=== PATIENT | female | born 1960 | race Caucasian/White ===

== ENCOUNTER 2025-09-22 18:59 | Emergency (ER) | payer OTHER, SELFPAY ==
--- OUTSIDE RECORDS SUMMARY | 2025-08-16 04:53 | XMS_ITS | Encounter Summary ---
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 200 [place] [address] Phone: tel: fax: Referral ID Status Reason Start Date Expiration Date Visits Re quested Visits Authorized [id number] 1 1 Encounter Details Date Type Department Care Team (Late st Contact Info) Description 08/16/2025 5:53 AM CDT - 08/16/2025 11:19 AM CDT Hospital Encounter [facility] MAIN OR [address] [place] [phone] Stephon Galindo D.O., M.B.A. [address] [place] [phone] Malignant Neoplasm Of Pancreas Body (HCC) Discharge Disposition: Home or Self Care Social History Tobacco Use Types Packs/Day Years Used Date Smoking Tobacco: Never Smokeless Tobacco: Never Alcohol Use Standard Drinks/Week Comments Not Currently 2 (1 standard drink = 0.6 oz pur e alcohol) [facility] Utilities Answer Date Recorded In the past 12 months has th e electric, gas, oil, or water company threatened to shut off services in your home? No 03/21/2025 Hunger Vital Sign Answer Date Recorded Within the past 12 months, y ou worried that your food would run out before you got the money to buy more. Never true 03/21/20 25 Within the past 12 months, t he food you bought just didn't last and you didn't have money to get more. Never true 03/21/2025 PRAPARE - Transportation Answer Date Re corded In the past 12 months, has l ack of transportation kept you from medical appointments or from getting medications? No 03/03 In the past 12 months, has l ack of transportation kept you from meetings, work, or from getting things needed for daily living? No 03/21/2025 Housing Stability Answer Date Recorded What is your living situation today? I have a [facility] place to live 03/21/2025 Comments No Sex and Gender Information Value Date Recorded Sex Assigned at Female 03/21/2025 4:39 PM CDT Legal Sex Female 10:00 PM INTERIOR BLOCK WIRER Gender Identity Female 03/21/2025 4:39 PM CDT Sexual Orientation Straight 03/21/2025 4: 39 PM CDT documented as of this encounter Last Filed Vital Signs Vital Sign Reading Time Taken Comments Blood Pressure 108/62 08/16/2025 10:45 AM CDT Pulse 63 08/16/2025 10:45 AM CDT Temperature 36.3 C (97.3 F) 08/16/2025 6:45 AM CDT Respiratory Rate 10 08/16/2025 10:2 0 AM CDT Oxygen Saturation 99% 08/16/2025 10: 45 AM CDT Inhaled Oxygen Concentration - - Weight 53.5 kg (117 lb 15.1 oz) 08/16/2025 6:54 AM CDT Height 175 cm (5' 8.9) 08/16/2025 6:45 AM CDT Body Mass Index 17.47 08/16/2025 6:45 AM CDT documented in this encounter Medications at Time of Discharge acetaminophen (TylenoL) 500 mg tablet Take 2 tablets (1,000 mg total) by mouth every 6 (six) hours as needed for pain (pain). Take 2 tablets up to four times daily for pain 04/12/2025 ascorbic acid, vitamin C, (Vitamin C) 1,000 mg CR tablet Take 1,000 mg by mouth daily. BERBERINE CHLORIDE ORAL Take 1 tablet by mouth daily before morning meal. Reports indication is blood sugar control cholecalciferol, vitD3,/vit K2 (VITAMIN D3-VITAMIN K2 ORAL) Take 1 tablet by mouth daily. Reports low vitamin D level in the past. Product documented was vitamin D3 6000 units, vitamin K2 100 mcg (did not confirm product) enoxaparin (Lovenox) 40 mg/0.4 mL injection Inject 0.4 mL (40 mg total) under the skin at bedtime. Blood clotting prevention. 10 mL 09/05/2025 12:12 PM INTERIOR BLOCK WIRER 09/05/2025 5 estradiol 0.03 %, testosterone 0.01 % in versabase lotion Apply 1 g topically as directed. Apply to legs or buttock area 6 days of the week. Cream contains an estrogen and testosterone (did not confirm strengths) fluticasone propionate (Flonase) 50 mcg/actuation nasal spray Administer 1 spray into each nostril 2 (two) times a day as needed for rhinitis or allergies. 03/07/2015 ibuprofen 200 mg tablet Take 400 mg by mouth every 6 (six) hours as needed for pain. MAGNESIUM ORAL Take 1 capsule by mouth at bedtime. Reports indication is to promote sleep melatonin 3 mg tablet Take 2 tablets (6 mg total) by mouth at bedtime as needed for sleep. 09/05/2025 OLANZapine (ZyPREXA) 5 mg tabletIndications :Malignant Neoplasm Of Pancreas Body (HCC) Take 1 tablet (5 mg total) by mouth at bedtime as needed (nausea, vomiting). May take dose early if needed. 30 tablet 3 04/12/2025 6 ondansetron (Zofran) 8 mg tabletIndications :Malignant Neoplasm Of Pancreas Body (HCC) Take 1 tablet (8 mg total) by mouth every 8 (eight) hours as needed for nausea or vomiting (unrelieved by prochlorperazine) . 30 tablet 3 04/12/2025 6 oxyCODONE (Roxicodone) 5 mg immediate release tabletIndications :Acute Pain Take 1 tablet (5 mg total) by mouth every 4 (four) hours as needed for severe pain or score 7-10 of 10 Indication: Acute Pain. 8 tablet 09/05/2025 12:12 PM INTERIOR BLOCK WIRER 09/05/2025 prasterone, DHEA, 10 mg tablet Take 1 tablet by mouth daily. prednisoLONE acetate (Pred Forte) 1 % ophthalmic suspension Administer 1 drop into both eyes 2 (two) times a day as needed (ocular rosacea symptoms). 06/04/2025 prochlorperazine (Compazine) 10 mg tabletIndications :Malignant Neoplasm Of Pancreas Body (HCC) Take 1 tablet (10 mg total) by mouth every 6 (six) hours as needed for nausea or vomiting. 30 tablet 3 04/12/2025 6 progesterone 50 mg oral capsule Take 50 mg by mouth at bedtime. sennosides (Senokot) 8.6 mg tablet Take 1 tablet (8.6 mg total) by mouth at bedtime. Constipation and/or if taking stool softeners. 09/05/2025 SHILAJIT ORAL Take 2 tablets by mouth daily. (2 gummies) simethicone 80 mg chewable tablet Chew 1 tablet (80 mg total) 4 (four) times a day as needed for flatulence. 09/05/2025 TURMERIC ORAL Take 1 capsule by mouth daily. valACYclovir (Valtrex) 1000 mg tablet as needed (cold sore outbreak). 03/20/2021 dexAMETHasone (Decadron) 4 mg tabletIndications :Malignant Neoplasm Of Pancreas Body (HCC) Take 2 tablets (8 mg total) by mouth daily. Take daily for 3 days on Days 2,3,4 of each cycle. 6 tablet 3 04/12/2025 5 FRUCTOOLIGOSACCHA RIDES ORAL Take by mouth daily. 03/15/2015 5 ibuprofen 200 mg tablet Take 3 tablets (600 mg total) by mouth every 8 (eight) hours as needed for mild pain or score 1-3 of 10. 04/12/2025 5 levothyroxine 25 mcg tablet 1 tablet in the morning on an empty stomach Orally Once a day; Duration: 30 day(s) 5 MAGNESIUM ORAL Take 360 mg by mouth daily before morning meal. magnesium oxide 500 mg capsule Take 1,000 mg by mouth at bedtime. 08/12/2016 methocarbamoL (Robaxin) 500 mg tablet Take 1 tablet (500 mg total) by mouth every 8 (eight) hours as needed for muscle spasms. 6 tablet 09/05/2025 12:12 PM INTERIOR BLOCK WIRER 09/05/2025 traMADoL (Ultram) 50 mg tabletIndications :Acute Pain Take 1 tablet (50 mg total) by mouth every 6 (six) hours as needed for severe pain or score 7-10 of 10 Indications: Acute Pain. 10 tablet 04/12/2025 4:44 PM CDT 04/12/2025 5 triamcinolone (Kenalog) 0.025 % cream See Admin Instructions. See attached for detailed directions. 06/06/2025 5 UNABLE TO FIND daily. T4/T3 04/22/2020 09/01/20 2 5 UNABLE TO FIND daily. 6000 iu vitamin d3 and vitamin K2 100 mcg 10/02/2020 5 UNABLE TO FIND PROGESTERONE 50mg 02/13/2016 5 UNABLE TO FIND as directed. Bioidentical estrogen cream 6 days a week 08/12/2016 5 UNABLE TO FIND biest 8:2 versa 4 mg, cream 08/12/2016 5 UNABLE TO FIND 200 each. Med Name: shilajit 5 UNABLE TO FIND Med Name: astaxanthin UNABLE TO FIND 500 each. Med Name: berberine up to 2 times per day UNABLE TO FIND Med Name: ashwafandha 5 UNABLE TO FIND 700 each. Med Name: tumeric 5 documented as of this encounter OR Notes * Op Note - Stephon Galindo D.O., M.B.A. - 08/16/2025 8:07 AM CDT Pre-op Diagnosis Malignant Neoplasm Of Pancreas Body (HCC) Post-op Diagnosis Malignant Neoplasm Of Pancreas Body (HCC) PROCEDURE(s) 1. Exploratory laparoscopy 2. Peritoneal lavage and cytology. FINDINGS No gross peritoneal disease. No surface liver lesions. COMPLICATIONS None DESCRIPTION OF PROCEDURE The patient was brought in to the operating room and placed on the operating table in supine position. General anesthesia was induced, and endotracheal intubation was performed. The patient voided oncall to the OR. Sequential compression devices were placed to the bilateral lower extremities. The patient received prophylactic medications as indicated. The abdomen was prepped and draped in the usual sterile fashion followed by a pause, identifying the correct patient, date, site, and procedure. A 5 ml skin incision was made in the left upper quadrant and a 5 mm Optiview type trocar was used to gain access to the abdomen under direct visualization. Pneumoperitoneum was established. The abdomen was inspected to confirm safe entry. One additional 5-mm ports were placed into the abdomen. The abdomen was systematically inspected for parietal and visceral peritoneal metastasis as described inthe findings section. We then irrigated the peritoneal cavity extensively with 1 L of sterile saline. This was agitated, reaspirated, and sent for formal cytologic review. No biopsies taken. Hemostasis was assured with electrocautery. Bilateral TAP blocks were done under direct visualization using liposomal bupivacaine as well as local infiltration. All trocars were removed under direct visualization. Skin incisions were closed with a running 4-0 Monocryl subcuticular suture. Dressings were applied.Patient tolerated the procedure well. A first dyer actively participated and was necessary for one or more of the following: opening, exposure and visualization during the case, maintaining hemostasis, wound closure resulting in itssafe and expeditious completion. Stephon Galindo D.O., M.B.A. * Brief Op Note - Sanchez Buchanan M.B., Claire, B.A.O. - 08/16/2025 8:07 AM CDT Pre-op Diagnosis Malignant Neoplasm Of Pancreas Body (HCC) Post-op Diagnosis Malignant Neoplasm Of Pancreas Body (HCC) Diagnostic laparoscopy, Transversus abdominus blocks and washings as per protocol - no complications Melvin Wright, Claire, B.A.O. documented in this encounter Plan of Treatment Upcoming Encounters Date Type Department Care Team (Latest Contact Info) Description 10/05/2025 3:45 PM INTERIOR BLOCK WIRER Clinical Communication Virtual Review in [place], [place] 200 [place] [phone] 10/11/2025 1:40 PM INTERIOR BLOCK WIRER Nurse Only Section of Infectious Diseases in [place], [place] [address] [place] [phone] Kaleigh Xiong APRN, C.N.P., M.S.N. [address] [place] [phone] 10/11/2025 3:00 PM INTERIOR BLOCK WIRER Lab Department of Infusion Therapy in [address] [phone] Kaleigh Xiong APRN, C.N.Efrain., M.S.N. [address] [place] [phone] 10/11/2025 4:00 PM INTERIOR BLOCK WIRER Appointment Department of Radiology, [facility], in [address] [phone] Kaleigh Xiong APRN, C.N.Efrain., M.S.N. [address] [place] [phone] 10/12/2025 10:30 AM INTERIOR BLOCK WIRER Office Visit Division of Hepatobiliary and Pancreas Surgery in [address] [phone] Sammie Gerber APRN, C.N.P., M.S.N. [address] [place] [phone] 10/12/2025 3:00 PM INTERIOR BLOCK WIRER Comprehensive Visit Department of Oncology in [address] [place] [phone] Jeffy James M.D. [address] [place] [phone] Scheduled Orders Name Type Priority Associated Diagnoses Orde r Schedule Cytology Non-BRICK WASHER Pathology and Cytology Routine Once for 1 Occurrences starting 08/16/2025 until 08/16/2025 documented as of this encounter Procedures Procedure Name Priority Date/Time Associated Diagnosis Comments ADULT OXYGEN THERAPY Routine 08/16/2025 8:52 AM CDT KRAS MUTATION ANALYSIS, PERITONEAL Routine 08/16/2025 8:19 AM CDT Malignant Neoplasm Of Pancreas Body (HCC) CYTOLOGY NON-BRICK WASHER Routine 08/16/2025 8:19 AM CDT Malignant Neoplasm Of Pancreas Body (HCC) CEA, PERITONEAL FLUID Routine 08/16/2025 8:19 AM CDT Malignant Neoplasm Of Pancreas Body (HCC) CA 19-9, PERITONEAL FLUID Routine 08/16/2025 8:19 AM CDT Malignant Neoplasm Of Pancreas Body (HCC) BLOCK - TRANSVERSUS ABDOMINIS PLANE 08/16/2025 7:18 AM CDT Malignant Neoplasm Of Pancreas Body (HCC) LAPAROSCOPIC EXPLORATION - DIAGNOSTIC 08/16/2025 7:18 AM CDT Malignant Neoplasm Of Pancreas Body (HCC) documented in this encounter Results * KRAS Somatic Mutation Analysis, Peritoneal Fluid (08/16/2025 8:19 AM CDT) Result Summary POSITIVE 08/21/2025 11:00 PM CDT DTL Result KRAS status: Mutant 08/21 11:00 PM CDT DTL Specimen Peritoneal 08/21/2025 11:00 PM CDT DTL Released By Jennifer Gottlieb M.D. 08/21/2025 11:00 PM CDT DTL Method This test uses DNA extracted from cells shed into the peritoneum to evaluate for the presence of KRAS (G12A, G12C, G12D, G12R, G12S, G12V, G13D, Q61K, Q61L, Q61R, Q61H, and A146T) mutations using droplet digital PCR analysis. 08/21/2025 11:00 PM CDT DTL Disclaimer Test results should be interpreted in the context of clinical findings, family history, and other laboratory data. If results obtained do not match other clinical or laboratory findings, please contact the laboratory for possible interpretation. Misinterpretation of results may occur if the information provided is inaccurate or incomplete. Rare polymorphisms exist that could lead to false-negative or false-positive results. This assay was designed to detect KRAS codon 12, 13, 61, and 146 mutations. A negative result does not rule out the presence of a mutation that may be present but below the limit of detection for this assay (approximately 0.1-0.5%). TEST CLASSIFICATION This test was developed and its performance characteristics determined by [facility] in a manner consistent with CLIA requirements. This test has not been cleared or approved by the U.S. Food and Drug Administration. 08/21/2025 11:00 PM CDT DTL Interpretation The results of this assay should be interpreted in the context of other clinicopathologic findings. In the context of molecular peritoneal staging of pancreatic ductal adenocarcinoma during staging laparoscopy with peritoneal washings and cytology, the presence of detectable peritoneal fluid mutant cfKRAS (positive test, non-G2C) has been associated with clinically positive laparoscopic findings (gross metastases and/or positive peritoneal cytology) and elevated peritoneal fluid CA19-9 and/or CEA, and may portend an increased risk of residual/recurrent pancreatic cancer metastases within the peritoneal cavity. However, a positive result does not entirely rule in peritoneal dissemination. REFERENCES 1. J Am Abdullahi Surg. 2020 Felix;233(1):73-80 (PMID [id number]) A portion of the testing process was performed at [facility] [id number]. 08/21/2025 11:00 PM CDT DTL Fluid (Peritoneal Fluid) 08/16/2025 8:19 AM CDT us Stephon Galindo D.O., M.B.A. LAB GENETIC TEST ING Final Result [facility] [address] DTL 200 [facility] 200 [place] [address] * Cytology Non-BRICK WASHER (08/16/2025 8:19 AM CDT) 08/19/2025 11:51 AM CDT DTL Participated in the Interpretation Rafaela Naranjo M.D. -Pathology Resident 08/19/2025 11:51 AM CDT DTL Report electronically signed by Mati Burciaga M.D., Ph.D. I verify that I have examined all relevant slides/materia ls for the specimen(s) and rendered or confirmed the diagnosis. 08/19/2025 11:51 AM CDT DTL Gross Description Received 750 cc of clear fluid. 08/19/2025 11:51 AM CDT DTL Source A. Peritoneal, fluid 08/19/2025 11:51 AM CDT DTL Interpretation A. Peritoneal, fluid (ThinPrep/cell block): Negative for malignancy. Immunohistoche mical stains were performed at [facility] (block A1). Claudin-4 and MOC31 stains are negative. Calretinin and D2-40 stains highlight a few mesothelial cells . Mucicarmine stain is negative. 08/19/2025 11:51 AM CDT DTL Fluid (Peritoneal Fluid) 08/16/2025 8:19 AM CDT Stephon Galindo D.O. M.B.A. LAB SURG PATH OR DERABLES Final Result [facility] [address] [place] 200 [facility] 200 [place] [address] * Carcinoembryonic Antigen (CEA), Peritoneal Fluid (08/16/2025 8:19 AM CDT) CEA, Peritoneal Fluid <0.7 ng/mL 08/16/2025 2:38 PM CDT [facility] Comment: A peritoneal fluid CEA concentration = or < 6.0 ng/mL does not rule out a malignant cause of the ascites or the presence of micro-metastasis. In a study of 137 patients presenting with ascites, malignancies such as lymphoma, mesothelioma, leukemia, melanoma and hepatocellular carcinoma, routinely had CEA concentrations = or < 6.0 ng/mL. In addition, 52% of patients with malignancies known to secrete CEA in serum (pancreatic, breast, gastric, colon, bladder, cholangiocarcinoma, gynecological cancers and peritoneal carcinomatosis) had a CEA level = or < 6.0 ng/mL. This result should be correlated with serum levels to determine if CEA is elevated in serum. Peritoneal washings are not an approved specimen type for this assay. Therefore, the interpretive comments for peritoneal fluid do not apply when peritoneal washings are the collected specimen type. Tumor marker tests are not specific for malignancy. This test result should be interpreted in the context of clinical presentation, imaging and cytology findings. ----ADDITIONAL INFORMATION---- This test has been modified from the wall mirror department supervisor's instructions. Its performance characteristics were determined by [facility] in a manner consistent with CLIA requirements. This test has not been cleared or approved by the U.S. Food and Drug Administration. The testing method is an immunoenzymatic assay manufactured by [employer] and performed on the [employer] DxI 800. Values obtained with different assay methods or kits may be different and cannot be used interchangeably. Test results cannot be interpreted as absolute evidence for the presence or absence of malignant disease. Site Peritoneal fluid 08/16/2025 2:38 PM CDT [facility] Fluid (Peritoneal Fluid) 08/16/2025 8:19 AM CDT Stephon Galindo D.O., M.B.A. LAB BODY FLUIDS AND STOOLS ORDERABLES Final Result [facility] [address] [place] [address] [facility] [address] [place] [address] * Carbohydrate Antigen 19-9 (CA 19-9), Peritoneal Fluid (08/16/2025 8:19 AM CDT) CA 19-9, Peritoneal Fluid <5 U/mL 08/16/2025 2:37 PM CDT [facility] Comment: A peritoneal fluid CA19-9 concentration = or < 32 U/mL does not rule-out a malignant cause of the ascites or the presence of micro-metastasis. In a study of 137 patients presenting with ascites, malignancies known not to secrete CA19-9 in serum routinely had CA19-9 concentrations = or < 32 U/mL in the peritoneal fluid. In addition, 51% of patients with malignancies known to secrete CA19-9 in serum (pancreatic, breast, gastric, colon, bladder, cholangiocarcinoma, gynecological cancers, peritoneal carcinomatosis, and hepatocellular carcinoma) had a CA19-9 level = or < 32 U/mL. This result should be correlated with serum levels to determine if CA19-9 is elevated in serum. A small percentage of the population does not synthesize CA19-9, or synthesizes low concentrations of the CA19-9 carbohydrate antigen. A low value in these individuals may be uninformative. Peritoneal washings are not an approved specimen type for this assay. Therefore, the interpretive comments for peritoneal fluid do not apply when peritoneal washings are the collected specimen type. Tumor marker tests are not specific for malignancy. This test result should be interpreted in the context of clinical presentation, imaging and cytology findings. ----ADDITIONAL INFORMATION---- This test has been modified from the wall mirror department supervisor's instructions. Its performance characteristics were determined by [facility] in a manner consistent with CLIA requirements. This test has not been cleared or approved by the U.S. Food and Drug Administration. The testing method is an immunoenzymatic assay manufactured by [employer] and performed on the [employer] DxI 800. Values obtained with different assay methods or kits may be different and cannot be used interchangeably. Test results cannot be interpreted as absolute evidence for the presence or absence of malignant disease. Site Peritoneal fluid 08/16/2025 2:37 PM T [facility] Fluid (Peritoneal Fluid) 08/16/2025 8:19 AM CDT us Stephon Galindo D.O. M.B.A. LAB BODY FLUIDS AND STOOLS ORDERABLES Final Result [facility] [address] [place] [address] [facility] [address] 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 Do not use if given in last 6 hours, Restriction Criteria (Pharmacy will review and approve if criteria met): Unable to take or tolerate medications administered via the enteral route or orally (not just NPO) acetaminophen tablet 1,000 mg (TylenoL) 1,000 mg, oral, Once as needed, other, If patient has not received in the previous 6 hours, Starting on Fri08/16/25 at 0852, For 1 dose, PACU (only), Oral unless RASS less than -1 or nausea/vomiting. Do not use if given in last 6 hours acetaminophen tablet 1,000 mg (TylenoL) 1,000 mg, oral, Once, On Fri08/16/25 at 0645, For 1 dose, Pre-Op, Erp Pm, PreOp with sips Given 08/16/2025 6:56 AM CDT 1,000 mg aprepitant injection 32 mg (Aponvie) 32 mg, intravenous, Once, On Fri08/16/25 at 0645, For 1 dose, Pre-Op, Restriction Criteria (Pharmacy will review and approve if criteria met): Meet restriction criteria Given 08/16/2025 6:56 AM CDT 32 mg chlorhexidine 0.12 % mouthwash 15 mL (Peridex) 15 mL, swish & spit, Once as needed, Chlorhexidine mouthwash (Peridex) should be given if patient did not complete oral care, if completion is greater than 4 hours prior to surgery or procedure start time and they do not have the opportunity to brush their teeth now (or at this time)., Starting on Fri08/16/25 at 0627, For 1 dose, Pre-Op, Instruct patient to swish entire content of Chlorhexidine 0.12% mouthwash (PERIDEX) 15 mL cup for 30 seconds, then spit, swish & spit. If patient is at risk for aspiration, apply Chlorhexidine 0.12% mouthwash to a swab and gently swab the patient's teeth and gums. Ensure swab is not oversaturated. heparin flush 500-1,000 Units 500-1,000 Units, intra-catheter, During hospitalization, line care, Prior to discharge, Starting on Fri08/16/25 at 0654, For 1 dose, Implanted Vascular Access Device (IVAD) Venous Non-Valved: flush 5 mL (500 units) per port/lumen following saline flush prior to discharge. Given 08/16/2025 11:04 AM CDT 500 Units ibuprofen tablet 400 mg 400 mg, oral, Once, On Fri08/16/25 at 1115, For 1 dose, PACU (only), Take with food or milk if GI disturbances occur with use. Given 08/16/2025 10:54 AM CDT 400 mg Lactated Ringer's bolus 1,000 mL 1,000 mL, intravenous, at 1,000 mL/hr, Administer over 1 Hours, Once, On Fri08/16/25 at 1045, For 1 dose, Pre-Op New Bag 08/16/2025 10:41 AM CDT 1,000 mL 1000 mL/hr Lactated Ringer's 20 mL/hr, intravenous, Continuous, Starting on Fri08/16/25 at 0900, PACU & Post-Op New Bag 08/16/2025 9:54 AM CDT 20 mL/hr 20 mL/hr metoprolol tablet 12.5 mg (Lopressor) 12.5 mg, oral, Once as needed, if patient did not take their last scheduled dose of beta marni prior to arrival, Starting on Fri08/16/25 at 0627, For 1 dose, Pre-Op, Do not give if patient does not take scheduled beta blockers, if patient is receiving intravenous vasopressors or inotropes, if heart rate is less than 50 beats per minute, if systolic blood pressure is less than 90 mmHg or if diastolic blood pressure is less than 40 mmHg, or if patient has an allergy to metoprolol. scopolamine base 1 mg over 3 days 1 patch (Transderm-Scop) 1 patch, transdermal, Administer over 24 Hours, Once as needed, for female patients <70yo, and males < 60 yo, Starting on Fri08/16/25 at 0627, For 1 dose, Pre-Op, Contains 1.5 mg to deliver 1 mg/72 hours., Indications: prevention of motion sickness, prevention of post-operative nausea and vomiting, for female patients , and males < 60 yoIndications:prevent ion of motion sickness,prevention of post-operative nausea and vomiting,for female patients , and males < 60 yo Medication Applied 08/16/2025 6:56 AM CDT 1 patch Behind Right Ear sodium chloride 0.9 % injection 10 mL 10 mL, intravenous, As needed, line care, Starting on Fri08/16/25 at 0627, Pre-Op, Peripheral Intravenous Catheter and Rapid Infusion Catheter, prior to blood sampling, post blood transfusion or post blood sampling Given 08/16/2025 11:02 AM CDT 10 mL sodium chloride 0.9 % injection 10-20 mL 10-20 mL, intravenous, During hospitalization, line care, Prior to discharge, Starting on Fri08/16/25 at 0654, For 1 dose, Implanted Vascular Access Device (IVAD) Venous Non-Valved: Flush 10 mL per port/lumen followed by heparin flush prior to discharge. sodium chloride 0.9 % injection 3 mL 3 mL, intravenous, As needed, line care, Starting on Fri08/16/25 at 0627, Pre-Op, Prior to and following infusion and between multiple consecutive infusions: sodium chloride 0.9 % injection sodium chloride 0.9 % injection 3 mL 3 mL, intravenous, Every 12 hours scheduled, First dose on Fri08/16/25 at 0900, Pre-Op, Peripheral Intravenous Catheter and Rapid Infusion Catheter, when no infusion to maintain patency documented in this encounter Active and Recently Administered Medications Times are shown in CDT. Scheduled Medication Order 08/14/2025 08/15/2025 08/16/2025 acetaminophen tablet 1,000 mg (TylenoL) 1,000 mg, oral, Once, On Fri08/16/25 at 0645, For 1 dose, Pre-Op 0645 (Due) acetaminophen tablet 1,000 mg (TylenoL) (COMPLETED) 1,000 mg, oral, Once, On Fri08/16/25 at 0645, For 1 dose, Pre-Op, Erp Pm, PreOp with sips 0656 (Given - Provid er: Julieta Gutierrez R.N.) aprepitant injection 32 mg (Aponvie) (COMPLETED) 32 mg, intravenous, Once, On Fri08/16/25 at 0645, For 1 dose, Pre-Op, Restriction Criteria (Pharmacy will review and approve if criteria met): Meet restriction criteria 0656 (Given - Provid er: Julieta Gutierrez R.N.) ceFAZolin injection 2,000 mg (Ancef) (COMPLETED) 2,000 mg (rounded from 1,392.5 mg = 25 mg/kg 55.7 kg), intravenous, Once, On Fri08/16/25 at 0715, For 1 dose, Intra-Op, Preoperatively within 1 hour prior to surgical incision For immediate IV push administration, reconstitute vial per IVAG or package insert instructions. See IVAG for administration guidelines., Drug Monitoring Program: Pharmacist to adjust medication dosing based on indication and drug clearance factors., Indications: Prophylaxis, surgical 0804 (Given - Provid er: Singh Garcia R.N., C.S.C.) heparin (porcine) injection 5,000 Units (COMPLETED) 5,000 Units, subcutaneous, Once, On Fri08/16/25 at 0715, For 1 dose, Intra-Op, Administer prior to induction of anesthesia. 0752 (Given - Provid er: Singh Garcia R.N., C.S.C.) ibuprofen tablet 400 mg (COMPLETED) 400 mg, oral, Once, On Fri08/16/25 at 1115, For 1 dose, PACU (only), Take with food or milk if GI disturbances occur with use. 1054 (Given - Provid er: Dayana Guevara, R.N.) Lactated Ringer's bolus 1,000 mL 1,000 mL, intravenous, at 1,000 mL/hr, Administer over 1 Hours, Once, On Fri08/16/25 at 1045, For 1 dose, Pre-Op 1041 (New Bag - Prov ider: Dayana Guevara, R.N.) sodium chloride 0.9 % injection 3 mL 3 mL, intravenous, Every 12 hours scheduled, First dose on Fri08/16/25 at 0900, Pre-Op, Peripheral Intravenous Catheter and Rapid Infusion Catheter, when no infusion to maintain patency 0900 (Due) sodium chloride 0.9 % injection 3 mL 3 mL, intravenous, Every 12 hours scheduled, First dose on Fri08/16/25 at 0900, Pre-Op, Peripheral Intravenous Catheter and Rapid Infusion Catheter, when no infusion to maintain patency 0900 (Due) Continuous Medication Order 08/14/2025 08/15/2025 08/16/2025 Lactated Ringer's 20 mL/hr, intravenous, Continuous, Starting on Fri08/16/25 at 0900, PACU & Post-Op 0954 (New Bag - Prov ider: Dayana Guevara REstelleNEstelle) PRN Medication Order 08/14/2025 08/15/2025 08/16/2025 acetaminophen injection 1,000 mg(Linked Group 1) 1,000 mg, intravenous, at 400 mL/hr, Administer over 15 Minutes, Once as needed, other, If patient has not received in previous 6 hours, Starting on Fri08/16/25 at 0852, For 1 dose, PACU (only), Oral unless RASS less than -1 or nausea/vomiting. Do not use if given in last 6 hours, Restriction Criteria (Pharmacy will review and approve if criteria met): Unable to take or tolerate medications administered via the enteral route or orally (not just NPO) acetaminophen tablet 1,000 mg (TylenoL)(Linked Group 1) 1,000 mg, oral, Once as needed, other, If patient has not received in the previous 6 hours, Starting on Fri08/16/25 at 0852, For 1 dose, PACU (only), Oral unless RASS less than -1 or nausea/vomiting. Do not use if given in last 6 hours BUPivacaine liposome (PF) 20 mL, BUPivacaine 30 mL 50 mL injection (CANCELED) As needed, Starting on Fri08/16/25 at 0828, Intra-Op 0828 (Given - Provid er: Melvin Pitt, B.Maria Dolores., B.A.O.) caffeine tablet 200 mg 200 mg, oral, Once as needed, headaches, to prevent caffeine withdrawal, Starting on Fri08/16/25 at 0627, For 1 dose, Pre-Op, With sips chlorhexidine 0.12 % mouthwash 15 mL (Peridex) 15 mL, swish & spit, Once as needed, Chlorhexidine mouthwash (Peridex) should be given if patient did not complete oral care, if completion is greater than 4 hours prior to surgery or procedure start time and they do not have the opportunity to brush their teeth now (or at this time)., Starting on Fri08/16/25 at 0627, For 1 dose, Pre-Op, Instruct patient to swish entire content of Chlorhexidine 0.12% mouthwash (PERIDEX) 15 mL cup for 30 seconds, then spit, swish & spit. If patient is at risk for aspiration, apply Chlorhexidine 0.12% mouthwash to a swab and gently swab the patient's teeth and gums. Ensure swab is not oversaturated. fentaNYL injection 25 mcg (Sublimaze) 25 mcg, intravenous, Every 2 min PRN, For pain 4 or greater (maximum 100 mcg). If max dose of Fentanyl is reached and if pain is greater than 4, discontinue Fentanyl: give Hydromorphone, Starting on Fri08/16/25 at 0852, PACU (only) fentaNYL injection 25 mcg (Sublimaze) 25 mcg, intravenous, Every 2 min PRN, moderate pain or score 4-6 of 10, severe pain or score 7-10 of 10, Starting on Fri08/16/25 at 0627, Pre-Op, Up to maximum total dose of 200 mcg granisetron (PF) injection 1 mg (KytriL) 1 mg, intravenous, Once as needed, nausea, vomiting, Starting on Fri08/16/25 at 0627, For 1 dose, Pre-Op haloperidol lactate injection 2 mg (HaldoL) 2 mg, intravenous, Every 10 min PRN, agitation, delirium, hallucinations, to max of 5 mg, Starting on Fri08/16/25 at 0852, PACU (only), Call me if delirium/agitation continues after 5 mg iv total dose heparin flush 500-1,000 Units (COMPLETED) 500-1,000 Units, intra-catheter, During hospitalization, line care, Prior to discharge, Starting on Fri08/16/25 at 0654, For 1 dose, Implanted Vascular Access Device (IVAD) Venous Non-Valved: flush 5 mL (500 units) per port/lumen following saline flush prior to discharge. 1104 (Given - Provid er: Niurka Ruby R.N.) HYDROmorphone (PF) injection 0.2 mg (Dilaudid) 0.2 mg, intravenous, Every 5 min PRN, moderate pain or score 4-6 of 10, severe pain or score 7-10 of 10, Starting on Fri08/16/25 at 0852, PACU (only), Up to maximum total dose of 2 mg ipratropium-albuteroL 0.5-2.5 mg/3 mL nebulizer solution 3 mL (DuoNeb) 3 mL, nebulization, Once as needed, shortness of breath, Starting on Fri08/16/25 at 0852, For 1 dose, PACU (only) ipratropium-albuteroL 0.5-2.5 mg/3 mL nebulizer solution 3 mL (DuoNeb) 3 mL, nebulization, Once as needed, wheezing, shortness of breath, Starting on Fri08/16/25 at 0627, For 1 dose, Pre-Op ketamine injection 10 mg (Ketalar) 10 mg, intravenous, Once as needed, Refractory moderate pain or score 4-6 of 10, Refractory severe pain score 7-10 of 10 after fentanyl or hydromorphone administration, Pain sedation mismatch AND RASS less than -1, Starting on Fri08/16/25 at 0852, For 1 dose, PACU (only) labetaloL injection 20 mg 20 mg, intravenous, Every 15 min PRN, high blood pressure, for SBP > 170 mm Hg to a max dose of 120 mg, Starting on Fri08/16/25 at 0852, PACU (only), Follow institution's IV administration guidelines metoprolol tablet 12.5 mg (Lopressor) 12.5 mg, oral, Once as needed, if patient did not take their last scheduled dose of beta marni prior to arrival, Starting on Fri08/16/25 at 0627, For 1 dose, Pre-Op, Do not give if patient does not take scheduled beta blockers, if patient is receiving intravenous vasopressors or inotropes, if heart rate is less than 50 beats per minute, if systolic blood pressure is less than 90 mmHg or if diastolic blood pressure is less than 40 mmHg, or if patient has an allergy to metoprolol. midazolam (PF) injection 2 mg (Versed) 2 mg, intravenous, Once as needed, anxiety, Starting on Fri08/16/25 at 0627, For 1 dose, Pre-Op naloxone injection 0.2 mg (Narcan) 0.2 mg, intravenous, As needed, respiratory depression, Starting on Fri08/16/25 at 0859, For RASS Score -4 or less, respiratory rate of less than 8 breaths/min. Notify provider/service and rapid response team (if available at institution). ondansetron (PF) injection 4 mg (Zofran) 4 mg, intravenous, Every 6 hours PRN, nausea, vomiting, Starting on Fri08/16/25 at 0859, For 48 hours, Reassess for nausea or vomiting after at least 10 minutes. If nausea or vomiting persists administer next ordered antiemetic medications (order for antiemetic medication administration ondansetron then haloperidol then prochlorperazine). oxyCODONE IR tablet 5 mg (Roxicodone) 5 mg, oral, Once as needed, For pain 4 or greater, Starting on Fri08/16/25 at 0852, For 1 dose, PACU (only) prochlorperazine injection 5 mg (Compazine) 5 mg, intravenous, Every 6 hours PRN, nausea, vomiting, Starting on Fri08/16/25 at 0859, For 48 hours, RASS must be -2 or higher to administer. Reassess for nausea/vomiting after at least 10 minutes. If nausea or vomiting persists administer next ordered antiemetic medications (order for antiemetic medication administration ondansetron then haloperidol then prochlorperazine) scopolamine base 1 mg over 3 days 1 patch (Transderm-Scop) 1 patch, transdermal, Administer over 24 Hours, Once as needed, for female patients <70yo, and males < 60 yo, Starting on Fri08/16/25 at 0627, For 1 dose, Pre-Op, Contains 1.5 mg to deliver 1 mg/72 hours., Indications: prevention of motion sickness, prevention of post-operative nausea and vomiting, for female patients , and males < 60 yo 0656 (Medication Chalino lied - Provider: Julieta Gutierrez R.N.)1119 (Due: Medication Removed - Provider: Discharge Provider, Automatic - Comment: Time automatically adjusted from order being discontinued) sodium chloride 0.9 % injection 10 mL 10 mL, intravenous, As needed, line care, Starting on Fri08/16/25 at 0627, Pre-Op, Peripheral Intravenous Catheter and Rapid Infusion Catheter, prior to blood sampling, post blood transfusion or post blood sampling sodium chloride 0.9 % injection 10 mL 10 mL, intravenous, As needed, line care, Starting on Fri08/16/25 at 0627, Pre-Op, Peripheral Intravenous Catheter and Rapid Infusion Catheter, prior to blood sampling, post blood transfusion or post blood sampling 1102 (Given - Provid er: Niurka Ruby R.N.) sodium chloride 0.9 % injection 10-20 mL 10-20 mL, intravenous, During hospitalization, line care, Prior to discharge, Starting on Fri08/16/25 at 0654, For 1 dose, Implanted Vascular Access Device (IVAD) Venous Non-Valved: Flush 10 mL per port/lumen followed by heparin flush prior to discharge. sodium chloride 0.9 % injection 3 mL 3 mL, intravenous, As needed, line care, Starting on Fri08/16/25 at 0627, Pre-Op, Prior to and following infusion and between multiple consecutive infusions: sodium chloride 0.9 % injection sodium chloride 0.9 % injection 3 mL 3 mL, intravenous, As needed, line care, Starting on Fri08/16/25 at 0627, Pre-Op, Prior to and following infusion and between multiple consecutive infusions: sodium chloride 0.9 % injection sodium citrate-citric acid solution 30 mL (Cytra-2) 30 mL, oral, Once as needed, for active nausea, Starting on Fri08/16/25 at 0627, For 1 dose, Pre-Op, 30 minutes pre-op Linked Groups Order Group 1: acetaminophen tablet 1,000 mg (TylenoL)Jump to med 1,000 mg, oral, Once as needed, other, If patient has not received in the previous 6 hours, Starting on Fri08/16/25 at 0852, For 1 dose, PACU (only), Oral unless RASS less than -1 or nausea/vomiting. Do not use if given in last 6 hours Or acetaminophen injection 1,000 mgJump to med 1,000 mg, intravenous, at 400 mL/hr, Administer over 15 Minutes, Once as needed, other, If patient has not received in previous 6 hours, Starting on Fri08/16/25 at 0852, For 1 dose, PACU (only), Oral unless RASS less than -1 or nausea/vomiting. Do not use if given in last 6 hours, Restriction Criteria (Pharmacy will review and approve if criteria met): Unable to take or tolerate medications administered via the enteral route or orally (not just NPO) documented in this encounter Care Teams [employer] Relationship Specialty Start Date End Date Elsewhere, Pcp PCP - General Internal Medicine 04/12/25 documented as of this encounter
--- OUTSIDE RECORDS SUMMARY | 2025-08-16 06:25 | XMS_ITS | Encounter Summary ---
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 [address] [place] [phone] Phone: tel: fax: Referral ID Status Reason Start Date Expiration Date Visits Re quested Visits Authorized [id number] 1 1 Encounter Details Date Type Department Care Team (Late st Contact Info) Description 08/16/2025 7:25 AM CDT - 08/16/2025 9:12 AM CDT Surgery [facility]ST [facility] MAIN OR [address] [place] [phone] Stephon Galindo D.O., M.B.A. [address] [place] [phone] LAPAROSCOPIC EXPLORATION, DIAGNOSTIC, peritoneal washings. Social History Tobacco Use Types Packs/Day Years Used Date Smoking Tobacco: Never Smokeless Tobacco: Never Alcohol Use Standard Drinks/Week Comments Not Currently 2 (1 standard drink = 0.6 oz pur e alcohol) [facility] Utilities Answer Date Recorded In the past 12 months has th e electric, [employer], oil, or water [employer] threatened to shut off services in your [...] your living situation today? I have a [facility] place to live 03/21/2025 Comments No Sex and Gender Information Value Date Recorded Sex Assigned at Female 03/21/2025 4:39 PM CDT Legal Sex Female 10:00 PM KIER PLEATER Gender Identity Female 03/21/2025 4:39 PM CDT Sexual Orientation Straight 03/21/2025 4: 39 PM CDT documented as of this encounter Last Filed Vital Signs Vital Sign Reading Time Taken Comments Blood Pressure 82/50 08/16/2025 9:12 AM CDT Pulse 55 08/16/2025 9:12 AM CDT Temperature 36.3 C (97.3 F) 08/16/2025 6:45 AM CDT Respiratory Rate 14 08/16/2025 9:12 AM CDT Oxygen Saturation 100% 08/16/2025 9:00 AM CDT Inhaled Oxygen Concentration - - [...] clotting prevention. 10 mL 09/05/2025 12:12 PM KIER PLEATER 09/05/2025 5 estradiol 0.03 %, testosterone 0.01 [...] Acute Pain. 8 tablet 09/05/2025 12:12 PM KIER PLEATER 09/05/2025 prasterone, DHEA, 10 mg tablet Take [...] mg by mouth daily before morning meal. 5 magnesium oxide 500 mg capsule Take 1,000 mg by mouth at bedtime. 08/12/2016 5 methocarbamoL (Robaxin) 500 mg tablet Take 1 tablet (500 mg total) by mouth every 8 (eight) hours as needed for muscle spasms. 6 tablet 09/05/2025 12:12 PM KIER PLEATER 09/05/2025 5 traMADoL (Ultram) 50 mg tabletIndications :Acute Pain [...] were applied.Patient tolerated the procedure well. A welder first class actively participated and was necessary for one [...] (Latest Contact Info) Description 10/05/2025 3:45 PM KIER PLEATER Clinical Communication Virtual Review in [place], [place] [address] [place] [phone] 10/11/2025 1:40 PM KIER PLEATER Nurse Only Section of Infectious Diseases in [address] [phone] Kaleigh Xiong APRN, C.N.P., M.S.N. [address] [place] [phone] 10/11/2025 3:00 PM KIER PLEATER Lab Department of Infusion Therapy in [address] [phone] Kaleigh Xiong APRN, C.N.P., M.S.N. [address] [place] [phone] 10/11/2025 4:00 PM KIER PLEATER Appointment Department of Radiology, [facility], in [address] [phone] Kaleigh Xiong APRN C.N.P., M.S.N. [address] [place] [phone] 10/12/2025 10:30 AM KIER PLEATER Office Visit Division of Hepatobiliary and Pancreas Surgery in [address] [phone] Sammie Gerber APRN, C.N.P., M.S.N. [address] [place] [phone] 10/12/2025 3:00 PM KIER PLEATER Comprehensive Visit Department of Oncology in [address] [phone] Jeffy James M.D. [address] [place] [phone] Scheduled Orders Name Type Priority Associated Diagnoses Orde r Schedule Cytology Non-MOSQUITO SPRAYER Pathology and Cytology Routine Once for 1 Occurrences starting 08/16/2025 until 08/16/2025 documented as of this encounter Procedures Procedure Name Priority Date/Time Associated Diagnosis Comments ADULT OXYGEN THERAPY Routine 08/16/2025 8:52 AM CDT KRAS MUTATION ANALYSIS, PERITONEAL Routine 08/16/2025 8:19 AM CDT Malignant Neoplasm Of Pancreas Body (HCC) CYTOLOGY NON-MOSQUITO SPRAYER Routine 08/16/2025 8:19 AM CDT Malignant Neoplasm [...] developed and its performance characteristics determined by [facility] in a manner consistent with CLIA requirements. [...] dissemination. REFERENCES 1. J Am Abdullahi Surg. 2020;233(1):73-80 (PMID [id number]) A portion of the testing process was performed at [facility] site [id number]. 08/21/2025 11:00 PM CDT DTL Fluid (Peritoneal Fluid) 08/16/2025 8:19 AM CDT us Stephon Galindo D.O. M.B.A. LAB GENETIC TEST ING Final Result [facility] [address] [place] [address], [place] DTL [address] [place] [address] * Cytology Non-MOSQUITO SPRAYER (08/16/2025 8:19 AM CDT) 08/19/2025 11:51 AM [...] malignancy. Immunohistoche mical stains were performed at [facility] (block A1). Claudin-4 and MOC31 stains are negative. Calretinin and D2-40 stains highlight a few mesothelial cells . Mucicarmine stain is negative. 08/19/2025 11:51 AM CDT DTL Fluid (Peritoneal Fluid) 08/16/2025 8:19 AM CDT Stephon Galindo D.O., M.B.A. LAB SURG PATH OR DERABLES Final Result [facility] [address] [place] [address], [facility] DTL [address] [place] [address] * Carcinoembryonic Antigen (CEA), Peritoneal Fluid (08/16/2025 8:19 AM CDT) CEA, Peritoneal Fluid <0.7 ng/mL 08/16/2025 2:38 PM CDT [facility] Comment: A peritoneal fluid CEA concentration = [...] This test has been modified from the cost recorder's instructions. Its performance characteristics were determined by [facility] in a manner consistent with CLIA requirements. This test has not been cleared or approved by the U.S. Food and Drug Administration. The testing method is an immunoenzymatic assay manufactured by [employer] and performed on the Agilyx DxI 800. Values obtained with different assay methods or kits may be different and cannot be used interchangeably. Test results cannot be interpreted as absolute evidence for the presence or absence of malignant disease. Site Peritoneal fluid 08/16/2025 2:38 PM CDT [facility] Fluid (Peritoneal Fluid) 08/16/2025 8:19 AM CDT Stephon Galindo D.O., M.B.A. LAB BODY FLUIDS AND STOOLS ORDERABLES Final Result [facility] [address] [place] [address] [facility] [address] [place] [address] * Carbohydrate Antigen 19-9 (CA 19-9), Peritoneal Fluid (08/16/2025 8:19 AM CDT) CA 19-9, Peritoneal Fluid <5 U/mL 08/16/2025 2:37 PM CDT [facility] Comment: A peritoneal fluid CA19-9 concentration = [...] This test has been modified from the cost recorder's instructions. Its performance characteristics were determined by [facility] in a manner consistent with CLIA requirements. This test has not been cleared or approved by the U.S. Food and Drug Administration. The testing method is an immunoenzymatic assay manufactured by [employer] and performed on the Agilyx DxI 800. Values obtained with different assay methods or kits may be different and cannot be used interchangeably. Test results cannot be interpreted as absolute evidence for the presence or absence of malignant disease. Site Peritoneal fluid 08/16/2025 2:37 PM CDT [facility] Fluid (Peritoneal Fluid) 08/16/2025 8:19 AM CDT us Stephon Galindo D.O., M.B.A. 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) documented in this encounter Admitting Diagnoses Diagnosis [...] Fri08/16/25 at 0645, For 1 dose, Pre-Op, Glassine Machine Tender, PreOp with sips Given 08/16/2025 6:56 AM CDT 1,000 mg aprepitant injection 32 mg (Aponvie) 32 mg, intravenous, Once, On Fri08/16/25 at 0645, For 1 dose, Pre-Op, Restriction Criteria (Pharmacy will review and approve if criteria met): Meet restriction criteria Given 08/16/2025 6:56 AM CDT 32 mg BUPivacaine liposome (PF) 20 mL, BUPivacaine 30 mL 50 mL injection As needed, Starting on Fri08/16/25 at 0828, Intra-Op Given 08/16/2025 8:28 AM CDT 50 mL Abdominal Tissue chlorhexidine 0.12 % mouthwash 15 mL (Peridex) [...] female patients , and males < 60 yoIndications:preven tion of motion sickness,prevention of post-operative nausea and [...] Fri08/16/25 at 0645, For 1 dose, Pre-Op, Glassine Machine Tender, PreOp with sips 0656 (Given - Provid er: Julieta Gutierrez R.Chris.) aprepitant injection 32 mg (Aponvie) (COMPLETED) 32 [...] surgical 0804 (Given - Provid er: Singh Garcia, R.N., C.S.C.) heparin (porcine) injection 5,000 Units (COMPLETED) 5,000 Units, subcutaneous, Once, On Fri08/16/25 at 0715, For 1 dose, Intra-Op, Administer prior to induction of anesthesia. 0752 (Given - Provid er: Singh Garcia, R.N., C.S.C.) ibuprofen tablet 400 mg (COMPLETED) 400 mg, oral, Once, On Fri08/16/25 at 1115, For 1 dose, PACU (only), Take with food or milk if GI disturbances occur with use. 1054 (Given - Provid er: Dayana Guevara R.N.) Lactated Ringer's bolus 1,000 mL 1,000 mL, intravenous, at 1,000 mL/hr, Administer over 1 Hours, Once, On Fri08/16/25 at 1045, For 1 dose, Pre-Op 1041 (New Bag - Prov ider: Dayana Mays, R.N.) sodium chloride 0.9 % injection 3 [...] 0954 (New Bag - Prov ider: Dayana R Yadiras, R.N.) PRN Medication Order 08/14/2025 08/15/2025 08/16/2025 acetaminophen [...] 0828 (Given - Provid er: Melvin Pitt, Toño.Maria Dolores., B.A.O.) caffeine tablet 200 mg 200 [...] at this time)., Starting on Fri08/16/25 at 06, For 1 dose, Pre-Op, Instruct patient to [...] NPO) documented in this encounter Care Teams Mold Maker Apprentice Relationship Specialty Start Date End Date Elsewhere, Pcp PCP - General Internal Medicine 04/12/25 documented as of this encounter
--- OUTSIDE RECORDS SUMMARY | 2025-08-16 06:38 | XMS_ITS | Encounter Summary ---
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 [address] [place] [phone] Phone: tel: fax: Referral ID Status Reason Start Date Expiration Date Visits Re quested Visits Authorized [id number] 1 1 Encounter Details Date Type Department Care Team ([facility] st Contact Info) Description 08/16/2025 7:38 AM CDT Anesthesia Event RST ROMB MAIN OR [address] [place] [phone] Jeanette Viveros M.D. [address] [place] [phone] Anesthesia Record Procedure Summary Procedure Name Responsible Anesthesiologist Anesthesia Start Time Anesthesia Stop Time LAPAROSCOPIC EXPLORATION, DIAGNOSTIC, peritoneal washings. (Abdomen) Jeanette Viveros M.D. 08/16/25 0738 08/16/25 0850 Events Date Time Event Comment 08/16/2025 0738 An Start Machine/Equipme nt Checked Infection Precautions Followed Procedure/Site Verified NPO Status Verified Supine Standard ASA Monitors Applied 0745 An Induction 0747 An Intubation 0756 Turnover to Proceduralist 0807 Proc Start 0832 Proc Fin 0833 Turnover to ANE Staff 0841 Airway Removal Criteria Met 0841 Extubation/Airway Removed 0843 an stop data 0850 An End I completed my handoff to the receiving staff during which we 1. Identified the patient 2. Identified the responsible provider 3. Reviewed the pertinent medical history 4. Discussed the surgical course 5. Reviewed intra-op anesthesia management and issues during anesthesia 6. Set expectations for post-procedure period 7. Allowed opportunity for questions and acknowledgement of understanding. Meds Name Total fentanyl injection 50 mcg/mL 150 mcg lidocaine 2% (mg) injection 100 mg rocuronium 10 mg/mL injection 50 mg ePHEDrine PF 5 mg/mL syringe injection 5 mg ondansetron 4 mg/2 mL injection 4 mg sugammadex 100 mg/mL injection 200 mg glycopyrrolate 0.2 mg/mL injection 0.2 m g propofol 10 mg/mL infusion 187.25 mg propofol 10 mg/mL injection 100 mg dexmedeTOMIDine 80 mcg/20 mL (4 mcg/mL) in NaCl 0.9% syringe for OR 60 mcg ceFAZolin injection 2,000 mg (Ancef) 2 g heparin (porcine) injection 5,000 Units 5,000 Units droPERidoL (Inapsine) injection 2.5 mg/m L 2.5 mg dexAMETHasone (Decadron) injection 4 mg/ mL 4 mg Lactated Ringers Free Drip 600 mL * Agents No agents on file. * Blood No blood administrations on file. Lines, Drains, and Airways Type Details Placement Removal Implanted Port Single Lumen 04/12/25; 134; Permanent (tunneled, implanted); Yes; Yes; Yes; Yes; Chlorhexidine (Preferred); Yes; Cap, Gloves, Gown, Large drape, Mask (Clinician), Mask (All others in room); N/A; Non-valved, Polyurethane; Right; Chest; Power injectable; Sutured; Dr. Castellano 04/12/25 1345 by Vianca Batista R.N. Scope Sites 08/16/25; 0812; Abdo men; Upper, Left; Lower, Left 08/16/25 0812 by Susan Moore R.NEstelle ETT Placement Date: 08/03 02/25; Placement Time: 0747 (created via procedure documentation); Mask Ventilation: Easy mask; Technique: Video laryngoscopy; Type: Standard ETT; Single Lumen Tube Size: 6 mm; Cuffed: Yes; Location: Oral; Grade View: Grade 2A; Insertion Attempts: 1; Placement Verification: Bilateral breath sounds, Positive ETCO2, Symmetrical chest wall movement; Removal Date: 08/16/25; Removal Time: 0841 08/16/25 0747 by Singh Garcia R.N., C.S.C. 08/16/25 0841 by Singh Garcia V., Dilip, C.S.C. NG/OG Tube 08/16/25; 0750; Orogastric; 18 Fr; Oral; 08/16/25; 0834 08/16/25 0750 by Singh Garcia V., Ciara., C.S.C. 08/16/25 0834 by Singh Garcia V., Dilip, C.S.C. documented in this encounter Social History Tobacco Use Types Packs/Day Years Used Date Smoking Tobacco: Never Smokeless Tobacco: Never Alcohol Use Standard Drinks/Week Comments Not Currently 2 (1 standard drink = 0.6 oz pur e alcohol) [facility] Utilities Answer Date Recorded In the past 12 months has [facility] [employer], gas, oil, or water [employer] threatened to shut off services in your [...] your living situation today? I have a [facility] place to live 03/21/2025 Comments No Sex and Gender Information Value Date Recorded Sex Assigned at Female 03/21/2025 4:39 PM CDT Legal Sex Female 10:00 PM [employer] Gender Identity Female 03/21/2025 4:39 PM CDT Sexual Orientation Straight 03/21/2025 4: 39 PM CDT documented as of this encounter OR Notes * Anesthesia Postprocedure Evaluation - Jeanette Viveros M.D. - 08/16/2025 9:02 AM CDT Patient: Yara Lazo Procedure Summary Date: 08/16/25 Room / Location: [place] [address] / [facility] in [place], [place] Anesthesia Start: 737 Anesthesia Stop: 0850 Procedures: LAPAROSCOPIC EXPLORATION, DIAGNOSTIC, peritoneal washings. 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 Responsible Provider: Jeanette Viveros M.D. Anesthesia Type: general ASA Status: 3 Anesthesia Type: general Last vitals Vitals Value Taken Time BP 103/61 08/16/25 09:00 Temp Pulse 60 08/16/25 09:02 Resp 18 08/16/25 09:02 SpO2 100 % 08/16/25 09:02 Vitals shown include unfiled device data. Please reference Vitals flowsheet for most recent vital signs. Anesthesia Post Evaluation Patient Disposition: dismissal Cardiovascular status: hemodynamics (HR & BP) acceptable Respiratory status: patent airway with spontaneous effort Temperature: normothermic Oxygen requirements: room air Level of consciousness: awake Pain score: pain adequately controlled and/or at baseline Post Op nausea/vomiting: none Hydration status: euvolemic Notable Events No notable events documented. * Anesthesia Procedure Notes - Singh Garcia R.N., C.S.C. - 08/16/2025 8:04 AM CDTAssociated Order(s): Airway Airway Date/Time: 08/16/2025 7:47 AM Performed by: Singh Garcia R.N., C.S.CEstelle Authorized by: Jeanette Viveros M.D. Patient location during procedure: OR / Procedure Area PROCEDURE DETAILS: Mask difficulty assessment: easy mask Final airway type: video laryngoscope Laryngeal Manipulation: no Final best view of glottic structures - Cormack/Lehane Score: grade 2A ETT location: oral Tube size: 6 ETT distance at teeth/gum: 22 Oral tube type: standard ETT Cuffed: yes Leak Test Performed: no Number of attempt to successful placement: 1 Airway confirmation: bilateral breath sounds, positive ETCO2 and bilateral chest rise Other previous techniques attempted: none PRE PROCEDURE DETAILS: Pre evaluation for airway management: procedure Urgency: elective Preop assessment of probable difficulty: questionable / suspicious difficult airway Preoxygenation: bag valve mask SEDATION / ANESTHESIA Anesthesia method: anesthesia POST PROCEDURE DETAILS: Procedure outcome: successful Notable Events: no complications * Anesthesia Preprocedure Evaluation - Jeanette Viveros M.D. - 08/16/2025 5:17 AM CDT Preprocedure Anesthesia & H&P Assessment Procedure Summary Date/Time: 08/16/25724 Procedure: LAPAROSCOPIC EXPLORATION, DIAGNOSTIC, peritoneal washings. 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 Location: [address] [address] / [facility] in [place], [place] Providers: Stephon Galindo D.O., M.B.A. Pertinent components of the patient's history including current problem list, medical history, surgical history, family history, social history, medications and allergies were reviewed. Present illness and pre-op diagnosis were confirmed. The planned surgery / procedure was verified with the patient / legal guardian. The patient's general health condition remains unchanged RELEVANT COMORBID CONDITIONS HEME (+) Anemia (+) Anemia Iron Deficiency ONC (+) Malignant Neoplasm Of Pancreas Body (HCC) OBJECTIVE PHYSICAL EXAMINATION Airway (HEENT) Mallampati: II TM Distance: <3 FB Neck ROM: Full Mouth Opening: >3 cm Facies (pediatrics): normal Cardiovascular Rhythm: Regular Rate: Normal Cardiovascular Assessment: cardiovascular normal Functional Capacity: >4 METS Pulmonary Pulmonary Assessment: Clear General / Constitutional Constitutional Assessment: Normal General State of Health:: healthy appearing and calm Neurological Neurologic Assessment: alert ASSESSMENT / PLAN ANESTHESIA PLAN ASA: 3 Anesthesia Plan: general Patient seen and allergies reviewed, anesthesia plan and risks discussed directly with patient /legal guardian or through an trust accounts supervisor. Risks/Benefits/Alternatives of Blood transfusion discussed with patient / legal guardian, includingan opportunity to ask questions and/or decline some or all transfusion therapies. The patient / legal guardian consented to the use of all blood products, as deemed medically necessary Approval to Proceed: approved for anesthesia documented in this encounter Plan of Treatment Upcoming Encounters Date Type Department Care Team (Latest Contact Info) Description 10/05/2025 3:45 PM [employer] Clinical Communication Virtual Review in [address] [phone] 10/11/2025 1:40 PM [employer] Nurse Only Section of Infectious Diseases in [address] [phone] Kaleigh Xiong APRN, C.N.P., M.S.N. [address] [place] [phone] 10/11/2025 3:00 PM [employer] Lab Department of Infusion Therapy in [address] [phone] Kaleigh Xiong APRN, C.N.P., M.S.N. [address] [place] [phone] 10/11/2025 4:00 PM [employer] Appointment Department of Radiology, [facility], in [address] [phone] Kaleigh Xiong APRN, C.N.P., M.S.N. [address] [place] [phone] 10/12/2025 10:30 AM [employer] Office Visit Division of Hepatobiliary and Pancreas Surgery in [place], [place] [address] [place] [phone] Sammie Gerbre APRN, C.N.P., M.S.N. [address] [place] [phone] 10/12/2025 3:00 PM [employer] Comprehensive Visit Department of Oncology in [place], [place] [address] [place] [phone] Jeffy James M.D. [address] [place] [phone] documented as of this encounter Procedures Procedure Name Priority Date/Time Associated Diagnosis Comments LDA ANE ENDOTRACHEAL AIRWAY Routine 08/16/2025 7:47 AM CDT documented in this encounter Results * LDA ANE ENDOTRACHEAL AIRWAY (08/16/2025 7:47 AM CDT) Narrative Singh Garcia R.N., C.S.C. - 08/16/2025 7:47 AM CDT Singh Garcia R.N., C.S.C. 08/16/2025 8:07 AM Airway Date/Time: 08/16/2025 7:47 AM Performed by: Singh Garcia R.N., C.S.C. Authorized by: Jeanette Viveros M.D. Patient location during procedure: OR / Procedure Area PROCEDURE DETAILS: Mask difficulty assessment: easy mask Final airway type: video laryngoscope Laryngeal Manipulation: no Final best view of glottic structures - Cormack/Lehane Score: grade 2A ETT location: oral Tube size: 6 ETT distance at teeth/gum: 22 Oral tube type: standard ETT Cuffed: yes Leak Test Performed: no Number of attempt to successful placement: 1 Airway confirmation: bilateral breath sounds, positive ETCO2 and bilateral chest rise Other previous techniques attempted: none PRE PROCEDURE DETAILS: Pre evaluation for airway management: procedure Urgency: elective Preop assessment of probable difficulty: questionable / suspicious difficult airway Preoxygenation: bag valve mask SEDATION / ANESTHESIA Anesthesia method: anesthesia POST PROCEDURE DETAILS: Procedure outcome: successful Notable Events: no complications Jeanette Viveors M.D. ANESTHESIA ORDERABLES Final Result documented in this encounter Visit Diagnoses Not on filedocumented in this encounter Administered Medications Inactive Administered Medications - up to 3 most recent administrations Medication Order MAR Action Action Date Dose Rate Site ceFAZolin injection 2,000 mg (Ancef) 2,000 mg (rounded from 1,392.5 mg = [...] indication and drug clearance factors., Indications: Prophylaxis, surgicalIndications:Prophy laxis, surgical Given 08/16/2025 8:04 AM CDT 2 g dexAMETHasone injection (Decadron) intravenous, As needed, Starting on Fri08/16/25 at 0801, Anesthesia Intra-op Given 08/16/2025 8:01 AM CDT 4 mg dexmedeTOMIDine 80 mcg/20 mL (4 mcg/mL) injection (Precedex) intravenous, As needed, Starting on Fri08/16/25 at 0745, Anesthesia Intra-op Given 08/16/2025 7:45 AM CDT 60 mcg droPERidoL injection (Inapsine) intravenous, As needed, Starting on Fri08/16/25 at 0801, Anesthesia Intra-op Given 08/16/2025 8:01 AM CDT 2.5 mg ePHEDrine (PF) injection intravenous, As needed, Starting on Fri08/16/25 at 0753, Anesthesia Intra-op Given 08/16/2025 7:53 AM CDT 5 mg fentaNYL injection (Sublimaze) intravenous, As needed, Starting on Fri08/16/25 at 0745, Anesthesia Intra-op Given 08/16/2025 7:45 AM CDT 150 mcg glycopyrrolate injection (RobinuL) intravenous, As needed, Starting on Fri08/16/25 at 0811, Anesthesia Intra-op Given 08/16/2025 8:11 AM CDT 0.2 mg heparin (porcine) injection 5,000 Units 5,000 Units, subcutaneous, Once, On Fri08/16/25 at 0715, For 1 dose, Intra-Op, Administer prior to induction of anesthesia. Given 08/16/2025 7:52 AM CDT 5,000 Units Lactated Ringer's intravenous, Continuous Infusion: Per Instructions PRN, Starting on Fri08/16/25 at 0738, Anesthesia Intra-op New Bag 08/16/2025 7:38 AM CDT lidocaine (PF) (cardiac) injection intravenous, As needed, Starting on Fri08/16/25 at 0745, Anesthesia Intra-op Given 08/16/2025 7:45 AM CDT 100 mg ondansetron (PF) injection (Zofran) intravenous, As needed, Starting on Fri08/16/25 at 0830, Anesthesia Intra-op Given 08/16/2025 8:30 AM CDT 4 mg propofol 10 mg/mL infusion (Diprivan) intravenous, Continuous Infusion: Per Instructions PRN, Starting on Fri08/16/25 at 0745, Anesthesia Intra-op New Bag 08/16/2025 7:45 AM CDT 100 mcg/kg/min 32.1 mL/hr propofoL injection (Diprivan) intravenous, As needed, Starting on Fri08/16/25 at 0745, Anesthesia Intra-op Given 08/16/2025 7:45 AM CDT 100 mg rocuronium injection (Zemuron) intravenous, As needed, Starting on Fri08/16/25 at 0745, Anesthesia Intra-op Given 08/16/2025 7:45 AM CDT 50 mg sugammadex injection (Bridion) intravenous, As needed, Starting on Fri08/16/25 at 0833, Anesthesia Intra-op Given 08/16/2025 8:33 AM CDT 200 mg documented in this encounter Care Teams Button Facing Machine Operator Relationship Specialty Start Date End Date Elsewhere, Pcp PCP - General Internal Medicine 6/10/25 documented as of this encounter
--- OUTSIDE RECORDS SUMMARY | 2025-08-31 05:42 | XMS_ITS | Encounter Summary ---
Author Organization [facility] Address [address] [place] [address] Care Team Providers Care Automatic Steel Tie Adjuster Name Role Phone Elsewhere, Pcp Primary Care Provider Unavailabl e Reason for Referral * MRI/CAT/PET Scan (Routine) - Closed Specialty Diagnoses / Procedures Referred By Contac t Referred To Contact Radiology Diagnoses Malignant Neoplasm Of Pancreas Body (HCC) Procedures CT Chest with IV Contrast CT Chest without IV Contrast Stephon Galindo D.O., M.B.A. [address] [place] [address] Phone: tel: fax: [facility] Referral ID Status Reason Start Date Expiration Date Visits Re quested Visits Authorized [id number] Closed 08/30/2025 10/29/2025 1 1 * MRI/CAT/PET Scan (Routine) - Closed Specialty Diagnoses / Procedures Referred By Contac t Referred To Contact Radiology Diagnoses Malignant Neoplasm Of Pancreas Body (HCC) Procedures CT Pancreas Angiogram Triple Phase and Pelvis with IV Contrast Stephon Galindo D.O., M.B.A. [address] [place] [phone] Phone: tel: fax: [facility] Referral ID Status Reason Start Date Expiration Date Visits Re quested Visits Authorized [id number] Closed 08/24/2025 10/23/2025 1 1 Reason for Visit * MRI/CAT/PET Scan (Routine) - Closed Specialty Diagnoses / Procedures Referred By Darling soriano Referred To Contact Radiology Diagnoses Malignant Neoplasm Of Pancreas Body (HCC) Procedures CT Pancreas Angiogram Triple Phase and Pelvis with IV Contrast Stephon Galindo D.O., M.B.A. [address] [place] [phone] Phone: tel: fax: [facility] Referral ID Status Reason Start Date Expiration Date Visits Re quested Visits Authorized [id number] Closed 08/24/2025 10/23/2025 1 1 Encounter Details Date Type Department Care Team (Late st Contact Info) Description 08/31/2025 6:42 AM CDT - 08/31/2025 11:59 PM CDT Hospital Encounter Department of Radiology, [facility], in [place], [place] [address] [place] [phone] Stephon Galindo D.O., M.B.A. [address] [place] [phone] Malignant Neoplasm Of Pancreas Body (HCC) Discharge Disposition: Home or Self Care Social History Tobacco Use Types Packs/Day Years Used Date Smoking Tobacco: Never Smokeless Tobacco: Never Alcohol Use Standard Drinks/Week Comments Not Currently 2 (1 standard drink = 0.6 oz pur e alcohol) Humiliation, Afraid, Rape, a nd Kick questionnaire Answer Date Recorded Within the last year, have y ou been afraid of your partner or ex-partner? Patient unable to answer 09/01/2025 Within the last year, have y ou been humiliated or emotionally abused in other ways by your partner or ex-partner? Patient unable to answer 09/01/2025 Within the last year, have y ou been kicked, hit, slapped, or otherwise physically hurt by your partner or ex-partner? Patient unable to answer 09/01/2025 Within the last year, have y ou been raped or forced to have any kind of sexual activity by your partner or ex-partner? Patient unable to answer 09/01/2025 Hunger Vital Sign Answer Date Recorded Within the past 12 months, y ou worried that your food would run out before you got the money to buy more. Never true 09/01/20 25 Within the past 12 months, t he food you bought just didn't last and you didn't have money to get more. Never true 09/01/2025 PRAPARE - Transportation Answer Date Re corded In the past 12 months, has l ack of transportation kept you from medical appointments or from getting medications? No 08/05 In the past 12 months, has l ack of transportation kept you from meetings, work, or from getting things needed for daily living? No 09/01/2025 [facility] Utilities Answer Date Recorded In the past 12 months has th e electric, gas, oil, or water company threatened to shut off services in your home? No 09/01/2025 Housing Stability Answer Date Recorded What is your living situation today? I have a [facility] place to live 09/01/2025 Comments No Sex and Gender Information Value Date Recorded Sex Assigned at Female 03/21/2025 4:39 PM CDT Legal Sex Female 10:00 PM [facility]ET [facility]ASHIER Gender Identity Female 03/21/2025 4:39 PM CDT Sexual Orientation Straight 03/21/2025 4: 39 PM CDT documented as of this encounter Medications at Time of Discharge [...] clotting prevention. 10 mL 09/05/2025 12:12 PM VALET CASHIER 09/05/2025 estradiol 0.03 %, testosterone 0.01 % in [...] Acute Pain. 8 tablet 09/05/2025 12:12 PM VALET CASHIER 09/05/2025 prasterone, DHEA, 10 mg tablet Take [...] muscle spasms. 6 tablet 09/05/2025 12:12 PM VALET CASHIER 09/05/2025 5 traMADoL (Ultram) 50 mg tabletIndications :Acute Pain Take 1 tablet (50 mg total) by mouth every 6 (six) hours as needed for severe pain or score 7-10 of 10 Indications: Acute Pain. 10 tablet 04/12/2025 4:44 PM CDT 04/12/2025 triamcinolone (Kenalog) 0.025 % cream See Admin [...] tumeric 5 documented as of this encounter Plan of Treatment Upcoming Encounters Date Type Department Care Team (Latest Contact Info) Description 10/05/2025 3:45 PM VALET CASHIER Clinical Communication Virtual Review in [place], [place] [address] [place] [address] 10/11/2025 1:40 PM VALET CASHIER Nurse Only Section of Infectious Diseases in [place], [place] [address] [place] [phone] Kaleigh Xiong APRN, C.N.P., M.S.N. [address] [place] [phone] 10/11/2025 3:00 PM [facility]IER Lab Department of Infusion Therapy in [place], [place] [address] [place] [phone] Kaleigh Xiong APRN, C.N.P., M.S.N. [address] [place] [phone] 10/11/2025 4:00 PM VALET CASHIER Appointment Department of Radiology, [facility], in [place], [place] [address] [place] [phone] Kaleigh Xiong APRN, C.N.P., M.S.N. [address] [place] [phone] 10/12/2025 10:30 AM VALET CASHIER Office Visit Division of Hepatobiliary and Pancreas Surgery in [address] [phone] Sammie Gerber APRN, C.N.Efrain., M.S.N. [address] [place] [phone] 10/12/2025 3:00 PM VALET CASHIER Comprehensive Visit Department of Oncology in [address] [phone] Jeffy James M.D. [address] [place] [phone] documented as of this encounter Procedures Procedure Name Priority Date/Time Associated Diagnosis Comments CT PANCREAS ANGIOGRAM TRIPLE PHASE AND PELVIS WITH IV CONTRAST RAD - Routine (most inpatients and all outpatients) 08/31/2025 8:15 AM CDT Malignant Neoplasm Of Pancreas Body (HCC) CT CHEST WITH IV CONTRAST RAD - Routine (most inpatients and all outpatients) 08/31/2025 8:15 AM CDT Malignant Neoplasm Of Pancreas Body (HCC) documented in this encounter Results * CT Chest with IV Contrast (08/31/2025 8:15 AM CDT) Anatomical Region Laterality Modality Chest, Thoracic RST LOS, Tho racic ARZ LOS, Thoracic ARZ LOS, Thoracic FLA LOS N/A Computed Tomography 08/31/2025 7:58 AM CDT Impressions 08/31/2025 10:05 AM CDT [address] CT evidence of new thoracic metastases. 2. A previously new right middle lobe 2 mm nodule has resolved. Another previously new less than 1 mm right lower lobe nodule is unchanged. 3. Additional solid noncalcified micronodules are stable. Narrative 08/31/2025 10:05 AM CDT EXAM: CT CHEST WITH IV CONTRAST COMPARISON: 03/14/2025 and 06/29/[address] FINDINGS: A previously new right middle lobe 2 mm nodule has resolved. Another previously new less than 1 mm right lower lobe nodule is unchanged on series 3 image 468. Additional solid noncalcified micronodules on series 3 are stable. For instance, 3 mm superior segment left lower lobe nodule image 157. Biapical predominant scars are unchanged. The central tracheobronchial tree is patent. No pleural effusion or thickening identified. The 10 mm completely calcified upper right paratracheal node on series 3 image 159 is unchanged, likely secondary to previous granulomatous disease. Otherwise stable subcentimeter nodes without thoracic adenopathy by size criteria. Bilateral subpectoral breast implants are unchanged. Right chest Port-A-Cath tip in the upper right atrium, stable. Mild aortic and coronary artery calcifications are again identified. Small sliding esophageal hiatal hernia is unchanged. No new aggressive osseous lesions identified. Thank you for the consultation. This examination was performed in conjunction with a CT of the abdomen, which will be reported separately. Procedure Note Enrique Argueta M.D. - 08/31/2025 EXAM: CT CHEST WITH IV CONTRAST COMPARISON: 03/14/2025 and 06/29/[address] FINDINGS: A previously new right middle lobe 2 mm nodule has resolved. Anotherpreviously new less than 1 mm right lower lobe nodule is unchanged onseries 3 image 468. Additional solid noncalcified micronodules on series 3 are stable. Forinstance, 3 mm superior segment left lower lobe nodule image 157. Biapical predominant scars are unchanged. The central tracheobronchialtree is patent. No pleural effusion or thickening identified. The 10 mm completely calcified upper right paratracheal node on series 3image 159 is unchanged, likely secondary to previous granulomatousdisease. Otherwise stable subcentimeter nodes without thoracic adenopathyby size criteria. Bilateral subpectoral breast implants are unchanged. Right chest Port-A-Cath tip in the upper right atrium, stable. Mild aortic and coronary artery calcifications are again identified. Small sliding esophageal hiatal hernia is unchanged. No new aggressive osseous lesions identified. Thank you for the consultation. This examination was performed in conjunction with a CT of the abdomen,which will be reported separately. IMPRESSION: 1. No CT evidence of new thoracic metastases. 2. A previously new right middle lobe 2 mm nodule has resolved. Anotherpreviously new less than 1 mm right lower lobe nodule is unchanged. 3. Additional solid noncalcified micronodules are stable. us Stephon Galindo D.O. M.B.A. IMG CT PROCEDURE S Final Result * CT Pancreas Angiogram Triple Phase and Pelvis with IV Contrast (08/31/2025 8:15 AM CDT) Anatomical Region Laterality Modality Abdomen, Pelvis, Abdominal R ST LOS, Abdominal ARZ LOS, Vascular Interventional ARZ LOS, Vascular Interventional FLA LOS, Abdominal FLA LOS N/A Computed Berny ography 08/31/2025 7:54 AM CDT Impressions 08/31/2025 10:56 AM CDT Tumor: Similar size of the mass in the pancreatic body measuring up to 1.7 cm. Vascular contact: Present - Arterial: Persistent soft tissue abutment of the splenic artery. Continued interval resolution of the previously seen hazy attenuation abutment of the SMA. - Venous: Persistent soft tissue abutment of the splenic vein. Metastasis: No definitive evidence of metastatic disease in the abdomen or pelvis. Other significant findings: None. Narrative 08/31/2025 10:56 AM CDT EXAM: CT PANCREAS ANGIOGRAM TRIPLE PHASE AND PELVIS WITH IV CONTRAST Including 3D image post-processing with or without AI assistance. COMPARISON: Chest CT 08/31/2025. CT abdomen pelvis 06/29/2025. FINDINGS: Pancreatic Mass Morphologic Evaluation Appearance: Isoattenuating relative to the pancreatic parenchyma Size: Approximately 1.7 x 1.0 cm, previously 1.7 cm x 1.0 cm when measured in a similar fashion on 06/29/2025 (series 6 image 90). Location: Body. Pancreatic duct: No definite upstream dilation identified on the current examination. Obstructive atrophy of body/tail: Present Bile duct: Not involved. Other abnormalities of the pancreas: Generalized atrophy of the pancreatic parenchyma, but most severe upstream from the mass. Other biliary findings: None. Arterial Evaluation Arterial Variant: Absent Celiac Artery: Tumor Contact: Absent. Ostial stenosis: Absent. KELTON: Tumor Contact: Absent. SMA: Tumor Contact: Absent. Degree of solid soft-tissue contact: Absent Degree of increased hazy attenuation/stranding contact: Interval improvement of the previously seen abutment. Ostial stenosis: Absent. WINSOME: Patency: Patent. Tumor Contact: Absent. Splenic Artery: Tumor Contact: Present. Degree of solid soft-tissue contact: less than or equal to 180 degrees. Focal vessel narrowing or contour irregularity: Absent. Left Gastric Artery: Tumor Contact: Absent. Arterial collateral flow: Absent. Venous evaluation Main Portal Vein Tumor Contact: Absent. Patency: Patent. SMV: Tumor Contact: Absent. Patency: Patent. Splenic Vein: Tumor Contact: Present Patency: Patent. Degree of solid soft-tissue contact: less than or equal to 180 degrees Focal vessel narrowing or contour irregularity: Absent Distance between involved portion of the splenic vein and the confluence: Approximately 1.2 cm, previously 0.8 cm on 03/29/2025 (series 26 image 47). Venous Drainage Anatomy: IMV drainage: SMV. Coronary vein drainage: Portal vein. Venous collaterals: Absent. Left renal vein: Anatomy: Preaortic. Tumor contact: No. Extrapancreatic Findings: Liver: No suspicious hepatic mass identified. Transient heterogeneous enhancement involving the right hepatic lobe is similar since 06/29/2025, but new since 03/29/2025. The portal and hepatic veins appear patent. Peritoneum/Omentum: No discrete nodularity. Ascites: Absent. Suspicious lymph nodes: [place]-regional (emanuel-hepatic, cheryle-pancreatic, celiac, splenic hilum): Similar appearance of a slightly atypical appearing 4 mm gastrohepatic lymph node (series 7 image 75). However, no definite increased radiotracer uptake is identified in this location on prior PET/CT. Recommend continued attention on follow-up. Distant (distant aorto-caval, periaortic, retroperitoneal): Absent. Other extrapancreatic disease: None. Other Findings: Calcified splenic granulomas. No aggressive appearing osseous lesion. This examination was performed in conjunction with a CT of the chest, which will be reported separately. Procedure Note Ang Mejía M.D. - 08/31/2025 EXAM: CT PANCREAS ANGIOGRAM TRIPLE PHASE AND PELVIS WITH IV CONTRAST Including 3D image post-processing with or without AI assistance. COMPARISON: Chest CT 08/31/2025. CT abdomen pelvis 06/29/2025. FINDINGS: Pancreatic Mass Morphologic Evaluation Appearance: Isoattenuating relative to the pancreatic parenchyma Size: Approximately 1.7 x 1.0 cm, previously 1.7 cm x 1.0 cm when measuredin a similar fashion on 06/29/2025 (series 6 image 90). Location: Body. Pancreatic duct: No definite upstream dilation identified on the currentexamination. Obstructive atrophy of body/tail: Present Bile duct: Not involved. Other abnormalities of the pancreas: Generalized atrophy of the pancreaticparenchyma, but most severe upstream from the mass. Other biliary findings: None. Arterial Evaluation Arterial Variant: Absent Celiac Artery: Tumor Contact: Absent. Ostial stenosis: Absent. KELTON: Tumor Contact: Absent. SMA: Tumor Contact: Absent. Degree of solid soft-tissue contact: Absent Degree of increased hazy attenuation/stranding contact: Intervalimprovement of the previously seen abutment. Ostial stenosis: Absent. WINSOME: Patency: Patent. Tumor Contact: Absent. Splenic Artery: Tumor Contact: Present. Degree of solid soft-tissue contact: less than or equal to 180 degrees. Focal vessel narrowing or contour irregularity: Absent. Left Gastric Artery: Tumor Contact: Absent. Arterial collateral flow: Absent. Venous evaluation Main Portal Vein Tumor Contact: Absent. Patency: Patent. SMV: Tumor Contact: Absent. Patency: Patent. Splenic Vein: Tumor Contact: Present Patency: Patent. Degree of solid soft-tissue contact: less than or equal to 180 degrees Focal vessel narrowing or contour irregularity: Absent Distance between involved portion of the splenic vein and the confluence:Approximately 1.2 cm, previously 0.8 cm on 03/29/2025 (series 26 image47). Venous Drainage Anatomy: IMV drainage: SMV. Coronary vein drainage: Portal vein. Venous collaterals: Absent. Left renal vein: Anatomy: Preaortic. Tumor contact: No. Extrapancreatic Findings: Liver: No suspicious hepatic mass identified. Transient heterogeneousenhancement involving the right hepatic lobe is similar since 06/29/2025,but new since 03/29/2025. The portal and hepatic veins appear patent. Peritoneum/Omentum: No discrete nodularity. Ascites: Absent. Suspicious lymph nodes: [place]-regional (emanuel-hepatic, cheryle-pancreatic, celiac, splenic hilum):Similar appearance of a slightly atypical appearing 4 mm gastrohepaticlymph node (series 7 image 75). However, no definite increased radiotraceruptake is identified in this location on prior PET/CT. Recommend continuedattention on follow-up. Distant (distant aorto-caval, periaortic, retroperitoneal): Absent. Other extrapancreatic disease: None. Other Findings: Calcified splenic granulomas. No aggressive appearingosseous lesion. This examination was performed in conjunction with a CT of the chest,which will be reported separately. IMPRESSION: Tumor: Similar size of the mass in the pancreatic body measuring up to1.7 cm. Vascular contact: Present - Arterial: Persistent soft tissue abutment of the splenic artery.Continued interval resolution of the previously seen hazy attenuationabutment of the SMA. - Venous: Persistent soft tissue abutment of the splenic vein. Metastasis: No definitive evidence of metastatic disease in the abdomen orpelvis. Other significant findings: None. Laura Perez D.O.BEstelleAEstelle IMG CT PROCEDURE S Final Result documented in this encounter Visit Diagnoses Diagnosis Malignant Neoplasm Of Pancreas Body (HCC) documented in this encounter Administered Medications Inactive Administered Medications - up to 3 most recent administrations Medication Order MAR Action Action Date Dose Rate Site heparin flush 500-1,000 Units 500-1,000 Units, intra-catheter, During hospitalization, line care, Prior to discharge, Starting on Fri08/31/25 at 0702, For 1 dose, Implanted Vascular Access Device (IVAD) Venous Non-Valved: flush 5 mL (500 units) per port/lumen following saline flush prior to discharge. Given 08/31/2025 7:53 AM CDT 500 Units iohexoL 350 mg iodine/mL solution 1-200 mL (Omnipaque) 1-200 mL, intravenous, Once in imaging, contrast, Starting on Fri08/31/25 at 0700, For 1 dose, Imaging Protocol Orders, Dose per Radiant Medication Guidelines Given 08/31/2025 7:37 AM CDT 85 mL sodium chloride (PF) 0.9 % injection 1-100 mL 1-100 mL, intravenous, Once, On Fri08/31/25 at 0730, For 1 dose, Imaging Protocol Orders, Dose per Radiant Medication Guidelines Given 08/31/2025 7:37 AM CDT 85 mL sodium chloride 0.9 % injection 10-20 mL 10-20 mL, intravenous, As needed, line care, Implanted Vascular Access Device (IVAD) Venous Non-Valved, Starting on Fri08/31/25 at 0702, Prior to and following infusion and between multiple consecutive infusions, flush 10 mL to each port/lumen. Given 08/31/2025 7:53 AM CDT 10 mL Given 08/31/2025 7:03 AM CDT 10 mL documented in this encounter Care Teams Automatic Steel Tie Adjuster Relationship Specialty Start Date End Date Elsewhere, Pcp PCP - General Internal Medicine 04/12/25 documented as of this encounter
--- OUTSIDE RECORDS SUMMARY | 2025-08-31 06:40 | XMS_ITS | Encounter Summary ---
Author Organization [facility] Address [address] [place] [address] Care Team Providers Care Monitor Car Operator Name Role Phone Elsewhere, Pcp Primary Care Provider Unavailabl e Encounter Details Date Type Department Care Team (Late st Contact Info) Description 08/31/2025 7:40 AM CDT Lab Department of Infusion Therapy in [place], [place] [address] [place] [phone] Stephon Galindo D.O., M.B.A. 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 No 09/01/2025 [facility] Utilities Answer Date Recorded In the past 12 months has [employer] electric, gas, oil, or water company threatened to shut off services in your home? No 09/01/2025 Housing Stability Answer Date Recorded What is your living situation today? I have a [facility] place to live 09/01/2025 Comments No Sex and Gender Information Value Date Recorded Sex Assigned at Female 03/21/2025 4:39 PM CDT Legal Sex Female 10:00 PM BRICK OFF BEARER Gender Identity Female 03/21/2025 4:39 PM CDT Sexual Orientation Straight 03/21/2025 4: 39 PM CDT documented as of this encounter Plan of Treatment Upcoming Encounters Date Type Department Care Team (Latest Contact Info) Description 10/05/2025 3:45 PM BRICK OFF BEARER Clinical Communication Virtual Review in [place], [place] [address] [place] [phone] 10/11/2025 1:40 PM BRICK OFF BEARER Nurse Only Section of Infectious Diseases in [place], [place] [address] [place] [phone] Kaleigh Xiong APRN, C.N.P., M.S.N. [address] [place] [phone] 10/11/2025 3:00 PM BRICK OFF BEARER Lab Department of Infusion Therapy in [place], [place] [address] [place] [phone] Kaleigh Xiong APRN, C.N.P., M.S.N. [address] [place] [phone] 10/11/2025 4:00 PM BRICK OFF BEARER Appointment Department of Radiology, [facility], in [place], [place] [address] [place] [phone] Kaleigh Xinog APRN, C.N.P., M.S.N. [address] [place] [phone] 10/12/2025 10:30 AM BRICK OFF BEARER Office Visit Division of Hepatobiliary and Pancreas Surgery in [place], [place] [address] [place] [phone] Sammie Gerber APRN, C.N.P., M.S.N. [address] [place] [phone] 10/12/2025 3:00 PM BRICK OFF BEARER Comprehensive Visit Department of Oncology in [place], [place] [address] [place] [phone] Jeffy James M.D. [address] [place] [phone] documented as of this encounter Procedures Procedure Name Priority Date/Time Associated Diagnosis Comments PROTHROMBIN TIME (PT), P Routine 8:37 AM CDT Malignant Neoplasm Of Pancreas Body (HCC) CBC WITHOUT DIFFERENTIAL, B Routine 08/31/2025 8:37 AM CDT Malignant Neoplasm Of Pancreas Body (HCC) TYPE AND SCREEN Routine 08/31/2025 8:37 AM CDT Malignant Neoplasm Of Pancreas Body (HCC) PREALBUMIN (PAB), S Routine 08/31/2025 8 :37 AM CDT Malignant Neoplasm Of Pancreas Body (HCC) HEMOGLOBIN A1C, B Routine 08/31/2025 8:3 7 AM CDT Malignant Neoplasm Of Pancreas Body (HCC) CARCINOEMBRYONIC AG (CEA), S Routine 08/31/2025 8:37 AM CDT Malignant Neoplasm Of Pancreas Body (HCC) BILIRUBIN DIRECT, S/P Routine 08/31/2025 8:37 AM CDT Malignant Neoplasm Of Pancreas Body (HCC) COMPREHENSIVE METABOLIC PANEL, S/P Routine 08/31/2025 8:37 AM CDT Malignant Neoplasm Of Pancreas Body (HCC) documented in this encounter Results * Type and Screen (with Reflex Antibody ID) (08/31/2025 8:37 AM CDT) ABORh O Neg Not applicable 08/31/2025 4:23 PM CDT ETRM Antibody Screen Negative Negative 08/31/2025 4:37 PM CDT ETRM Type & Screen Expiration 10/29/2025 23:59 08/31/2025 4:23 PM CDT ETRM Testing Location Rogelio DEFAULT 08/31/2025 8:59 AM CDT ETRM Blood (Blood, Venous) 08/31/2025 8:37 AM CDT 08/31/2025 8:59 AM CDT Stephon Galindo D.O. M.B.A. LAB BLOOD BANK T EST ORDERABLES Final Result [facility] [address] [place] [address], [facility] ETRM [facility] [address] [place] [address] * Prothrombin Time (PT) (08/31/2025 8:37 AM CDT) Prothrombin Time, P 11.0 9.4 - 12.5 sec 08/31/2025 9:02 AM CDT DTL INR 1.0 0.9 - 1.1 08/31/2025 9:02 AM CDT DTL Comment: ----ADDITIONAL INFORMATION---- Standard intensity warfarin therapeutic range: 2.0 to 3.0 High intensity warfarin therapeutic range: 2.5 to 3.5 Blood (Blood, Venous) 08/31/2025 8:37 AM CDT 08/31/2025 8:47 AM CDT Stephon Glaindo D.O. M.B.A. LAB BLOOD ADD-ON Final Result Performing Organization Address City/[facility]/ZIP Co de Phone Number [facility] 200 [place] [address], [facility] 200 [place] [address] * Bilirubin, Direct (08/31/2025 8:37 AM CDT) Bilirubin, Direct, S 0.2 0.0 - 0.3 mg/dL 08/31/2025 10:55 AM CDT [facility] Blood (Blood, Venous) 08/31/2025 8:37 AM CDT 08/31/2025 8:48 AM CDT Stephon Galindo D.O., M.B.A. LAB BLOOD ADD-ON Final Result Performing Organization Address [facility] Co de Phone Number [facility] 200 [place] [address], [facility] 200 [place] [address] * Prealbumin (PAB) (08/31/2025 8:37 AM CDT) Prealbumin (PAB), S 30 19 - 38 mg/dL 08/31/2025 3:46 PM CDT [facility] Blood (Blood, Venous) 08/31/2025 8:37 AM CDT 08/31/2025 11:26 AM CDT Stephon Galindo D.O., M.B.A. LAB BLOOD ADD-ON Final Result [facility] [address] [place] [address] [facility] [address] [place] [address] * Hemoglobin A1c (08/31/2025 8:37 AM CDT) [facility] Hemoglobin A1c, B 5.6 4.0 - 5.6 % 08/31/2025 9:42 AM CDT DTL Blood (Blood, Venous) 08/31/2025 8:37 AM CDT 08/31/2025 8:47 AM CDT Stephon Galindo D.O. M.B.A. LAB BLOOD ADD-ON Final Result Performing Organization Address City/State/[facility] Co de Phone Number [facility] [address] [place] [address], [facility] 200 [place] [address] * (ABNORMAL) CBC without Differential (08/31/2025 8:37 AM CDT) [facility] Hemoglobin 12.2 11.6 - 15.0 g/dL 08/31/2025 9:17 AM CDT DTL Hematocrit 36.8 35.5 - 44.9 % 08/31/2025 9:17 AM CDT DTL Erythrocytes 3.49(L) 3.92 - 5.13 x10(12)/L 08/31/2025 9:17 AM CDT DTL MCV 105.4(H) 78.2 - 97.9 fL 08/31/2025 9:17 AM CDT DTL RBC Distrib Width 12.6 12.2 - 16.1 % 08/31/2025 9:17 AM CDT DTL Platelet Count 221 157 - 371 x10(9)/L 08/31/2025 9:17 AM CDT DTL Leukocytes 3.1(L) 3.4 - 9.6 x10(9)/L 08/31/2025 9:17 AM CDT DTL Blood (Blood, Venous) 08/31/2025 8:37 AM CDT 08/31/2025 8:47 AM CDT us Stephon Galindo D.O. M.B.A. LAB BLOOD ADD-ON Final Result [facility] [address] [place] [address], [facility] DTL [facility] [address] [place] [address] * (ABNORMAL) Comprehensive Metabolic Panel (08/31/2025 8:37 AM CDT) [facility] Potassium, S 4.3 3.6 - 5.2 mmol/L 08/31/2025 10:55 AM CDT DTL Sodium, S 138 135 - 145 mmol/L 08/31/2025 10:55 AM CDT DTL Chloride, S 103 98 - 107 mmol/L 08/31/2025 10:55 AM CDT DTL Bicarbonate, S 25 22 - 29 mmol/L 08/31/2025 10:55 AM CDT DTL Anion Gap 10 7 - 15 08/31/2025 10:55 AM CDT DTL BUN (Blood Urea Nitrogen), S 11 6 - 21 mg/dL 08/31/2025 10:55 AM CDT DTL Creatinine 0.65 0.59 - 1.04 mg/dL 08/31/2025 10:55 AM CDT DTL Estimated GFR (eGFR) >90 >=60 mL/min/BS A 08/31/2025 10:55 AM CDT DTL Comment: Estimated GFR calculated using the 2020 CKD_EPI creatinine equation. Calcium, Total, S 9.1 8.8 - 10.2 mg/dL 08/31/2025 10:55 AM CDT DTL Glucose, S 122 70 - 140 mg/dL 08/31/2025 10:55 AM CDT DTL Protein, Total, S 6.3 6.3 - 7.9 g/dL 08/31/2025 10:55 AM CDT DTL Albumin, S 4.3 3.5 - 5.0 g/dL 08/31/2025 10:55 AM CDT DTL Aspartate Aminotransferase (AST), S 45(H) 8 - 43 U/L 08/31/2025 10:55 AM CDT DTL Alkaline Phosphatase, S 194(H) 35 - 104 U/L 08/31/2025 10:55 AM CDT DTL Alanine Aminotransferase (ALT), S 63(H) 7 - 45 U/L 08/31/2025 10:55 AM CDT DTL Bilirubin, Total, S 0.4 0.0 - 1.2 mg/dL 08/31/2025 10:55 AM CDT DTL Blood (Blood, Venous) 08/31/2025 8:37 AM CDT 08/31/2025 8:48 AM CDT Stephon Galindo D.O., M.B.A. LAB BLOOD ADD-ON Final Result Performing Organization Address City/[facility] Co de Phone Number [facility] [address] [place] [address], [facility] 200 [place] [address] * CEA (Carcinoembryonic Antigen) (08/31/2025 8:37 AM CDT) Carcinoembryonic Ag (CEA), S 1.1 ng/mL 08/31/2025 2:01 PM CDT [facility] Comment: ----REFERENCE VALUE---- <=3.0 (Non-smokers) Some smokers may have elevated CEA, usually <5.0. ----ADDITIONAL INFORMATION---- The testing method is an immunoenzymatic assay manufactured by [employer] and performed on the [employer] DxI 800. Values obtained with different assay methods or kits may be different and cannot be used interchangeably. Test results cannot be interpreted as absolute evidence for the presence or absence of malignant disease. Blood (Blood, Venous) 08/31/2025 8:37 AM CDT 08/31/2025 12:17 PM CDT Stephon Galindo D.O., M.B.A. LAB BLOOD ADD-ON Final Result [facility] [address] [place] [address] [facility] [address] [place] [address] documented in this encounter Visit Diagnoses Diagnosis Malignant Neoplasm Of Pancreas Body (HCC)- Primary documented in this encounter Administered Medications Inactive Administered Medications - up to 3 most recent administrations Medication Order MAR Action Action Date Dose Rate Site heparin flush 500 Units 500 Units, intra-catheter, As needed, line care, Starting on Fri08/31/25 at 0840, When IVAD accessed and not infusing: When no infusion to maintain patency flush every 7 days following NaCL flush. 5 mL (500 units) of Heparin 100 units/mL to each port/lumen. When IVAD not accessed or infusing: When no infusion to maintain patency flush every 28 days following NaCL flush. 5 mL (500 units) of Heparin 100 units/mL to each port/lumen.Indications:Malignan t Neoplasm Of Pancreas Body (HCC) Given 08/31/2025 8:39 AM CDT 500 Units sodium chloride 0.9 % injection 20-40 mL 20-40 mL, intra-catheter, As needed, line care, Starting on Fri08/31/25 at 0840, When IVAD accessed and infusing: Flush prior to blood sampling, post blood transfusion or post blood sampling. 20 mL to each port/lumen.Indications:Malignan t Neoplasm Of Pancreas Body (HCC) Given 08/31/2025 8:39 AM CDT 20 mL Given 08/31/2025 8:30 AM CDT 20 mL documented in this encounter Care Teams Monitor Car Operator Relationship Specialty Start Date End Date Elsewhere, Pcp PCP - General Internal Medicine 04/12/25 documented as of this encounter
--- OUTSIDE RECORDS SUMMARY | 2025-08-31 12:15 | XMS_ITS | Encounter Summary ---
Author Organization [facility] Address [address] [place] [address] Care Team Providers Care Food And Nutrition Services Supervisor Name Role Phone Elsewhere, Pcp Primary Care Provider Unavailabl e Reason for Visit * Outpatient (Routine) - Closed Specialty Diagnoses / Procedures Referred By Darling t Referred To Contact General Surgery Diagnoses Malignant Neoplasm Of Pancreas Body (HCC) Stephon Galindo D.O., M.B.A. [address] [place] [phone] Phone: tel: fax: [facility] Referral ID Status Reason Start Date Expiration Date Visits Re quested Visits Authorized [id number] Closed 07/07/2025 01/06/2027 1 1 Encounter Details Date Type Department Care Team (Late st Contact Info) Description 08/31/2025 1:15 PM CDT Office Visit Division of Hepatobiliary and Pancreas Surgery in [place], [place] [address] [place] [phone] Stephon Galindo D.O., M.B.A. [address] [place] [phone] Malignant Neoplasm Of Pancreas Body (HCC) (Primary [...] money to buy more. Never true 09/01/20 Within the past 12 months, t he [...] things needed for daily living? No 09/01/2025 [facility] Utilities Answer Date Recorded In the past 12 months has e electric, gas, oil, or water company threatened to shut off services in your home? No 09/01/2025 Housing Stability Answer Date Recorded What is your living situation today? I have a [facility] place to live 09/01/2025 Comments No Sex and Gender Information Value Date Recorded Sex Assigned at Female 03/21/2025 4:39 PM CDT Legal Sex Female 10:00 PM CHIEF COMPLIANCE OFFICER Gender Identity Female 03/21/2025 4:39 PM CDT Sexual Orientation Straight 03/21/2025 4: 39 PM CDT documented as of this encounter Progress Notes * Stephon Galindo D.O., M.B.A. - 08/31/2025 1:15 PM CDT PANCREAS SURGERY SUBSEQUENT VISIT SUBJECTIVE HISTORY OF PRESENT ILLNESS Mrs. Lazo previously had suspicious peritoneal cytology with a positive KRAS cfDNA but no definitive metastasis. Underwent systemic chemotherapy with FFX x7 followed by a repeat staging laparoscopywhich was grossly negative and cytology was negative (KRAS cfDNA +). She is clinically doing very well. History of Present Illness OBJECTIVE PHYSICAL EXAMINATION General appearance: Mrs. Lazo is well appearing and in no acute distress. DIAGNOSTICS Notable new diagnostics include: Labs: Latest Reference Range & Units 08/31/25 08:37 Hemoglobin A1c, B 4.0 - 5.6 % 5.6 Carcinoembryonic Ag (CEA), S ng/mL 1.1 CT Abd/Pelvis: Tumor: Similar size of the mass in the pancreatic body measuring up to 1.7 cm. Vascular contact: Present - Arterial: Persistent soft tissue abutment of the splenic artery. Continued interval resolution ofthe previously seen hazy attenuation abutment of the SMA. - Venous: Persistent soft tissue abutment of the splenic vein. Metastasis: No definitive evidence of metastatic disease in the abdomen or pelvis. CT Chest: 1. No CT evidence of new thoracic metastases. 2. A previously new right middle lobe 2 mm nodule has resolved. Another previously new less than 1 mm right lower lobe nodule is unchanged. 3. Additional solid noncalcified micronodules are stable. I independently reviewed the imaging and agree with radiology findings. ASSESSMENT / PLAN #1 PDAC of body We discussed her diagnosis and treatment options. She is in an excellent response to chemotherapy. The tumor is anatomically resectable and the haziness around SMA has resolved. She is not interestedin more chemotherapy. We discussed she is at very high-risk of peritoneal recurrence in my opinion.However given the now negative cytology an excellent response to chemotherapy we reasonable to consider surgery. This would be distal pancreatectomy and splenectomy. We discussed option of robotic versus open. She would like to proceed. Consent obtained per discuss below. Assessment & Plan CONSENT: We discussed the risk, benefits, and alternatives to surgery. Risks of surgery include, but are notlimited to, bleeding, infection, leak, damage to adjacent structures, and hernia. Pancreas specificcomplications include risk of pancreatic leak, delayed gastric emptying, malabsorption/pancreatic in sufficiency, changes in diet and bowel function, and diabetes. This may result in the need for additional procedures to manage these complications, including surgeries or additional drain placement, and an extended hospital stay and recovery. A drain may be placed at the time of surgery and although the drains are typically able to be removed within a few days, they occasionally must remain in place longer. Other risk include the possible need for blood transfusion, risk of cardiopulmonary, risk of other systemic complications, and risk of major complications including risk of . There isalso a risk of needing to resect additional organs at the time of surgery to remove the tumor as well as risk of leaving residual disease and/or recurrence of the tumor. [facility] team utilizes a team approach and physicians in training and CORPORATE SALES REPRESENTATIVE/PA???s may be involved in the management of the patient. Patient was given the opportunity to ask questions and after verbalizing an understanding of therisks, benefits, and alternatives to the treatment plan the patient elected to proceed with surgery. documented in this encounter Plan of Treatment Upcoming Encounters Date Type Department Care Team (Latest Contact Info) Description 10/05/2025 3:45 PM CHIEF COMPLIANCE OFFICER Clinical Communication Virtual Review in [address] [phone] 10/11/2025 1:40 PM CHIEF COMPLIANCE OFFICER Nurse Only Section of Infectious Diseases in [address] [phone] Kaleigh Xiong APRN, C.N.P., M.S.N. [address] [place] [phone] 10/11/2025 3:00 PM CHIEF COMPLIANCE OFFICER Lab Department of Infusion Therapy in [address] [phone] Kaleigh Xiong APRN, C.N.P., M.S.N. [address] [place] [phone] 10/11/2025 4:00 PM CHIEF COMPLIANCE OFFICER Appointment Department of Radiology, [facility], in [address] [phone] Kaleigh Xiong APRN C.N.P., M.S.N. [address] [place] [phone] 10/12/2025 10:30 AM CHIEF COMPLIANCE OFFICER Office Visit Division of Hepatobiliary and Pancreas Surgery in [place], [place] [address] [place] [phone] Sammie Gerber APRN, CEstelleNEstelleP., M.S.N. [address] [place] [phone] 10/12/2025 3:00 PM CHIEF COMPLIANCE OFFICER Comprehensive Visit Department of Oncology in [place], [place] [address] [place] [phone] Jeffy James M.D. [address] [place] [phone] documented as of this encounter Visit Diagnoses Diagnosis Malignant Neoplasm Of Pancreas Body (HCC)- Primary documented in this encounter Care Teams Food And Nutrition Services Supervisor Relationship Specialty Start Date End Date Elsewhere, Pcp PCP - General Internal Medicine 04/12/25 documented as of this encounter
--- OUTSIDE RECORDS SUMMARY | 2025-08-31 23:00 | XMS_ITS | Encounter Summary ---
Author Organization [facility] Address [address] [place] [address] Care Team Providers Care Senior Manufacturing Technician Name Role Phone Elsewhere, Pcp Primary Care Provider Unavailabl e Encounter Details Date Type Department Care Team (Late st Contact Info) Description 09/01/2025 Ancillary Procedure Department of Laboratory Medicine Social History Tobacco Use Types Packs/Day Years [...] things needed for daily living? No 09/01/2025 [facility] Utilities Answer Date Recorded In the past 12 months has th e electric, gas, oil, or water company threatened to shut off services in your home? No 09/01/2025 Housing Stability Answer Date Recorded What is your living situation today? I have a [facility] place to live 09/01/2025 Comments No Sex and Gender Information Value Date Recorded Sex Assigned at Female 03/21/2025 4:39 PM CDT Legal Sex Female 10:00 PM POLISHER IMPLANT Gender Identity Female 03/21/2025 4:39 PM CDT Sexual Orientation Straight 03/21/2025 4: 39 PM CDT documented as of this encounter Plan of Treatment Upcoming Encounters Date Type Department Care Team (Latest Contact Info) Description 10/05/2025 3:45 PM POLISHER IMPLANT Clinical Communication Virtual Review in [address] [phone] 10/11/2025 1:40 PM POLISHER IMPLANT Nurse Only Section of Infectious Diseases in [place] [phone] Kaleigh Xiong APRN, C.N.P., M.S.N. [address] [place] [phone] 10/11/2025 3:00 PM POLISHER IMPLANT Lab Department of Infusion Therapy in [address] [phone] Kaleigh Xiong APRN, C.N.P., M.S.N. [address] [place] [phone] 10/11/2025 4:00 PM POLISHER IMPLANT Appointment Department of Radiology, [facility], in [place], [place] [address] [place] [phone] Kaleigh Xiong APRN, C.N.P., M.S.N. [address] [place] [phone] 10/12/2025 10:30 AM POLISHER IMPLANT Office Visit Division of Hepatobiliary and Pancreas Surgery in [place], [place] [address] [place] [phone] Sammie Gerber APRN, MilkaNDre., M.S.N. [address] [place] [phone] 10/12/2025 3:00 PM POLISHER IMPLANT Comprehensive Visit Department of Oncology in [place], [place] [address] [place] [phone] Jeffy James M.D. [address] [place] [phone] documented as of this encounter Procedures Procedure Name Priority Date/Time Associated Diagnosis Comments PATHOLOGY IMAGE EXAM Routine 09/01/2025 12:00 AM CDT documented in this encounter Results * Specimen-Pathology Image Exam (09/01/2025 12:00 AM CDT) Narrative [facility] - 09/01/2025 11:40 AM CDT This order has been created and auto-finalized to support the import of images acquired without order. The clinical documentation to support these images can be found on the encounter that produced images. us Provider Not In System IMG NON RAD IMAGING PROCE DURES Final Result [facility] NA documented in this encounter Visit Diagnoses Not on filedocumented in this encounter Care Teams Senior Manufacturing Technician Relationship Specialty Start Date End Date Elsewhere, Pcp PCP - General Internal Medicine 04/12/25 documented as of this encounter
--- OUTSIDE RECORDS SUMMARY | 2025-09-01 04:52 | XMS_ITS | Encounter Summary ---
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 [address] [place] [phone] Phone: tel: fax: [facility] Referral ID Status Reason Start Date Expiration Date V isits Requested Visits Authorized [id number] Authorized 09/05/2025 03/07/2027 1 1 ICAL DENTAL TECHNICIAN * MRI/CAT/PET Scan (Routine) - Pending Review Specialty Diagnoses / Procedures Referred By Contac t Referred To Contact Radiology Diagnoses Malignant Neoplasm Of Pancreas Body (HCC) Procedures CT Chest without IV Contrast Kaleigh Xiong APRN C.N.P., M.S.N. [address] [place] [phone] Phone: tel: fax: [facility] Referral ID Status Reason Start Date Expiration Date V isits Requested Visits Authorized [id number] Pending Review 09/05/2025 12/06/2026 1 1 ICAL DENTAL TECHNICIAN * Outpatient (Routine) - Authorized Specialty Diagnoses / Procedures Referred By Darling soriano Referred To Contact General Surgery Kaleigh Xiong APRN, C.N.P., M.S.N. 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 [address] [place] [phone] Phone: tel: fax: Referral ID Status Reason Start Date Expiration Date Visits Re quested Visits Authorized [id number] 1 1 Encounter Details Date Type Department Care Team (Late st Contact Info) Description 09/01/2025 5:52 AM CDT - 09/05/2025 12:50 PM CLINICAL DENTAL TECHNICIAN Hospital Encounter [facility], [facility], Fifth Floor [address] [place] [phone] Stephon Galindo D.O., M.B.A. [address] [place] [phone] Malignant Neoplasm Of Pancreas Body (HCC) (Primary Dx) Discharge Disposition: Home or Self Care Social History Tobacco Use Types Packs/Day Years Used Date Smoking Tobacco: Never Smokeless Tobacco: Never Alcohol Use Standard Drinks/Week Comments Not Currently 2 (1 standard drink = 0.6 oz pur e alcohol) Humiliation, Afraid, Rape, and Kick questionnair e Answer Date Recorded Within the last year, have y ou been afraid of your partner or ex-partner? No 09/04/2025 Within the last year, have y ou been humiliated or emotionally abused in other ways by your partner or ex-partner? No Within the last year, have y ou been kicked, hit, slapped, or otherwise physically hurt by your partner or ex-partner? No 09/04/2025 Within the last year, have y ou been raped or forced to have any kind of sexual activity by your partner or ex-partner? No 09/04/2025 Hunger Vital Sign Answer Date Recorded Within the past 12 months, y ou worried that your food would run out before you got the money to buy more. Never true 09/04/20 25 Within the past 12 months, t he food you bought just didn't last and you didn't have money to get more. Never true 09/04/2025 PRAPARE - Transportation Answer Date Re corded In the past 12 months, has l ack of transportation kept you from medical appointments or from getting medications? No 12/2024 In the past 12 months, has l ack of transportation kept you from meetings, work, or from getting things needed for daily living? No 09/04/2025 [facility] Utilities Answer Date Recorded In the past 12 months has [facility] electric, gas, oil, or water company threatened to shut off services in your home? No 09/04/2025 Housing Stability Answer Date Recorded What is your living situation today? I have a [facility] place to live 09/04/2025 Comments No Sex and Gender Information Value Date Recorded Sex Assigned at Female 03/21/2025 4:39 PM CDT Legal Sex Female 10:00 PM CLINICAL DENTAL TECHNICIAN Gender Identity Female 03/21/2025 4:39 PM CDT Sexual Orientation Straight 03/21/2025 4: 39 PM CDT documented as of this encounter Last Filed Vital Signs Vital Sign Reading Time Taken Comments Blood Pressure 113/70 09/04/2025 4:00 PM CLINICAL DENTAL TECHNICIAN Pulse 72 09/05/2025 10:57 AM CLINICAL DENTAL TECHNICIAN Temperature 36.9 C (98.4 F) 09/05/2025 10:57 AM CLINICAL DENTAL TECHNICIAN Respiratory Rate 14 09/05/2025 10:57 AM CLINICAL DENTAL TECHNICIAN Oxygen Saturation 99% 09/05/2025 10:57 AM CLINICAL DENTAL TECHNICIAN Inhaled Oxygen Concentration - - Weight 53.1 kg (117 lb 1 oz) 09/05/2025 5:00 AM CLINICAL DENTAL TECHNICIAN Height 175.3 cm (5' 9) 09/01/2025 7:02 AM CDT Body Mass Index 17.29 09/01/2025 7:02 AM CDT documented in this encounter Discharge Summaries * Kaleigh Xiong, AYESHA, C.N.P., M.S.N. - 09/05/2025 10:37 AM CST DISCHARGE SUMMARY BRIEF OVERVIEW Hospital: [facility] Discharge Provider: Stephon Galindo D.O. Primary Team: [facility] General Surgery - [facility] Primary Care Providers: Elsewhere, Pcp (General) No address on file Primary Care Provider Phone Number: None Primary Care Provider Fax Number: None Admission Date: 09/01/2025 Discharge Date: 09/05/2025. 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 * Surgery Information This Encounter Past Procedures (09/05/2024 to Today) Date Procedures Providers Loc / Dept 09/01/2025 PANCREATECTOMY DISTAL WITH SPLENECTOMY, BLOCK - TRANSVERSUS ABDOMINIS PLANE Stephon Galindo D.O., M.B.A.Sanchez Buchanan M.B., B.Ch., B.A.O. [facility] ROMB OR DISCHARGE DISPOSITION Home or Self Care [1] ACTIVE ISSUES REQUIRING FOLLOW UP 1. Anticoagulation plan: Enoxaparin 40 mg daily in the setting of abdominal cancer operation. Do not stop this medication until you have seen by your surgeon or your surgeon's MANAGER DOCUMENT CONTROL/PA in clinic. If youwill run out of this medication before follow up, please call the number below for a refill. 2. Proton Pump Inhibitor (PPI): not indicated. 3. Follow up plan: -Order's have been placed for return in 4-6 weeks with labs, CT scans, Dr. Galindo [facility] and Oncology to establish a surveillance plan. Post-splenectomy vaccines have been ordered. 4. Antibiotic plan: none. 5. Nutrition plan: Regular diet. Small frequent meals encouraged. High protein/High calorie. 6. New medications: -Lovenox (enoxaparin): blood thinner -Oxycodone: narcotic pain medication as needed -Robaxin (methocarbamol): muscle relaxer 7. Please follow up with your primary care provider for ongoing care needs. 8. Remote patient monitoring: Yes You have been enrolled in the Remote Patient Monitoring program to assist in your recovery from surgery. This program includes a health kit that consists of health care equipment like a blood pressure monitor, thermometer, and pulse oximeter as well as a digital tablet or phone for you to answer symptom assessment questions. The remote monitoring nurse team will review your information and contact you when needed. The equipment will arrive to your home/hotel in a few days. If you have any questions, you can contact the Remote Monitoring team at . Splenectomy vaccine: To guard against infections and illness, your health care provider recommends you receive the follow vaccinations starting either 2 weeks prior to the operation or 2 weeks after the operation. Your primary care provider can administer these vaccinations. * Bexsero (MenB) - Meningococcal conjugate B vaccine 0.5 ml IM X3, second dose given at least 4 weeks after the initial dose, third dose given at least 6 months after first dose. Give a single booster 12 months after completion of the primary series and a single booster every 2 to 3 years thereafter. Booster must be the same brand as the primary series, or must repeat primary series. Haemophilus B Vac 0.5ml IM Adult (Hib) * Pneumococcal -- 1 dose of PCV20 and no booster; or 13-Halima Conj Vac 0.5 ml IM (PCV13) followed by booster of Pneumococcal polysaccharide vaccine 0.5 ml IM (PPSV23) at least 8 weeks after PCV13. *Meningococcal 4-valent conjugate- MenQuadfi (MenACWY-TT) X2 doses-- second dose should be given 8 weeks after the first, if continued risk of exposure to meningococcal virus a single booster may be given 4 years after the initial dose. ?? MenQuadfin may be given simultaneously with PCV13. Contact: For medical issues or prescription related questions, call Dr. Galindo's front office secretary at [phone]. After hours or on the weekend, contact the [facility] batch or continuous still operator at [phone]. For questions about your appointments, contact Dr. Galindo's fire coordinator at [phone] OUTPATIENT FOLLOW UP For appointment details refer to your Patient Appointment Guide. 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 The patient was admitted to [facility]. The patient was taken to theoperating room where they underwent the above procedure. The patient tolerated the procedure well. After a brief stay in the postanesthesia care unit, the patient was transferred to the general surgical floor. Throughout the hospitalization, pain was well managed with IV and oral pain medications. At the time of discharge, the patient was tolerating a general diet, and pain was controlled on oral pain medication alone. OPERATIVE PROCEDURE 1. Distal pancreatectomy with splenectomy and regional lymphadenectomy 2. Intraoperative Pancreas ultrasound 2. Bilateral TAP Blocks FINAL PATHOLOGY Final pathology pending at the time of discharge. You will be called once finalized. ADDITIONAL DIAGNOSES -Hypomagnesemia Patient's electrolytes were monitored and replaced. -Remote patient monitoring You have been enrolled in the Remote Patient Monitoring program to assist in your recovery from surgery. This program includes a health kit that consists of health care equipment like a blood pressure monitor, thermometer, and pulse oximeter as well as a digital tablet or phone for you to answer symptom assessment questions. The remote monitoring nurse team will review your information and contact you when needed. The equipment will arrive to your home/hotel in a few days. If you have any questions, you can contact the Remote Monitoring team at . 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 The patient's home medications were restarted as indicated. CONSULTS ORDERED DURING THIS ADMISSION IP CONSULT TO DIETITIAN CONDITION AT DISCHARGE stable Discharge instructions were provided to the patient and caregiver(s). Total time spent in discharge services today: >30 minutes. ICAL DENTAL TECHNICIAN documented in this encounter Discharge Instructions * Attachments The following attachments cannot be sent through Care Everywhere. * Melatonin (By mouth) (Vietnamese) * Methocarbamol (By mouth) (Vietnamese) * Oxycodone, Rapid Release (By mouth) (Vietnamese) * Simethicone (By mouth) (Vietnamese) * Laxative, Stimulant (By mouth) (Vietnamese) documented in this encounter Medications at Time [...] clotting prevention. 10 mL 09/05/2025 12:12 PM CLINICAL DENTAL TECHNICIAN 09/05/2025 estradiol 0.03 %, testosterone 0.01 % [...] Acute Pain. 8 tablet 09/05/2025 12:12 PM CLINICAL DENTAL TECHNICIAN 09/05/2025 prasterone, DHEA, 10 mg tablet Take [...] tablet as needed (cold sore outbreak). 03/20/2021 methocarbamoL (Robaxin) 500 mg tablet Take 1 tablet (500 mg total) by mouth every 8 (eight) hours as needed for muscle spasms. 6 tablet 09/05/2025 12:12 PM CLINICAL DENTAL TECHNICIAN 09/05/2025 documented as of this encounter Progress Notes * Kaleigh Xiong APRN C.N.PEstelle, M.S.N. - 09/05/2025 10:09 AM CST Remote Patient Monitoring Primary reason for today's contact: Patient meets inclusion criteria for Enrollment into Remote Patient Monitoring Discussion Summary: Yara was contacted today to discuss eligibility for enrollment into Remote Patient Monitoring and associated billing for the service. Yara has been informed about program billing and consents to Remote Patient Monitoring billing andagrees to proceed with enrollment. . ICAL DENTAL TECHNICIAN * Ryan Summers M.D. - 09/04/2025 7:22 AM CST SUBJECTIVE Subjective Open distal pancreatectomy and splenectomy August for pancreatic cancer - post neoadjuvant. Uncomplicated procedure. No drain placement. Post-Op: Open distal pancreatectomy and splenectomy Postop Day: 3 No acute events overnight. Pt continues to tolerate clear liquid diet, but had minimal intake yesterday. Denies nausea/vomiting. Awaiting ROBF. Passing flatus very infrequently, and no BMs yet. Pt producing adequate urine output (1.4L past 24hr). Minimal endorsement of abdominal pain. REVIEW OF SYSTEMS REVIEW OF SYSTEMS OBJECTIVE Vitals Weight: 55.4 kg, BMI (Calculated): 18 kg/m??, Blood Pressure: 112/71, Heart Rate: 91, Pulse Rate: 79, Resp Rate: 18, Temperature: 36.9 ??C, SpO2: 94 % Physical Exam Minimal pain with palpation. Minimal distension. Labs 13.1 \ 11.8 / 215 / 35.7 \ 139 99 9 / 92 4.2(S) ; -- (P) 24 0.72 \ ASSESSMENT / PLAN Assess/Plan Overall pt is POD3 from open distal pancreatectomy and splenectomy following systemic chemotherapy with FFX x7 and a repeat staging laparoscopy which was grossly negative with negative cytology. - Continue to await ROBF. Passing minimal flatus but no BMs, and mild abdominal distension. - WBC continues to remain elevated. Consider CT AP if leukocytosis persists. - Pt currently tolerating clear liquid diet. Given minimal intake yesterday and lack of consistent ROBF, will plan to advance diet slowly. Continue to monitor serial abdominal exams. - Encourage mobilization - Consider discharge early this week ICAL DENTAL TECHNICIAN ICAL DENTAL TECHNICIAN ICAL DENTAL TECHNICIAN * Ryan Summers M.D. - 09/03/2025 7:28 AM CDT SUBJECTIVE Subjective Open distal pancreatectomy and splenectomy August for pancreatic cancer - post neoadjuvant. Uncomplicated procedure. No drain placement. Post-Op: Open distal pancreatectomy and splenectomy Postop Day: 2 No acute events overnight. Pt tolerating clear liquid diet well. Denies nausea/vomiting. Awaiting ROBF. Passing flatus, but no BMs yet. Pt producing adequate urine output (1.3L past 24hr). Minimal endorsement of abdominal pain. REVIEW OF SYSTEMS REVIEW OF SYSTEMS OBJECTIVE Vitals Blood Pressure: 96/56, Heart Rate: 80, Pulse Rate: 69, Resp Rate: 15, Temperature: 36.8 ??C, SpO2: 96 % Physical Exam Mild pain with palpation diffusely. Mild distension Labs 12.7 \ 11.7 / 209 / 35.5 \ 138 99 8 / 146 4.1(S) ; -- (P) 28 0.72 \ ASSESSMENT / PLAN Assess/Plan Overall pt is POD2 from open distal pancreatectomy and splenectomy following systemic chemotherapy with FFX x7 and a repeat staging laparoscopy which was grossly negative with negative cytology. - Await ROBF. Passing flatus but no BMs, and mild abdominal distension. - Pt currently tolerating clear liquid diet. Continue to monitor serial abdominal exams and advanceas tolerated. - Encourage mobilization - Consider discharge over weekend/early next week * Sanchez Buchanan M.B., B.Ch., B.A.O. - 09/02/2025 8:30 PM CDT SUBJECTIVE Subjective Postop Day: 1 Day Post-Op: Open distal pancreatectomy and splenectomy - uncomplicated Hospital Day: LOS: 1 day Uncomplicated course to date and no complaints on review. Discussed in detail the operating and plan going forward with patient and next of kin REVIEW OF SYSTEMS REVIEW OF SYSTEMS OBJECTIVE Vitals Blood Pressure: 119/66, Heart Rate: 77, Pulse Rate: 80, Resp Rate: 16, Temperature: 37 ??C, SpO2: 96 % Physical Exam Mild abdominal pain and distension ASSESSMENT / PLAN Assess/Plan Continue current progress - can't eat and drink as tolerated Stop IV fluids Mobilize Aim for discharge over weekend/early next week * Bebeto Kim, Claudy, R.Ph. - 09/02/2025 11:27 AM CDT Pharmacist Progress Note Reason for admission: Malignant Neoplasm Of Pancreas Body (HCC) [C25.1] Malignant Neoplasm Of Pancreas Tail (HCC) [C25.2] Surgery Information This Encounter Past Procedures (09/02/2024 to Today) Date Procedures Providers Loc / Dept 09/01/2025 PANCREATECTOMY DISTAL WITH SPLENECTOMY, BLOCK - TRANSVERSUS ABDOMINIS PLANE Stephon Galindo D.O., M.B.Jaylin.Sanchez Buchanan M.B., B.Ch., B.A.O. [facility] OR Medical History[1] Prior to Admission Meds[2] OBJECTIVE Home medications: Held: none Changed: none Prophylaxis: Enoxaparin 40 mg daily ASSESSMENT / PLAN Medications, labs, notes reviewed. Will need splenectomy vaccines prior to discharge or 2 weeks post-op. [1] Past Medical History: Diagnosis Date Hyperlipidemia 2014 Hypothyroidism Osteopenia 2014 Post Operative Nausea/Vomiting Skin Cancer (Primary) NOS 2016 [2] Current Outpatient Medications on File Prior to Encounter Medication Sig valACYclovir (Valtrex) 1000 mg tablet as needed (cold sore outbreak). acetaminophen (TylenoL) 500 mg tablet Take 2 tablets (1,000 mg total) by mouth every 6 (six) hours as needed for pain (pain). Take 2 tablets up to four times daily for pain ascorbic acid, vitamin C, (Vitamin C) 1,000 [...] K2 100 mcg (did not confirm product) estradiol 0.03 %, testosterone 0.01 % in versabase lotion Apply 1 g topically as directed. Apply tolegs or buttock area 6 days of the week. Cream contains an estrogen and testosterone (did not confirm strengths) fluticasone propionate (Flonase) 50 mcg/actuation nasal spray Administer 1 spray into each nostril 2 (two) times a day as needed for rhinitis or allergies. ibuprofen 200 mg tablet Take 400 mg by mouth every 6 (six) hours as needed for pain. MAGNESIUM ORAL Take 1 capsule by mouth at bedtime. Reports indication is to promote sleep OLANZapine (ZyPREXA) 5 mg tablet Take 1 tablet (5 mg total) by mouth at bedtime as needed (nausea, vomiting). May take dose early if needed. ondansetron (Zofran) 8 mg tablet Take 1 tablet (8 mg total) by mouth every 8 (eight) hours as needed for nausea or vomiting (unrelieved by prochlorperazine). prasterone, DHEA, 10 mg tablet Take 1 tablet by mouth daily. prednisoLONE acetate (Pred Forte) 1 % ophthalmic suspension Administer 1 drop into both eyes 2 (two) times a day as needed (ocular rosacea symptoms). prochlorperazine (Compazine) 10 mg tablet Take 1 tablet (10 mg total) by mouth every 6 (six) hours as needed for nausea or vomiting. progesterone 50 mg oral capsule Take 50 mg by mouth at bedtime. SHILAJIT ORAL Take 2 tablets by mouth daily. (2 gummies) TURMERIC ORAL Take 1 capsule by mouth daily. * Karrie Dominguez Pharm.D., R.Ph. - 09/01/2025 8:01 AM CDT Images from the original note were not included. Admission Medication History Note Prior to Admission Medications Med List Status: Pharmacy/RN Complete Set By: Karrie Dominguez, PharmLeon, R.Ph. at 09/01/2025 7:54 AM Taking? Last Dose Informant Start Date End Date LT acetaminophen (TylenoL) 500 mg tablet -- -- 04/12/25 -- Take 2 tablets (1,000 mg total) by mouth every 6 (six) hours as needed for pain (pain). Take 2 tablets up to four times daily for pain ascorbic acid, vitamin C, (Vitamin C) 1,000 mg CR tablet -- -- -- -- Take 1,000 mg by mouth daily. BERBERINE CHLORIDE ORAL -- -- -- -- Take 1 tablet by mouth daily before morning meal. Reports indication is blood sugar control cholecalciferol, vitD3,/vit K2 (VITAMIN D3-VITAMIN K2 ORAL) -- -- -- -- Take 1 tablet by mouth daily. Reports low vitamin D level in the past. Product documented was vitamin D3 6000 units, vitamin K2 100 mcg (did not confirm product) estradiol 0.03 %, testosterone 0.01 % in versabase lotion -- -- -- -- Apply 1 g topically as directed. Apply to legs or buttock area 6 days of the week. Cream contains an estrogen and testosterone (did not confirm strengths) fluticasone propionate (Flonase) 50 mcg/actuation nasal spray More than a month -- 03/07/15 -- Administer 1 spray into each nostril 2 (two) times a day as needed for rhinitis or allergies. ibuprofen 200 mg tablet 08/18/2025 -- -- -- Take 400 mg by mouth every 6 (six) hours as needed for pain. MAGNESIUM ORAL -- -- -- -- Take 1 capsule by mouth at bedtime. Reports indication is to promote sleep OLANZapine (ZyPREXA) 5 mg tablet More than a month -- 04/12/25 04/12/26 Take 1 tablet (5 mg total) by mouth at bedtime as needed (nausea, vomiting). May take dose early ifneeded. Notes: Has on hand but has not needed this ondansetron (Zofran) 8 mg tablet -- -- 04/12/25 04/12/26 Take 1 tablet (8 mg total) by mouth every 8 (eight) hours as needed for nausea or vomiting (unrelieved by prochlorperazine). Notes: Has on hand but has not needed this prasterone, DHEA, 10 mg tablet -- -- -- -- Take 1 tablet by mouth daily. Notes: Did not verify strength prednisoLONE acetate (Pred Forte) 1 % ophthalmic suspension More than a month -- 06/04/25 -- Administer 1 drop into both eyes 2 (two) times a day as needed (ocular rosacea symptoms). prochlorperazine (Compazine) 10 mg tablet -- -- 04/12/25 04/12/26 Take 1 tablet (10 mg total) by mouth every 6 (six) hours as needed for nausea or vomiting. Notes: Has on hand but has not needed this progesterone 50 mg oral capsule 08/30/2025 -- -- -- Take 50 mg by mouth at bedtime. SHILAJIT ORAL -- -- -- -- Take 2 tablets by mouth daily. (2 gummies) TURMERIC ORAL -- -- -- -- Take 1 capsule by mouth daily. valACYclovir (Valtrex) 1000 mg tablet -- -- 03/20/21 -- as needed (cold sore outbreak). documented in this encounter Nursing Notes * Pat Grewal, R.N. - 09/05/2025 12:50 PM CST Shift Goals: Clinical Goals for the Shift: pain management, increased oral intake, adequate for discharge Identify possible barriers to meeting goals/advancing plan of care: None End of Shift Summary: The patient discharged to home self care with her . She is vitally stable on room air, tolerating a regular diet with an increase in oral intake, ambulating well independently, and reporting adequate pain management with current pain regimen. All of her discharge teaching is complete and she reports adequate understanding with all of her questions answered. Her port was de-accessed prior to discharge, and all of her personal belongings were sent with her. Problem: PAIN - ADULT Goal: VERBALIZES/DISPLAYS ADEQUATE COMFORT LEVEL OR BASELINE COMFORT LEVEL Outcome: Adequate for Discharge Problem: KNOWLEDGE DEFICIT Goal: Patient/family/caregiver demonstrates understanding of disease process, treatment plan, medications, and discharge instructions Outcome: Adequate for Discharge Problem: INFECTION - ADULT Goal: Absence of infection during hospitalization Outcome: Adequate for Discharge Problem: SKIN/TISSUE INTEGRITY Goal: Skin/Tissue integrity maintained or improved Outcome: Adequate for Discharge Goal: Oral and Nasal mucous membranes remain intact Outcome: Adequate for Discharge Problem: SAFETY ADULT Goal: Maintain a safe environment Outcome: Adequate for Discharge Problem: DISCHARGE PLANNING Goal: Patient discharge needs identified Outcome: Adequate for Discharge Problem: SAFETY ADULT - RISK FOR FALL AND OR FALL INJURY Goal: Patient remains free from fall/fall injury Outcome: Adequate for Discharge ICAL DENTAL TECHNICIAN * Valery Penaloza RTao. - 09/05/2025 3:09 AM CST Problem: PAIN - ADULT Goal: VERBALIZES/DISPLAYS ADEQUATE COMFORT LEVEL OR BASELINE COMFORT LEVEL Outcome: Progressing Problem: KNOWLEDGE DEFICIT Goal: Patient/family/caregiver demonstrates understanding of disease process, treatment plan, medications, and discharge instructions Outcome: Progressing Problem: INFECTION - ADULT Goal: Absence of infection during hospitalization Outcome: Progressing Problem: SKIN/TISSUE INTEGRITY Goal: Skin/Tissue integrity maintained or improved Outcome: Progressing Goal: Oral and Nasal mucous membranes remain intact Outcome: Progressing Problem: SAFETY ADULT Goal: Maintain a safe environment Outcome: Progressing Problem: DISCHARGE PLANNING Goal: Patient discharge needs identified Outcome: Progressing Problem: Risk for Compromised Skin Integrity-Other Long Chain Beamer(s) Goal: Risk for Compromised Skin Integrity-Other Long Chain Beamer(s) Outcome: Progressing Problem: SAFETY ADULT - RISK FOR FALL AND OR FALL INJURY Goal: Patient remains free from fall/fall injury Outcome: Progressing Problem: Risk for Compromised Skin Integrity-Justin Activity Score 3 Goal: Achieve optimal activity to maintain or improve skin integrity. Outcome: Progressing Problem: Risk for Compromised Skin Integrity-Justin Nutrition Score 1 or 2 Goal: Improve nutritional status to maintain or improve skin integrity. Outcome: Progressing Problem: Risk for Compromised Skin Integrity-Justin Activity Score 1 or 2 Goal: Achieve optimal activity to maintain or improve skin integrity. Outcome: Progressing Problem: Risk for Compromised Skin Integrity-Justin Sensory Perception Score 1, 2, or 3 Goal: Manage sensory perception deficits to maintain and/or improve skin integrity. Outcome: Progressing Shift Goals: Remains free of falls, pain control, and comfort. Identify possible barriers to meeting goals/advancing plan of care: anxiety. End of Shift Summary: Per patient request paged MD for PO Melatonin sleep aid at night time. Remains free of falls with steady gait. Pain controlled. Denies nausea. Tolerates diet in small amounts. Started SQ Lovenox teaching with patient. 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 Patient's visited at bedside. Slept well throughout the night. Electronically signed by: Edyta Penaloza R.N. 09/05/25 3:11 AM CLINICAL DENTAL TECHNICIAN ICAL DENTAL TECHNICIAN documented in this encounter OR Notes * Op Note - Stephon Galindo D.O., M.B.A. - 09/01/2025 9:00 AM CDT Pre-op Diagnosis Malignant Neoplasm Of Pancreas Body (HCC) Post-op Diagnosis Malignant Neoplasm Of Pancreas Body (HCC) PROCEDURE(s) 1. Distal pancreatectomy with splenectomy and regional lymphadenectomy 2. Intraoperative Pancreas ultrasound 2. Bilateral TAP Blocks FINDINGS No evidence of peritoneal or surface liver lesions on exploration. Pancreas divided at SMV. Margin negative resection on frozen section pathology. No abnormal appearing lymph nodes. COMPLICATIONS None DESCRIPTION OF PROCEDURE The patient was brought in to the operating room and placed on the operating table in supine position. A spinal was previously provided. General anesthesia was induced, and endotracheal intubation was performed. A Garcia catheter was placed. Sequential compression devices were placed to the bilateral lower extremities. The patient received prophylactic medications as indicated. The abdomen was prepped and draped in the usual sterile fashion followed by a pause, identifying the correct patient, date, site, and procedure. Bilateral tap blocks were done using liposomal bupivacaine with ultrasound guidance with images saved to the chart. We then proceeded with the upper midline laparotomy. The preperitoneal fat and round ligament were preserved for future pedicled flap. The abdomen was explored as described in the findings section. The patient was prepped and draped in a sterile fashion. Following a surgical pause for identification access was gained to the abdominal cavity via upper midline incision. The round ligament and preperitoneal fat was preserved for future pedicled flap. The lesser sac was entered. I mobilized the splenic flexure of the colon standard fashion. We mobilized the inferior border of the pancreas. The SMV was identified and a portion of the retropancreatic tunnel was safely created. We then turned our attention to the superior border of the pancreas. I elected to dissect down onto the common hepatic artery and celiac axis in order to ensure adequate kofi clearance. The portal vein was identified in the retro pancreatic tunnel was completed. The splenic artery was encircled near the takeoff. Superior kofi tissue from the base of the celiac axis was swept down with the pancreas specimen. The left gastric artery and vein were preserve. The hepatic artery had good flow. Intraoperative pancreas ultrasound was used to identify the location of the tumor and to ensure margin negative resection.At this point I elected to divide the pancreas with a Endo-WOODY vascular load stapler given how small the pancreas was. This fired without difficulty. The neck of the pancreas was then oversewn with a3-0 Vicryl V lock suture. The pancreas was mobilized off the SMV and the splenic vein was encircled. Then proceeded to ligate the splenic artery with a 2-0 silk tie, 4-0 PDS and a small metal clip. The splenic vein was divided with a Endo-WOODY vascular load stapler. Then proceeded with a medial to lateral dissection extending partially into the retroperitoneum to ensure margin negative resection given the original extent of the tumor. At this point the short gastrics were divided with LigaSure the spleen was mobilized out of the retroperitoneum. The remainder of the retropancreatic dissection was performed with the LigaSure and the specimen was extracted and sent to pathology including distal pancreas, spleen and regional lymph nodes. Pathology confirmed a margin negative resection of the neck of the pancreas as well as the radial margins. There was no abnormal palpable lymphadenopathy. The abdomen was irrigated and aspirated dry. I elected not to leave a drain. The pedicled round ligament with blood supply liver was secured over the pancreatic stump with silk sutures. Counts were con firmed. The fascia was closed with a non looped running PDS suture. Skin was closed with 4-0 Monocryl. Patient tolerated the operation well. Blood loss was <50 cc. Stephon Galindo D.O., M.B.A. documented in this encounter Miscellaneous Notes * Hospital Course - Kaleigh Xiong APRN, C.N.P., M.S.N. 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 The patient was admitted to [facility]. The patient was taken to theoperating room where they underwent the above procedure. The patient tolerated the procedure well. After a brief stay in the postanesthesia care unit, the patient was transferred to the general surgical floor. Throughout the hospitalization, pain was well managed with IV and oral pain medications. At the time of discharge, the patient was tolerating a general diet, and pain was controlled on oral pain medication alone. OPERATIVE PROCEDURE 1. Distal pancreatectomy with splenectomy and regional lymphadenectomy 2. Intraoperative Pancreas ultrasound 2. Bilateral TAP Blocks FINAL PATHOLOGY Final pathology pending at the time of discharge. You will be called once finalized. ADDITIONAL DIAGNOSES -Hypomagnesemia Patient's electrolytes were monitored and replaced. -Remote patient monitoring You have been enrolled in the Remote Patient Monitoring program to assist in your recovery from surgery. This program includes a health kit that consists of health care equipment like a blood pressure monitor, thermometer, and pulse oximeter as well as a digital tablet or phone for you to answer symptom assessment questions. The remote monitoring nurse team will review your information and contact you when needed. The equipment will arrive to your home/hotel in a few days. If you have any questions, you can contact the Remote Monitoring team at . 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 The patient's home medications were restarted as indicated. ICAL DENTAL TECHNICIAN ICAL DENTAL TECHNICIAN ICAL DENTAL TECHNICIAN ICAL DENTAL TECHNICIAN documented in this encounter Plan of Treatment Upcoming Encounters Date Type Department Care Team (Latest Contact Info) Description 10/05/2025 3:45 PM CLINICAL DENTAL TECHNICIAN Clinical Communication Virtual Review in [place], [place] [address] [place] [phone] 10/11/2025 1:40 PM CLINICAL DENTAL TECHNICIAN Nurse Only Section of Infectious Diseases in [address] [phone] Kaleigh Xiong APRN, C.NAdy, M.S.N. [address] [place] [phone] 10/11/2025 3:00 PM CLINICAL DENTAL TECHNICIAN Lab Department of Infusion Therapy in [place], [place] [address] [place] [phone] Kaleigh Xiong APRN, C.N.Efrain., M.S.N. [address] [place] [phone] 10/11/2025 4:00 PM CLINICAL DENTAL TECHNICIAN Appointment Department of Radiology, [facility], in [place], [place] [address] [place] [phone] Kaleigh Xiong APRN, C.N.Efrain., M.S.N. [address] [place] [phone] 10/12/2025 10:30 AM CLINICAL DENTAL TECHNICIAN Office Visit Division of Hepatobiliary and Pancreas Surgery in [place], [place] [address] [place] [phone] Sammie Gerber APRN, Nayla.N.P., M.S.N. [address] [place] [phone] 10/12/2025 3:00 PM CLINICAL DENTAL TECHNICIAN Comprehensive Visit Department of Oncology in [place], [place] [address] [place] [phone] Jeffy James M.D. [address] [place] [phone] Scheduled Orders Name Type Priority Associated Diagnoses Order Schedule CBC without Differential Lab Routine Malignant Neoplasm Of Pancreas Body (HCC) Expected: 10/05/2025, Expires: 12/06/2026 Comprehensive Metabolic Panel Lab Routine Malignant Neoplasm Of Pancreas Body (HCC) Expected: 10/05/2025, Expires: 12/06/2026 Prealbumin (PAB) Lab Routine Malignant Neoplasm Of Pancreas Body (HCC) Expected: 10/05/2025, Expires: 12/06/2026 Bilirubin, Direct Lab Routine Malignant Neoplasm Of Pancreas Body (HCC) Expected: 10/05/2025, Expires: 12/06/2026 CT Chest without IV Contrast Imaging RAD - Routine (most inpatients and all outpatients) Malignant Neoplasm Of Pancreas Body (HCC) Expected: 10/12/2025, Expires: 12/06/2026 Remote monitoring ([facility] Anyplace) Procedures Routine Malignant Neoplasm Of Pancreas Body (HCC) Expected: 09/05/2025 (Approximate), Expires: 12/06/2026 Scheduled Referrals Name Type Priority Associated Diagnoses Orde r Schedule General Surgery office visit (clinic) Outpatient Referral Routine Expected: 10/05/2025, Expires: 12/06/2026 Oncology - Medical, GI consult (clinic) Outpatient Referral Routine Malignant Neoplasm Of Pancreas Body (HCC) Expected: 10/05/2025, Expires: 12/06/2026 documented as of this encounter Procedures Procedure Name Priority Date/Time Associated Diagnosis Comments PROTHROMBIN TIME (PT), P Routine 09/05/2025 7:50 AM CLINICAL DENTAL TECHNICIAN CBC WITHOUT DIFFERENTIAL, B Routine 09/05/2025 7:50 AM CLINICAL DENTAL TECHNICIAN C-REACTIVE PROTEIN (CRP), S/P Routine 09/05/2025 7:50 AM CLINICAL DENTAL TECHNICIAN PHOSPHORUS (INORGANIC), S Routine 09/05/2025 7:50 AM CLINICAL DENTAL TECHNICIAN MAGNESIUM, S Routine 09/05/2025 7:50 AM CLINICAL DENTAL TECHNICIAN BILIRUBIN DIRECT, S/P Routine 09/05/2025 7:50 AM CLINICAL DENTAL TECHNICIAN COMPREHENSIVE METABOLIC PANEL, S/P Routine 09/05/2025 7:50 AM CLINICAL DENTAL TECHNICIAN CBC WITHOUT DIFFERENTIAL, B Routine 09/03/2025 8:11 PM CDT C-REACTIVE PROTEIN (CRP), S/P Routine 09/03/2025 8:11 PM CDT MAGNESIUM, S Routine 09/03/2025 8:11 PM CDT BASIC METABOLIC PANEL, S/P Routine 09/03/2025 8:11 PM CDT CBC WITHOUT DIFFERENTIAL, B Routine 09/02/2025 8:50 PM CDT C-REACTIVE PROTEIN (CRP), S/P Routine 09/02/2025 8:50 PM CDT PHOSPHORUS (INORGANIC), S Routine 09/02/2025 8:50 PM CDT MAGNESIUM, S Routine 09/02/2025 8:50 PM CDT BASIC METABOLIC PANEL, S/P Routine 09/02/2025 8:50 PM CDT CBC WITHOUT DIFFERENTIAL, B Routine 09/01/2025 8:45 PM CDT C-REACTIVE PROTEIN (CRP), S/P Routine 09/01/2025 8:45 PM CDT PHOSPHORUS (INORGANIC), S Routine 09/01/2025 8:45 PM CDT MAGNESIUM, S Routine 09/01/2025 8:45 PM CDT BASIC METABOLIC PANEL, S/P Routine 09/01/2025 8:45 PM CDT ADULT OXYGEN THERAPY Routine 09/01/2025 12:18 PM CDT SURGICAL PATHOLOGY, [facility] Routine 09/01/2025 10:53 AM CDT Malignant Neoplasm Of Pancreas Body (HCC) BLOCK - TRANSVERSUS ABDOMINIS PLANE 09/01/2025 7:29 AM CDT Malignant Neoplasm Of Pancreas Body (HCC) PANCREATECTOMY DISTAL WITH SPLENECTOMY 09/01/2025 7:29 AM CDT Malignant Neoplasm Of Pancreas Body (HCC) documented in this encounter Results * (ABNORMAL) CRP (C-Reactive Protein) (09/05/2025 7:50 AM CLINICAL DENTAL TECHNICIAN) Pathologist [facility] C-Reactive Protein (CRP), S 138.1(H) <5.0 mg/L 09/05/2025 9:09 AM CLINICAL DENTAL TECHNICIAN DTL Blood (Blood, Venous) 09/05/2025 7:50 AM CLINICAL DENTAL TECHNICIAN 09/05/2025 8:21 AM CLINICAL DENTAL TECHNICIAN Nayla Hewitt APRN.N.P., M.S.N. LAB BLOOD A DD-ON Final Result Performing Organization Address City/[facility]/ZIP Co de Phone Number [facility] 200 [place] [address], [facility] 200 [place] [address] * Phosphorus Inorganic (09/05/2025 7:50 AM CLINICAL DENTAL TECHNICIAN) Phosphorus (Inorganic), S 2.7 2.5 - 4.5 mg/dL 09/05/2025 9:09 AM CLINICAL DENTAL TECHNICIAN DT Blood (Blood, Venous) 09/05/2025 7:50 AM CLINICAL DENTAL TECHNICIAN 09/05/2025 8:21 AM CLINICAL DENTAL TECHNICIAN Kaleigh Xiong APRN, C.N.P., M.S.N. LAB BLOOD A DD-ON Final Result Performing Organization Address [facility] Co de Phone Number [facility] 200 [place] [address], [facility] 200 [place] [address] * Magnesium (09/05/2025 7:50 AM CLINICAL DENTAL TECHNICIAN) Magnesium, S 1.8 1.7 - 2.3 mg/dL 09/05/2025 9:09 AM CLINICAL DENTAL TECHNICIAN DTL Blood (Blood, Venous) 09/05/2025 7:50 AM CLINICAL DENTAL TECHNICIAN 09/05/2025 8:21 AM CLINICAL DENTAL TECHNICIAN Nayla Hewitt APRN.N.P., M.S.N. LAB BLOOD A DD-ON Final Result Performing Organization Address City/[facility]/ZIP Co de Phone Number [facility] [address] 200 [place] [address] * Prothrombin Time (PT) (09/05/2025 7:50 AM CLINICAL DENTAL TECHNICIAN) Prothrombin Time, P 11.0 9.4 - 12.5 sec 09/05/2025 9:01 AM CLINICAL DENTAL TECHNICIAN DT INR 1.0 0.9 - 1.1 09/05/2025 9:01 AM CLINICAL DENTAL TECHNICIAN DT Comment: ----ADDITIONAL INFORMATION---- Standard intensity warfarin therapeutic range: 2.0 to 3.0 High intensity warfarin therapeutic range: 2.5 to 3.5 Blood (Blood, Venous) 09/05/2025 7:50 AM CLINICAL DENTAL TECHNICIAN 09/05/2025 8:24 AM CLINICAL DENTAL TECHNICIAN Kaleigh Xiong APRN, C.N.P., M.S.N. LAB BLOOD A DD-ON Final Result Performing Organization Address [facility] Co de Phone Number [facility] [address] [place], [place] [phone] [place] [address] * Bilirubin, Direct (09/05/2025 7:50 AM CLINICAL DENTAL TECHNICIAN) Bilirubin, Direct, S 0.2 0.0 - 0.3 mg/dL 09/05/2025 9:09 AM CLINICAL DENTAL TECHNICIAN DT Blood (Blood, Venous) 09/05/2025 7:50 AM CLINICAL DENTAL TECHNICIAN 09/05/2025 8:21 AM CLINICAL DENTAL TECHNICIAN Kaleigh Xiong APRN, C.N.P., M.S.N. LAB BLOOD A DD-ON Final Result Performing Organization Address [facility] Co de Phone Number [facility] [address] [place] [address], [place] [address] * (ABNORMAL) Comprehensive Metabolic Panel (09/05/2025 7:50 AM CLINICAL DENTAL TECHNICIAN) Potassium, S 4.0 3.6 - 5.2 mmol/L 09/05/2025 9:09 AM CLINICAL DENTAL TECHNICIAN DTL Sodium, S 139 135 - 145 mmol/L 09/05/2025 9:09 AM CLINICAL DENTAL TECHNICIAN DTL Chloride, S 98 98 - 107 mmol/L 09/05/2025 9:09 AM CLINICAL DENTAL TECHNICIAN DTL Bicarbonate, S 21(L) 22 - 29 mmol/L 09/05/2025 9:09 AM CLINICAL DENTAL TECHNICIAN DTL Anion Gap 20(H) 7 - 15 09/05/2025 9:09 AM CLINICAL DENTAL TECHNICIAN DTL BUN (Blood Urea Nitrogen), S 8 6 - 21 mg/dL 09/05/2025 9:09 AM CLINICAL DENTAL TECHNICIAN DTL Creatinine 0.59 0.59 - 1.04 mg/dL 09/05/2025 9:09 AM CLINICAL DENTAL TECHNICIAN DTL Estimated GFR (eGFR) >90 >=60 mL/min/BS A 09/05/2025 9:09 AM CLINICAL DENTAL TECHNICIAN DTL Comment: Estimated GFR calculated using the 2020 CKD_EPI creatinine equation. Calcium, Total, S 8.9 8.8 - 10.2 mg/dL 09/05/2025 9:09 AM CLINICAL DENTAL TECHNICIAN DTL Glucose, S 72 70 - 140 mg/dL 09/05/2025 9:09 AM CLINICAL DENTAL TECHNICIAN DTL Protein, Total, S 5.8(L) 6.3 - 7.9 g/dL 09/05/2025 9:09 AM CLINICAL DENTAL TECHNICIAN DTL Albumin, S 3.7 3.5 - 5.0 g/dL 09/05/2025 9:09 AM CLINICAL DENTAL TECHNICIAN DTL Aspartate Aminotransferase (AST), S 26 8 - 43 U/L 09/05/2025 9:09 AM CLINICAL DENTAL TECHNICIAN DTL Alkaline Phosphatase, S 144(H) 35 - 104 U/L 09/05/2025 9:09 AM CLINICAL DENTAL TECHNICIAN DTL Alanine Aminotransferase (ALT), S 41 7 - 45 U/L 09/05/2025 9:09 AM CLINICAL DENTAL TECHNICIAN DTL Bilirubin, Total, S 0.5 0.0 - 1.2 mg/dL 09/05/2025 9:09 AM CLINICAL DENTAL TECHNICIAN DTL Blood (Blood, Venous) 09/05/2025 7:50 AM CLINICAL DENTAL TECHNICIAN 09/05/2025 8:21 AM CLINICAL DENTAL TECHNICIAN us Milka Hewitt APRNNDre., M.S.N. LAB BLOOD A DD-ON Final Result Performing Organization Address [facility] de Phone Number [facility] [address] [place], [place] [phone] [place] [address] DTL [facility] 200 [place] [address] * (ABNORMAL) CBC without Differential (09/05/2025 7:50 AM CLINICAL DENTAL TECHNICIAN) [facility] Hemoglobin 11.5(L) 11.6 - 15.0 g/dL 09/05/2025 9:21 AM CLINICAL DENTAL TECHNICIAN DTL Hematocrit 34.4(L) 35.5 - 44.9 % 09/05/2025 9:21 AM CLINICAL DENTAL TECHNICIAN DTL Erythrocytes 3.27(L) 3.92 - 5.13 x10(12)/L 09/05/2025 9:21 AM CLINICAL DENTAL TECHNICIAN DTL MCV 105.2(H) 78.2 - 97.9 fL 09/05/2025 9:21 AM CLINICAL DENTAL TECHNICIAN DTL RBC Distrib Width 12.2 12.2 - 16.1 % 09/05/2025 9:21 AM CLINICAL DENTAL TECHNICIAN DTL Platelet Count 287 157 - 371 x10(9)/L 09/05/2025 9:21 AM CLINICAL DENTAL TECHNICIAN DTL Leukocytes 7.6 3.4 - 9.6 x10(9)/L 09/05/2025 9:21 AM CLINICAL DENTAL TECHNICIAN DTL Blood (Blood, Venous) 09/05/2025 7:50 AM CLINICAL DENTAL TECHNICIAN 09/05/2025 8:24 AM CLINICAL DENTAL TECHNICIAN us Nayla Hewitt APRN.NDre., M.S.N. LAB BLOOD A DD-ON Final Result Performing Organization Address City/[facility]/ZIP Co de Phone Number [facility] [address] [place] [address], [facility] DTL [facility] 200 [place] [address] * (ABNORMAL) CRP (C-Reactive Protein) (09/03/2025 8:11 PM CDT) C-Reactive Protein (CRP), S 154.2(H) <5.0 mg/L 09/03/2025 9:25 PM CDT DTL Blood (Blood, Venous) 09/03/2025 8:11 PM CDT 09/03/2025 8:35 PM CDT Leelee Calzada APRN, Nayla.N.P., M.S.N. LAB BLOOD A DD-ON Final Result Performing Organization Address City/[facility]/ZIP Co de Phone Number [facility] [address] 200 [place] [address] * Magnesium (09/03/2025 8:11 PM CDT) Pathologist [facility] Magnesium, S 1.8 1.7 - 2.3 mg/dL 09/03/2025 9:25 PM CDT DTL Blood (Blood, Venous) 09/03/2025 8:11 PM CDT 09/03/2025 8:35 PM CDT Leelee Calzada APRN, Nayla.N.P., M.S.N. LAB BLOOD A DD-ON Final Result Performing Organization Address City/[facility]/ZIP Co de Phone Number [facility] [address] 200 [place] [address] * (ABNORMAL) Basic Metabolic Panel (09/03/2025 8:11 PM CDT) Pathologist [facility] Potassium, S 4.2 3.6 - 5.2 mmol/L 09/03/2025 9:25 PM CDT DTL Sodium, S 139 135 - 145 mmol/L 09/03/2025 9:25 PM CDT DTL Chloride, S 99 98 - 107 mmol/L 09/03/2025 9:25 PM CDT DTL Bicarbonate, S 24 22 - 29 mmol/L 09/03/2025 9:25 PM CDT DTL Anion Gap 16(H) 7 - 15 09/03/2025 9:25 PM CDT DTL BUN (Blood Urea Nitrogen), S 9 6 - 21 mg/dL 09/03/2025 9:25 PM CDT DTL Creatinine 0.72 0.59 - 1.04 mg/dL 09/03/2025 9:25 PM CDT DTL Estimated GFR (eGFR) >90 >=60 mL/min/BSA 09/03/2025 9:25 PM CDT DTL Comment: Estimated GFR calculated using the 2020 CKD_EPI creatinine equation. Calcium, Total, S 9.2 8.8 - 10.2 mg/dL 09/03/2025 9:25 PM CDT DTL Glucose, S 92 70 - 140 mg/dL 09/03/2025 9:29 PM CDT DTL Blood (Blood, Venous) 09/03/2025 8:11 PM CDT 09/03/2025 8:35 PM CDT us Leelee Calzada APRN C.N.P., M.S.N. LAB BLOOD A DD-ON Final Result [address] [address], [facility] [place] [address] * (ABNORMAL) CBC without Differential (09/03/2025 8:11 PM CDT) Pathologist [facility] Hemoglobin 11.8 11.6 - 15.0 g/dL 09/03/2025 8:46 PM CDT DTL Hematocrit 35.7 35.5 - 44.9 % 09/03/2025 8:46 PM CDT DTL Erythrocytes 3.41(L) 3.92 - 5.13 x10(12)/L 09/03/2025 8:46 PM CDT DTL MCV 104.7(H) 78.2 - 97.9 fL 09/03/2025 8:46 PM CDT DTL RBC Distrib Width 12.2 12.2 - 16.1 % 09/03/2025 8:46 PM CDT DTL Platelet Count 215 157 - 371 x10(9)/L 09/03/2025 8:46 PM CDT DTL Leukocytes 13.1(H) 3.4 - 9.6 x10(9)/L 09/03/2025 8:46 PM CDT DTL Blood (Blood, Venous) 09/03/2025 8:11 PM CDT 09/03/2025 8:36 PM CDT Sanchez Charles, B.Ch., B.A.O. LAB BLOOD ADD- ON Final Result Performing Organization Address City/[facility]/ZIP Co de Phone Number [facility] 200 [place] [address] * (ABNORMAL) CRP (C-Reactive Protein) (09/02/2025 8:50 PM CDT) [facility] C-Reactive Protein (CRP), S 96.5(H) <5.0 mg/L 09/02/2025 9:46 PM CDT DTL Blood (Blood, Venous) 09/02/2025 8:50 PM CDT 09/02/2025 9:08 PM CDT Neeru Cadet APRN C.N.P., M.S.N. LAB BLOOD A DD-ON Final Result [facility] 200 [place] [address] * Phosphorus Inorganic (09/02/2025 8:50 PM CDT) [facility] Phosphorus (Inorganic), S 3.0 2.5 - 4.5 mg/dL 09/02/2025 9:46 PM CDT DTL Blood (Blood, Venous) 09/02/2025 8:50 PM CDT 09/02/2025 9:08 PM CDT Neeru Cadet APRN, C.N.P., M.S.N. LAB BLOOD A DD-ON Final Result Performing Organization Address [facility] Co de Phone Number [facility] [address] 200 [place] [address] * Magnesium (09/02/2025 8:50 PM CDT) Magnesium, S 1.9 1.7 - 2.3 mg/dL 09/02/2025 9:46 PM CDT DTL Blood (Blood, Venous) 09/02/2025 8:50 PM CDT 09/02/2025 9:08 PM CDT Neeru Cadet APRN, C.N.P., M.S.N. LAB BLOOD A DD-ON Final Result Performing Organization Address [facility] de Phone Number [facility] [address] [place] [address] * (ABNORMAL) Basic Metabolic Panel (09/02/2025 8:50 PM CDT) Potassium, S 4.1 3.6 - 5.2 mmol/L 09/02/2025 9:46 PM CDT DTL Sodium, S 138 135 - 145 mmol/L 09/02/2025 9:46 PM CDT DTL Chloride, S 99 98 - 107 mmol/L 09/02/2025 9:46 PM CDT DTL Bicarbonate, S 28 22 - 29 mmol/L 09/02/2025 9:46 PM CDT DTL Anion Gap 11 7 - 15 09/02/2025 9:46 PM CDT DTL BUN (Blood Urea Nitrogen), S 8 6 - 21 mg/dL 09/02/2025 9:46 PM CDT DTL Creatinine 0.72 0.59 - 1.04 mg/dL 09/02/2025 9:46 PM CDT DTL Estimated GFR (eGFR) >90 >=60 mL/min/BSA 09/02/2025 9:46 PM CDT DTL Comment: Estimated GFR calculated using the 2020 CKD_EPI creatinine equation. Calcium, Total, S 8.8 8.8 - 10.2 mg/dL 09/02/2025 9:46 PM CDT DTL Glucose, S 146(H) 70 - 140 mg/dL 09/02/2025 9:46 PM CDT DTL Blood (Blood, Venous) 09/02/2025 8:50 PM CDT 09/02/2025 9:08 PM CDT Neeru Cadet APRN C.N.P., M.S.N. LAB BLOOD A DD-ON Final Result [facility] [address] [place] [address], [facility] [address] [place] [address] * (ABNORMAL) CBC without Differential (09/02/2025 8:50 PM CDT) Hemoglobin 11.7 11.6 - 15.0 g/dL 09/02/2025 9:17 PM CDT DTL Hematocrit 35.5 35.5 - 44.9 % 09/02/2025 9:17 PM CDT DTL Erythrocytes 3.39(L) 3.92 - 5.13 x10(12)/L 09/02/2025 9:17 PM CDT DTL MCV 104.7(H) 78.2 - 97.9 fL 09/02/2025 9:17 PM CDT DTL RBC Distrib Width 12.5 12.2 - 16.1 % 09/02/2025 9:17 PM CDT DTL Platelet Count 209 157 - 371 x10(9)/L 09/02/2025 9:17 PM CDT DTL Leukocytes 12.7(H) 3.4 - 9.6 x10(9)/L 09/02/2025 9:17 PM CDT DTL Blood (Blood, Venous) 09/02/2025 8:50 PM CDT 09/02/2025 9:08 PM CDT Milka Haley APRNNAdy, M.S.N. LAB BLOOD A DD-ON Final Result Performing Organization Address City/[facility]/ZIP Co de Phone Number [facility] [address] [place] [address], [facility] [address] [place] [address] * (ABNORMAL) CRP (C-Reactive Protein) (09/01/2025 8:45 PM CDT) [facility] C-Reactive Protein (CRP), S 8.1(H) <5.0 mg/L 09/01/2025 9:45 PM CDT DTL Blood (Blood, Venous) 09/01/2025 8:45 PM CDT 09/01/2025 9:14 PM CDT Milka Haley APRNNDre., M.S.N. LAB BLOOD A DD-ON Final Result Performing Organization Address City/[facility]/ZIP Co de Phone Number [facility] [address] [place] [address], [facility] [address] [place] [address] * (ABNORMAL) Basic Metabolic Panel (09/01/2025 8:45 PM CDT) [facility] Potassium, S 4.5 3.6 - 5.2 mmol/L 09/01/2025 9:45 PM CDT DTL Sodium, S 134(L) 135 - 145 mmol/L 09/01/2025 9:45 PM CDT DTL Chloride, S 96(L) 98 - 107 mmol/L 09/01/2025 9:45 PM CDT DTL Bicarbonate, S 24 22 - 29 mmol/L 09/01/2025 9:45 PM CDT DTL Anion Gap 14 7 - 15 09/01/2025 9:45 PM CDT DTL BUN (Blood Urea Nitrogen), S 9 6 - 21 mg/dL 09/01/2025 9:45 PM CDT DTL Creatinine 0.70 0.59 - 1.04 mg/dL 09/01/2025 9:45 PM CDT DTL Estimated GFR (eGFR) >90 >=60 mL/min/BSA 09/01/2025 9:45 PM CDT DTL Comment: Estimated GFR calculated using the 2020 CKD_EPI creatinine equation. Calcium, Total, S 9.1 8.8 - 10.2 mg/dL 09/01/2025 9:45 PM CDT DTL Glucose, S 189(H) 70 - 140 mg/dL 09/01/2025 9:45 PM CDT DTL Blood (Blood, Venous) 09/01/2025 8:45 PM CDT 09/01/2025 9:14 PM CDT Sanchez Charles, B.Ch., B.A.O. LAB BLOOD ADD- ON Final Result Performing Organization Address City/[facility]/ZIP Co de Phone Number [facility] [address] [place] [address], [facility] [place] [address] * (ABNORMAL) Phosphorus Inorganic (09/01/2025 8:45 PM CDT) Phosphorus (Inorganic), S 4.8(H) 2.5 - 4.5 mg/dL 09/01/2025 9:45 PM CDT DTL Blood (Blood, Venous) 09/01/2025 8:45 PM CDT 09/01/2025 9:14 PM CDT Sanchez Charles, B.Ch., B.A.O. LAB BLOOD ADD- ON Final Result Performing Organization Address City/[facility]/ZIP Co de Phone Number [facility] [address] [place] [address], [facility] [place] [address] * Magnesium (09/01/2025 8:45 PM CDT) Pathologist [facility] Magnesium, S 1.7 1.7 - 2.3 mg/dL 09/01/2025 9:45 PM CDT DTL Blood (Blood, Venous) 09/01/2025 8:45 PM CDT 09/01/2025 9:14 PM CDT us Sanchez Charles, B.Ch., B.A.O. LAB BLOOD ADD- ON Final Result [facility] [address] [place] [address], [facility] [address] [place] [address] * (ABNORMAL) CBC without Differential (09/01/2025 8:45 PM CDT) Pathologist [facility] Hemoglobin 10.8(L) 11.6 - 15.0 g/dL 09/01/2025 9:24 PM CDT DTL Hematocrit 31.9(L) 35.5 - 44.9 % 09/01/2025 9:24 PM CDT DTL Erythrocytes 3.12(L) 3.92 - 5.13 x10(12)/L 09/01/2025 9:24 PM CDT DTL MCV 102.2(H) 78.2 - 97.9 fL 09/01/2025 9:24 PM CDT DTL RBC Distrib Width 12.1(L) 12.2 - 16.1 % 09/01/2025 9:24 PM CDT DTL Platelet Count 191 157 - 371 x10(9)/L 09/01/2025 9:24 PM CDT DTL Leukocytes 14.3(H) 3.4 - 9.6 x10(9)/L 09/01/2025 9:24 PM CDT DTL Blood (Blood, Venous) 09/01/2025 8:45 PM CDT 09/01/2025 9:15 PM CDT us Sanchez Stratton., BSara, B.A.O. LAB BLOOD ADD- ON Final Result [facility] [address] [place] [address], [place] DTL [facility] [facility] [address] [place] [address] * Surgical Pathology, Frozen Lab (09/01/2025 10:53 AM CDT) 09/05/2025 2:35 PM CLINICAL DENTAL TECHNICIAN [facility] Participated in the Interpretation Hamlet Correia M.D.-Pathology Fellow 09/05/2025 2:35 PM [facility] Report electronically signed by Eloise Vo M.D. I verify that I have examined all relevant slides/materials for the specimen(s) and rendered or confirmed the diagnosis. 09/05/2025 2:35 PM [facility] A. Pancreas, distal, and spleen, distal pancreatectomy and splenectomy: Pancreatic adenocarcinoma, forming a mass measuring 2.3 cm in greatest dimension. All margins, including proximal pancreatic margin, are negative for tumor. Signed by Eloise Vo M.D. 09/01/2025 4:09 PM 09/05/2025 2:35 PM CLINICAL DENTAL TECHNICIAN [facility] Gross Description A. Received fresh labeled distal pancreas, spleen, and regional lymph nodes is a distal pancreatectomy specimen consisting of 10.5 x 3.1 x 3 cm portion of pancreas to include the body and tail and an 85 gram, 11.5 x 8.3 x 5 cm spleen. The margins are inked as follows: posterior-black; superior-red; inferior-yellow. The anterior pancreatic peritoneum is inked green. A 2.3 x 1.5 x 1.3 cm ill-defined fibrotic mass is present within the body of the pancreas, 2 cm from the proximal pancreatic margin, submitted shaved. The mass is 0.5 cm to posterior pancreatic, 1.5 cm to superior pancreatic, and 2.1 cm to the inferior pancratic margins (submitted perpendicularly). The mass does not appear to be confined to the pancreas, grossly. Peripancreatic lymph nodes and splenic hilar lymph nodes are identified. The spleen is grossly unremarkable. School Transportation Supervisor tissue submitted for frozen and permanent sections. Photographed. Grossed by Benjie Martinez PA([facility]). 09/05/2025 2:35 PM CLINICAL DENTAL TECHNICIAN [facility] Block Summary A Distal pancreas, spleen, and regional lymph nodes A1 Proximal pancreatic margin 1 - shave - frozen A2 Proximal pancreatic margin 2 - shave - frozen A3 Tumor? to superior margin - perp - frozen A4 Tumor inferior margin perp A5 Tumor inferior margin perp- Frozen A6 Tumor to posterior margin - perp - frozen A7 Body tumor 1 A8 Body tumor 1- Frozen A9 Body tumor 2- Frozen A10 Fibrosis body- Frozen A11 Fibrosis tail- Frozen A12 Body tumor 3 A13 Body tumor 4 A14 Spleen A15 Peripancreatic lymph nodes 5(A1) A16 Peripancreatic lymph nodes 5(A2) A17 Peripancreatic lymph nodes 5(A3) A18 Peripancreatic lymph nodes 2(A4) A19 Splenic hilar lymph nodes 1(A5) A20 Peripancreatic fat 1 A21 Peripancreatic fat 2 A22 Peripancreatic fat 3 09/05/2025 2:35 PM CLINICAL DENTAL TECHNICIAN [facility] Interpretation FINAL DIAGNOSIS A. Distal pancreas and spleen, distal pancreatectomy and splenectomy: Residual moderately differentiated ductal adenocarcinoma, forming a 2.3 x 1.5 x 1.3 cm mass in a fibrotic tumor bed, located in the body of the pancreas. All surgical resection margins are negative for tumor (closest margin is inferior margin: 2.4 mm). Multiple (13) lymph nodes are negative for tumor. Spleen shows no diagnostic abnormality. See synoptic report. SYNOPTIC REPORT: Pancreas - Exocrine Procedure: Distal pancreatectomy and splenectomy Tumor Site: Pancreatic body Histologic Type: Ductal adenocarcinoma, NOS Histologic Grade: G2, moderately differentiated Tumor Size: Unifocal invasive carcinoma - 2.3 cm in greatest dimension Additional dimension: 1.5 x 1.3 cm Site(s) Involved by Direct Tumor Extension: Confined to pancreas Pancreatic Surface Involvement: Not applicable Lymphatic and / or Vascular Invasion: Not identified Perineural Invasion: Not identified Treatment Effect: Present, with residual cancer showing evident tumor regression, but more than single cells or rare small groups of cancer cells (partial response, score 2) Margin Status for Invasive Carcinoma All Margins Negative for Invasive Carcinoma Closest Margin(s) to Invasive Carcinoma: Inferior margin Distance from Invasive Carcinoma to Closest Margin: 2.4 mm Margin Status for Dysplasia and Intraepithelial Neoplasia: All Margins Negative for High-Grade Dysplasia and / or High-Grade Intraepithelial Neoplasia Regional Lymph Nodes Status All Regional Lymph Nodes Negative for Tumor Number of Lymph Nodes Examined: 13 Distant Metastasis. Distant Site(s) Involved: Not applicable pTNM Classification (AJCC, 8th edition) Modified Classification: y (post-neoadjuvant therapy) pT Category: pT2 T Suffix: Not applicable pN Category: pN0 pM Category: Not applicable Additional Findings: Chronic pancreatitis The synoptic report incorporates information from all relevant surgical material and includes all required data elements of the current CAP Cancer Protocol. Digital imaging was used in the diagnostic assessment of this case. 09/05/2025 2:35 PM CLINICAL DENTAL TECHNICIAN [facility] Tissue (Spleen) 09/01/2025 1 0:53 AM CDT Stephon Galindo D.O. M.B.A. LAB SURG PATH OR DERABLES Final Result Performing Organization Address City/State/[facility] Co de Phone Number [facility] [address] [place] [address] documented in this encounter Visit Diagnoses Diagnosis Malignant Neoplasm Of Pancreas Body (HCC)- Primary Malignant Neoplasm Of Pancreas Body (HCC) Malignant Neoplasm Of Pancreas Tail (HCC) documented in this encounter Admitting Diagnoses Diagnosis Malignant Neoplasm Of Pancreas Body (HCC) Malignant Neoplasm Of Pancreas Tail (HCC) documented in this encounter Administered Medications Inactive Administered Medications - up to 3 most recent administrations Medication Order MAR Action Action Date Dose Rate Site acetaminophen tablet 1,000 mg (TylenoL) 1,000 mg, oral, Once, On Anjali 09/01/25 at 0700, For 1 dose, Pre-Op, Filler Shredder Machine, PreOp with sips Given 09/01/2025 7:22 AM CDT 1,000 mg acetaminophen tablet 1,000 mg (TylenoL) 1,000 mg, oral, Every 6 hours, First dose on Anjali 09/01/25 at 1400, Do not give for current total bilirubin greater than 8 mg/dL. Given 09/05/2025 7:52 AM CLINICAL DENTAL TECHNICIAN 1,000 mg Given 09/04/2025 9:07 PM CLINICAL DENTAL TECHNICIAN 1,000 mg Given 09/04/2025 4:00 PM CLINICAL DENTAL TECHNICIAN 1,000 mg aprepitant injection 32 mg (Aponvie) 32 mg, intravenous, Once, On Anjali 09/01/25 at 0800, For 1 dose, Pre-Op, Restriction Criteria (Pharmacy will review and approve if criteria met): Meet restriction criteria Given 09/01/2025 7:35 AM CDT 32 mg bisacodyL suppository 10 mg (Dulcolax) 10 mg, rectal, Daily PRN, constipation, Starting on Anjali 09/01/25 at 1316 Given 09/04/2025 7:00 AM CLINICAL DENTAL TECHNICIAN 10 mg Given 09/02/2025 7:34 PM CDT 10 mg enoxaparin injection 40 mg (Lovenox) 40 mg, subcutaneous, Daily, First dose on Fri09/02/25 at 0900 Given 09/02/2025 9:50 AM CDT 40 mg Right Upper Arm (Silvana k) enoxaparin injection 40 mg (Lovenox) 40 mg, subcutaneous, Daily at bedtime, First dose (after last modification) on 09/03/25 at 2100, Teach Lovenox ed for homegoing; Given 09/04/2025 9:07 PM CLINICAL DENTAL TECHNICIAN 40 mg Left Outer Thigh Given 09/03/2025 8:13 PM CDT 40 mg Ri ght Upper Arm (Back) heparin flush 500-1,000 Units 500-1,000 Units, intra-catheter, During hospitalization, line care, Prior to discharge, Starting on Anjali 09/01/25 at 0718, For 1 dose, Implanted Vascular Access Device (IVAD) Venous Non-Valved: flush 5 mL (500 units) per port/lumen following saline flush prior to discharge. Given 09/05/2025 10:57 AM CLINICAL DENTAL TECHNICIAN 500 Units HYDROmorphone (PF) injection 0.2 mg (Dilaudid) 0.2 mg, intravenous, Every 2 hour PRN, severe pain or score 7-10 of 10, Starting on Fri09/02/25 at 0900, for pain greater than or equal to 7 at least 1 hour after oxycodone dose given Given 09/02/2025 9:48 AM CDT 0.2 mg Lactated Ringer's bolus 500 mL 500 mL, intravenous, at 500 mL/hr, Administer over 1 Hours, Once, On 09/04/25 at 1415, For 1 dose New Bag 09/04/2025 2:08 PM CLINICAL DENTAL TECHNICIAN 500 mL 500 mL/hr Lactated Ringer's 20 mL/hr, intravenous, Continuous, Starting on Fri09/01/25 at 1145, PACU & Post-Op Rate/Dose Verify 09/01/2025 4:45 PM CDT 20 mL/hr 20 mL/hr New Bag 09/01/2025 2:01 PM CDT 20 mL/hr 20 mL/hr Lactated Ringer's 30 mL/hr, intravenous, Continuous, Starting on Fri09/01/25 at 1815 Rate/Dose Verify 09/01/2025 11:59 PM CDT 30 mL/hr 30 mL/hr Rate/Dose Verify 09/01/2025 6:31 PM CDT 30 mL/hr 30 mL/h r New Bag 09/01/2025 5:58 PM CDT 30 mL/hr 30 mL/hr magnesium sulfate in D5W IVPB 1 g 1 g, intravenous, at 100 mL/hr, Administer over 60 Minutes, Once, On Fri09/04/25 at 0615, For 1 dose New Bag 09/04/2025 6:50 AM CLINICAL DENTAL TECHNICIAN 1 g 100 mL/hr magnesium sulfate in water IVPB 2 g 2 g, intravenous, at 25 mL/hr, Administer over 120 Minutes, Once, On Fri09/02/25 at 0000, For 1 dose New Bag 09/02/2025 12:28 AM CDT 2 g 25 mL/hr melatonin tablet 6 mg 6 mg, oral, Bedtime PRN, sleep, Starting on Fri09/04/25 at 1953 Given 09/04/2025 9:07 PM CLINICAL DENTAL TECHNICIAN 6 mg methocarbamoL tablet 500 mg (Robaxin) 500 mg, oral, Every 8 hours PRN, muscle spasms, Starting on 09/03/25 at 0102 Given 09/04/2025 9:07 PM CLINICAL DENTAL TECHNICIAN 500 mg mineral oil enema 1 enema 1 enema, rectal, Daily PRN, constipation, Starting on Fri09/02/25 at 2133 Given 09/02/2025 10:48 PM CDT 1 enema nalbuphine injection 2.5 mg (Nubain) 2.5 mg, intravenous, Every 4 hours PRN, itching, Starting on Fri09/01/25 at 1300, For 4 doses, PACU & Post-Op Given 09/02/2025 5:35 AM CDT 2.5 mg Given 09/02/2025 12:27 AM CDT 2.5 mg Given 09/01/2025 8:22 PM CDT 2.5 mg nalbuphine injection 2.5 mg (Nubain) 2.5 mg, intravenous, Once, On Anjali 09/01/25 at 1800, For 1 dose Given 09/01/2025 6:06 PM CDT 2.5 mg nalbuphine injection 2.5 mg (Nubain) 2.5 mg, intravenous, Every 4 hours PRN, itching, Starting on Fri09/02/25 at 0944, For 14 hours Given 09/02/2025 12:09 PM CDT 2.5 mg ondansetron (PF) injection 4 mg (Zofran) 4 mg, intravenous, Every 6 hours PRN, nausea, vomiting, Starting on Anjali 09/01/25 at 1316, Reassess for nausea or vomiting after at least 10 minutes. If nausea or vomiting persists administer next ordered antiemetic medications (order for antiemetic medication administration ondansetron then haloperidol then prochlorperazine). Given 09/02/2025 8:59 PM CDT 4 mg oxyCODONE IR tablet 10 mg (Roxicodone) 10 mg, oral, Every 4 hours PRN, severe pain or score 7-10 of 10, Starting on Anjali 09/01/25 at 0900, For 24 hours, PACU & Post-Op, To be administered in the first 24 hours after intrathecal dose given. Given 09/02/2025 7:01 AM CDT 10 mg Given 09/01/2025 10:41 PM CDT 10 mg Given 09/01/2025 6:46 PM CDT 10 mg oxyCODONE IR tablet 10 mg (Roxicodone) 10 mg, oral, Every 4 hours PRN, severe pain or score 7-10 of 10, Starting on Fri09/02/25 at 0900 Given 09/03/2025 8:12 PM CDT 10 mg Given 09/03/2025 12:47 AM CDT 10 mg oxyCODONE IR tablet 5 mg (Roxicodone) 5 mg, oral, Every 4 hours PRN, moderate pain or score 4-6 of 10, Starting on Fri09/02/25 at 0900 Given 09/02/2025 1:16 PM CDT 5 mg pantoprazole injection 40 mg (Protonix) 40 mg, intravenous, Every 12 hours scheduled, First dose on Anjali 09/01/25 at 2100, Administer IV push over 2 minutes. Add 10 mL NS to 40 mg vial for a final concentration of 4 mg/mL. Given 09/05/2025 7:52 AM CLINICAL DENTAL TECHNICIAN 4 0 mg Given 09/04/2025 9:07 PM CLINICAL DENTAL TECHNICIAN 40 mg Given 09/04/2025 8:22 AM CLINICAL DENTAL TECHNICIAN 40 mg prochlorperazine injection 5 mg (Compazine) 5 mg, intravenous, Every 6 hours PRN, nausea, vomiting, Starting on Fri09/01/25 at 1316, For 48 hours, RASS must be -2 or higher to administer. Reassess for nausea/vomiting after at least 10 minutes. If nausea or vomiting persists administer next ordered antiemetic medications (order for antiemetic medication administration ondansetron then haloperidol then prochlorperazine) Given 09/02/2025 9:17 PM CDT 5 mg sennosides tablet 8.6 mg (Senokot) 8.6 mg, oral, Daily at bedtime, First dose on Fri09/01/25 at 2100, do not give if patient has diarrhea Given 09/04/2025 9:07 PM CLINICAL DENTAL TECHNICIAN 8.6 mg Given 09/03/2025 8:12 PM CDT 8.6 mg Given 09/02/2025 9:00 PM CDT 8.6 mg simethicone chewable tablet 80 mg 80 mg, oral, 4 times daily PRN, flatulence, Starting on Fri09/02/25 at 1542 Given 09/02/2025 4:05 PM CDT 80 mg sodium chloride 0.9 % injection 10-20 mL 10-20 mL, intravenous, During hospitalization, line care, Prior to discharge, Starting on Anjali 09/01/25 at 0718, For 1 dose, Implanted Vascular Access Device (IVAD) Venous Non-Valved: Flush 10 mL per port/lumen followed by heparin flush prior to discharge. documented in this encounter Active and Recently Administered Medications Due to Daylight Saving Time, this section may contain times in both CDT and CLINICAL DENTAL TECHNICIAN. Scheduled Medication Order 09/03/2025 09/04/2025 09/05/2025 acetaminophen tablet 1,000 mg (TylenoL) 1,000 mg, oral, Every 6 hours, First dose on Anjali 09/01/25 at 1400, Do not give for current total bilirubin greater than 8 mg/dL. 0305 (Given - Provider: Maia Farfan R.N.)0901 (Given - Provider: Cesia ManningNEstelle)1311 (Not Given - Provider: Chucky Freeman R.N. - Reason: Patient/family refused)1559 (Given - Provider: Ginette Duncan REstelleNEstelle)2011 (Given - Provider: Maia Farfan R.N.) 0256 (Given - Provider: Jesica Marie REstelleN.)0822 (Given - Provider: Cesia ManningNEstelle)1600 (Given - Provider: Chucky Freeman R.N.)2107 (Given - Provider: Valery Penaloza REstelleNEstelle) 0308 (Not Given - Provider: Valery Penaloza REstelleNEstelle - Reason: Patient/family refused)0752 (Given - Provider: Pat Grewal REstelleNEstelle) enoxaparin injection 40 mg (Lovenox) 40 mg, subcutaneous, Daily at bedtime, First dose (after last modification) on 09/03/25 at 2100, Teach Lovenox ed for homegoing; 2012 (Given - Provider: Maia Farfan R.N.) 210 (Given - Provider: Valery Penaloza REstelleN.) Lactated Ringer's bolus 500 mL (COMPLETED) 500 mL, intravenous, at 500 mL/hr, Administer over 1 Hours, Once, On 09/04/25 at 1415, For 1 dose 1408 (New Bag - Provider: Chucky Freeman R.N.) magnesium sulfate in D5W IVPB 1 g (COMPLETED) 1 g, intravenous, at 100 mL/hr, Administer over 60 Minutes, Once, On 09/04/25 at 0615, For 1 dose 0650 (New Bag - Provider: Maia Farfan R.N.) pantoprazole injection 40 mg (Protonix) 40 mg, intravenous, Every 12 hours scheduled, First dose on Anjali 09/01/25 at 2100, Administer IV push over 2 minutes. Add 10 mL NS to 40 mg vial for a final concentration of 4 mg/mL. 901 (Given - Provider: Chucky Freeman R.N.)2012 (Given - Provider: Maia Farfan R.N.) 821 (Given - Provider: Chucky Freeman R.N.)2106 (Given - Provider: Valery Penaloza R.N.) 751 (Given - Provider: Pat Grewal R.N.) sennosides tablet 8.6 mg (Senokot) 8.6 mg, oral, Daily at bedtime, First dose on Anjali 09/01/25 at 2100, do not give if patient has diarrhea 2011 (Given - Provider: Maia Farfan R.N.) 2106 (Given - Provider: Valery Penaloza R.N.) PRN Medication Order 09/03/2025 09/04/2025 09/05/2025 bisacodyL suppository 10 mg (Dulcolax) 10 mg, rectal, Daily PRN, constipation, Starting on Anjali 09/01/25 at 1316 0700 (Given - Provider: Jesica Marie REstelleNEstelle) heparin flush 500-1,000 Units (COMPLETED) 500-1,000 Units, intra-catheter, During hospitalization, line care, Prior to discharge, Starting on Anjali 09/01/25 at 0718, For 1 dose, Implanted Vascular Access Device (IVAD) Venous Non-Valved: flush 5 mL (500 units) per port/lumen following saline flush prior to discharge. 1057 (Given - Provider: Parish Post R.N.) HYDROmorphone (PF) injection 0.2 mg (Dilaudid) 0.2 mg, intravenous, Every 2 hour PRN, severe pain or score 7-10 of 10, Starting on Fri09/02/25 at 0900, for pain greater than or equal to 7 at least 1 hour after oxycodone dose given melatonin tablet 6 mg 6 mg, oral, Bedtime PRN, sleep, Starting on 09/04/25 at 1953 2107 (Given - Provider: Valery Penaloza R.N.) methocarbamoL tablet 500 mg (Robaxin) 500 mg, oral, Every 8 hours PRN, muscle spasms, Starting on 09/03/25 at 0102 2107 (Given - Provider: Valery Penaloza R.N.) mineral oil enema 1 enema 1 enema, rectal, Daily PRN, constipation, Starting on Fri09/02/25 at 2133 naloxone injection 0.2 mg (Narcan) 0.2 mg, intravenous, As needed, respiratory depression, Starting on Anjali 09/01/25 at 1316, For RASS Score -4 or less, respiratory rate of less than 8 breaths/min. Notify provider/service and rapid response team (if available at institution). ondansetron (PF) injection 4 mg (Zofran) 4 mg, intravenous, Every 6 hours PRN, nausea, vomiting, Starting on Anjali 09/01/25 at 1316, Reassess for nausea or vomiting after at least 10 minutes. If nausea or vomiting persists administer next ordered antiemetic medications (order for antiemetic medication administration ondansetron then haloperidol then prochlorperazine). oxyCODONE IR tablet 10 mg (Roxicodone)(Linked Group 1) 10 mg, oral, Every 4 hours PRN, severe pain or score 7-10 of 10, Starting on Fri09/02/25 at 0900 0047 (Given - Provider: Maia Farfan R.N.)2011 (Given - Provider: Maia Farfan R.N.) oxyCODONE IR tablet 5 mg (Roxicodone)(Linked Group 1) 5 mg, oral, Every 4 hours PRN, moderate pain or score 4-6 of 10, Starting on Fri09/02/25 at 0900 0047 (See Alternative - Provider: Maia Farfan R.N.)2011 (See Alternative - Provider: Maia Farfan R.N.) simethicone chewable tablet 80 mg 80 mg, oral, 4 times daily PRN, flatulence, Starting on Fri09/02/25 at 1542 sodium chloride 0.9 % injection 10-20 mL 10-20 mL, intravenous, During hospitalization, line care, Prior to discharge, Starting on Anjali 09/01/25 at 0718, For 1 dose, Implanted Vascular Access Device (IVAD) Venous Non-Valved: Flush 10 mL per port/lumen followed by heparin flush prior to discharge. Linked Groups Order Group 1: oxyCODONE IR tablet 5 mg (Roxicodone)Jump to med 5 mg, oral, Every 4 hours PRN, moderate pain or score 4-6 of 10, Starting on Fri09/02/25 at 0900 Or oxyCODONE IR tablet 10 mg (Roxicodone)Jump to med 10 mg, oral, Every 4 hours PRN, severe pain or score 7-10 of 10, Starting on Fri09/02/25 at 0900 documented in this encounter Care Teams Dairy Truck Driver Relationship Specialty Start Date End Date Elsewhere, Pcp PCP - General Internal Medicine 04/12/25 documented as of this encounter
--- OUTSIDE RECORDS SUMMARY | 2025-09-01 06:25 | XMS_ITS | Encounter Summary ---
Author Organization 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 200 [place] [address] Phone: tel: fax: Referral ID Status Reason Start Date Expiration Date Visits Re quested Visits Authorized [id number] 1 1 Encounter Details Date Type Department Care Team (Late st Contact Info) Description 09/01/2025 7:25 AM CDT - 09/01/2025 12:09 PM CDT Surgery RST ROMB MAIN OR [address] [place] [phone] Stephon Galindo D.O., M.B.A. [address] [place] [phone] PANCREATECTOMY DISTAL WITH SPLENECTOMY Social History Tobacco Use Types Packs/Day Years [...] things needed for daily living? No 09/01/2025 [facility] Utilities Answer Date Recorded In the past 12 months has [facility] electric, gas, oil, or water company threatened to shut off services in your home? No 09/01/2025 Housing Stability Answer Date Recorded What is your living situation today? I have a [facility] place to live 09/01/2025 Comments No Sex and Gender Information Value Date Recorded Sex Assigned at Female 03/21/2025 4:39 PM CDT Legal Sex Female 10:00 PM COMPLIANCE PROGRAM MANAGER Gender Identity Female 03/21/2025 4:39 PM CDT Sexual Orientation Straight 03/21/2025 4: 39 PM CDT documented as of this encounter Last Filed Vital Signs Vital Sign Reading Time Taken Comments Blood Pressure 118/77 09/01/2025 7:02 AM CDT Pulse 70 09/01/2025 7:02 AM CDT Temperature 36.9 C (98.4 F) 09/01/2025 7:02 AM CDT Respiratory Rate - - Oxygen Saturation 99% 09/01/2025 7:02 AM CDT Inhaled Oxygen Concentration - - Weight 54.4 kg (119 lb 14.9 oz) 09/01/2025 6:12 AM CDT Height 175.3 cm (5' 9) 09/01/2025 7:02 AM CDT Body Mass Index 17.29 09/01/2025 7:02 AM CDT documented in this encounter Discharge Summaries * Kaleigh Xiong APRN, C.N.P., M.S.N. - 09/05/2025 10:37 AM CST DISCHARGE SUMMARY BRIEF OVERVIEW Hospital: [facility] Discharge Provider: Stephon Galindo D.O. Primary Team: [facility] - [place] Primary Care Providers: Elsewhere, Pcp (General) No [...] ABDOMINIS PLANE Stephon Galindo D.O., M.B.A.Sanchez Buchanan MHarrite., B.Ch., B.A.O. [facility] ROMB OR DISCHARGE DISPOSITION Home or Self Care [1] ACTIVE ISSUES REQUIRING FOLLOW UP 1. Anticoagulation plan: Enoxaparin 40 mg daily in the setting of abdominal cancer operation. Do not stop this medication until you have seen by your surgeon or your surgeon's MILLINERY SALESPERSON/PA in clinic. If youwill run out of [...] or prescription related questions, call Dr. Galindo's acls specialist at [phone]. After hours or on the weekend, contact the [facility] turret punch operator at [phone]. For questions about your appointments, contact Dr. Galindo's medical services coordinator at [phone] OUTPATIENT FOLLOW UP For appointment details refer [...] splenectomy, 09/01/2025. The patient was admitted to [facility]. The patient was taken to theoperating room [...] spent in discharge services today: >30 minutes. LIANCE PROGRAM MANAGER documented in this encounter Discharge Instructions * Attachments The following attachments cannot be sent through Care Everywhere. * Melatonin (By mouth) (Gibraltarian) * Methocarbamol (By mouth) (Gibraltarian) * Oxycodone, Rapid Release (By mouth) (Gibraltarian) * Simethicone (By mouth) (Gibraltarian) * Laxative, Stimulant (By mouth) (Gibraltarian) documented in this encounter Medications at Time [...] clotting prevention. 10 mL 09/05/2025 12:12 PM COMPLIANCE PROGRAM MANAGER 09/05/2025 estradiol 0.03 %, testosterone 0.01 % [...] Acute Pain. 8 tablet 09/05/2025 12:12 PM COMPLIANCE PROGRAM MANAGER 09/05/2025 prasterone, DHEA, 10 mg tablet Take [...] muscle spasms. 6 tablet 09/05/2025 12:12 PM COMPLIANCE PROGRAM MANAGER 09/05/2025 documented as of this encounter Progress [...] billing andagrees to proceed with enrollment. . LIANCE PROGRAM MANAGER * Ryan Summers M.D. - 09/04/2025 7:22 [...] mobilization - Consider discharge early this week LIANCE PROGRAM MANAGER LIANCE PROGRAM MANAGER LIANCE PROGRAM MANAGER * Ryan Summers M.D. - 09/03/2025 7:28 [...] discharge over weekend/early next week * Bebeto Kim Pharm.D., R.Ph. 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 RST ROMB OR Medical [...] 1 capsule by mouth daily. * Karrie Dominguez, Pharm.D., R.Ph. - 09/01/2025 8:01 AM CDT Images from the original note were not included. Admission Medication History Note Prior to Admission Medications Med List Status: Pharmacy/RN Complete Set By: Karrie Dominguez, Pharm.D., R.Ph. at 09/01/2025 7:54 AM Taking? Last [...] from fall/fall injury Outcome: Adequate for Discharge LIANCE PROGRAM MANAGER * Valery Penaloza R.N. - 09/05/2025 3:09 AM CST Problem: PAIN [...] Progressing Problem: Risk for Compromised Skin Integrity-Other Technical Support Technician(s) Goal: Risk for Compromised Skin Integrity-Other Technical Support Technician(s) Outcome: Progressing Problem: SAFETY ADULT - RISK [...] throughout the night. Electronically signed by: Edyta Penalzoa R.N. 09/05/25 3:11 AM COMPLIANCE PROGRAM MANAGER LIANCE PROGRAM MANAGER documented in this encounter OR Notes * [...] liver lesions on exploration. Pancreas divided at V. Margin negative resection on frozen section pathology. [...] encounter Miscellaneous Notes * Hospital Course - Tyrese Kaleighjose Lundberg APRN, Nayla.NDre., M.S.N. 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 The patient was admitted to [facility]. The patient was taken to theoperating room [...] patient's home medications were restarted as indicated. LIANCE PROGRAM MANAGER LIANCE PROGRAM MANAGER LIANCE PROGRAM MANAGER LIANCE PROGRAM MANAGER documented in this encounter Plan of Treatment Upcoming Encounters Date Type Department Care Team (Latest Contact Info) Description 10/05/2025 3:45 PM COMPLIANCE PROGRAM MANAGER Clinical Communication Virtual Review in [address] [phone] 10/11/2025 1:40 PM COMPLIANCE PROGRAM MANAGER Nurse Only Section of Infectious Diseases in [address] [phone] Kaleigh Xiong APRN, C.NAdy, M.S.N. [address] [place] [phone] 10/11/2025 3:00 PM COMPLIANCE PROGRAM MANAGER Lab Department of Infusion Therapy in [place] [address] [place] [phone] Kaleigh Xiong APRN, C.NAdy, M.S.N. [address] [place] [phone] 10/11/2025 4:00 PM COMPLIANCE PROGRAM MANAGER Appointment Department of Radiology, [facility], in [place], [place] [address] [place] [phone] Kaleigh Xiong APRN, C.N.P., M.S.N. [address] [place] [phone] 10/12/2025 10:30 AM COMPLIANCE PROGRAM MANAGER Office Visit Division of Hepatobiliary and Pancreas Surgery in [place], [place] [address] [place] [phone] Sammie Gerber APRN, C.N.Efrain., M.S.N. [address] [place] [phone] 10/12/2025 3:00 PM COMPLIANCE PROGRAM MANAGER Comprehensive Visit Department of Oncology in [place], [place] [address] [place] [phone] Jeffy James M.D. [address] [place] [phone] Scheduled Orders Name Type Priority Associated Diagnoses [...] TIME (PT), P Routine 09/05/2025 7:50 AM COMPLIANCE PROGRAM MANAGER CBC WITHOUT DIFFERENTIAL, B Routine 09/05/2025 7:50 AM COMPLIANCE PROGRAM MANAGER C-REACTIVE PROTEIN (CRP), S/P Routine 09/05/2025 7:50 AM COMPLIANCE PROGRAM MANAGER PHOSPHORUS (INORGANIC), S Routine 09/05/2025 7:50 AM COMPLIANCE PROGRAM MANAGER MAGNESIUM, S Routine 09/05/2025 7:50 AM COMPLIANCE PROGRAM MANAGER BILIRUBIN DIRECT, S/P Routine 09/05/2025 7:50 AM COMPLIANCE PROGRAM MANAGER COMPREHENSIVE METABOLIC PANEL, S/P Routine 09/05/2025 7:50 AM COMPLIANCE PROGRAM MANAGER CBC WITHOUT DIFFERENTIAL, B Routine 09/03/2025 8:11 [...] (ABNORMAL) CRP (C-Reactive Protein) (09/05/2025 7:50 AM COMPLIANCE PROGRAM MANAGER) C-Reactive Protein (CRP), S 138.1(H) <5.0 mg/L 09/05/2025 9:09 AM COMPLIANCE PROGRAM MANAGER DTL Blood (Blood, Venous) 09/05/2025 7:50 AM COMPLIANCE PROGRAM MANAGER 09/05/2025 8:21 AM COMPLIANCE PROGRAM MANAGER Nayla Hewitt APRN.N.P., M.S.N. LAB BLOOD A DD-ON Final Result Performing Organization Address City/[facility]/ZIP Co de Phone Number [facility] [address] 200 [place] [address] * Phosphorus Inorganic (09/05/2025 7:50 AM COMPLIANCE PROGRAM MANAGER) Phosphorus (Inorganic), S 2.7 2.5 - 4.5 mg/dL 09/05/2025 9:09 AM COMPLIANCE PROGRAM MANAGER DTL Blood (Blood, Venous) 09/05/2025 7:50 AM COMPLIANCE PROGRAM MANAGER 09/05/2025 8:21 AM COMPLIANCE PROGRAM MANAGER Kaleigh Xiong APRN, C.N.P., M.S.N. LAB BLOOD A DD-ON Final Result Performing Organization Address [facility] Co de Phone Number [facility] [address] 200 [place] [address] * Magnesium (09/05/2025 7:50 AM COMPLIANCE PROGRAM MANAGER) Magnesium, S 1.8 1.7 - 2.3 mg/dL 09/05/2025 9:09 AM COMPLIANCE PROGRAM MANAGER DTL Blood (Blood, Venous) 09/05/2025 7:50 AM COMPLIANCE PROGRAM MANAGER 09/05/2025 8:21 AM COMPLIANCE PROGRAM MANAGER Kaleigh Xiong APRN C.N.P., M.S.N. LAB BLOOD A DD-ON Final Result Performing Organization Address City/[facility]/ZIP Co de Phone Number [facility] [address] 200 [place] [address] * Prothrombin Time (PT) (09/05/2025 7:50 AM COMPLIANCE PROGRAM MANAGER) [facility] Prothrombin Time, P 11.0 9.4 - 12.5 sec 09/05/2025 9:01 AM COMPLIANCE PROGRAM MANAGER DT INR 1.0 0.9 - 1.1 09/05/2025 9:01 AM COMPLIANCE PROGRAM MANAGER DT Comment: ----ADDITIONAL INFORMATION---- Standard intensity warfarin therapeutic range: 2.0 to 3.0 High intensity warfarin therapeutic range: 2.5 to 3.5 Blood (Blood, Venous) 09/05/2025 7:50 AM COMPLIANCE PROGRAM MANAGER 09/05/2025 8:24 AM COMPLIANCE PROGRAM MANAGER Kaleigh Xiong APRN, Nayla.N.P., M.S.N. LAB BLOOD A DD-ON Final Result [facility] 200 [place] [address] * Bilirubin, Direct (09/05/2025 7:50 AM COMPLIANCE PROGRAM MANAGER) [facility] Bilirubin, Direct, S 0.2 0.0 - 0.3 mg/dL 09/05/2025 9:09 AM COMPLIANCE PROGRAM MANAGER DT Blood (Blood, Venous) 09/05/2025 7:50 AM COMPLIANCE PROGRAM MANAGER 09/05/2025 8:21 AM COMPLIANCE PROGRAM MANAGER Kaleigh Xiong APRN, C.N.P., M.S.N. LAB BLOOD A DD-ON Final Result [facility] 200 [place] [address] * (ABNORMAL) Comprehensive Metabolic Panel (09/05/2025 7:50 AM COMPLIANCE PROGRAM MANAGER) [facility] Potassium, S 4.0 3.6 - 5.2 mmol/L 09/05/2025 9:09 AM COMPLIANCE PROGRAM MANAGER DTL Sodium, S 139 135 - 145 mmol/L 09/05/2025 9:09 AM COMPLIANCE PROGRAM MANAGER DTL Chloride, S 98 98 - 107 mmol/L 09/05/2025 9:09 AM COMPLIANCE PROGRAM MANAGER DTL Bicarbonate, S 21(L) 22 - 29 mmol/L 09/05/2025 9:09 AM COMPLIANCE PROGRAM MANAGER DTL Anion Gap 20(H) 7 - 15 09/05/2025 9:09 AM COMPLIANCE PROGRAM MANAGER DTL BUN (Blood Urea Nitrogen), S 8 6 - 21 mg/dL 09/05/2025 9:09 AM COMPLIANCE PROGRAM MANAGER DTL Creatinine 0.59 0.59 - 1.04 mg/dL 09/05/2025 9:09 AM COMPLIANCE PROGRAM MANAGER DTL Estimated GFR (eGFR) >90 >=60 mL/min/BS A 09/05/2025 9:09 AM COMPLIANCE PROGRAM MANAGER DTL Comment: Estimated GFR calculated using the 2020 CKD_EPI creatinine equation. Calcium, Total, S 8.9 8.8 - 10.2 mg/dL 09/05/2025 9:09 AM COMPLIANCE PROGRAM MANAGER DTL Glucose, S 72 70 - 140 mg/dL 09/05/2025 9:09 AM COMPLIANCE PROGRAM MANAGER DTL Protein, Total, S 5.8(L) 6.3 - 7.9 g/dL 09/05/2025 9:09 AM COMPLIANCE PROGRAM MANAGER DTL Albumin, S 3.7 3.5 - 5.0 g/dL 09/05/2025 9:09 AM COMPLIANCE PROGRAM MANAGER DTL Aspartate Aminotransferase (AST), S 26 8 - 43 U/L 09/05/2025 9:09 AM COMPLIANCE PROGRAM MANAGER DTL Alkaline Phosphatase, S 144(H) 35 - 104 U/L 09/05/2025 9:09 AM COMPLIANCE PROGRAM MANAGER DTL Alanine Aminotransferase (ALT), S 41 7 - 45 U/L 09/05/2025 9:09 AM COMPLIANCE PROGRAM MANAGER DTL Bilirubin, Total, S 0.5 0.0 - 1.2 mg/dL 09/05/2025 9:09 AM COMPLIANCE PROGRAM MANAGER DTL Blood (Blood, Venous) 09/05/2025 7:50 AM COMPLIANCE PROGRAM MANAGER 09/05/2025 8:21 AM COMPLIANCE PROGRAM MANAGER Nayla Hewitt APRN.N.Efrain., M.S.N. LAB BLOOD A DD-ON Final Result Performing Organization Address [facility] Co de Phone Number [facility] 200 [place] [address] * (ABNORMAL) CBC without Differential (09/05/2025 7:50 AM COMPLIANCE PROGRAM MANAGER) [facility] Hemoglobin 11.5(L) 11.6 - 15.0 g/dL 09/05/2025 9:21 AM COMPLIANCE PROGRAM MANAGER DTL Hematocrit 34.4(L) 35.5 - 44.9 % 09/05/2025 9:21 AM COMPLIANCE PROGRAM MANAGER DTL Erythrocytes 3.27(L) 3.92 - 5.13 x10(12)/L 09/05/2025 9:21 AM COMPLIANCE PROGRAM MANAGER DTL MCV 105.2(H) 78.2 - 97.9 fL 09/05/2025 9:21 AM COMPLIANCE PROGRAM MANAGER DTL RBC Distrib Width 12.2 12.2 - 16.1 % 09/05/2025 9:21 AM COMPLIANCE PROGRAM MANAGER DTL Platelet Count 287 157 - 371 x10(9)/L 09/05/2025 9:21 AM COMPLIANCE PROGRAM MANAGER DTL Leukocytes 7.6 3.4 - 9.6 x10(9)/L 09/05/2025 9:21 AM COMPLIANCE PROGRAM MANAGER DTL Blood (Blood, Venous) 09/05/2025 7:50 AM COMPLIANCE PROGRAM MANAGER 09/05/2025 8:24 AM COMPLIANCE PROGRAM MANAGER Nayla Hewitt APRN.N.P., M.S.N. LAB BLOOD A DD-ON Final Result Performing Organization Address City/[facility]/ZIP Co de Phone Number [facility] [address] 200 [place] [address] * (ABNORMAL) CRP (C-Reactive Protein) (09/03/2025 8:11 PM CDT) C-Reactive Protein (CRP), S 154.2(H) <5.0 mg/L 09/03/2025 9:25 PM CDT DTL Blood (Blood, Venous) 09/03/2025 8:11 PM CDT 09/03/2025 8:35 PM CDT Nayla Hebert APRN.N.Efrain., M.S.N. LAB BLOOD A DD-ON Final Result Performing Organization Address City/[facility] Co de Phone Number [facility] [address] 200 [place] [address] * Magnesium (09/03/2025 8:11 PM CDT) Magnesium, S 1.8 1.7 - 2.3 mg/dL 09/03/2025 9:25 PM CDT DTL Blood (Blood, Venous) 09/03/2025 8:11 PM CDT 09/03/2025 8:35 PM CDT Nayla Hebert APRN.N.P., M.S.N. LAB BLOOD A DD-ON Final Result Performing Organization Address [facility] Co de Phone Number [facility] [address] [facility] 200 [place] [address] * (ABNORMAL) Basic Metabolic Panel (09/03/2025 8:11 PM CDT) Potassium, S 4.2 3.6 - 5.2 mmol/L [...] CDT 09/03/2025 8:35 PM CDT Leelee Calzada APRN C.N.P., M.S.N. LAB BLOOD A DD-ON Final Result [facility] [address] [place] [address], [facility] [address] [place] [address] * (ABNORMAL) CBC without Differential (09/03/2025 8:11 PM CDT) Hemoglobin 11.8 11.6 - 15.0 g/dL 09/03/2025 [...] CDT 09/03/2025 8:36 PM CDT Sanchez Charles, B.Maria Dolores., B.A.O. LAB BLOOD ADD- ON Final Result Performing Organization Address City/[facility]/ZIP Co de Phone Number [facility] [address] [place] [address] * (ABNORMAL) CRP (C-Reactive Protein) (09/02/2025 8:50 PM CDT) C-Reactive Protein (CRP), S 96.5(H) <5.0 mg/L 09/02/2025 9:46 PM CDT DTL Blood (Blood, Venous) 09/02/2025 8:50 PM CDT 09/02/2025 9:08 PM CDT Milka Haley APRNNEstelleP., M.S.N. LAB BLOOD A DD-ON Final Result Performing Organization Address [facility]/ZIP Co de Phone Number [facility] [address] [place] [address] * Phosphorus Inorganic (09/02/2025 8:50 PM CDT) Phosphorus (Inorganic), S 3.0 2.5 - 4.5 mg/dL 09/02/2025 9:46 PM CDT DTL Blood (Blood, Venous) 09/02/2025 8:50 PM CDT 09/02/2025 9:08 PM CDT Neeru Cadet APRN, C.N.P., M.S.N. LAB BLOOD A DD-ON Final Result Performing Organization Address City/[facility] [place] [address] * Magnesium (09/02/2025 8:50 PM CDT) Pathologist [facility] Magnesium, S 1.9 1.7 - 2.3 mg/dL 09/02/2025 9:46 PM CDT DTL Blood (Blood, Venous) 09/02/2025 8:50 PM CDT 09/02/2025 9:08 PM CDT Neeru Cadet APRN, C.N.P., M.S.N. LAB BLOOD A DD-ON Final Result Performing Organization Address [facility] Co de Phone Number [facility] 200 [place] [address] * (ABNORMAL) Basic Metabolic Panel (09/02/2025 8:50 [...] 8:50 PM CDT 09/02/2025 9:08 PM CDT us Neeru Cadet APRN C.N.P., M.S.N. LAB BLOOD A DD-ON Final Result [facility] 200 [place] [address], [facility] 200 [place] [address] * (ABNORMAL) CBC without Differential (09/02/2025 8:50 [...] A DD-ON Final Result Performing Organization Address City/[facility]/ZIP Co de Phone Number [facility] 200 [place] [address], [place] [address] * (ABNORMAL) CRP (C-Reactive Protein) (09/01/2025 8:45 PM CDT) C-Reactive Protein (CRP), S 8.1(H) <5.0 mg/L 09/01/2025 9:45 PM CDT DTL Blood (Blood, Venous) 09/01/2025 8:45 PM CDT 09/01/2025 9:14 PM CDT Neeru Cadet APRN, C.N.P., M.S.N. LAB BLOOD A DD-ON Final Result Performing Organization Address City/[facility]/ZIP Co de Phone Number [facility] 200 [place] [address], [place] [address] * (ABNORMAL) Basic Metabolic Panel (09/01/2025 8:45 PM CDT) Potassium, S 4.5 3.6 - 5.2 mmol/L [...] ADD- ON Final Result Performing Organization Address City/[facility] Co de Phone Number [facility] [address] 200 [place] [address] * (ABNORMAL) Phosphorus Inorganic (09/01/2025 8:45 PM CDT) [facility] Phosphorus (Inorganic), S 4.8(H) 2.5 - 4.5 mg/dL 09/01/2025 9:45 PM CDT DTL Blood (Blood, Venous) 09/01/2025 8:45 PM CDT 09/01/2025 9:14 PM CDT Sanchez Charles, B.Ch., B.A.O. LAB BLOOD ADD- ON Final Result Performing Organization Address City/[facility]/ZIP Co de Phone Number [facility] 200 [place] [address] * Magnesium (09/01/2025 8:45 PM CDT) [facility] Magnesium, S 1.7 1.7 - 2.3 mg/dL 09/01/2025 9:45 PM CDT DTL Blood (Blood, Venous) 09/01/2025 8:45 PM CDT 09/01/2025 9:14 PM CDT Sanchez Charles, Nieves., B.A.O. LAB BLOOD ADD- ON Final Result Performing Organization Address City/State/[facility] Co de Phone Number [facility] [address] [place] [address], [facility] [address] [place] [address] * (ABNORMAL) CBC without Differential (09/01/2025 8:45 PM CDT) [facility] Hemoglobin 10.8(L) 11.6 - 15.0 g/dL 09/01/2025 [...] 8:45 PM CDT 09/01/2025 9:15 PM CDT Sanchez Charles, Nieves., B.A.O. LAB BLOOD ADD- ON Final Result [facility] [address] [place] [address], [place] DTL [facility] [address] [place] [address] * Surgical Pathology, Frozen Lab (09/01/2025 10:53 AM CDT) 09/05/2025 2:35 PM COMPLIANCE PROGRAM MANAGER [facility]lin Participated in the Interpretation Hamlet Correia M.D.-Pathology Fellow 09/05/2025 2:35 PM [facility] Report electronically signed by Eloise Vo M.D. I verify that I have examined all relevant slides/materials for the specimen(s) and rendered or confirmed the diagnosis. 09/05/2025 2:35 PM [facility] Frozen Intraoperative Report A. Pancreas, distal, and spleen, distal pancreatectomy and splenectomy: Pancreatic adenocarcinoma, forming a mass measuring 2.3 cm in greatest dimension. All margins, including proximal pancreatic margin, are negative for tumor. Signed by Eloise Vo M.D. 09/01/2025 4:09 PM 09/05/2025 2:[address] [facility] Gross Description A. Received fresh labeled distal [...] are identified. The spleen is grossly unremarkable. Supervisor Sandblaster tissue submitted for frozen and permanent sections. Photographed. Grossed by Laura MartinezHEstelleSEstelle, PA(ASCP). 09/05/2025 2:35 PM COMPLIANCE PROGRAM MANAGER [facility] Block Summary A Distal pancreas, spleen, [...] A22 Peripancreatic fat 3 09/05/2025 2:35 PM COMPLIANCE PROGRAM MANAGER [facility] Interpretation FINAL DIAGNOSIS A. Distal pancreas [...] assessment of this case. 09/05/2025 2:35 PM COMPLIANCE PROGRAM MANAGER [facility] Tissue (Spleen) 09/01/2025 1 0:53 AM CDT Stephon Galindo D.O., M.B.A. LAB SURG PATH OR DERABLES Final Result Performing Organization Address City/State/[facility] Co de Phone Number [facility] [address] [place] [address], [facility] STMA [address] [facility] [address] [place] [address] documented in this encounter Visit Diagnoses Diagnosis Malignant Neoplasm Of Pancreas Body (HCC)- Primary Malignant Neoplasm Of Pancreas Body (HCC) Malignant Neoplasm Of Pancreas Tail (HCC) Malignant Neoplasm Of Pancreas Body (HCC) documented [...] than 8 mg/dL. Given 09/05/2025 7:52 AM COMPLIANCE PROGRAM MANAGER 1,000 mg Given 09/04/2025 9:07 PM COMPLIANCE PROGRAM MANAGER 1,000 mg Given 09/04/2025 4:00 PM COMPLIANCE PROGRAM MANAGER 1,000 mg bisacodyL suppository 10 mg (Dulcolax) 10 mg, rectal, Daily PRN, constipation, Starting on Anjali 09/01/25 at 1316 Given 09/04/2025 7:00 AM COMPLIANCE PROGRAM MANAGER 10 mg Given 09/02/2025 7:34 PM CDT 10 mg BUPivacaine liposome (PF) 20 mL, BUPivacaine 30 mL 50 mL injection As needed, Starting on Anjali 09/01/25 at 0900, Intra-Op Given 09/01/2025 9:00 AM CDT 50 mL Abdominal Tissue enoxaparin injection 40 mg (Lovenox) 40 mg, subcutaneous, Daily at bedtime, First dose (after last modification) on 09/03/25 at 2100, Teach Lovenox ed for homegoing; Given 09/04/2025 9:07 PM COMPLIANCE PROGRAM MANAGER 40 mg Left Outer Thigh Given 09/03/2025 8:13 PM CDT 40 mg Ri ght Upper Arm (Back) HYDROmorphone (PF) injection 0.2 mg (Dilaudid) 0.2 mg, intravenous, Every 2 hour PRN, severe pain or score 7-10 of 10, Starting on Fri09/02/25 at 0900, for pain greater than or equal to 7 at least 1 hour after oxycodone dose given Given 09/02/2025 9:48 AM CDT 0.2 mg melatonin tablet 6 mg 6 mg, oral, Bedtime PRN, sleep, Starting on 09/04/25 at 1953 Given 09/04/2025 9:07 PM COMPLIANCE PROGRAM MANAGER 6 mg methocarbamoL tablet 500 mg (Robaxin) 500 mg, oral, Every 8 hours PRN, muscle spasms, Starting on 09/03/25 at 0102 Given 09/04/2025 9:07 PM COMPLIANCE PROGRAM MANAGER 500 mg mineral oil enema 1 enema 1 enema, rectal, Daily PRN, constipation, Starting on Fri09/02/25 at 2133 Given 09/02/2025 10:48 PM CDT 1 enema ondansetron (PF) injection 4 mg (Zofran) 4 [...] of 4 mg/mL. Given 09/05/2025 7:52 AM COMPLIANCE PROGRAM MANAGER 4 0 mg Given 09/04/2025 9:07 PM COMPLIANCE PROGRAM MANAGER 40 mg Given 09/04/2025 8:22 AM COMPLIANCE PROGRAM MANAGER 40 mg sennosides tablet 8.6 mg (Senokot) 8.6 mg, oral, Daily at bedtime, First dose on Anjali 09/01/25 at 2100, do not give if patient has diarrhea Given 09/04/2025 9:07 PM COMPLIANCE PROGRAM MANAGER 8.6 mg Given 09/03/2025 8:12 PM CDT 8.6 mg Given 09/02/2025 9:00 PM CDT 8.6 mg simethicone chewable tablet 80 mg 80 mg, oral, 4 times daily PRN, flatulence, Starting on Fri09/02/25 at 1542 Given 09/02/2025 4:05 PM CDT 80 mg sodium chloride 0.9 % injection 10-20 mL 10-20 mL, intravenous, During hospitalization, line care, Prior to discharge, Starting on Fri09/01/25 at 0718, For 1 dose, Implanted Vascular Access Device (IVAD) Venous Non-Valved: Flush 10 mL per port/lumen followed by heparin flush prior to discharge. documented in this encounter Active and Recently Administered Medications Due to Daylight Saving Time, this section may contain times in both CDT and COMPLIANCE PROGRAM MANAGER. Scheduled Medication Order 09/03/2025 09/04/2025 09/05/2025 acetaminophen tablet 1,000 mg (TylenoL) 1,000 mg, oral, Every 6 hours, First dose on Anjali 09/01/25 at 1400, Do not give for current total bilirubin greater than 8 mg/dL. 0305 (Given - Provider: Maia Farfan R.N.)0901 (Given - Provider: Cesia ManningNEstelle)1311 (Not Given - Provider: Chucky Freeman R.N. - Reason: Patient/family refused)1559 (Given - Provider: Ginette Duncan R.N.)2011 (Given - Provider: Maia Farfan R.N.) 0256 (Given - Provider: Jesica Marie REstelleN.)0822 (Given - Provider: Cseia ManningNEstelle)1600 (Given - Provider: Chucky Freeman R.N.)2107 (Given - Provider: Valery Penaloza REstelleNEstelle) 0308 (Not Given - Provider: Valery Penaloza R.N. - Reason: Patient/family refused)0752 (Given - Provider: Pat Grewal REstelleNEstelle) enoxaparin injection 40 mg (Lovenox) 40 mg, subcutaneous, Daily at bedtime, First dose (after last modification) on 09/03/25 at 2100, Teach Lovenox ed for homegoing; 2012 (Given - Provider: Maia Farfan R.N.) 2106 (Given - Provider: Valery Penaloza REstelleNEstelle) Lactated Ringer's bolus 500 mL (COMPLETED) 500 mL, intravenous, at 500 mL/hr, Administer over 1 Hours, Once, On 09/04/25 at 1415, For 1 dose 1408 (New Bag - Provider: Chucky Freeman REstelleNEstelle) magnesium sulfate in D5W IVPB 1 g [...] Freeman R.N.)2012 (Given - Provider: Maia Farfan REstelleNEstelle) 08 (Given - Provider: Chucky Freeman R.N.)2106 (Given - Provider: Valery Penaloza R.N.) 075 (Given - Provider: Pat Grewal REstelleNEstelle) sennosides tablet 8.6 mg (Senokot) 8.6 mg, oral, Daily at bedtime, First dose on Anjali 09/01/25 at 2100, do not give if patient has diarrhea 2011 (Given - Provider: Maia Farfan RKori) 2106 (Given - Provider: Valery Penaloza REstelleNEstelle) PRN Medication Order 09/03/2025 09/04/2025 09/05/2025 bisacodyL [...] discharge. 1057 (Given - Provider: [facility] REstelleNEstelle) HYDROmorphone (PF) injection 0.2 mg (Dilaudid) 0.2 mg, intravenous, Every 2 hour PRN, severe pain or score 7-10 of 10, Starting on Fri09/02/25 at 0900, for pain greater than or equal to 7 at least 1 hour after oxycodone dose given melatonin tablet 6 mg 6 mg, oral, Bedtime PRN, sleep, Starting on Fri09/04/25 at 1953 2106 (Given - Provider: Valery Penaloza REstelleNEstelle) methocarbamoL tablet 500 mg (Robaxin) 500 mg, oral, Every 8 hours PRN, muscle spasms, Starting on 09/03/25 at 0102 2107 (Given - Provider: Valery Penaloza R.N.) mineral oil enema 1 enema 1 enema, rectal, Daily PRN, constipation, Starting on 09/02/25 at 2133 naloxone injection 0.2 mg (Narcan) [...] 0900 documented in this encounter Care Teams Outpatient Psychiatrist Relationship Specialty Start Date End Date Elsewhere, Pcp PCP - General Internal Medicine 04/12/25 documented as of this encounter
--- OUTSIDE RECORDS SUMMARY | 2025-09-01 06:40 | XMS_ITS | Encounter Summary ---
Author Organization [facility] Address [address] [place] [address] Care Team Providers Care Ultrasonographer Name Role Phone Elsewhere, Pcp Primary Care Provider Unavailabl e Encounter Details Date Type Department Care Team (Latest Contact Info) Description 09/01/2025 7:40 AM CDT Ancillary Procedure Department of Gastroenterology Social History Tobacco Use Types Packs/Day Years [...] things needed for daily living? No 09/01/[address] [facility] Utilities Answer Date Recorded In the past 12 months has th e electric, gas, oil, or water company threatened to shut off services in your home? No 09/01/2025 Housing Stability Answer Date Recorded What is your living situation today? I have a [facility] place to live 09/01/2025 Comments No Sex and Gender Information Value Date Recorded Sex Assigned at Female 03/21/2025 4:39 PM CDT Legal Sex Female 10:00 PM TYPEWRITER MECHANIC Gender Identity Female 03/21/2025 4:39 PM CDT Sexual Orientation Straight 03/21/2025 4: 39 PM CDT documented as of this encounter Plan of Treatment Upcoming Encounters Date Type Department Care Team (Latest Contact Info) Description 10/05/2025 3:45 PM TYPEWRITER MECHANIC Clinical Communication Virtual Review in [place], [place] [address] [place] [phone] 10/11/2025 1:40 PM TYPEWRITER MECHANIC Nurse Only Section of Infectious Diseases in [place] [phone] Kaleigh Xiong APRN, C.N.P., M.S.N. [address] [place] [phone] 10/11/2025 3:00 PM TYPEWRITER MECHANIC Lab Department of Infusion Therapy in [place], [place] [address] [place] [phone] Kaleigh Xiong APRN, C.N.P., M.S.N. [address] [place] [phone] 10/11/2025 4:00 PM TYPEWRITER MECHANIC Appointment Department of Radiology, [facility], in [address] [phone] Kaleigh Xiong APRN, C.N.P., M.S.N. [address] [place] [phone] 10/12/2025 10:30 AM TYPEWRITER MECHANIC Office Visit Division of Hepatobiliary and Pancreas Surgery in [place], [place] [address] [place] [phone] Sammie Gerber APRN, C.N.P., M.S.N. [address] [place] [phone] 10/12/2025 3:00 PM TYPEWRITER MECHANIC Comprehensive Visit Department of Oncology in [place], [place] [address] [place] [phone] Jeffy James M.D. [address] [place] [phone] documented as of this encounter Procedures Procedure Name Priority Date/Time Associated Diagnosis Comments GI AND GENERAL SURGERY IMAGE EXAM Routine 09/01/2025 7:40 AM CDT documented in this encounter Results * GIGS Procedure-GI And General Surgery Image Exam (09/01/2025 7:40 AM CDT) 09/01/2025 7:38 AM CDT Narrative [facility] - 09/01/2025 9:04 AM CDT This order has been created and auto-finalized to support the import of images acquired without order. The clinical documentation to support these images can be found on the encounter that produced images. us Provider Not In System IMG NON RAD IMAGING PROCE DURES Final Result [facility] NA documented in this encounter Visit Diagnoses Not on filedocumented in this encounter Care Teams Ultrasonographer Relationship Specialty Start Date End Date Elsewhere, Pcp PCP - General Internal Medicine 04/12/25 documented as of this encounter
--- OUTSIDE RECORDS SUMMARY | 2025-09-01 06:50 | XMS_ITS | Encounter Summary ---
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 [address] [place] [phone] Phone: tel: fax: Referral ID Status Reason Start Date Expiration Date Visits Re quested Visits Authorized [id number] 1 1 Encounter Details Date Type Department Care Team (Late st Contact Info) Description 09/01/2025 7:50 AM CDT Anesthesia Event RST ROMB MAIN OR [address] [place] [phone] Jody Dominguez M.D. [address] [place] [phone] Anesthesia Record Procedure Summary Procedure Name Responsible Anesthesiologist Anesthesia Start Time Anesthesia Stop Time PANCREATECTOMY DISTAL WITH SPLENECTOMY Jody Dominguez M.D. 09/01/25 0750 09/01/25 1210 Events Date Time Event Comment 09/01/2025 0750 An Start Machine/Equipme nt Checked Infection Precautions Followed Procedure/Site Verified NPO Status Verified Supine Standard ASA Monitors Applied 0758 Block Start 0805 Block End 0813 An Induction 0815 An Intubation 0842 Turnover to Proceduralist 0900 Proc Start 1135 Proc Fin 1135 Turnover to ANE Staff 1200 Airway Removal Criteria Met 1200 Extubation/Airway Removed 1210 An End I completed my handoff to the receiving staff during which we 1. Identified the patient 2. Identified the responsible provider 3. Reviewed the pertinent medical history 4. Discussed the surgical course 5. Reviewed intra-op anesthesia management and issues during anesthesia 6. Set expectations for post-procedure period 7. Allowed opportunity for questions and acknowledgement of understanding. Meds Name Total midazolam 1 mg/mL injection 2 mg fentanyl injection 50 mcg/mL 100 mcg lidocaine 2% (mg) injection 100 mg rocuronium 10 mg/mL injection 110 mg ePHEDrine PF 5 mg/mL syringe injection 1 0 mg ondansetron 4 mg/2 mL injection 4 mg sugammadex 100 mg/mL injection 130 mg glycopyrrolate 0.2 mg/mL injection 0.2 m g propofol 10 mg/mL infusion 1,211.76 mg propofol 10 mg/mL injection 130 mg heparin injection 5,000 Units/mL 5,000 U nits ketamine 10 mg/mL injection 30 mg phenylephrine infusion 80 mcg/mL in NaCl 0.9% 250 mL (premix/CNR) 0.86 mg dexAMETHasone (Decadron) injection 4 mg/ mL 4 mg piperacillin-tazobactam in dextrose (iso osm) IVPB 3.375 g (Zosyn) 3.375 g HYDROmorphone (Dilaudid) dilution PF inj ection 100 mcg/mL 150 mcg HYDROmorphone (Dilaudid) dilution PF inj ection 100 mcg/mL 50 mcg albumin human injection 5% 500 mL haloperidoL (HaldoL) injection 5 mg/mL 1 mg caffeine-sodium benzoate injection 250 m g (125 mg caffeine)/mL 250 mg Lactated Ringers Free Drip 900 mL lactated ringers free drip 1,200 mL * Agents No agents on file. * Blood No blood administrations on file. Lines, Drains, and Airways Type Details Placement Removal Implanted Port Single Lumen 04/12/25; 1345; Permanent (tunneled, implanted); Yes; Yes; Yes; Yes; Chlorhexidine (Preferred); Yes; Cap, Gloves, Gown, Large drape, Mask (Clinician), Mask (All others in room); N/A; Non-valved, Polyurethane; Right; Chest; Power injectable; Sutured; Dr. Castellano 04/12/25 1345 by Vianca Batista R.N. Scope Sites 08/16/25; 0812; Abdo men; Upper, Left; Lower, Left 08/16/25 0812 by Susan Moore R.N. Wound 09/01/25; N; Incisio n; Abdomen; sylke 09/01/25 0000 by Mai Suarez R.N. Indwelling Urinary Catheter Placement Date: 09/01/25; Inserted by: hannah; Size: 16 Fr.; Balloon Size: 5 mL; Removal Date: 09/02/25; Removal Time: 0609/01/25 0000 by Mai Suarez R.N. 09/02/25 06 by Valery Funez RKori NG/OG Tube 09/01/25; 0816; 16 F r; Oral; 09/01/25; 1141 09/01/25 08 by Niurka Gamez M.D. 09/01/25 114 by Zulay Bonilla APRN, CRNA ETT Placement Date: 08/05 ; Placement Time: 817 (created via procedure documentation); Mask Ventilation: Easy mask; Technique: Video laryngoscopy; Type: Standard ETT; Single Lumen Tube Size: 7 mm; Cuffed: Yes; Location: Oral; Grade View: Grade 1; Insertion Attempts: 1; Placement Verification: Bilateral breath sounds, Positive ETCO2, Symmetrical chest wall movement; Removal Date: 09/01/25; Removal Time: 1200 09/01/25 08 by Niurka Gamez M.D. 09/01/25 1200 by Niurka Gamez M.D. Peripheral IV Placement Date: 08/05 ; Placement Time: 817; Catheter Size: 16 G; Orientation: Right; Location: Hand; Removal Date: 09/03/25; Removal Time: 2029; Removal Reason: Occluded 09/01/25817 by Niurka Gamez M.D. 09/03/252029 by Maia Farfan RKori Peripheral IV Placement Date: 08/05 ; Placement Time: 818; Catheter Size: 20 G; Orientation: Right; Location: Forearm; Removal Date: 09/03/25; Removal Time: 2029; Removal Reason: Occluded 09/01/25818 by Niurka Gamez M.D. 09/03/252029 by Maia Farfan R.N. Arterial Line Placement Date: 08/05 ; Placemnt Time: 819 (created via procedure documentation); Size: 20 G; Orientation: Left; Location: Radial; Site Prep: Chlorhexidine (Preferred); Technique: Anatomical landmarks; Insertion Attempts: 1; Securement: Securement dressing, Securement device; Removal Date: 09/01/25; Removal Time: 1229; Removal Reason: Completion of therapy 09/01/25819 by Niurka Gamez M.D. 09/01/251229 by Karlee Del Rio R.N. documented in this encounter Social History Tobacco [...] things needed for daily living? No 09/01/2025 [facility] Utilities Answer Date Recorded In the past 12 months has th e electric, gas, oil, or water company threatened to shut off services in your home? No 09/01/2025 Housing Stability Answer Date Recorded What is your living situation today? I have a [facility] place to live 09/01/2025 Comments No Sex and Gender Information Value Date Recorded Sex Assigned at Female 03/21/2025 4:39 PM CDT Legal Sex Female 10:00 PM ADMINISTRATIVE ANALYST Gender Identity Female 03/21/2025 4:39 PM CDT Sexual Orientation Straight 03/21/2025 4: 39 PM CDT documented as of this encounter OR Notes * Anesthesia Postprocedure Evaluation - Jody Dominguez M.D. 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 Responsible Provider: Jody Dominguez M.D. Anesthesia Type: general with pain block ASA Status: 3 Anesthesia Type: general with pain block Last vitals Vitals Value Taken Time BP 119/65 09/01/25 12:30 Temp 36.2 ??C 09/01/25 12:10 Pulse 82 09/01/25 12:33 Resp 15 09/01/25 12:33 SpO2 100 % 09/01/25 12:33 Vitals shown include unfiled device data. Please reference Vitals flowsheet for most recent vital signs. Anesthesia Post Evaluation Patient Disposition: general care unit Cardiovascular status: hemodynamics (HR & BP) acceptable Respiratory status: patent airway with spontaneous effort Temperature: normothermic Oxygen requirements: room air Level of consciousness: awake Pain score: pain adequately controlled and/or at baseline Post Op nausea/vomiting: none Hydration status: euvolemic Notable Events No notable events documented. * Anesthesia Procedure Notes - Niurka Gamez M.D. - 09/01/2025 9:06 AM CDT Associated Order(s): Regional Block Regional Block Date/Time: 09/01/2025 7:58 AM Performed by: Niurka Gamez M.D. Authorized by: Jody Dominguez M.D. Location: OR PROCEDURE DETAILS: Block Indication: post-op pain block Block indication comment: Post-Op pain block at request of surgeon Block Type - Neuraxial: spinal Positioning: sitting Approach: midline Level inserted: L3-4 Block technique: landmark technique Injection technique: single injection Needle type: pencan Gauge: 25G Length: 10 CSF: yes Pain with needle advancement or injection of local anesthetic: no Injected Medications: Injection(s), anesthetic agent(s) and/or steroid; See MAR Comments: Comments: Spinal: Patient consented. R/B/A discussed Patient sedated and fully responsive. (+)CSF after 1st pass. No pain on injection or with needle advancement. (+)CSF postinjection. Patient tolerated procedure wellwithout apparent complications. UNIVERSAL PROTOCOL All relevant documentation and testing were reviewed and available. All required blood products, implants, devices and or special equipment were made available as applicable. Pre-procedure verification was conducted and the correct site was marked if required. A fire risk and smoke assessment were done as applicable. The procedural time-out to verify correct patient, correct side/site, and procedure was conducted prior to performing the procedure and confirmed in a procedural pause. PRE-PROCEDURE DETAILS: Appropriate hand hygiene, gown, cap, mask, protective eyewear, sterile gloves, skin preparation, sterile drape, and strict aseptic technique were utilized as applicable for the procedure.: yes Skin prep: chlorhexidine / alcohol SEDATION / ANESTHESIA Anesthesia method: local infiltration and minimal sedation (anxiolysis) Local infiltrate type: lidocaine Minimal sedation type: see MAR for dose POST-PROCEDURE DETAILS: Procedure completed successfully: successful procedure Notable Events: none ATTESTATION STATEMENT A resident or fellow participated in the procedure, and the applications development consultant was present for the entire procedure. Cosigned by Jody Dominguez M.D. at 09/01/2025 11:35 AM CDT * Anesthesia Procedure Notes - Niurka aGmez M.D. - 09/01/2025 8:50 AM CDT Associated Order(s): Airway Airway Date/Time: 09/01/2025 8:18 AM Performed by: Niurka Gamez M.D. Authorized by: Jody Dominguez M.D. Patient location during procedure: OR / Procedure Area PROCEDURE DETAILS: Mask difficulty assessment: easy mask Final airway type: video laryngoscope Laryngeal Manipulation: no Final best view of glottic structures - Cormack/Lehane Score: grade 1 ETT location: oral VL device: glide scope Clear[place] scope blade size: 3 Tube size: 7 ETT distance at teeth/gum: 22 Oral tube type: standard ETT Cuffed: yes Number of attempt to successful placement: 1 Airway confirmation: bilateral breath sounds, positive ETCO2 and bilateral chest rise Other previous techniques attempted: none PRE PROCEDURE DETAILS: Pre evaluation for airway management: procedure Urgency: elective Preop assessment of probable difficulty: no difficulty anticipated Preoxygenation: bag valve mask SEDATION / ANESTHESIA Anesthesia method: anesthesia POST PROCEDURE DETAILS: Procedure outcome: successful Notable Events: no complications ATTESTATION STATEMENT The teaching physician rule is not applicable. * Anesthesia Procedure Notes - Niurka Gamez M.D. - 09/01/2025 8:49 AM CDT Associated Order(s): Invasive Catheter Invasive Catheter Date/Time: 09/01/2025 8:20 AM Performed by: Niurka Gamez M.D. Authorized by: Jody Dominguez M.D. Care team members present 1. Jody Dominguez M.D. Location: OR PROCEDURE DETAILS: Line type: arterial Laterality: left Location: radial Location details: new site Age group: adult Catheter diameter: 20 Ga Technique: palpation Monitored: yes Number of attempts: 1 UNIVERSAL PROTOCOL All relevant documentation and testing were reviewed and available. All required blood products, implants, devices and or special equipment were made available as applicable. Pre-procedure verification was conducted and the correct site was marked if required. A fire risk and smoke assessment were done as applicable. The procedural time-out to verify correct patient, correct side/site, and procedure was conducted prior to performing the procedure and confirmed in a procedural pause. PRE-PROCEDURE DETAILS: Appropriate hand hygiene, gown, cap, mask, protective eyewear, sterile gloves, skin preparation, sterile drape, and strict aseptic technique were utilized as applicable for the procedure.: yes Skin preparation: chlorhexidine SEDATION / ANESTHESIA Anesthesia method: anesthesia POST-PROCEDURE DETAILS: Procedure completed successfully: yes Line secured: secured with sutureless device Chlorhexidine disc around insertion site and under catheter with slight turn: yes Notable Events - arterial: none ATTESTATION STATEMENT The teaching physician rule is not applicable. * Anesthesia Preprocedure Evaluation - Jody Dominguez M.D. 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) OBJECTIVE PHYSICAL EXAMINATION Airway (HEENT) Mallampati: II TM Distance: >3 FB Neck ROM: Full Mouth Opening: >3 cm Cardiovascular Rhythm: Regular Rate: Normal Cardiovascular Assessment: cardiovascular normal Functional Capacity: >4 METS Pulmonary Pulmonary Assessment: Clear and non labored General / Constitutional Constitutional Assessment: Thin General State of Health:: calm Neurological Neurologic Assessment: alert and alert and oriented x 3 Dental Dental Assessment: dentition intact ASSESSMENT / PLAN ANESTHESIA PLAN ASA: 3 Anesthesia Plan: general with pain block Patient seen and allergies reviewed, anesthesia plan and risks discussed directly with patient /legal guardian or through an cello teacher. Risks/Benefits/Alternatives of Blood transfusion discussed with patient [...] (Latest Contact Info) Description 10/05/2025 3:45 PM ADMINISTRATIVE ANALYST Clinical Communication Virtual Review in [address] [phone] 10/11/2025 1:40 PM ADMINISTRATIVE ANALYST Nurse Only Section of Infectious Diseases in [address] [phone] Kaleigh Xiong, AYESHA, C.N.P., M.S.N. [address] [place] [phone] 10/11/2025 3:00 PM ADMINISTRATIVE ANALYST Lab Department of Infusion Therapy in [place], [place] [address] [place] [phone] Kaleigh Xiong APRN, C.NAdy, M.S.N. [address] [place] [phone] 10/11/2025 4:00 PM ADMINISTRATIVE ANALYST Appointment Department of Radiology, [facility], in [place], [place] [address] [place] [phone] Kaleigh Xiong APRN, C.N.P., M.S.N. [address] [place] [phone] 10/12/2025 10:30 AM ADMINISTRATIVE ANALYST Office Visit Division of Hepatobiliary and Pancreas Surgery in [address] [phone] Sammie Gerber APRN, C.NDre., M.S.N. [address] [place] [phone] 10/12/2025 3:00 PM ADMINISTRATIVE ANALYST Comprehensive Visit Department of Oncology in [address] [phone] Jeffy James M.D. [address] [place] [phone] documented as of this encounter Procedures Procedure Name Priority Date/Time Associated Diagnosis Comments [facility] ANE INVASIVE CATHETER Routine 09/01/2025 8:20 AM CDT AIRWAY MANAGEMENT Routine 09/01/2025 8:1 8 AM CDT [place] INJ SPINE LUMB/SAC WO IMG Routine 09/01/2025 7:58 AM CDT documented in this encounter Results * Invasive Catheter (09/01/2025 8:20 AM CDT) Niurka Naqvi M.D. - 09/01/2025 8:20 AM CDT Niurka Gamez M.D. 09/01/2025 8:50 AM Invasive Catheter Date/Time: 09/01/2025 8:20 AM Performed by: Niurka Gamez M.D. Authorized by: Jody Dominguez M.D. Care team members present 1. Jody Dominguez M.D. Location: OR PROCEDURE DETAILS: Line type: arterial Laterality: left Location: radial Location details: new site Age group: adult Catheter diameter: 20 Ga Technique: palpation Monitored: yes Number of attempts: 1 UNIVERSAL PROTOCOL All relevant documentation and testing were reviewed and available. All required blood products, implants, devices and or special equipment were made available as applicable. Pre-procedure verification was conducted and the correct site was marked if required. A fire risk and smoke assessment were done as applicable. The procedural time-out to verify correct patient, correct side/site, and procedure was conducted prior to performing the procedure and confirmed in a procedural pause. PRE-PROCEDURE DETAILS: Appropriate hand hygiene, gown, cap, mask, protective eyewear, sterile gloves, skin preparation, sterile drape, and strict aseptic technique were utilized as applicable for the procedure.: yes Skin preparation: chlorhexidine SEDATION / ANESTHESIA Anesthesia method: anesthesia POST-PROCEDURE DETAILS: Procedure completed successfully: yes Line secured: secured with sutureless device Chlorhexidine disc around insertion site and under catheter with slight turn: yes Notable Events - arterial: none ATTESTATION STATEMENT The teaching physician rule is not applicable. us Jody Dominguez M.D. PROCEDURE/MINOR SURGICAL ORDE RABLES Final Result * Airway (09/01/2025 8:18 AM CDT) Narrative Niurka Gamez M.D. - 09/01/2025 8:18 AM CDT Niurka Gamez M.D. 09/01/2025 8:50 AM Airway Date/Time: 09/01/2025 8:18 AM Performed by: Niurka Gamez M.D. Authorized by: Jody Dominguez M.D. Patient location during procedure: OR / Procedure Area PROCEDURE DETAILS: Mask difficulty assessment: easy mask Final airway type: video laryngoscope Laryngeal Manipulation: no Final best view of glottic structures - Cormack/Lehane Score: grade 1 ETT location: oral VL device: glide scope Clearwater scope blade size: 3 Tube size: 7 ETT distance at teeth/gum: 22 Oral tube type: standard ETT Cuffed: yes Number of attempt to successful placement: 1 Airway confirmation: bilateral breath sounds, positive ETCO2 and bilateral chest rise Other previous techniques attempted: none PRE PROCEDURE DETAILS: Pre evaluation for airway management: procedure Urgency: elective Preop assessment of probable difficulty: no difficulty anticipated Preoxygenation: bag valve mask SEDATION / ANESTHESIA Anesthesia method: anesthesia POST PROCEDURE DETAILS: Procedure outcome: successful Notable Events: no complications ATTESTATION STATEMENT The teaching physician rule is not applicable. us Jody Dominguez M.D. ANESTHESIA ORDERABLES Final R esult * [place] INJ SPINE LUMB/SAC WO IMG (09/01/2025 7:58 AM CDT) Narrative Jody Dominguez M.D. - 09/01/2025 7:58 AM CDT Jody Dominguez M.D. 09/01/2025 11:35 AM Regional Block Date/Time: 09/01/2025 7:58 AM Performed by: Niurka Gamez M.D. Authorized by: Jody Dominguez M.D. Location: OR PROCEDURE DETAILS: Block Indication: post-op pain block Block indication comment: Post-Op pain block at request of surgeon Block Type - Neuraxial: spinal Positioning: sitting Approach: midline Level inserted: L3-4 Block technique: landmark technique Injection technique: single injection Needle type: pencan Gauge: 25G Length: 10 CSF: yes Pain with needle advancement or injection of local anesthetic: no Injected Medications: Injection(s), anesthetic agent(s) and/or steroid; See MAR Comments: Comments: Spinal: Patient consented. R/B/A discussed Patient sedated and fully responsive. (+)CSF after 1st pass. No pain on injection or with needle advancement. (+)CSF postinjection. Patient tolerated procedure well without apparent complications. UNIVERSAL PROTOCOL All relevant documentation and testing were reviewed and available. All required blood products, implants, devices and or special equipment were made available as applicable. Pre-procedure verification was conducted and the correct site was marked if required. A fire risk and smoke assessment were done as applicable. The procedural time-out to verify correct patient, correct side/site, and procedure was conducted prior to performing the procedure and confirmed in a procedural pause. PRE-PROCEDURE DETAILS: Appropriate hand hygiene, gown, cap, mask, protective eyewear, sterile gloves, skin preparation, sterile drape, and strict aseptic technique were utilized as applicable for the procedure.: yes Skin prep: chlorhexidine / alcohol SEDATION / ANESTHESIA Anesthesia method: local infiltration and minimal sedation (anxiolysis) Local infiltrate type: lidocaine Minimal sedation type: see MAR for dose POST-PROCEDURE DETAILS: Procedure completed successfully: successful procedure Notable Events: none ATTESTATION STATEMENT A resident or fellow participated in the procedure, and the applications development consultant was present for the entire procedure. us Jody Dominguez M.D. PROCEDURE/MINOR SURGICAL ORDE SANDI Final Result documented in this encounter Visit Diagnoses Not on filedocumented in this encounter Administered Medications Inactive Administered Medications - up to 3 most recent administrations Medication Order MAR Action Action Date Dose Rate Site albumin human 5 % injection intravenous, As needed, Starting on Anjali 09/01/25 at 0952, Anesthesia Intra-op Given 09/01/2025 10:37 AM CDT 250 mL Given 09/01/2025 9:52 AM CDT 250 mL caffeine-sodium benzoate injection intravenous, As needed, Starting on Anjali 09/01/25 at 1200, Anesthesia Intra-op Given 09/01/2025 12:00 PM CDT 250 m g dexAMETHasone injection (Decadron) intravenous, As needed, Starting on Anjali 09/01/25 at 0847, Anesthesia Intra-op Given 09/01/2025 8:47 AM CDT 4 mg ePHEDrine (PF) injection intravenous, As needed, Starting on Anjali 09/01/25 at 0920, Anesthesia Intra-op Given 09/01/2025 9:20 AM CDT 7.5 mg Given 09/01/2025 8:27 AM CDT 2.5 mg fentaNYL injection (Sublimaze) intravenous, As needed, Starting on Anjali 09/01/25 at 0813, Anesthesia Intra-op Given 09/01/2025 8:13 AM CDT 100 mc g glycopyrrolate injection (RobinuL) intravenous, As needed, Starting on Anjali 09/01/25 at 0920, Anesthesia Intra-op Given 09/01/2025 9:20 AM CDT 0.2 mg haloperidol lactate injection (HaldoL) intravenous, As needed, Starting on Anjali 09/01/25 at 1035, Anesthesia Intra-op Given 09/01/2025 10:35 AM CDT 1 mg heparin (porcine) injection subcutaneous, As needed, Starting on Anjali 09/01/25 at 0846, Anesthesia Intra-op Given 09/01/2025 8:46 AM CDT 5,000 Units HYDROmorphone dilution injection (Dilaudid) intrathecal, As needed, Starting on Anjali 09/01/25 at 0805, Anesthesia Intra-op Given 09/01/2025 8:05 AM CDT 150 mc g HYDROmorphone dilution injection (Dilaudid) intravenous, As needed, Starting on Anjali 09/01/25 at 0900, Anesthesia Intra-op Given 09/01/2025 9:00 AM CDT 50 mcg ketamine injection (Ketalar) intravenous, As needed, Starting on Anjali 09/01/25 at 0919, Anesthesia Intra-op Given 09/01/2025 11:14 AM CDT 10 mg Given 09/01/2025 10:03 AM CDT 10 mg Given 09/01/2025 9:19 AM CDT 10 mg Lactated Ringer's intravenous, Continuous Infusion: Per Instructions PRN, Starting on Anjali 09/01/25 at 0753, Anesthesia Intra-op New Bag 09/01/2025 7:53 AM CDT Lactated Ringer's intravenous, Continuous Infusion: Per Instructions PRN, Starting on Anjali 09/01/25 at 0832, Anesthesia Intra-op New Bag 09/01/2025 10:51 AM CDT New Bag 09/01/2025 8:32 AM CDT lidocaine (PF) (cardiac) injection intravenous, As needed, Starting on Anjali 09/01/25 at 0813, Anesthesia Intra-op Given 09/01/2025 8:13 AM CDT 100 mg midazolam (PF) injection (Versed) intravenous, As needed, Starting on Anjali 09/01/25 at 0801, Anesthesia Intra-op Given 09/01/2025 9:48 AM CDT 1 mg Given 09/01/2025 8:01 AM CDT 1 mg ondansetron (PF) injection (Zofran) intravenous, As needed, Starting on Anjali 09/01/25 at 1103, Anesthesia Intra-op Given 09/01/2025 11:03 AM CDT 4 mg phenylephrine 80 mcg/mL in NaCl 0.9% 250 mL infusion intravenous, Continuous Infusion: Per Instructions PRN, Starting on Anjali 09/01/25 at 0836, Anesthesia Intra-op Rate/Dose Change 09/01/2025 10:45 AM CDT 0.1 mcg/kg/min 4.08 mL/hr Rate/Dose Change 09/01/2025 10:11 AM CDT 0.05 mcg/kg/min 2 .04 mL/hr Rate/Dose Change 09/01/2025 9:55 AM CDT 0.1 mcg/kg/min 4.0 8 mL/hr piperacillin-tazobactam in dextrose (iso osm) IVPB 3.375 g (Zosyn) 3.375 g, intravenous, at 100 mL/hr, Administer over 0.5 Hours, Once, On Anjali 09/01/25 at 0730, For 1 dose, Intra-Op, Drug Monitoring Program: Pharmacist to adjust medication dosing based on indication and drug clearance factors., Indications: Prophylaxis, surgicalIndications:Proph ylaxis, surgical Given 09/01/2025 8:53 AM CDT 3.375 g propofol 10 mg/mL infusion (Diprivan) intravenous, Continuous Infusion: Per Instructions PRN, Starting on Anjali 09/01/25 at 0902, Anesthesia Intra-op Rate/Dose Change 09/01/2025 11:02 AM CDT 50 mcg/kg/min 16.32 mL/hr Rate/Dose Change 09/01/2025 10:46 AM CDT 100 mcg/kg/min 32 .64 mL/hr Rate/Dose Change 09/01/2025 9:21 AM CDT 125 mcg/kg/min 40. 8 mL/hr propofoL injection (Diprivan) intravenous, As needed, Starting on Anjali 09/01/25 at 0902, Anesthesia Intra-op Given 09/01/2025 9:02 AM CDT 30 mg Given 09/01/2025 8:13 AM CDT 100 mg rocuronium injection (Zemuron) intravenous, As needed, Starting on Anjali 09/01/25 at 0902, Anesthesia Intra-op Given 09/01/2025 10:56 AM CDT 20 mg Given 09/01/2025 10:04 AM CDT 20 mg Given 09/01/2025 9:02 AM CDT 20 mg sugammadex injection (Bridion) intravenous, As needed, Starting on Anjali 09/01/25 at 1135, Anesthesia Intra-op Given 09/01/2025 11:35 AM CDT 130 m g documented in this encounter Care Teams Resort Keeper Relationship Specialty Start Date End Date Elsewhere, Pcp PCP - General Internal Medicine 04/12/25 documented as of this encounter
--- OUTSIDE RECORDS SUMMARY | 2025-09-01 11:00 | XMS_ITS | Encounter Summary ---
Author Organization [facility] Address [address] [place] [address] Care Team Providers Care Production Line Operator Name Role Phone Elsewhere, Pcp Primary Care Provider Unavailabl e Encounter Details Date Type Department Care Team (Latest Contact Info) Description 09/01/2025 12:00 PM CDT Ancillary Procedure Department of Gastroenterology Social [...] things needed for daily living? No 09/01/2025 [facility] Utilities Answer Date Recorded In the past 12 months has th e electric, gas, oil, or water company threatened to shut off services in your home? No 09/01/2025 Housing Stability Answer Date Recorded What is your living situation today? I have a [facility] place to live 09/01/2025 Comments No Sex and Gender Information Value Date Recorded Sex Assigned at Female 03/21/2025 4:39 PM CDT Legal Sex Female 10:00 PM SOFTWARE DEVELOPMENT COORDINATOR Gender Identity Female 03/21/2025 4:39 PM CDT Sexual Orientation Straight 03/21/2025 4: 39 PM CDT documented as of this encounter Plan of Treatment Upcoming Encounters Date Type Department Care Team (Latest Contact Info) Description 10/05/2025 3:45 PM SOFTWARE DEVELOPMENT COORDINATOR Clinical Communication Virtual Review in [place], [place] [address] [place] [phone] 10/11/2025 1:40 PM SOFTWARE DEVELOPMENT COORDINATOR Nurse Only Section of Infectious Diseases in [place] [phone] Kaleigh Xiong APRN, C.N.P., M.S.N. [address] [place] [phone] 10/11/2025 3:00 PM SOFTWARE DEVELOPMENT COORDINATOR Lab Department of Infusion Therapy in [place], [place] [address] [place] [phone] Kaleigh Xiong APRN, C.N.P., M.S.N. [address] [place] [phone] 10/11/2025 4:00 PM SOFTWARE DEVELOPMENT COORDINATOR Appointment Department of Radiology, [facility], in [address] [phone] Kaleigh Xiong APRN, C.N.P., M.S.N. [address] [place] [phone] 10/12/2025 10:30 AM SOFTWARE DEVELOPMENT COORDINATOR Office Visit Division of Hepatobiliary and Pancreas Surgery in [place], [place] [address] [place] [phone] Sammie Gerber APRN, C.N.P., M.S.N. [address] [place] [phone] 10/12/2025 3:00 PM SOFTWARE DEVELOPMENT COORDINATOR Comprehensive Visit Department of Oncology in [place], [place] [address] [place] [phone] Jeffy James M.D. [address] [place] [phone] documented as of this encounter Procedures Procedure Name Priority Date/Time Associated Diagnosis Comments GI AND GENERAL SURGERY IMAGE EXAM Routine 09/01/2025 12:00 PM CDT documented in this encounter Results * Abdomen-GI And General Surgery Image Exam (09/01/2025 12:00 PM CDT) Narrative [facility]IM[facility] - 09/02/2025 9:01 AM CDT This order has been created and auto-finalized to support the import of images acquired without order. The clinical documentation to support these images can be found on the encounter that produced images. us Provider Not In System IMG NON RAD IMAGING PROCE DURES Final Result [facility] NA documented in this encounter Visit Diagnoses Not on filedocumented in this encounter Care Teams Production Line Operator Relationship Specialty Start Date End Date Elsewhere, Pcp PCP - General Internal Medicine 04/12/25 documented as of this encounter
--- OUTSIDE RECORDS SUMMARY | 2025-09-22 19:01 | XMS_ITS | Encounter Summary ---
Author Organization [facility] Address [address] [place] [address] Care Team Providers Care Transit Bus Operator Name Role Phone Elsewhere, Pcp Primary Care Provider Unavailabl e Encounter Details Date Type Department Care Team (Late st Contact Info) Description 09/22/2025 Orders Only Division of Hepatobiliary and Pancreas Surgery in [place], [place] [address] [place] [phone] Leelee Calzada, AYESHA, C.N.P., M.S.N. [address] [place] [phone] Social History Tobacco Use Types Packs/Day Years [...] things needed for daily living? No 09/04/2025 [facility] Utilities Answer Date Recorded In the past 12 months has th [employer] electric, gas, oil, or water company threatened to shut off services in your home? No 09/04/2025 Housing Stability Answer Date Recorded What is your living situation today? I have a [facility] place to live 09/04/2025 Comments No Sex and Gender Information Value Date Recorded Sex Assigned at Female 03/21/2025 4:39 PM CDT Legal Sex Female 10:00 PM FIELD ENUMERATOR Gender Identity Female 03/21/2025 4:39 PM CDT Sexual Orientation Straight 03/21/2025 4: 39 PM CDT documented as of this encounter Plan of Treatment Upcoming Encounters Date Type Department Care Team (Latest Contact Info) Description 10/05/2025 3:45 PM FIELD ENUMERATOR Clinical Communication Virtual Review in [place], [place] 200 [place] [phone] 10/11/2025 1:40 PM FIELD ENUMERATOR Nurse Only Section of Infectious Diseases in [address] [phone] Kaleigh Xiong APRN, C.N.P., M.S.N. [address] [place] [phone] 10/11/2025 3:00 PM FIELD ENUMERATOR Lab Department of Infusion Therapy in [place], [place] [address] [place] [phone] Kaleigh Xiong APRN, C.N.P., M.S.N. [address] [place] [phone] 10/11/2025 4:00 PM FIELD ENUMERATOR Appointment Department of Radiology, [facility], in [place], [place] [address] [place] [address] Kaleigh Xiong APRN, C.N.P., M.S.N. [address] [place] [phone] 10/12/2025 10:30 AM FIELD ENUMERATOR Office Visit Division of Hepatobiliary and Pancreas Surgery in [place], [place] [address] [place] [address] Sammie Gerber APRN, C.N.P., M.S.N. [address] [place] [phone] 10/12/2025 3:00 PM FIELD ENUMERATOR Comprehensive Visit Department of Oncology in [place], [place] [address] [place] [phone] Jeffy James M.D. [address] [place] [phone] documented as of this encounter Visit Diagnoses Not on filedocumented in this encounter Care Teams Transit Bus Operator Relationship Specialty Start Date End Date Elsewhere, Pcp PCP - General Internal Medicine 04/12/25 documented as of this encounter
--- OUTSIDE RECORDS SUMMARY | 2025-09-22 19:01 | XMS_ITS | Encounter Summary ---
Author Organization [facility] Address [address] [place] [address] Care Team Providers Care Baby Formula Mixer Name Role Phone Elsewhere, Pcp Primary Care Provider Unavailabl e Reason for Visit * Reason Onset Date Comments Symptom Assessment 09/22/2025 Report of inc reased back pain and right abdominal pain Encounter Details Date Type Department Care Team (Latest Contact Info) Description 09/22/2025 Remote Monitoring Remote Patient Monitoring [address] [place] [phone] Regi Kelly, REstelleN. [address] [place] [phone] Symptom Assessment (Report of increased back pain and right abdominal pain) Social History Tobacco Use Types Packs/Day Years [...] things needed for daily living? No 09/04/2025 [facility] Utilities Answer Date Recorded In the past 12 months has [employer] electric, gas, oil, or water company threatened to shut off services in your home? No 09/04/2025 Housing Stability Answer Date Recorded What is your living situation today? I have a [facility] place to live 09/04/2025 Comments No Sex and Gender Information Value Date Recorded Sex Assigned at Female 03/21/2025 4:39 PM CDT Legal Sex Female 10:00 PM MANAGER FIBER Gender Identity Female 03/21/2025 4:39 PM CDT Sexual Orientation Straight 03/21/2025 4: 39 PM CDT documented as of this encounter Progress Notes * Regi Kelly, REstelleN. - 09/22/2025 4:05 PM CST Reason for Call Symptom Assessment (Report of increased back pain and right abdominal pain) RPM Program Patient Enrolled in: Hepatobiliary Vitals Remote Patient Monitoring vitals for last 7 days Remote Monitoring- Vitals Last 7 days Weight (kg) Temperature (F) SPO2 Systolic (Home) Diastolic (Home) Pulse (Home) 09/22/2025 7:15 AM 51.26 kg 09/22/2025 7:14 AM 95.4 Fahrenheit 97 % Oxygen 09/22/2025 7:13 AM 106 69 80 BPM 09/21/2025 8:59 AM 97.4 Fahrenheit 09/21/2025 8:57 AM 51.26 kg 09/21/2025 8:56 AM 97 % Oxygen 09/21/2025 8:55 AM 135 70 73 BPM 09/20/2025 10:32 AM 95.2 Fahrenheit 09/20/2025 10:31 AM 51.26 kg 09/20/2025 10:30 AM 97 % Oxygen 09/20/2025 10:29 AM 116 73 78 BPM 09/19/2025 9:14 AM 96.8 Fahrenheit 09/19/2025 9:13 AM 51.8 kg 96 % Oxygen 09/19/2025 9:10 AM 111 69 69 BPM 09/18/2025 9:01 AM 51.53 kg 09/18/2025 9:00 AM 98 % Oxygen 09/18/2025 8:59 AM 97.6 Fahrenheit 09/18/2025 8:58 AM 101 69 73 BPM 09/17/2025 8:29 AM 51.53 kg 09/17/2025 8:28 AM 97 % Oxygen 09/17/2025 8:27 AM 97.6 Fahrenheit 09/17/2025 8:26 AM 108 72 71 BPM Virtual Assessment Pain Pain Score: 5 - Moderate pain (5-6/10 constant. Abominal pain right lower abdomen 3-4/10. Started after we spoke this morning. Unchanged from this morning. Constant.) Pain Type: Acute pain Pain Location: Abdomen, Back General General Symptoms Denied: Chills, Fever Gastrointestinal GI Symptoms Denied: Nausea, Vomiting Genitourinary Genitourinary Symptoms Denied: Other (Comment), Burning, Urgency Other Denied Symptoms: No pain with urination Discussion Summary Yara says Patient went to urgent care this afternoon to rule out urinary tract infection. Urgent care says she needs to go to the emergency room. Provider Notification Reason for Communication: Other (Comment) Reason for Communication Comment: Patient asks if she should just get a urine sample to rule out UTI as she's had one before without urinary symptoms. Method of Communication: In Basket to Provider Plan GER FIBER documented in this encounter Plan of Treatment Upcoming Encounters Date Type Department Care Team (Latest Contact Info) Description 10/05/2025 3:45 PM MANAGER FIBER Clinical Communication Virtual Review in [place], [place] [address] [place] [phone] 10/11/2025 1:40 PM MANAGER FIBER Nurse Only Section of Infectious Diseases in [place], [place] [address] [place] [phone] Kaleigh Xiong APRN, C.NDre., M.S.N. [address] [place] [phone] 10/11/2025 3:00 PM MANAGER FIBER Lab Department of Infusion Therapy in [place], [place] [address] [place] [phone] Kaleigh Xiong APRN, C.N.P., M.S.N. [address] [place] [phone] 10/11/2025 4:00 PM MANAGER FIBER Appointment Department of Radiology, [facility], in [place], [place] [address] [place] [phone] Kaleigh Xiong APRN, C.NAdy, M.S.N. [address] [place] [phone] 10/12/2025 10:30 AM MANAGER FIBER Office Visit Division of Hepatobiliary and Pancreas Surgery in [place], [place] [address] [place] [phone] Sammie Gerber APRN, C.NEstelleP., M.S.N. [address] [place] [phone] 10/12/2025 3:00 PM MANAGER FIBER Comprehensive Visit Department of Oncology in [place], [place] [address] [place] [phone] Jeffy James M.D. [address] [place] [phone] documented as of this encounter Visit Diagnoses Not on filedocumented in this encounter Care Teams Baby Formula Mixer Relationship Specialty Start Date End Date Elsewhere, Pcp PCP - General Internal Medicine 04/12/25 documented as of this encounter
--- OUTSIDE RECORDS SUMMARY | 2025-09-22 19:01 | XMS_ITS | Encounter Summary ---
Author Organization [facility] Address [address] [place] [address] Care Team Providers Care Manager International Name Role Phone Elsewhere, Pcp Primary Care Provider Unavailabl e Reason for Referral * Outpatient (Routine) - Authorized Specialty Diagnoses / Procedures Referred By Contac t Referred To Contact Diagnoses Mass Pancreas [facility] Referral ID Status Reason Start Date Expiration Date V isits Requested Visits Authorized [id number] Authorized 03/21/2025 09/20/2026 1 1 Encounter Details Date Type Department Care Team (Late st Contact Info) Description 03/21/2025 Orders Only Division of Gastroenterology in [place], [place] [address] [place] [phone] [facility], MD Myla Mass Pancreas Social History Tobacco Use Types Packs/Day Years Used Date Smoking Tobacco: Never Smokeless Tobacco: Never Alcohol Use Standard Drinks/Week Comments Yes 2 (1 standard drink = 0.6 oz pur e alcohol) [facility] Utilities Answer Date Recorded In the past 12 months has th e [employer]), gas, oil, or water [employer] threatened to shut off services in your [...] your living situation today? I have a [facility] place to live 03/21/2025 Comments Unknown Sex and Gender Information Value Date Recorded Sex Assigned at Female 03/21/2025 4:39 PM CDT Legal Sex Female 10:00 PM RETAIL AIDE Gender Identity Female 03/21/2025 4:39 PM CDT Sexual Orientation Straight 03/21/2025 4: 39 PM CDT documented as of this encounter Plan of Treatment Upcoming Encounters Date Type Department Care Team (Latest Contact Info) Description 10/05/2025 3:45 PM RETAIL AIDE Clinical Communication Virtual Review in [address] [phone] 10/11/2025 1:40 PM RETAIL AIDE Nurse Only Section of Infectious Diseases in [address] [phone] Kaleigh Xiong APRN, C.N.P., M.S.N. [address] [place] [phone] 10/11/2025 3:00 PM RETAIL AIDE Lab Department of Infusion Therapy in [address] [phone] Kaleigh Xiong APRN, C.N.P., M.S.N. [address] [place] [phone] 10/11/2025 4:00 PM RETAIL AIDE Appointment Department of Radiology, [facility], in [address] [phone] Kaleigh Xiong APRN, C.N.P., M.S.N. [address] [place] [phone] 10/12/2025 10:30 AM RETAIL AIDE Office Visit Division of Hepatobiliary and Pancreas Surgery in [place], [place] [address] [place] [phone] Sammie Gerber APRN, C.N.P., M.S.N. [address] [place] [phone] 10/12/2025 3:00 PM RETAIL AIDE Comprehensive Visit Department of Oncology in [place], [place] [address] [place] [phone] Jeffy James M.D. [address] [place] [phone] Scheduled Referrals Name Type Priority Associated Diagnoses Orde r Schedule Previsit Telehealth: Outpatient Referral Routine Mass Pancreas Expected: 03/21/2025, Expires: 06/21/2026 documented as of this encounter Visit Diagnoses Diagnosis Mass Pancreas documented in this encounter Care Teams Manager International Relationship Specialty Start Date End Date Elsewhere, Pcp PCP - General Internal Medicine 04/12/25 documented as of this encounter
--- OUTSIDE RECORDS SUMMARY | 2025-09-22 19:01 | XMS_ITS | Encounter Summary ---
Author Organization [facility] Address [address] [place] [address] Care Team Providers Care Kitchen Mechanic Name Role Phone Elsewhere, Pcp Primary Care Provider Unavailabl e Reason for Visit * Reason Onset Date Comments Concern 09/13/2025 Encounter Details Date Type Department Care Team ([facility] st Contact Info) Description 09/13/2025 Clinical Communication Division of Hepatobiliary and Pancreas Surgery in [address] [place] [phone] Stephon Galindo D.O., M.B.A. [address] [place] [phone] Concern Social History Tobacco Use Types Packs/Day Years [...] things needed for daily living? No 09/04/2025 [facility] Utilities Answer Date Recorded In the past 12 months has [employer] electric, gas, oil, or water company threatened to shut off services in your home? No 09/04/2025 Housing Stability Answer Date Recorded What is your living situation today? I have a [facility] place to live 09/04/2025 Comments No Sex and Gender Information Value Date Recorded Sex Assigned at Female 03/21/2025 4:39 PM CDT Legal Sex Female 10:00 PM BENCH ASSEMBLY INSPECTOR Gender Identity Female 03/21/2025 4:39 PM CDT Sexual Orientation Straight 03/21/2025 4: 39 PM CDT documented as of this encounter Miscellaneous Notes * Telephone Encounter - Delmy Moody APRN, C.N.P., M.S.N. - 09/13/2025 1:19 PM CST Patient is a pleasant 64 year old female well known to our care team for her recent surgery in which she underwent a distal pancreatectomy and splenectomy on 09/01/2025 for pancreatic cancer. She calls today with concerns of lower back pain. She notes that it is not present when she is lying down, but is noticeable when she is sitting. She does not feel the pain warrants narcotic pain medicationsand I would agree. She will try a low dose (400 mg) of ibuprofen every 6 hours as needed as this ishelped with back pain in the past. She denies fevers, chills, nausea, or vomiting. She does note lack of appetite and some weight loss (51.07 kg as of 09/11, 51.53 kg on 09/04 when she started RPM). We discussed the importance of focusing on 6-8 small meals throughout the day rather than breakfast, lunch, and dinner. She does have one protein shake a day, but states that they are very filling. I have encouraged the patient to utilize some clear protein shakes as I know that they sell the following at [employer]: [id number] Clean Simple Eats Protein Pop Patient will focus on small frequent meals throughout the day with special attention to protein andcalories. Should she have further questions and/or concerns she is encouraged to call back to speakwith a member of our care team. Patient has verbalized understanding and is in agreement with this plan. All questions answered. H ASSEMBLY INSPECTOR documented in this encounter Plan of Treatment Upcoming Encounters Date Type Department Care Team (Latest Contact Info) Description 10/05/2025 3:45 PM BENCH ASSEMBLY INSPECTOR Clinical Communication Virtual Review in [address] [phone] 10/11/2025 1:40 PM BENCH ASSEMBLY INSPECTOR Nurse Only Section of Infectious Diseases in [address] [phone] Kaleigh Xiong APRN, C.N.P., M.S.N. [address] [place], [place] [phone] 10/11/2025 3:00 PM BENCH ASSEMBLY INSPECTOR Lab Department of Infusion Therapy in [address] [phone] Kaleigh Xiong APRN, C.N.PEstelle, M.S.N. [address] [place] [phone] 10/11/2025 4:00 PM BENCH ASSEMBLY INSPECTOR Appointment Department of Radiology, [facility], in [address] [phone] Kaleigh Xiong APRN, C.N.P., M.S.N. [address] [place], [place] [phone] 10/12/2025 10:30 AM BENCH ASSEMBLY INSPECTOR Office Visit Division of Hepatobiliary and Pancreas Surgery in [address] [place] [phone] Sammie Gerber APRN, C.N.P., M.S.N. [address] [place] [phone] 10/12/2025 3:00 PM BENCH ASSEMBLY INSPECTOR Comprehensive Visit Department of Oncology in [address] [place] [phone] Jeffy James M.D. [address] [place] [phone] documented as of this encounter Visit Diagnoses Not on filedocumented in this encounter Care Teams Kitchen Mechanic Relationship Specialty Start Date End Date Elsewhere, Pcp PCP - General Internal Medicine 04/12/25 documented as of this encounter
--- OUTSIDE RECORDS SUMMARY | 2025-09-22 19:01 | XMS_ITS | Encounter Summary ---
Author Organization [facility] Address [address] [place] [address] Care Team Providers Care Radio Mechanic Apprentice Name Role Phone Elsewhere, Pcp Primary Care Provider Unavailabl e Encounter Details Date Type Department Care Team (Late st Contact Info) Description 09/08/2025 Orders Only Division of Hepatobiliary and Pancreas Surgery in [place], [place] [address] [place] [phone] Kaleigh Xiong APRN, C.N.P., M.S.N. 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 No 09/04/2025 [facility] Utilities Answer Date Recorded In the past 12 months has [employer] electric, gas, oil, or water company threatened to shut off services in your home? No 09/04/2025 Housing Stability Answer Date Recorded What is your living situation today? I have a [facility] place to live 09/04/2025 Comments No Sex and Gender Information Value Date Recorded Sex Assigned at Female 03/21/2025 4:39 PM CDT Legal Sex Female 10:00 PM [employer]SEM[employer] Gender Identity Female 03/21/2025 4:39 PM CDT Sexual Orientation Straight 03/21/2025 4: 39 PM CDT documented as of this encounter Plan of Treatment Upcoming Encounters Date Type Department Care Team (Latest Contact Info) Description 10/05/2025 3:45 PM [employer] Clinical Communication Virtual Review in [place], [place] 200 [place] [phone] 10/11/2025 1:40 PM [employer] Nurse Only Section of Infectious Diseases in [place], [place] [address] [place] [phone] Kaleigh Xiong APRN, C.N.P., M.S.N. [address] [place] [phone] 10/11/2025 3:00 PM [employer] Lab Department of Infusion Therapy in [place], [place] [address] [place] [phone] Kaleigh Xiong APRN, C.N.P., M.S.N. [address] [place] [phone] 10/11/2025 4:00 PM [employer] Appointment Department of Radiology, [facility], in [place], [place] [address] [place] [phone] Kaleigh Xiong APRN, C.N.P., M.S.N. [address] [place] [phone] 10/12/2025 10:30 AM [employer] Office Visit Division of Hepatobiliary and Pancreas Surgery in [place], [place] [address] [place] [phone] Sammie Gerber APRN, C.N.P., M.S.N. [address] [place] [phone] 10/12/2025 3:00 PM [employer] Comprehensive Visit Department of Oncology in [place], [place] [address] [place] [address] Jeffy James M.D. [address] [place] [phone] documented as of this encounter Visit Diagnoses Diagnosis Malignant Neoplasm Of Pancreas Tail (HCC)- Primary documented in this encounter Care Teams Radio Mechanic Apprentice Relationship Specialty Start Date End Date Elsewhere, Pcp PCP - General Internal Medicine 04/12/25 documented as of this encounter
--- OUTSIDE RECORDS SUMMARY | 2025-09-22 19:01 | XMS_ITS | Encounter Summary ---
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 No 09/04/2025 [facility] Utilities Answer Date Recorded In the past 12 months has th [employer] electric, gas, oil, or water company threatened to shut off services in your home? No 09/04/2025 Housing Stability Answer Date Recorded What is your living situation today? I have a [facility] place to live 09/04/2025 Comments No Sex and Gender Information Value Date Recorded Sex Assigned at Female 03/21/2025 4:39 PM CDT Legal Sex Female 10:00 PM CREW BOSS Gender Identity Female 03/21/2025 4:39 PM CDT Sexual Orientation Straight 03/21/2025 4: 39 PM CDT documented as of this encounter Progress Notes * Regi Kelly R.N. - 09/22/2025 8:49 AM CST Reason for Call Follow-up (Day 15-28 call) RPM Program Patient Enrolled in: Hepatobiliary Vitals [...] Pain Pain Score: 5 - Moderate pain (Back pain 5/10. Occasional twinges in abdomen that she relates to gas pain but generally no abdominal pain.) Patient's Stated Pain Goal: 0 No pain Pain Type: Acute pain Pain Location: Back (Back pain in hospital. Has progressed since coming home. Mid back right side. Notes she has a little sciatica on right side-right leg. Constant throbbing. Wakes her up at night.) Pain Descriptors: Throbbing, Dull Pain Frequency: Constant/continuous Pain Interventions for Relief: Medication, Ambulation/increased activity, Heat applied General General Symptoms Denied: Chills, Fever General Symptoms: Night sweats (Occasional night sweats that she says is age related.) Cardiac Cardiac Symptoms Denied: Palpitations Respiratory Shortness of Breath: No Gastrointestinal GI Symptoms Denied: Nausea, Vomiting GI Symptoms: Other (Comment) (Appetite is improving) Diet Comment: 3 meals a day Stool Frequency: 1 Time per Day [place] Stool Chart: (Formed) Genitourinary Genitourinary Symptoms Denied: Other (Comment) Other Denied Symptoms: No concerns with urination Integumentary Skin Color Denied: Jaundice (skin, eyes, mucus membrane) Provider Notification Reason for Communication: Other (Comment) Reason for Communication Comment: Back pain Care Provider Role: Managing RPM Provider Method of Communication: In Basket to Provider Plan Patient will: Continue vital sign and symptom monitoring, Call the remote monitoring RN with questions or concerns During the next interaction we plan to: Review the patient's vital signs Other Plan Details: Keep 10/12 surgical follow up BOSS documented in this encounter Plan of Treatment Upcoming Encounters Date Type Department Care Team (Latest Contact Info) Description 10/05/2025 3:45 PM CREW BOSS Clinical Communication Virtual Review in [place], [place] 200 [place] [phone] 10/11/2025 1:40 PM CREW BOSS Nurse Only Section of Infectious Diseases in [address] [phone] Kaleigh Xiong APRN, C.N.P., M.S.N. [address] [place] [phone] 10/11/2025 3:00 PM CREW BOSS Lab Department of Infusion Therapy in [address] [phone] Kaleigh Xiong APRN, C.N.P., M.S.N. [address] [place] [phone] 10/11/2025 4:00 PM CREW BOSS Appointment Department of Radiology, [facility], in [address] [phone] Kaleigh Xiong APRN C.N.P., M.S.N. [address] [place] [phone] 10/12/2025 10:30 AM CREW BOSS Office Visit Division of Hepatobiliary and Pancreas Surgery in [address] [phone] Sammie Gerber APRN, C.N.P., M.S.N. [address] [place] [phone] 10/12/2025 3:00 PM CREW [employer]OSS Comprehensive Visit Department of Oncology in [place], [place] [address] [place] [phone] Jeffy James M.D. [address] [place] [phone] documented as of this encounter Visit Diagnoses Not on filedocumented in this encounter Care Teams Oil Furnace Installer Relationship Specialty Start Date End Date Elsewhere, Pcp PCP - General Internal Medicine 04/12/25 documented as of this encounter
--- OUTSIDE RECORDS SUMMARY | 2025-09-22 19:01 | XMS_ITS | Clinical Summary ---
Author Organization [facility] Address [address] [place] [address] Care Team Providers Care Stunner Animal Name Role Phone Elsewhere, Pcp Primary Care Provider Unavailabl e Source Comments Patient records contain information from all sites at [facility]. For routine questions regarding patient records, call [phone] during business hours, M-F 8:00 AM - 5:00 PM Central Time. Record requests for emergency care only can be directed to [phone] at any time.[facility] Allergies Active Allergy Reactions Criticality Noted Date Comments Sulfa (Sulfonamide Antibiotics) Rash,Other (see comments) 02/25/2007 Medications * This document contains information received from the source organization and may not represent a complete record from that organization. valACYclovir (Valtrex) 1000 mg tablet as needed (cold sore outbreak). 021 Active fluticasone propionate (Flonase) 50 mcg/actuation nasal spray Administer 1 spray into each nostril 2 (two) times a day as needed for rhinitis or allergies. 015 Active ascorbic acid, vitamin C, (Vitamin C) 1,000 mg CR tablet Take 1,000 mg by mouth daily. Active prasterone, DHEA, 10 mg tablet Take 1 tablet by mouth daily. Active prochlorperazin e (Compazine) 10 mg tabletIndicatio ns:Malignant Neoplasm Of Pancreas Body (HCC) Take 1 tablet (10 mg total) by mouth every 6 (six) hours as needed for nausea or vomiting. 30 tablet 3 025 2025 Active ondansetron (Zofran) 8 mg tabletIndicatio ns:Malignant Neoplasm Of Pancreas Body (HCC) Take 1 tablet (8 mg total) by mouth every 8 (eight) hours as needed for nausea or vomiting (unrelieved by prochlorperazin e). 30 tablet 3 025 2025 Active OLANZapine (ZyPREXA) 5 mg tabletIndicatio ns:Malignant Neoplasm Of Pancreas Body (HCC) Take 1 tablet (5 mg total) by mouth at bedtime as needed (nausea, vomiting). May take dose early if needed. 30 tablet 3 025 2025 Active Additional Information Patient not taking.Reported on 09/07/2025 acetaminophen (TylenoL) 500 mg tablet Take 2 tablets (1,000 mg total) by mouth every 6 (six) hours as needed for pain (pain). Take 2 tablets up to four times daily for pain Active prednisoLONE acetate (Pred Forte) 1 % ophthalmic suspension Administer 1 drop into both eyes 2 (two) times a day as needed (ocular rosacea symptoms). Active ibuprofen 200 mg tablet Take 400 mg by mouth every 6 (six) hours as needed for pain. Active MAGNESIUM ORAL Take 1 capsule by mouth at bedtime. Reports indication is to promote sleep Active cholecalciferol , vitD3,/vit K2 (VITAMIN D3-VITAMIN K2 ORAL) Take 1 tablet by mouth daily. Reports low vitamin D level in the past. Product documented was vitamin D3 6000 units, vitamin K2 100 mcg (did not confirm product) Active progesterone 50 mg oral capsule Take 50 mg by mouth at bedtime. Active TURMERIC ORAL Take 1 capsule by mouth daily. Active BERBERINE CHLORIDE ORAL Take 1 tablet by mouth daily before morning meal. Reports indication is blood sugar control Active SHILAJIT ORAL Take 2 tablets by mouth daily. (2 gummies) Active estradiol 0.03 %, testosterone 0.01 % in versabase lotion Apply 1 g topically as directed. Apply to legs or buttock area 6 days of the week. Cream contains an estrogen and testosterone (did not confirm strengths) Active simethicone 80 mg chewable tablet Chew 1 tablet (80 mg total) 4 (four) times a day as needed for flatulence. Active sennosides (Senokot) 8.6 mg tablet Take 1 tablet (8.6 mg total) by mouth at bedtime. Constipation and/or if taking stool softeners. Active Additional Information Patient not taking.Reported on 09/07/2025 enoxaparin (Lovenox) 40 mg/0.4 mL injection Inject 0.4 mL (40 mg total) under the skin at bedtime. Blood clotting prevention. 10 mL 12:12 PM PSYCHOLOGIST EXPERIMENTAL 2024 Active oxyCODONE (Roxicodone) 5 mg immediate release tabletIndicatio ns:Acute Pain Take 1 tablet (5 mg total) by mouth every 4 (four) hours as needed for severe pain or score 7-10 of 10 Indication: Acute Pain. 8 tablet 12:12 PM PSYCHOLOGIST EXPERIMENTAL Active Additional Information Patient not taking.Reported on 09/22/2025 melatonin 3 mg tablet Take 2 tablets (6 mg total) by mouth at bedtime as needed for sleep. Active benzonatate (Tessalon Perles) 100 mg capsule Take 1 capsule (100 mg total) by mouth 3 (three) times a day as needed for cough. 20 capsule Active methocarbamoL (Robaxin) 500 mg tablet Take 1 tablet (500 mg total) by mouth every 8 (eight) hours as needed for muscle spasms. 8 tablet Active FRUCTOOLIGOSACC HARIDES ORAL Take by mouth daily. 2024 Discontinued UNABLE TO FIND daily. T4/T3 2024 Discontinued magnesium oxide 500 mg capsule Take 1,000 mg by mouth at bedtime. 2024 Discontinued UNABLE TO FIND daily. 6000 iu vitamin d3 and vitamin K2 100 mcg 2024 Discontinued UNABLE TO FIND PROGESTERONE 50mg 2024 Discontinued UNABLE TO FIND as directed. Bioidentical estrogen cream 6 days a week 2024 Discontinued UNABLE TO FIND biest 8:2 versa 4 mg, cream 2024 Discontinued UNABLE TO FIND 200 each. Med Name: vargas 2024 Discontinued UNABLE TO FIND Med Name: astaxanthin 2024 Discontinued UNABLE TO FIND 500 each. Med Name: berberine up to 2 times per day 2024 Discontinued UNABLE TO FIND Med Name: ashwafandha 2024 Discontinued MAGNESIUM ORAL Take 360 mg by mouth daily before morning meal. 2024 Discontinued UNABLE TO FIND 700 each. Med Name: tumeric 2024 Discontinued dexAMETHasone (Decadron) 4 mg tabletIndicatio ns:Malignant Neoplasm Of Pancreas Body (HCC) Take 2 tablets (8 mg total) by mouth daily. Take daily for 3 days on Days 2,3,4 of each cycle. 6 tablet 3 2024 Discontinued ibuprofen 200 mg tablet Take 3 tablets (600 mg total) by mouth every 8 (eight) hours as needed for mild pain or score 1-3 of 10. 2024 Discontinued traMADoL (Ultram) 50 mg tabletIndicatio ns:Acute Pain Take 1 tablet (50 mg total) by mouth every 6 (six) hours as needed for severe pain or score 7-10 of 10 Indications: Acute Pain. 10 tablet 4:44 PM CDT 2024 Discontinued levothyroxine 25 mcg tablet 1 tablet in the morning on an empty stomach Orally Once a day; Duration: 30 day(s) 2024 Discontinued triamcinolone (Kenalog) 0.025 % cream See Admin Instructions. See attached for detailed directions. 2024 Discontinued methocarbamoL (Robaxin) 500 mg tablet Take 1 tablet (500 mg total) by mouth every 8 (eight) hours as needed for muscle spasms. 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 Date Type Department Care Team Description 09/22/2025 Remote Monitoring Remote Patient Monitoring [address] [place] [phone] Regi Kelly REstelleN. Follow-up (Provider follow up from 09/22 afternoon.) 09/22/2025 Remote Monitoring Remote Patient Monitoring [address] [place] [phone] Regi Kelly R.N. Symptom Assessment (Report of increased back pain and right abdominal pain) 09/22/2025 Remote Monitoring Remote Patient Monitoring [address] [place] [phone] Regi Kelly R.N. Follow-up 09/22/2025 Orders Only Division of Hepatobiliary and Pancreas Surgery in [place], [place] [address] [place] [phone] Leelee Calzada APRN, C.N.P., M.S.N. 09/22/2025 Remote Monitoring Remote Patient Monitoring [address] [place] [phone] Regi Kelly, R.N. Follow-up (Day 15-28 call) 09/19/2025 Remote Monitoring Remote Patient Monitoring [address] [place] [phone] Diane Sue, M.S.N., R.N. Follow-up (Remote Monitoring Day 7-14 follow up call. ) 09/13/2025 Clinical Communication Division of Hepatobiliary and Pancreas Surgery in [place], [place] [address] [place] [phone] Stephon Galindo D.O., M.B.A. Concern 09/08/2025 Orders Only Division of Hepatobiliary and Pancreas Surgery in [place], [place] [address] [place] [address] Taryn Goel APRN, C.NDre., D.N.P. 09/08/2025 Orders Only Division of Hepatobiliary and Pancreas Surgery in [place], [place] [address] [place] [address] Kaleigh Xiong APRN, C.N.P., M.S.N. 09/08/2025 Orders Only Division of Hepatobiliary and Pancreas Surgery in [place], [place] [address] [place] [phone] Kaleigh Xiong APRN, C.N.P., M.S.N. Malignant Neoplasm Of Pancreas Tail (HCC) (Primary Dx) 09/07/2025 Remote Monitoring Remote Patient Monitoring [address] [place] [phone] Fabiola Oviedo, RTao. Hepatobiliary; Follow-up (Day 2) 09/06/2025 Results Follow-Up Division of Hepatobiliary and Pancreas Surgery in [place], [place] [address] [place] [phone] Stephon Galindo D.O., M.B.A. Surgical Pathology, Frozen Lab 09/06/2025 Clinical Communication Division of Hepatobiliary and Pancreas Surgery in [place], [place] [address] [place] [phone] Stephon Galindo D.O., M.B.A. 09/05/2025 Remote Monitoring Remote Patient Monitoring [address] [place] [phone] Karen Hastings Remote Patient Monitoring; Patient Education (Hep No BG Welcome Letter/Terms of Service sent 09/05) 09/01/2025 12:00 PM CDT Ancillary Procedure Department of Gastroenterology 09/01/2025 7:50 AM CDT Anesthesia Event [facility] [address] [place] [phone] Jody Dominguez M.D. 09/01/2025 7:40 AM CDT Ancillary Procedure Department of Gastroenterology 09/01/2025 7:25 AM CDT - 09/01/2025 12:09 PM CDT Surgery [facility] [address] [place] [phone] Stephon Galindo D.O., M.B.A. PANCREATECTOMY DISTAL WITH SPLENECTOMY 09/01/2025 5:52 AM CDT - 09/05/2025 12:50 PM PSYCHOLOGIST EXPERIMENTAL Hospital Encounter [facility], [facility], Fifth Floor [address] [place] [phone] Stephon Galindo D.O., M.B.A. Malignant Neoplasm Of Pancreas Body (HCC) (Primary Dx) Discharge Disposition: Home or Self Care 09/01/2025 Ancillary Procedure Department of Laboratory Medicine 08/31/2025 1:15 PM CDT Office Visit Division of Hepatobiliary and Pancreas Surgery in [place], [place] [address] [place] [phone] Stephon Galindo D.O., M.B.A. Malignant Neoplasm Of Pancreas Body (HCC) (Primary Dx) 08/31/2025 7:40 AM CDT Lab Department of Infusion Therapy in [place], [place] [address] [place] [phone] Stephon Galindo D.O., M.B.A. Malignant Neoplasm Of Pancreas Body (HCC) (Primary Dx) 08/31/2025 6:42 AM CDT - 08/31/2025 11:59 PM CDT Hospital Encounter Department of Radiology, [facility], in [place], [place] [address] [place] [address] Stephon Galindo D.O., M.B.A. Malignant Neoplasm Of Pancreas Body (HCC) Discharge Disposition: Home or Self Care 08/22/2025 Orders Only Patient Blood Management in [place], [place] [address] [place] [phone] Gurwinder Gomes M.S.N., R.N. 08/16/2025 7:38 AM CDT Anesthesia Event [facility] [address] [place] [phone] Jeanette Viveros M.D. 08/16/2025 7:25 AM CDT - 08/16/2025 9:12 AM CDT Surgery [facility] OR [address] [place] [phone] Stephon Galindo D.O., M.B.A. LAPAROSCOPIC EXPLORATION, DIAGNOSTIC, peritoneal washings. 08/16/2025 5:53 AM CDT - 08/16/2025 11:19 AM CDT Hospital Encounter [facility] OR [address] [place] [phone] Stephon Galindo D.O., M.B.A. Malignant Neoplasm Of Pancreas Body (HCC) Discharge Disposition: Home or Self Care 08/12/2025 Orders Only Patient Blood Management in [place], [place] [address] [place] [phone] Gurwinder Gomes M.S.N., R.N. Anemia Iron Deficiency (Primary Dx) 08/08/2025 Orders Only Patient Blood Management in [place], [place] [address] [place] [phone] Gurwinder Gomes M.S.N., R.N. Anemia Iron Deficiency (Primary Dx) 08/04/2025 1:45 PM CDT Comprehensive Visit Patient Blood Management in [place], [place] [address] [place] [phone] Baljinder Decker APRN, C.N.P., M.S. Alma Rosa Johnson, P.A.-C. Anemia Iron Deficiency (Primary Dx) 08/04/2025 9:00 AM CDT Lab Department of Infusion Therapy in [place], [place] [address] [place] [phone] Baljinder Decker APRN, C.N.P., M.S. Malignant Neoplasm Of Pancreas Body (HCC) (Primary Dx); Preanesthetic Medical Exam; Anemia; Anemia Iron Deficiency 08/04/2025 Clinical Communication Patient Blood Management in [place], [place] [address] [place] [phone] Alma Rosa Johnson P.A.-C. 08/04/2025 Clinical Communication Patient Blood Management in [place], [place] [address] [place] [phone] Alma Rosa Johnson P.A.-C. 07/13/2025 Clinical Communication Department of Medical Genetics in [place], [place] [address] [place] [phone] Delmy Hernandez M.S., [facility] 07/13/2025 Results Follow-Up Department of Medical Genetics in [place], [place] [address] [place] [phone] Delmy Hernandez M.S., [facility]. [employer] Sent Out Lab 07/12/2025 9:15 AM CDT Telemedicine Department of Medical Genetics in [place], [place] [address] [place] [phone] Bhargav Cruz M.D. Ongie, Laura J M.SEstelle, [facility] Genetic Susceptibility To Disease [Z15.89] (Primary Dx) 07/08/2025 Orders Only Department of Medical Genetics in [place], [place] [address] [place] [phone] Delmy Hernandez MEstelleS., [facility] 06/30/2025 Patient Outreach Department of Oncology in [place], [place] [address] [place] [phone] Ira Bowman R.N., O.C.N. 06/30/2025 Orders Only Patient Blood Management in [place], [place] [address] [place] [phone] Gurwinder Gomes, M.S.N., R.N. Anemia (Primary Dx) 06/30/2025 Orders Only Preoperative Evaluation Center in [place], [place] [address] [place] [phone] Baljinder Decker, AYESHA, C.N.P., M.S. Preanesthetic Medical Exam (Primary Dx); Anemia 06/30/2025 Documentation Preoperative Evaluation Center in [place], [place] [address] [place] [phone] Baljinder Decker APRN, C.N.Emily, M.S. 06/29/2025 2:00 PM CDT Comprehensive Visit Division of Hepatobiliary and Pancreas Surgery in [place], [place] [address] [place] [phone] Stephon Galindo D.O., M.B.A. Malignant Neoplasm Of Pancreas Body (HCC) (Primary Dx) 06/29/2025 2:00 PM CDT Office Visit Department of Oncology in [place], [place] [address] [place] [phone] Livier Narayan APRN, C.N.P., M.S. Malignant Neoplasm Of Pancreas Body (HCC) (Primary Dx) 06/29/2025 12:00 PM CDT Lab Department of Infusion Therapy in [place], [place] [address] [place] [phone] Livier Narayan APRN, C.NDre., M.S. Malignant Neoplasm Of Pancreas Body (HCC) (Primary Dx); Melanoma Family History; Cancer Breast Family History; Cancer Stomach Family History; Cancer Bladder Family History 06/29/2025 7:22 AM CDT - 06/29/2025 11:59 PM CDT Hospital Encounter Department of Radiology, [facility] in [place], [place] [address] [place] [phone] Livier Narayan APRN, C.NDre., M.S. Malignant Neoplasm Of Pancreas Body (HCC) Discharge Disposition: Home or Self Care 06/29/2025 5:48 AM CDT - 06/29/2025 7:21 AM CDT Hospital Encounter Department of Radiology, [facility] in [place], [place] [address] [place] [phone] Livier Narayan APRN, C.NDre., M.S. Malignant Neoplasm Of Pancreas Body (HCC) Discharge Disposition: Home or Self Care 06/23/2025 12:30 PM CDT Clinical Communication Virtual Review in [place], [place] [address] [place] [phone] Pre-visit Intake from Last 3 Months Family History Medical History Relation Name Comments Bladder cancer Brother 1 Bladder remov ed Melanoma Brother 2 Face Melanoma Father Several Diabetes Father's Brother 1 Diabetes Father's Brother 2 Liver disease Father's Brother 2 Sarcoma Maternal Cousin on leg Breast cancer (in one breast) Mother DCIS, lumpectomy (stage 0) Stomach cancer Mother's Brother 1 Esophageal cancer Mother's Brother 2 Hx o f chemical exposure as a soni Melanoma Mother's Sister 1 Several oc currences Relation Name Status Comments Brother 1 Alive Brother 2 Alive Father Alive Father's Brother 1 Father's Brother 2 Father's Brother 3 d. MVA Grandchild Alive TWO, 1 on the w ay Maternal Cousin (Age 20-25) Maternal Grandfather (Age 95) d. after broken hip Maternal Grandmother (Age 98) d. after broken hip Mother Alive Mother's Brother 1 (Age 78-80) Mother's Brother 2 (Age 78-80) Mother's Sister 1 Alive Mother's Sister 2 Alive Mother's Sister 3 Alive Nephew Alive Niece 1 Alive THREE Niece 2 Alive TWO Paternal Cousin Alive No cancer hx for cousins Paternal Grandfather (Age 63) d. [place] Paternal Grandmother (Age 88) d. Alzheimer's Son 1 Alive Son 2 Alive Son 3 Alive Social History Tobacco Use Types Packs/Day Years Used Date Smoking Tobacco: Never Smokeless Tobacco: Never Tobacco Cessation:Counseling Given: Not Answered Alcohol Use Standard Drinks/Week Comments Not Currently [...] things needed for daily living? No 09/04/2025 [facility] Utilities Answer Date Recorded In the past 12 months has [employer], gas, oil, or water company threatened to shut off services in your home? No 09/04/2025 Housing Stability Answer Date Recorded What is your living situation today? [facility] 09/04/2025 Comments No Sex and Gender Information Value Date Recorded Sex Assigned at Female 03/21/2025 4:39 PM CDT Legal Sex Female 10:00 PM PSYCHOLOGIST EXPERIMENTAL Gender Identity Female 03/21/2025 4:39 PM CDT Sexual Orientation Straight 03/21/2025 4: 39 PM CDT Last Filed Vital Signs Vital Sign Reading Time Taken Comments Blood Pressure 113/70 09/04/2025 4:00 PM PSYCHOLOGIST EXPERIMENTAL Pulse 72 09/05/2025 10:57 AM PSYCHOLOGIST EXPERIMENTAL Temperature 36.9 C (98.4 F) 09/05/2025 10:57 AM PSYCHOLOGIST EXPERIMENTAL Respiratory Rate 14 09/05/2025 10:57 AM PSYCHOLOGIST EXPERIMENTAL Oxygen Saturation 99% 09/05/2025 10:57 AM PSYCHOLOGIST EXPERIMENTAL Inhaled Oxygen Concentration - - Weight 53.1 kg (117 lb 1 oz) 09/05/2025 5:00 AM PSYCHOLOGIST EXPERIMENTAL Height 175.3 cm (5' 9) 09/01/2025 7:02 AM CDT Body Mass Index 17.29 09/01/2025 7:02 AM CDT Plan of Treatment Upcoming Encounters Date Type Department Care Team (Latest Contact Info) Description 10/05/2025 3:45 PM PSYCHOLOGIST EXPERIMENTAL Clinical Communication Virtual Review in [place], [place] [address] [place] [phone] 10/11/2025 1:40 PM PSYCHOLOGIST EXPERIMENTAL Nurse Only Section of Infectious Diseases in [place], [place] [address] [place] [phone] Kaleigh Xiong APRN, C.N.P., M.S.N. [address] [place] [phone] 10/11/2025 3:00 PM PSYCHOLOGIST EXPERIMENTAL Lab Department of Infusion Therapy in [address] [phone] Kaleigh Xiong APRN, C.N.Efrain., M.S.N. [address] [place] [phone] 10/11/2025 4:00 PM PSYCHOLOGIST EXPERIMENTAL Appointment Department of Radiology, [facility], in [place], [place] [address] [place] [phone] Kaleigh Xiong APRN, C.N.P., M.S.N. [address] [place] [phone] 10/12/2025 10:30 AM PSYCHOLOGIST EXPERIMENTAL Office Visit Division of Hepatobiliary and Pancreas Surgery in [place], [place] [address] [place] [phone] Sammie Gerber APRN, C.N.P., M.S.N. [address] [place] [phone] 10/12/2025 3:00 PM PSYCHOLOGIST EXPERIMENTAL Comprehensive Visit Department of Oncology in [place], [place] [address] [place] [phone] Jeffy James M.D. [address] [place] [phone] Health Maintenance Due Date Last Done Comments CT Colonography 1960 Cervical/Vaginal Cancer Screening 1960 Cologuard 1960 FIT 1960 HIV Screening 1960 Hepatitis C Screening 1960 Lipid (Cholesterol) Screening 1960 Mammogram 1960 HIB Vaccines (1 of 1 - Risk 1-dose series) 02/01/1962 Meningococcal Vaccine (1 - Risk 2-dose series) 1962 MenB Vaccine (1 of 4 - Increased Risk) 1970 Pneumococcal vaccine (50+ years) (1 of 2 - PCV) 1979 Zoster Vaccines (1 of 2) 2010 DTaP,Tdap,and Td Vaccines (2 - Td or Tdap) 08/20/2021 08/20/2011 Depression Screening (Annual PHQ-2) 2024 COVID-19 Vaccine ( - season) 2025 Influenza Vaccine (#1) 2025 1, 09/03/2010, 08/24/2008, Additional history exists Fasting Glucose for Diabetes Screening 09/05/2026 09/05/2025, 09/03/2025, 09/02/2025, Additional history exists Colonoscopy 10/20/2027 10/20/2017 Colorectal Cancer Screening 10/20/2027 IPV Vaccines Aged Out No longer eligi ble based on patient's age to complete this topic Medical Devices Implanted Type Area Mold Loft Worker Device Identifier Shelf Expiration Date Model / Serial / Lot Clp Hrzn Ti 6 Clp Ivan Orng - [id number] Implanted:Qty: 1 on 09/01/2025 by Stephon Galindo D.O., M.B.A. at [facility] Hardware e.g. pins/screws/ro ds [employer] [id number] / / Clp Hrzn Ti 6 Mona Marvin Kirill - [id number] Implanted:Qty: 1 on 09/01/2025 by Stephon Galindo D.O., M.B.A. at [facility] Hardware e.g. pins/screws/ro ds [employer] [id number] / / Clp Hrzn Ti 6 Clp Kirill - [id number] Implanted:Qty: 1 on 09/01/2025 by Stephon Galindo D.O., M.B.A. at [facility] Hardware e.g. pins/screws/ro ds [employer] [id number] / / Clp Hrzn Ti 24 Clp Kirill - [id number] Implanted:Qty: 1 on 09/01/2025 by Stephon Galindo D.O., M.B.A. at [facility] Hardware e.g. pins/screws/ro ds [employer] [id number] / / Prt Cath Infus Powerport 8f - [id number] Implanted:Qty: 1 on 04/12/2025 by Stephon Galindo D.O., M.B.A. at [facility] Implantable Port Right: Chest C.R.Bard 03/02/2026 [id number] / / [id number] Adhesive Applicator Barrier [id number] Abs - [id number] Implanted:Qty: 1 on 09/01/2025 by Stephon Galindo D.O., M.B.A. at [facility] Mesh or Patch Noel 08/15/2027 [id number] / / [id number] Procedures Procedure Name Priority Date/Time Associated Diagnosis Comments C-REACTIVE PROTEIN (CRP), S/P Routine 09/05/2025 7:50 AM PSYCHOLOGIST EXPERIMENTAL PHOSPHORUS (INORGANIC), S Routine 09/05/2025 7:50 AM PSYCHOLOGIST EXPERIMENTAL MAGNESIUM, S Routine 09/05/2025 7:50 AM PSYCHOLOGIST EXPERIMENTAL PROTHROMBIN TIME (PT), P Routine 09/05/2025 7:50 AM PSYCHOLOGIST EXPERIMENTAL BILIRUBIN DIRECT, S/P Routine 09/05/2025 7:50 AM PSYCHOLOGIST EXPERIMENTAL COMPREHENSIVE METABOLIC PANEL, S/P Routine 09/05/2025 7:50 AM PSYCHOLOGIST EXPERIMENTAL CBC WITHOUT DIFFERENTIAL, B Routine 09/05/2025 7:50 AM PSYCHOLOGIST EXPERIMENTAL C-REACTIVE PROTEIN (CRP), S/P Routine 09/03/2025 8:11 PM CDT MAGNESIUM, S Routine 09/03/2025 8:11 PM CDT BASIC METABOLIC PANEL, S/P Routine 09/03/2025 8:11 PM CDT CBC WITHOUT DIFFERENTIAL, B Routine 09/03/2025 8:11 PM CDT C-REACTIVE PROTEIN (CRP), S/P Routine 09/02/2025 8:50 PM CDT PHOSPHORUS (INORGANIC), S Routine 09/02/2025 8:50 PM CDT MAGNESIUM, S Routine 09/02/2025 8:50 PM CDT BASIC METABOLIC PANEL, S/P Routine 09/02/2025 8:50 PM CDT CBC WITHOUT DIFFERENTIAL, B Routine 09/02/2025 8:50 PM CDT MAGNESIUM, S Routine 09/01/2025 8:45 PM CDT C-REACTIVE PROTEIN (CRP), S/P Routine 09/01/2025 8:45 PM CDT BASIC METABOLIC PANEL, S/P Routine 09/01/2025 8:45 PM CDT PHOSPHORUS (INORGANIC), S Routine 09/01/2025 8:45 PM CDT CBC WITHOUT DIFFERENTIAL, B Routine 09/01/2025 8:45 PM CDT ADULT OXYGEN THERAPY Routine 09/01/2025 12:18 PM CDT GI AND GENERAL SURGERY IMAGE EXAM Routine 09/01/2025 12:00 PM CDT SURGICAL PATHOLOGY, [facility]OZEN LAB Routine 09/01/2025 10:53 AM CDT Malignant Neoplasm Of Pancreas Body (HCC) MC ANE INVASIVE CATHETER Routine 09/01/2025 8:20 AM CDT AIRWAY MANAGEMENT Routine 09/01/2025 8:1 8 AM CDT ME INJ SPINE LUMB/SAC WO IMG Routine 09/01/2025 7:58 AM CDT GI AND GENERAL SURGERY IMAGE EXAM Routine 09/01/2025 7:40 AM CDT BLOCK - TRANSVERSUS ABDOMINIS PLANE 09/01/2025 7:29 AM CDT Malignant Neoplasm Of Pancreas Body (HCC) PANCREATECTOMY DISTAL WITH SPLENECTOMY 09/01/2025 7:29 AM CDT Malignant Neoplasm Of Pancreas Body (HCC) PATHOLOGY IMAGE EXAM Routine 09/01/2025 12:00 AM CDT TYPE AND SCREEN Routine 08/31/2025 8:37 AM CDT Malignant Neoplasm Of Pancreas Body (HCC) PROTHROMBIN TIME (PT), P Routine 08/31/2025 8:37 AM CDT Malignant Neoplasm [...] Malignant Neoplasm Of Pancreas Body (HCC) CT PANCREAS ANGIOGRAM TRIPLE PHASE AND PELVIS WITH IV CONTRAST RAD - Routine (most inpatients and all outpatients) 08/31/2025 8:15 AM CDT Malignant Neoplasm Of Pancreas Body (HCC) ADULT OXYGEN THERAPY Routine 08/16/2025 8:52 AM CDT CYTOLOGY NON-DATA CONSULTANT Routine 08/16/2025 8:19 AM CDT Malignant Neoplasm Of Pancreas Body (HCC) KRAS MUTATION ANALYSIS, PERITONEAL Routine 08/16/2025 8:19 AM CDT Malignant Neoplasm Of Pancreas Body (HCC) CEA, PERITONEAL FLUID Routine 08/16/2025 8:19 AM CDT Malignant Neoplasm Of Pancreas Body (HCC) CA 19-9, PERITONEAL FLUID Routine 08/16/2025 8:19 AM CDT Malignant Neoplasm Of Pancreas Body (HCC) LDA ANE ENDOTRACHEAL AIRWAY Routine 08/16/2025 7:47 AM CDT BLOCK - TRANSVERSUS ABDOMINIS PLANE 08/16/2025 7:18 AM CDT Malignant Neoplasm Of Pancreas Body (HCC) LAPAROSCOPIC EXPLORATION - DIAGNOSTIC 08/16/2025 7:18 AM CDT Malignant Neoplasm Of Pancreas Body (HCC) C-REACTIVE PROTEIN (CRP), S/P Routine 08/04/2025 9:13 AM CDT Anemia FERRITIN, S Routine 08/04/2025 9:13 AM CDT Anemia RETICULOCYTE PROFILE, B Routine 08/04/2025 9:13 AM CDT Anemia IRON AND TOT IRON-BINDING CAPACITY, S/P Routine 08/04/2025 9:13 AM CDT Anemia CBC-PREOP WITH REFLEX ANEMIA PANEL Routine 08/04/2025 9:13 AM CDT Preanesthetic Medical Exam Anemia FOLATE, S Routine 08/04/2025 9:05 AM CDT VITAMIN B12 ASSAY, S Routine 08/04/2025 9:05 AM CDT Anemia Iron Deficiency [employer] Routine 06/29/2025 12:05 PM CDT MISCELLANEOUS SENT OUT LAB TEST Routine 06/29/2025 12:05 PM CDT Malignant Neoplasm Of Pancreas Body (HCC) Melanoma Family History Cancer Breast Family History Cancer Stomach Family History Cancer Bladder Family History COMPREHENSIVE METABOLIC PANEL, S/P Routine 06/29/2025 12:05 PM CDT Malignant Neoplasm Of Pancreas Body (HCC) CARBOHYDRATE AG 19-9 (CA 19-9), S Routine 06/29/2025 12:05 PM CDT Malignant Neoplasm Of Pancreas Body (HCC) CBC WITH DIFFERENTIAL, B Routine 06/29/2025 12:05 PM CDT Malignant Neoplasm Of Pancreas Body (HCC) CT CHEST WITH IV CONTRAST RAD - Routine (most inpatients and all outpatients) 06/29/2025 8:37 AM CDT Malignant Neoplasm Of Pancreas Body (HCC) CT PANCREAS ANGIOGRAM TRIPLE PHASE AND PELVIS WITH IV CONTRAST RAD - Routine (most inpatients and all outpatients) 06/29/2025 8:37 AM CDT Malignant Neoplasm Of Pancreas Body (HCC) PET CT SKULL TO THIGH RAD - Routine (most inpatients and all outpatients) 06/29/2025 7:27 AM CDT Malignant Neoplasm Of Pancreas Body (HCC) from Last 3 Months Results * Prothrombin Time (PT) (09/05/2025 7:50 AM PSYCHOLOGIST EXPERIMENTAL) Only the most recent of2 resultswithin the time period is included. Prothrombin Time, P 11.0 9.4 - 12.5 sec 09/05/2025 9:01 AM PSYCHOLOGIST EXPERIMENTAL DTL INR 1.0 0.9 - 1.1 09/05/2025 9:01 AM PSYCHOLOGIST EXPERIMENTAL DTL Comment: ----ADDITIONAL INFORMATION---- Standard intensity warfarin therapeutic range: 2.0 to 3.0 High intensity warfarin therapeutic range: 2.5 to 3.5 Blood (Blood, Venous) 09/05/2025 7:50 AM PSYCHOLOGIST EXPERIMENTAL 09/05/2025 8:24 AM PSYCHOLOGIST EXPERIMENTAL Kaleigh Xiong APRN, C.N.P., M.S.N. LAB BLOOD A DD-ON Final Result [facility] [address] [place] [address], [facility] [address] [place] [address] * (ABNORMAL) CBC without Differential (09/05/2025 7:50 AM PSYCHOLOGIST EXPERIMENTAL) Only the most recent of5 resultswithin the time period is included. Hemoglobin 11.5(L) 11.6 - 15.0 g/dL 09/05/2025 9:21 AM PSYCHOLOGIST EXPERIMENTAL DTL Hematocrit 34.4(L) 35.5 - 44.9 % 09/05/2025 9:21 AM PSYCHOLOGIST EXPERIMENTAL DTL Erythrocytes 3.27(L) 3.92 - 5.13 x10(12)/L 09/05/2025 9:21 AM PSYCHOLOGIST EXPERIMENTAL DTL MCV 105.2(H) 78.2 - 97.9 fL 09/05/2025 9:21 AM PSYCHOLOGIST EXPERIMENTAL DTL RBC Distrib Width 12.2 12.2 - 16.1 % 09/05/2025 9:21 AM PSYCHOLOGIST EXPERIMENTAL DTL Platelet Count 287 157 - 371 x10(9)/L 09/05/2025 9:21 AM PSYCHOLOGIST EXPERIMENTAL DTL Leukocytes 7.6 3.4 - 9.6 x10(9)/L 09/05/2025 9:21 AM PSYCHOLOGIST EXPERIMENTAL DTL Blood (Blood, Venous) 09/05/2025 7:50 AM PSYCHOLOGIST EXPERIMENTAL 09/05/2025 8:24 AM PSYCHOLOGIST EXPERIMENTAL Nayla Hewitt APRN.N.Efrain., M.S.N. LAB BLOOD A DD-ON Final Result Performing Organization Address City/[facility]/ZIP Co de Phone Number [facility] [address] [place] [address], [facility] [address] [place] [address] * (ABNORMAL) CRP (C-Reactive Protein) (09/05/2025 7:50 AM PSYCHOLOGIST EXPERIMENTAL) Only the most recent of5 resultswithin the time period is included. C-Reactive Protein (CRP), S 138.1(H) <5.0 mg/L 09/05/2025 9:09 AM PSYCHOLOGIST EXPERIMENTAL DT Blood (Blood, Venous) 09/05/2025 7:50 AM PSYCHOLOGIST EXPERIMENTAL 09/05/2025 8:21 AM PSYCHOLOGIST EXPERIMENTAL Kaleigh Xiong APRN, C.N.P., M.S.N. LAB BLOOD A DD-ON Final Result Performing Organization Address City/[facility]/ZIP Co de Phone Number [facility] [address] [place] [address], [facility] [address] [place] [address] * Phosphorus Inorganic (09/05/2025 7:50 AM PSYCHOLOGIST EXPERIMENTAL) Only the most recent of3 resultswithin the time period is included. Phosphorus (Inorganic), S 2.7 2.5 - 4.5 mg/dL 09/05/2025 9:09 AM PSYCHOLOGIST EXPERIMENTAL DTL Blood (Blood, Venous) 09/05/2025 7:50 AM PSYCHOLOGIST EXPERIMENTAL 09/05/2025 8:21 AM PSYCHOLOGIST EXPERIMENTAL Nayla Hewitt APRN.N.Efrain., M.S.N. LAB BLOOD A DD-ON Final Result Performing Organization Address City/[facility]/ZIP Co de Phone Number [facility] [address] [place] [address], [facility] [address] [place] [address] * Magnesium (09/05/2025 7:50 AM PSYCHOLOGIST EXPERIMENTAL) Only the most recent of4 resultswithin the time period is included. Magnesium, S 1.8 1.7 - 2.3 mg/dL 09/05/2025 9:09 AM PSYCHOLOGIST EXPERIMENTAL DTL Blood (Blood, Venous) 09/05/2025 7:50 AM PSYCHOLOGIST EXPERIMENTAL 09/05/2025 8:21 AM PSYCHOLOGIST EXPERIMENTAL Nayla Hewitt APRN.N.P., M.S.N. LAB BLOOD A DD-ON Final Result Performing Organization Address [facility] Co de Phone Number [facility] [address] [place] [address] * Bilirubin, Direct (09/05/2025 7:50 AM PSYCHOLOGIST EXPERIMENTAL) Only the most recent of2 resultswithin the time period is included. Bilirubin, Direct, S 0.2 0.0 - 0.3 mg/dL 09/05/2025 9:09 AM PSYCHOLOGIST EXPERIMENTAL DTL Blood (Blood, Venous) 09/05/2025 7:50 AM PSYCHOLOGIST EXPERIMENTAL 09/05/2025 8:21 AM PSYCHOLOGIST EXPERIMENTAL Nayla Hewitt APRN.N.P., M.S.N. LAB BLOOD A DD-ON Final Result Performing Organization Address City/[facility]/ZIP Co de Phone Number [facility] [address] [place] [address], [place] DTL [facility] [address] [place] [address] * (ABNORMAL) Comprehensive Metabolic Panel (09/05/2025 7:50 AM PSYCHOLOGIST EXPERIMENTAL) Only the most recent of3 resultswithin the time period is included. Potassium, S 4.0 3.6 - 5.2 mmol/L 09/05/2025 9:09 AM PSYCHOLOGIST EXPERIMENTAL DTL Sodium, S 139 135 - 145 mmol/L 09/05/2025 9:09 AM PSYCHOLOGIST EXPERIMENTAL DTL Chloride, S 98 98 - 107 mmol/L 09/05/2025 9:09 AM PSYCHOLOGIST EXPERIMENTAL DTL Bicarbonate, S 21(L) 22 - 29 mmol/L 09/05/2025 9:09 AM PSYCHOLOGIST EXPERIMENTAL DTL Anion Gap 20(H) 7 - 15 09/05/2025 9:09 AM PSYCHOLOGIST EXPERIMENTAL DTL BUN (Blood Urea Nitrogen), S 8 6 - 21 mg/dL 09/05/2025 9:09 AM PSYCHOLOGIST EXPERIMENTAL DTL Creatinine 0.59 0.59 - 1.04 mg/dL 09/05/2025 9:09 AM PSYCHOLOGIST EXPERIMENTAL DTL Estimated GFR (eGFR) >90 >=60 mL/min/BS A 09/05/2025 9:09 AM PSYCHOLOGIST EXPERIMENTAL DTL Comment: Estimated GFR calculated using the 2020 CKD_EPI creatinine equation. Calcium, Total, S 8.9 8.8 - 10.2 mg/dL 09/05/2025 9:09 AM PSYCHOLOGIST EXPERIMENTAL DTL Glucose, S 72 70 - 140 mg/dL 09/05/2025 9:09 AM PSYCHOLOGIST EXPERIMENTAL DTL Protein, Total, S 5.8(L) 6.3 - 7.9 g/dL 09/05/2025 9:09 AM PSYCHOLOGIST EXPERIMENTAL DTL Albumin, S 3.7 3.5 - 5.0 g/dL 09/05/2025 9:09 AM PSYCHOLOGIST EXPERIMENTAL DTL Aspartate Aminotransferase (AST), S 26 8 - 43 U/L 09/05/2025 9:09 AM PSYCHOLOGIST EXPERIMENTAL DTL Alkaline Phosphatase, S 144(H) 35 - 104 U/L 09/05/2025 9:09 AM PSYCHOLOGIST EXPERIMENTAL DTL Alanine Aminotransferase (ALT), S 41 7 - 45 U/L 09/05/2025 9:09 AM PSYCHOLOGIST EXPERIMENTAL DTL Bilirubin, Total, S 0.5 0.0 - 1.2 mg/dL 09/05/2025 9:09 AM PSYCHOLOGIST EXPERIMENTAL DTL Blood (Blood, Venous) 09/05/2025 7:50 AM PSYCHOLOGIST EXPERIMENTAL 09/05/2025 8:21 AM PSYCHOLOGIST EXPERIMENTAL Kaleigh Xiong APRN, C.N.P., M.S.N. LAB BLOOD A DD-ON Final Result [facility] [address] [place] [address], [facility] [address] [place] [address] * (ABNORMAL) Basic Metabolic Panel (09/03/2025 8:11 PM CDT) Only the most recent of3 resultswithin the time period is included. Potassium, S 4.2 3.6 - 5.2 mmol/L [...] 09/03/2025 8:35 PM CDT Leelee Calzada APRN, C.N.P., M.S.N. LAB BLOOD A DD-ON Final Result [facility] [address] [place] [address], [facility] DTL [facility] [address] [place] [address] * Abdomen-GI And General Surgery Image Exam (09/01/2025 12:00 PM CDT) Only the most recent of2 resultswithin the time period is included. Narrative IIMS - 09/02/2025 9:01 AM CDT This order has been created and auto-finalized to support the import of images acquired without order. The clinical documentation to support these images can be found on the encounter that produced images. Provider Not In System IMG NON RAD IMAGING PROCE DURES Final Result IIND NA * Surgical Pathology, Frozen Lab (09/01/2025 10:53 AM CDT) 09/05/2025 2:35 PM PSYCHOLOGIST EXPERIMENTAL FLOR Participated in the Interpretation Hamlet Correia M.D.-Pathology Fellow 09/05/2025 2:35 PM PSYCHOLOGIST EXPERIMENTAL YOGESHA Report electronically signed by Eloise oV M.D. I verify that I have examined all relevant slides/materials for the specimen(s) and rendered or confirmed the diagnosis. 09/05/2025 2:35 PM PSYCHOLOGIST EXPERIMENTAL STMJaylin Frozen Intraoperative Report A. Pancreas, distal, and spleen, distal pancreatectomy and splenectomy: Pancreatic adenocarcinoma, forming a mass measuring 2.3 cm in greatest dimension. All margins, including proximal pancreatic margin, are negative for tumor. Signed by Eloise Vo M.D. 09/01/2025 4:09 PM 09/05/2025 2:35 PM PSYCHOLOGIST EXPERIMENTAL STMA Gross Description A. Received fresh labeled distal [...] are identified. The spleen is grossly unremarkable. Enrollment Management Vice President tissue submitted for frozen and permanent sections. Photographed. Grossed by Laura MartinezHAmarilis, SEB([facility]). 09/05/2025 2:35 PM PSYCHOLOGIST EXPERIMENTAL STMA Block Summary A Distal pancreas, spleen, [...] A22 Peripancreatic fat 3 09/05/2025 2:35 PM PSYCHOLOGIST EXPERIMENTAL STMA Interpretation FINAL DIAGNOSIS A. Distal pancreas [...] assessment of this case. 09/05/2025 2:35 PM PSYCHOLOGIST EXPERIMENTAL STMA Tissue (Spleen) 09/01/2025 1 0:53 AM CDT us Stephon Galindo D.O., M.B.A. LAB SURG PATH OR DERABLES Final Result [facility] [address] [place] [address], [facility] STMA [address] [place] [address] * Invasive Catheter (09/01/2025 8:20 AM CDT) Narrative Niurka Gamez M.D. - 09/01/2025 8:20 AM CDT Niurka [...] ETT location: oral VL device: glide scope Delta scope blade size: 3 Tube size: 7 [...] M.D. ANESTHESIA ORDERABLES Final R esult * ME INJ SPINE LUMB/SAC WO IMG (09/01/2025 7:58 [...] fellow participated in the procedure, and the strategic consultant was present for the entire procedure. us Jody Dominguez M.D. PROCEDURE/MINOR SURGICAL ORDE SANDI Final Result * Specimen-Pathology Image Exam (09/01/2025 12:00 AM CDT) Narrative IIMS - 09/01/2025 11:40 AM CDT This order has been created and auto-finalized to support the import of images acquired without order. The clinical documentation to support these images can be found on the encounter that produced images. us Provider Not In System IMG NON RAD IMAGING PROCE DURES Final Result IIMS NA * Type and Screen (with Reflex Antibody [...] CDT 08/31/2025 8:59 AM CDT Stephon Galindo D.O., M.B.A. LAB BLOOD BANK T EST ORDERABLES Final Result Performing Organization Address City/[facility]/ZIP Co de Phone Number [facility] [address] [place] [address], [facility] ETRM [facility] [address] [place] [address] * Prealbumin (PAB) (08/31/2025 8:37 AM CDT) Prealbumin (PAB), S 30 19 - 38 mg/dL 08/31/2025 3:46 PM CDT [facility] Blood (Blood, Venous) 08/31/2025 8:37 AM CDT 08/31/2025 11:26 AM CDT Stephon Galindo D.O., M.B.A. LAB BLOOD ADD-ON Final Result Performing Organization Address City/[facility]/ZIP Co de Phone Number [facility] [address] [place] [address] [facility] [address] [place] [address] * Hemoglobin A1c (08/31/2025 8:37 AM CDT) Pathologist [facility] Hemoglobin A1c, B 5.6 4.0 - 5.6 % 08/31/2025 9:42 AM CDT [facility] Blood (Blood, Venous) 08/31/2025 8:37 AM CDT 08/31/2025 8:47 AM CDT Stephon Galindo D.O., M.B.A. LAB BLOOD ADD-ON Final Result Performing Organization Address City/[facility]/ZIP Co de Phone Number [facility] [address] [place] [address], [facility] [address] [place] [address] * CEA (Carcinoembryonic Antigen) (08/31/2025 8:37 AM CDT) Carcinoembryonic Ag (CEA), S 1.1 ng/mL 08/31/2025 2:01 PM CDT [facility] Comment: ----REFERENCE VALUE---- <=3.0 (Non-smokers) Some smokers may have elevated CEA, usually <5.0. ----ADDITIONAL INFORMATION---- The testing method is an immunoenzymatic assay manufactured by [employer] and performed on the [employer] DxI 800. Values obtained with different assay methods or kits may be different and cannot be used interchangeably. Test results cannot be interpreted as absolute evidence for the presence or absence of malignant disease. Blood (Blood, Venous) 08/31/2025 8:37 AM CDT 08/31/2025 12:17 PM CDT us Stephon Galindo D.O., M.B.A. LAB BLOOD ADD-ON Final Result [facility] [address] [place] [address] [facility] [address] [place] [address] * CT Pancreas Angiogram Triple Phase and Pelvis with IV Contrast (08/31/2025 8:15 AM CDT) Only the most recent of2 resultswithin the time period is included. Anatomical Region Laterality Modality Abdomen, Pelvis, Abdominal R ST LOS, Abdominal ARZ LOS, Vascular Interventional ARZ LOS, Vascular Interventional FLA LOS, Abdominal FLA LOS N/A Computed Berny ography 08/31/2025 7:5 4 AM CDT Impressions 08/31/2025 10:56 AM CDT [...] discrete nodularity. Ascites: Absent. Suspicious lymph nodes: [place]-regional (emanuel-hepatic, cheryle-pancreatic, celiac, splenic hilum): Similar appearance [...] discrete nodularity. Ascites: Absent. Suspicious lymph nodes: [place]-regional (emanuel-hepatic, cheryle-pancreatic, celiac, splenic hilum):Similar appearance of [...] the abdomen orpelvis. Other significant findings: None. Stephon Galindo D.O., M.B.A. IM CT PROCEDURE S Final Result * CT Chest with IV Contrast (08/31/2025 8:15 AM CDT) Only the most recent of2 resultswithin the time period is included. Anatomical Region Laterality Modality Chest, Thoracic RST [...] 3. Additional solid noncalcified micronodules are stable. Stephon Galindo D.O. M.B.A. [facility] PROCEDURE S Final Result * KRAS Somatic Mutation Analysis, Peritoneal Fluid [...] developed and its performance characteristics determined by [facility] in a manner consistent with CLIA [...] J Am Abdullahi Surg. 2020 Felix;233(1):73-80 (PMID [id number]) A portion of the testing process was performed at [facility] site [id number]. 08/21/2025 11:00 PM CDT DTL Fluid (Peritoneal Fluid) 08/16/2025 8:19 AM CDT us Stephon Galindo D.O., M.B.A. LAB GENETIC TEST ING Final Result [facility] [address] [place] [address], [facility] DT [address] [place] [address] * Cytology Non-DATA CONSULTANT (08/16/2025 8:19 AM CDT) 08/19/2025 11:51 AM [...] malignancy. Immunohistoche mical stains were performed at [facility] (block A1). Claudin-4 and MOC31 stains are negative. Calretinin and D2-40 stains highlight a few mesothelial cells . Mucicarmine stain is negative. 08/19/2025 11:51 AM CDT DTL Fluid (Peritoneal Fluid) 08/16/2025 8:19 AM CDT us Jenny Perez D.O..B.A. LAB SURG PATH OR DERABLES Final Result [facility] [address] [place] [address], [facility] DTL [address] [place] [address] * Carcinoembryonic Antigen (CEA), Peritoneal Fluid (08/16/2025 8:19 AM CDT) CEA, Peritoneal Fluid <0.7 ng/mL 08/16/2025 2:38 PM CDT [facility] Comment: A peritoneal fluid CEA concentration = [...] This test has been modified from the cripple cutter's instructions. Its performance characteristics were determined by [facility] in a manner consistent with CLIA requirements. This test has not been cleared or approved by the U.S. Food and Drug Administration. The testing method is an immunoenzymatic assay manufactured by [employer] and performed on the [employer] DxI 800. Values obtained with different assay methods or kits may be different and cannot be used interchangeably. Test results cannot be interpreted as absolute evidence for the presence or absence of malignant disease. Site Peritoneal fluid 08/16/2025 2:38 PM CDT [facility] Fluid (Peritoneal Fluid) 08/16/2025 8:19 AM CDT us Stephon Galindo D.O., M.B.A. LAB BODY FLUIDS AND STOOLS ORDERABLES Final Result [facility] [address] [place] [address] [facility] [address] [place] [address] * Carbohydrate Antigen 19-9 (CA 19-9), Peritoneal Fluid (08/16/2025 8:19 AM CDT) CA 19-9, Peritoneal Fluid <5 U/mL 08/16/2025 2:37 PM CDT [facility] Comment: A peritoneal fluid CA19-9 concentration = [...] This test has been modified from the cripple cutter's instructions. Its performance characteristics were determined by [facility] in a manner consistent with CLIA requirements. This test has not been cleared or approved by the U.S. Food and Drug Administration. The testing method is an immunoenzymatic assay manufactured by [employer] and performed on the [employer] DxI 800. Values obtained with different assay methods or kits may be different and cannot be used interchangeably. Test results cannot be interpreted as absolute evidence for the presence or absence of malignant disease. Site Peritoneal fluid 08/16/2025 2:37 PM CDT [facility] Fluid (Peritoneal Fluid) 08/16/2025 8:19 AM CDT Stephon Galindo D.O., M.B.A. LAB BODY FLUIDS AND STOOLS ORDERABLES Final Result [facility] [address] [place] [address] [facility] [address] [place] [address] * LDA ANE ENDOTRACHEAL AIRWAY (08/16/2025 7:47 [...] outcome: successful Notable Events: no complications Jeanette Viveros M.D. ANESTHESIA ORDERABLES Final Result * (ABNORMAL) Reticulocyte Profile (08/04/2025 9:13 AM CDT) Reticulocytes, B 1.78 0.60 - 2.71 % 08/04/2025 10:00 AM CDT DTL Absolute Reticulocyte 53.8 30.4 - 110.9 x10(9)/L 08/04/2025 10:00 AM CDT DTL Immature Reticulocyte Fraction 18.3(H) 3.0 - 15.9 % 08/04/2025 10:00 AM CDT DTL Reticulocyte Hemoglobin 37.3 30.0 - 37.6 pg 08/04/2025 10:00 AM CDT DTL Erythrocytes 3.02(L) 3.92 - 5.13 x10(12)/L 08/04/2025 10:00 AM CDT DTL Blood (Blood, Venous) 08/04/2025 9:13 AM CDT 08/04/2025 9:23 AM CDT Baljinder Decker APRN C.N.P., M.S. LAB BLOOD ADD-O N Final Result [facility] [address] [place] [address], [facility] [address] [place] [address] * (ABNORMAL) CBC-Preop with reflex anemia panel (08/04/2025 9:13 AM CDT) Hemoglobin 10.4(L) 11.6 - 15.0 g/dL 08/04/2025 10:00 AM CDT DTL Hematocrit 31.2(L) 35.5 - 44.9 % 08/04/2025 10:00 AM CDT DTL Erythrocytes 3.02(L) 3.92 - 5.13 x10(12)/L 08/04/2025 10:00 AM CDT DTL MCV 103.3(H) 78.2 - 97.9 fL 08/04/2025 10:00 AM CDT DTL RBC Distrib Width 14.4 12.2 - 16.1 % 08/04/2025 10:00 AM CDT DTL Platelet Count 164 157 - 371 x10(9)/L 08/04/2025 10:00 AM CDT DTL Leukocytes 9.5 3.4 - 9.6 x10(9)/L 08/04/2025 10:00 AM CDT DTL Blood (Blood, Venous) 08/04/2025 9:13 AM CDT 08/04/2025 9:23 AM CDT Narrative [facility] - 08/04/2025 10:00 AM CDT Specimen Information: Specimen ID: [id number] Specimen Type: Blood Specimen Collection Start Date: 08/04/2025 9:13 AM Specimen Received Date: 08/04/2025 9:23 AM Specimen ID: [id number] Specimen Type: Blood Specimen Collection Start Date: 08/04/2025 9:13 AM Specimen Received Date: 08/04/2025 9:35 AM Baljinder Decker APRN C.N.P., M.S. LAB BLOOD ADD-O N Final Result [facility] [address] [place] [address], [facility] [address] [place] [address] * (ABNORMAL) Iron and Total Iron-Binding Capacity (08/04/2025 9:13 AM CDT) Iron 38 35 - 145 mcg/dL 08/04/2025 10:02 AM CDT DTL Total Iron Binding Capacity 313 250 - 400 mcg/dL 08/04/2025 10:02 AM CDT DTL Percent Saturation 12(L) 14 - 50 % 08/04/2025 10:02 AM CDT DTL Blood (Blood, Venous) 08/04/2025 9:13 AM CDT 08/04/2025 9:35 AM CDT Nayla Sandoval APRN.N.P., M.S. LAB BLOOD ADD-O N Final Result [facility] [address] [place] [address] * Ferritin (08/04/2025 9:13 AM CDT) Ferritin, S 245 11 - 328 mcg/L 08/04/2025 10:02 AM CDT DTL Blood (Blood, Venous) 08/04/2025 9:13 AM CDT 08/04/2025 9:35 AM CDT Nayla Sandoval APRN.N.P., M.S. LAB BLOOD ADD-O N Final Result [facility] [address] [facility] [address] [place] [address] * Folate (08/04/2025 9:05 AM CDT) Folate, S >20.0 >=4.0 mcg/L 08/05/2025 9: 13 AM CDT DTL Blood 08/04/2025 9:05 AM CDT 08/04/2025 2:51 PM CDT Alma Rosa Johnson P.A.-C. LAB BLOOD ADD-ON Final Result Performing Organization Address City/[facility] Co de Phone Number [facility] [address] [place] [address] * (ABNORMAL) Vitamin B12 Assay (08/04/2025 9:05 AM CDT) [facility] Vitamin B12 Assay, S >1400(H) 180 - 914 ng/L 08/05/2025 9:22 AM CDT DT Comment: ----ADDITIONAL INFORMATION---- In patients being evaluated for vitamin B12 deficiency who have intrinsic factor blocking antibodies (IFBA), false elevations of B12 may occur due to IFBA interference thus potentially obscuring a physiological deficiency of B12. If observed B12 concentrations are discordant with clinical presentation, measurement of methylmalonic acid (MMA) should be considered. Blood (Blood, Venous) 08/04/2025 9:05 AM CDT 08/04/2025 2:51 PM CDT us Alma Rosa Johnson P.A.-C. LAB BLOOD ADD-ON Final Result Performing Organization Address [facility] de Phone Number [facility] [address] [place] [address] * Mis. [employer]. Sent Out Lab (06/29/2025 12:05 PM CDT) [facility] Test Name [employer] Custom + RNA Panel 06/29/2025 12:05 PM CDT IN[facility] Result SEE COMMENT 07/08/2025 9:04 AM CDT [facility] Comment: For final report, select Lab-Send Out Lab Results hyperlink below. 06/29/2025 12:0 5 PM CDT 06/30/2025 8:37 AM CDT Bhargav Cruz M.D. LAB MISC ORDERABLES Final Result Performing Organization Address [facility]/State/ZIP Co de Phone Number [email or web address] [address] [place] [address], [facility] [employer] [address] [place] [address] * [id number] [employer] Custom + RNA Panel - Miscellaneous Test (06/29/2025 12:05 PM CDT) Test Name [employer] Custom + RNA Panel 06/29/2025 12:05 PM CDT [facility] Result Specimen sent out; results to follow DEFAULT 06/29/2025 12:05 PM CDT [facility] Blood (Blood, Venous) 06/29/2025 12:05 PM CDT 06/29/2025 12:05 PM CDT Bhargav Cruz M.D. [facility] ORDERABLES Final Result Performing Organization Address [facility] Co de Phone Number [facility] [address] 200 [place] [address] * Carbohydrate Antigen 19-9 (CA 19-9) (06/29/2025 12:05 PM CDT) Pathologist [facility] Carbohydrate Ag 19-9, S <1 <35 U/mL 06/29/2025 5:28 PM CDT [facility] Comment: ----ADDITIONAL INFORMATION---- The testing method is an immunoenzymatic assay manufactured by [employer] and performed on the [employer] DxI 800. Values obtained with different assay methods or kits may be different and cannot be used interchangeably. Test results cannot be interpreted as absolute evidence for the presence or absence of malignant disease. Blood (Blood, Venous) 06/29/2025 12:05 PM CDT 06/29/2025 4:31 PM CDT Livier Narayan APRN, C.N.P., M.S. LAB BLOOD AD D-ON Final Result [facility] [address] [place] [address] [facility] [address] [place] [address] * (ABNORMAL) CBC with Differential, Blood (06/29/2025 12:05 PM CDT) Hemoglobin 10.5(L) 11.6 - 15.0 g/dL 06/29/2025 12:56 PM CDT DTL Hematocrit 32.1(L) 35.5 - 44.9 % 06/29/2025 12:56 PM CDT DTL Erythrocytes 3.23(L) 3.92 - 5.13 x10(12)/L 06/29/2025 12:56 PM CDT DTL MCV 99.4(H) 78.2 - 97.9 fL 06/29/2025 12:56 PM CDT DTL RBC Distrib Width 15.6 12.2 - 16.1 % 06/29/2025 12:56 PM CDT DTL Platelet Count 190 157 - 371 x10(9)/L 06/29/2025 12:56 PM CDT DTL Leukocytes 11.6(H) 3.4 - 9.6 x10(9)/L 06/29/2025 12:56 PM CDT DTL Neutrophils 7.96(H) 1.56 - 6.45 x10(9)/L 06/29/2025 12:56 PM CDT [facility] Lymphocytes 2.07 0.95 - 3.07 x10(9)/L 06/29/2025 12:56 PM CDT DTL Monocytes 1.43(H) 0.26 - 0.81 x10(9)/L 06/29/2025 12:56 PM CDT DTL Eosinophils 0.06 0.03 - 0.48 x10(9)/L 06/29/2025 12:56 PM CDT DTL Basophils 0.10(H) 0.01 - 0.08 x10(9)/L 06/29/2025 12:56 PM CDT DTL Blood (Blood, Venous) 06/29/2025 12:05 PM CDT 06/29/2025 12:37 PM CDT us Livier L Sylvain HODGE C.N.P., M.S. LAB BLOOD AD D-ON Final Result [facility] [address] [place] [address], [place] DTL [facility] [address] [place] [address] [facility] [address] [place] [address] * PET CT Skull to Thigh FDG (06/29/2025 7:27 AM CDT) Anatomical Region Laterality Modality Body, Nuclear Medicine PET R ST LOS, PET ARZ LOS, Nuclear Medicine PET FLA LOS, Nuclear Medicine N/A Positron Emission Tomography (PET), Positron Emission Tomography (PET) Impressions 06/29/2025 7:53 AM CDT 1. Near complete metabolic response of the pancreatic body adenocarcinoma with mild residual FDG uptake now near blood pool level. 2. No FDG avid locoregional or distant metastatic disease. Narrative 06/29/2025 7:53 AM CDT EXAM: PET CT SKULL TO THIGH FDG Serum glucose at time of F-18 FDG injection was 112 mg/dL. Patient followed standard dietary/fasting requirements for this exam. RADIOPHARMACEUTICAL/MEDS: Route: intravenous fludeoxyglucose F 18 injection INTERMEDIATE (F-18 FDG),9.72 millicurie TECHNIQUE: F-18 FDG PET/CT scan was performed from the orbits through the thighs with low dose, non-contrast, free-breathing CT images for attenuation correction and anatomic localization (AC/AL), with imaging beginning at approximately 60 minutes after radiotracer injection. COMPARISON: 04/14/2025 PET/CT, 03/29/2025 CT abdomen pelvis. INDICATION: Restaging pancreatic adenocarcinoma, interval chemotherapy. Subsequent treatment strategy. The patient reports no recent vaccinations. FINDINGS: Significant interval decrease in size and FDG uptake of the pancreatic adenocarcinoma within the pancreatic body with mild uptake now just above blood pool level, SUV max 2.2 (image 174), previously 12.6. No FDG avid localoregional or distant metastatic disease. New diffusely increased bone marrow activity presumably related to interval chemotherapy. New tiny focus of low-level uptake within the right humeral diaphysis only readily appreciated on advanced (IRQ) images, SUV max 1.2 (series 13 image 48) without underlying osseous lesion identified on CT images. This may be related to a small focus of marrow activation giving diffusely increased marrow activity elsewhere and can be reevaluated at time of follow-up. Previous postoperative low level abdominal wall activity has resolved. Linear inflammatory type esophageal uptake. Incidental findings on the low-dose unenhanced CT images: Not significantly changed. Procedure Note Mundo Kraus M.D. - 06/29/2025 EXAM: PET CT SKULL TO THIGH FDG Serum glucose at time of F-18 FDG injection was 112 mg/dL. Patientfollowed standard dietary/fasting requirements for this exam. RADIOPHARMACEUTICAL/MEDS: Route: intravenous fludeoxyglucose F 18 injection INTERMEDIATE (F-18 FDG),9.72 millicurie TECHNIQUE: F-18 FDG PET/CT scan was performed from the orbits through thethighs with low dose, non-contrast, free-breathing CT images forattenuation correction and anatomic localization (AC/AL), with imagingbeginning at approximately 60 minutes after radiotracer injection. COMPARISON: 04/14/2025 PET/CT, 03/29/2025 CT abdomen pelvis. INDICATION: Restaging pancreatic adenocarcinoma, interval chemotherapy.Subsequent treatment strategy. The patient reports no recent vaccinations. FINDINGS: Significant interval decrease in size and FDG uptake of the pancreaticadenocarcinoma within the pancreatic body with mild uptake now just aboveblood pool level, SUV max 2.2 (image 174), previously 12.6. No FDG avid localoregional or distant metastatic disease. New diffusely increased bone marrow activity presumably related tointerval chemotherapy. New tiny focus of low-level uptake within the right humeral diaphysis onlyreadily appreciated on advanced (IRQ) images, SUV max 1.2 (series 13 image48) without underlying osseous lesion identified on CT images. This may berelated to a small focus of marrow activation giving diffusely increased marrow activity elsewhere andcan be reevaluated at time of follow-up. Previous postoperative low level abdominal wall activity has resolved. Linear inflammatory type esophageal uptake. Incidental findings on the low-dose unenhanced CT images: Notsignificantly changed. IMPRESSION: 1. Near complete metabolic response of the pancreatic body adenocarcinomawith mild residual FDG uptake now near blood pool level. 2. No FDG avid locoregional or distant metastatic disease. us Milka Uribe APRNN.P., M.S. KIYA FERNY LETA FRANCOIS Final Result from Last 3 Months Insurance [employer] [place] [id number] Advance Directives For more information, please contact: [phone] * Full Code (Latest Code Status on File) Date Activated Date Inactivated Comments 09/01/2025 1:16 PM 09/05/2025 3:01 PM Question Answer Comments Full Code: Discussed * Full Code Date Activated Date Inactivated Comments 09/01/2025 6:42 AM 09/01/2025 1:16 PM Question Answer Comments Full Code: Discussed * Full Code Date Activated Date Inactivated Comments 08/16/2025 6:27 AM 08/16/2025 1:19 PM Question Answer Comments Full Code: Discussed * Full Code Date Activated Date Inactivated Comments 04/12/2025 12:41 PM 04/12/2025 6:48 PM Question Answer Comments Full Code: Discussed Care Teams Stunner Animal Relationship Specialty Start Date End Date Elsewhere, Pcp PCP - General Internal Medicine 04/12/25
--- OUTSIDE RECORDS SUMMARY | 2025-09-22 19:01 | XMS_ITS | Encounter Summary ---
Author Organization [facility] Address [address] [place] [address] Care Team Providers Care Recruiter Manager Name Role Phone Elsewhere, Pcp Primary Care Provider Unavailabl e Reason for Visit * Reason Onset Date Comments Follow-up 09/22/2025 Provider follow up from 09/22 afternoon. Encounter Details Date Type Department Care Team (Latest Contact Info) Description 09/22/2025 Remote Monitoring Remote Patient Monitoring [address] [place] [phone] Regi Kelly, REstelleN. [address] [place] [phone] Follow-up (Provider follow up from 09/22 afternoon.) Social History Tobacco Use Types Packs/Day Years [...] things needed for daily living? No 09/04/2025 [facility] Utilities Answer Date Recorded In the past 12 months has [employer], gas, oil, or water company threatened to shut off services in your home? No 09/04/2025 Housing Stability Answer Date Recorded What is your living situation today? I have a [facility] place to live 09/04/2025 Comments No Sex and Gender Information Value Date Recorded Sex Assigned at Female 03/21/2025 4:39 PM CDT Legal Sex Female 10:00 PM LEASING MACHINE TENDER Gender Identity Female 03/21/2025 4:39 PM CDT Sexual Orientation Straight 03/21/2025 4: 39 PM CDT documented as of this encounter Progress Notes * Regi Kelly, REstelleN. - 09/22/2025 4:44 PM CST Reason for Call Follow-up (Provider follow up from 09/22 afternoon.) RPM Program Patient Enrolled in: Hepatobiliary Vitals [...] 09/17/2025 8:26 AM 108 72 71 BPM Plan Other Plan Details: Per Leelee Calzada APRN, C.N.P., M.S.N, in response to note of this afternoon, Yes if she is feeling worse pain bell I would suggest she goes to the local ER. They can performa CT scan to assess for pancreas leak/fluid collection, draw labs, and perform urinalysis if indicated. If there are any questions or concerns, her local ED can reach out to us at any time. Patient updated and plans to be evaluated locally in the emergency room. ING MACHINE TENDER documented in this encounter Plan of Treatment Upcoming Encounters Date Type Department Care Team (Latest Contact Info) Description 10/05/2025 3:45 PM LEASING MACHINE TENDER Clinical Communication Virtual Review in [place], [place] 200 [place] [phone] 10/11/2025 1:40 PM LEASING MACHINE TENDER Nurse Only Section of Infectious Diseases in [place], [place] [address] [place] [phone] Kaleigh Xiong APRN, C.N.P., M.S.N. [address] [place] [phone] 10/11/2025 3:00 PM LEASING MACHINE TENDER Lab Department of Infusion Therapy in [place], [place] [address] [place] [phone] Kaleigh Xiong APRN, C.NDre., M.S.N. [address] [place] [phone] 10/11/2025 4:00 PM LEASING MACHINE TENDER Appointment Department of Radiology, [facility], in [place], [place] [address] [place] [phone] Kaleigh Xiong APRN, C.N.P., M.S.N. [address] [place] [phone] 10/12/2025 10:30 AM LEASING MACHINE TENDER Office Visit Division of Hepatobiliary and Pancreas Surgery in [address] [phone] Sammie Gerber APRN, C.NDre., M.S.N. [address] [place] [phone] 10/12/2025 3:00 PM LEASING MACHINE TENDER Comprehensive Visit Department of Oncology in [address] [phone] Jeffy James M.D. [address] [place] [phone] documented as of this encounter Visit Diagnoses Not on filedocumented in this encounter Care Teams Recruiter Manager Relationship Specialty Start Date End Date Elsewhere, Pcp PCP - General Internal Medicine 04/12/25 documented as of this encounter
--- OUTSIDE RECORDS SUMMARY | 2025-09-22 19:01 | XMS_ITS | Encounter Summary ---
Author Organization [facility] Address [address] [place] [address] Care Team Providers Care Malthouse Laborer Name Role Phone Elsewhere, Pcp Primary Care Provider Unavailabl e Reason for Visit * Reason Onset Date Comments Follow-up 09/19/2025 Remote Monitorin g Day 7-14 follow up call. Encounter Details Date Type Department Care Team (Latest Contact Info) Description 09/19/2025 Remote Monitoring Remote Patient Monitoring [address] [place] [phone] Diane Sue M.SEstelleN., R.N. [address] [place] [phone] Follow-up (Remote Monitoring Day 7-14 follow up call. ) Social History Tobacco Use Types Packs/Day Years [...] things needed for daily living? No 09/04/2025 [facility] Utilities Answer Date Recorded In the past 12 months has th [employer], gas, oil, or water company threatened to shut off services in your home? No 09/04/2025 Housing Stability Answer Date Recorded What is your living situation today? I have a [facility] place to live 09/04/2025 Comments No Sex and Gender Information Value Date Recorded Sex Assigned at Female 03/21/2025 4:39 PM CDT Legal Sex Female 10:00 PM ATOMIC PROCESS ENGINEER Gender Identity Female 03/21/2025 4:39 PM CDT Sexual Orientation Straight 03/21/2025 4: 39 PM CDT documented as of this encounter Progress Notes * Diane Sue, M.S.N., R.N. - 09/19/2025 9:14 AM CST Reason for Call Follow-up (Remote Monitoring Day 7-14 follow up call. ) RPM Program Patient Enrolled in: Hepatobiliary Vitals Remote Patient Monitoring vitals for last 7 days Remote Monitoring- Vitals Last 7 days Weight (kg) Temperature (F) SPO2 Systolic (Home) Diastolic (Home) Pulse (Home) 09/19/2025 9:13 AM 96 % Oxygen 09/19/2025 9:10 AM 111 69 69 BPM 09/18/2025 9:01 AM 51.53 kg 09/18/2025 9:00 AM 98 % Oxygen 09/18/2025 8:59 AM 97.6 Fahrenheit 09/18/2025 8:58 AM 101 69 73 BPM 09/17/2025 8:29 AM 51.53 kg 09/17/2025 8:28 AM 97 % Oxygen 09/17/2025 8:27 AM 97.6 Fahrenheit 09/17/2025 8:26 AM 108 72 71 BPM 09/15/2025 8:20 AM 51.44 kg 09/15/2025 8:19 AM 95 % Oxygen 09/15/2025 8:18 AM 94.1 Fahrenheit 09/15/2025 8:17 AM 114 76 80 BPM 09/14/2025 7:34 AM 51.44 kg 09/14/2025 7:33 AM 98 % Oxygen 09/14/2025 7:32 AM 94.1 Fahrenheit 09/14/2025 7:31 AM 109 76 79 BPM 09/13/2025 7:37 AM 50.62 kg 09/13/2025 7:36 AM 96 % Oxygen 09/13/2025 7:35 AM 96.2 Fahrenheit 96.2 Fahrenheit 09/13/2025 7:32 AM 105 72 79 BPM Virtual Assessment Pain Pain Score: 1 Pain Type: Surgical pain Pain Location: Abdomen, Back, Other (Comment) Pain Location Comment: lower back - taking Tylenol and Ibuprofen and using heating pad Pain Frequency: Intermittent Clinical Progression: Gradually improving Pain Interventions for Relief: Heat applied, Medication, Ambulation/increased activity Intervention Response: Moderate pain improvement General General Symptoms Denied: Chills, Fever, Night sweats, Fatigue Activity: Patient is active independently at home with ADLS, gets assistance with lifting Psychosocial Mood/Behavior: Calm, Cooperative Cardiac Cardiac Symptoms Denied: Edema Respiratory Respiratory Symptoms Denied: Labored, Chest Tightness, Wheezing Cough Present: (cough has resolved) Shortness of Breath: No Gastrointestinal GI Symptoms Denied: Bloating, Cramping, Distention, Nausea, Vomiting GI Symptoms: Loss of appetite Diet: Regular diet, Other (Comment) Diet Comment: appetite is improving, weight is stable Stool Frequency: 1 Time per Day Stool Color: Brown Integumentary Skin Integrity: Other (Comment) Skin Integrity Comment: abdominal incision well approximated with no redness, swelling, discharge, odor or warmth Skin Color: Other (Comment) Skin Color Comment: Normal skin color with no jaundice reported Skin Condition/Temp: Warm, Dry Skin Location: Abdomen Neurological Level of Consciousness: Alert Orientation Level: Oriented x 3 Neuro Symptoms: Other (Comment) Neuro Symptoms Comment: Denies dizziness or lightheadedness Plan Patient will: Continue vital sign and symptom monitoring, Call the remote monitoring RN with questions or concerns During the next interaction we plan to: Review the patient's vital signs, Review symptoms Other Plan Details: No concerns, healing nicely, continue to work on increasing food/fluid intake with goal of weight gain. IC PROCESS ENGINEER documented in this encounter Plan of Treatment Upcoming Encounters Date Type Department Care Team (Latest Contact Info) Description 10/05/2025 3:45 PM ATOMIC PROCESS ENGINEER Clinical Communication Virtual Review in [address] [phone] 10/11/2025 1:40 PM ATOMIC PROCESS ENGINEER Nurse Only Section of Infectious Diseases in [address] [phone] Kaleigh Xiong APRN, C.N.P., M.S.N. [address] [place] [phone] 10/11/2025 3:00 PM ATOMIC PROCESS ENGINEER Lab Department of Infusion Therapy in [address] [phone] Kaleigh Xiong APRN, C.N.P., M.S.N. [address] [place] [phone] 10/11/2025 4:00 PM ATOMIC PROCESS ENGINEER Appointment Department of Radiology, [facility], in [address] [phone] Kaleigh Xiong APRN, C.N.P., M.S.N. [address] [place] [phone] 10/12/2025 10:30 AM ATOMIC PROCESS ENGINEER Office Visit Division of Hepatobiliary and Pancreas Surgery in [address] [phone] Sammie Gerber APRN, C.N.P., M.S.N. [address] [place] [phone] 10/12/2025 3:00 PM ATOMIC PROCESS ENGINEER Comprehensive Visit Department of Oncology in [place], [place] [address] [place] [phone] Jeffy James M.D. [address] [place] [phone] documented as of this encounter Visit Diagnoses Not on filedocumented in this encounter Care Teams Malthouse Laborer Relationship Specialty Start Date End Date Elsewhere, Pcp PCP - General Internal Medicine 04/12/25 documented as of this encounter
--- OUTSIDE RECORDS SUMMARY | 2025-09-22 19:01 | XMS_ITS | Patient Health Record ---
Author Organization [facility] Address [address] [facility] [address] [place] [address] Care Team Providers Care Real Estate Accountant Name Role Phone Omkar Sprague Unavailable Unavailable Allergies Allergen (clinical drug ingredient) Drug/Non Drug Allergy documented on EMR Reaction Allergy Type Onset Date Status Sulfacet-R Unknown Drug Allergy Active Reason For Referral No Information Medications Medication SIG (Take, Route, Frequency, Duration) Notes Start Date End Date Status Levothyroxine Sodium 25 MCG 1 tablet in the morning on an empty stomach Orally Once a day; Duration: 30 day(s) Active Macrobid 100 MG 1 capsule with food Orally every 12 hrs; Duration: 7 day(s) Active Liothyronine Sodium 25 MCG 1 tablet on a n empty stomach Orally Once a day; Duration: 30 day(s) Active Social History Alcohol Screen (Audit-C) Question Answer Notes Did you have a drink containing alcohol in the p ast year? Yes Points 0 Interpretation Negative Plan Of Treatment Pending Test Test Name Order Date Urinalysis, Routine 12/28/2019 CT ABDOMEN WO 12/28/2019 Insurance Providers Payer Name Payer Address Payer Phone Subscriber Number Group Number Insured Name Patient Relationship to Insured Coverage Start Date Coverage End Date [facility] [address] [place] [phone] [id number] Yara Linda Self - patient is the insured Medical (General) History Medical History History ICD Code thyroid disease
--- OUTSIDE RECORDS SUMMARY | 2025-09-22 19:01 | XMS_ITS | Encounter Summary ---
Author Organization [facility] Address [address] [place] [phone] Care Team Providers Care Computer Aide Name Role Phone Elsewhere, Pcp Primary Care Provider Unavailabl e Reason for Visit * Reason Onset Date Comments Follow-up 09/22/2025 Encounter Details Date Type Department Care Team ([facility] st Contact Info) Description 09/22/2025 Remote Monitoring Remote Patient Monitoring [address] [place] [phone] Regi Kelly, REstelleNEstelle [address] [place] [phone] Follow-up Social History Tobacco Use Types Packs/Day Years [...] for daily living? No 09/04/2025 [facility] Utilities Answer Date Recorded In the past 12 months has [employer] electric, gas, oil, or water company threatened to shut off services in your home? No 09/04/2025 Housing Stability Answer Date Recorded What is your living situation today? I have a [facility] place to live 09/04/2025 Comments No Sex and Gender Information Value Date Recorded Sex Assigned at Female 03/21/2025 4:39 PM CDT Legal Sex Female 10:00 PM ELECTRIC TRUCK DRIVER Gender Identity Female 03/21/2025 4:39 PM CDT Sexual Orientation Straight 03/21/2025 4: 39 PM CDT documented as of this encounter Progress Notes * Regi Kelly, REstelelN. - 09/22/2025 3:13 PM CST Reason for Call Follow-up RPM Program Patient Enrolled in: Hepatobiliary Vitals [...] Plan Other Plan Details: Per Leelee Calzada CNP in response to the 09/22 note, Typically with midback pain after pancreas surgery, it can be related to post- operative inflammation or a pancreas leak/fluidcollection. Since she is overall doing well with eating, bowel movements, and not having any feversor debilitating pain, I think it is fair to continue to monitor her symptoms and vitals and I can resend a prescription for robaxin. With that, if her pain worsens or she develops fevers, or developsnausea/vomiting, this would be highly indicative of a pancreas leak that we would want to move up her outpatient appts. Please keep us in the loop of any changes. Patient updated and agrees with theplan. TRIC TRUCK DRIVER documented in this encounter Plan of Treatment Upcoming Encounters Date Type Department Care Team (Latest Contact Info) Description 10/05/2025 3:45 PM ELECTRIC TRUCK DRIVER Clinical Communication Virtual Review in [place], [place] [address] [place] [phone] 10/11/2025 1:40 PM ELECTRIC TRUCK DRIVER Nurse Only Section of Infectious Diseases in [place], [place] [address] [place] [phone] Kaleigh Xiong, ENVIRONMENTAL FIELD SERVICES TECHNICIAN, C.N.P., M.S.N. [address] [place] [phone] 10/11/2025 3:00 PM ELECTRIC TRUCK DRIVER Lab Department of Infusion Therapy in [place], [place] [address] [place] [phone] Kaleigh Xiong APRN, C.N.P., M.S.N. [address] [place] [phone] 10/11/2025 4:00 PM ELECTRIC TRUCK DRIVER Appointment Department of Radiology, [facility], in [place], [place] [address] [place] [phone] Kaleigh Xiong APRN C.N.P., M.S.N. [address] [place] [phone] 10/12/2025 10:30 AM ELECTRIC TRUCK DRIVER Office Visit Division of Hepatobiliary and Pancreas Surgery in [place], [place] [address] [place] [phone] Sammie Gerber APRN, C.N.P., M.S.N. [address] [place] [phone] 10/12/2025 3:00 PM ELECTRIC TRUCK DRIVER Comprehensive Visit Department of Oncology in [place], [place] [address] [place] [phone] Jeffy James M.D. [address] [place] [phone] documented as of this encounter Visit Diagnoses Not on filedocumented in this encounter Care Teams Computer Aide Relationship Specialty Start Date End Date Elsewhere, Pcp PCP - General Internal Medicine 04/12/25 documented as of this encounter
--- OUTSIDE RECORDS SUMMARY | 2025-09-22 19:01 | XMS_ITS ---
Author Organization [facility] Address [address] [place] [address] Care Team Providers Care Residential Sales Consultant Name Role Phone Elsewhere, Pcp Primary Care Provider Unavailabl e Active Problems * This document contains information received from the source organization and may not represent a complete record from that organization. 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 Past Treatment and Therapy Plans Hematology / Oncology Treatment 1 Plan Name Start Date Discontinue Date Treatment Medications Discontinue Reason Plan Provider Cycles FOLFIRINOX ( Fluorouracil / Leucovorin / Irinotecan / Oxaliplatin ) 5 05/03/2025 fluorouraciL (AdruciL)irino tecan (Camptosar)oxa liplatin (Eloxatin) Receiving Treatment Outside of [facility] Livier Narayan APRN, C.N.P., M.S. Treatment not started Lifetime Dose Tracking * Chemical Lifetime Dose Automatic Entry Manual Entr y Radiation 1.4 mGy 1.4 mGy 0 mGy Fluoro Time 0.3 minutes 0.3 minutes 0 minutes DAP (uGy-m2) 30.2 uGy-m2 30.2 uGy-m2 0 uGy-m2
--- OUTSIDE RECORDS SUMMARY | 2025-09-22 19:02 | XMS_ITS | Clinical Summary ---
[facility] Address [address] [place] [address] Care Team Providers Care Psychiatric Nursing Aide Name Role Phone Needs Pcp, Assignment Primary Care Provider [phone] Source Comments You are receiving this document as you are listed as the primary care provider,follow-up provider, or the patient has been referred to you for consultation.This is in compliance with the Medicare andMedicaid EHR Incentive Program,which states Providers who transition their patient to another setting of careor provider of care or refers their patient to another provider of care shouldprovide summary care record for each transition of care or referral. [employer] Allergies Active Allergy Reactions Criticality Noted Date Comments Sulfa Antibiotics Hives High 10/03/2023 Medications amoxicillin (AMOXIL) 500 MG capsuleIndicati ons:APRIL JEFF FriApr 05, 2016 1:57 PM Received from: External Pharmacy Indications: PN: APRIL JEFF FriApr 05, 2016 1:57 PM Received from: External Pharmacy 03/20/2015 Active cephALEXin (KEFLEX) 500 MG capsuleIndicati ons:APRIL JEFF FriApr 05, 2016 1:57 PM Received from: External Pharmacy Indications: PN: APRIL JEFF FriApr 05, 2016 1:57 PM Received from: External Pharmacy 09/25/2015 Active cyclobenzaprine (FLEXERIL) 10 MG tabletIndicatio ns:APRIL JEFF FriApr 05, 2016 1:57 PM Received from: External Pharmacy Indications: PN: APRIL JEFF FriApr 05, 2016 1:57 PM Received from: External Pharmacy 03/18/2016 Active Estriol MicronizedIndic ations:APRIL JEFF FriApr 05, 2016 1:57 PM Received from: External Pharmacy Indications: PN: APRIL JEFF FriApr 05, 2016 1:57 PM Received from: External Pharmacy 02/12/2016 Active fluconazole (DIFLUCAN) 150 MG tabletIndicatio ns:APRIL JEFF FriApr 05, 2016 1:57 PM Received from: External Pharmacy Indications: PN: APRIL JEFF FriApr 05, 2016 1:57 PM Received from: External Pharmacy 03/20/2015 Active fluticasone (FLONASE) 50 MCG/ACT nasal solutionIndicat ions:APRIL JEFF FriApr 05, 2016 1:57 PM Received from: External Pharmacy Indications: PN: APRIL JEFF FriApr 05, 2016 1:57 PM Received from: External Pharmacy 03/07/2015 Active predniSONE (DELTASONE) 20 MG tabletIndicatio ns:APRIL JEFF FriApr 05, 2016 1:57 PM Received from: External Pharmacy Indications: PN: APRIL JEFF FriApr 05, 2016 1:57 PM Received from: External Pharmacy 0 06/12/2015 Active ProgesteroneInd ications:APRIL JEFF FriApr 05, 2016 1:58 PM Received from: External Pharmacy Indications: PN: APRIL JEFF FriApr 05, 2016 1:58 PM Received from: External Pharmacy 02/13/2016 Active tobramycin-dexa methasone (TOBRADEX) 0.3-0.1 % eye drop suspensionIndic ations:APRIL JEFF FriApr 05, 2016 1:58 PM Received from: External Pharmacy Indications: PN: APRIL JEFF FriApr 05, 2016 1:58 PM Received from: External Pharmacy 12/13/2015 Active Social History Tobacco Use Types Packs/Day Years Used Date Smoking Tobacco: Never Alcohol Use Standard Drinks/Week Comments Yes 0 (1 standard drink = 0.6 oz pur e alcohol) Comments Unknown Sex and Gender Information Value Date Recorded Sex Assigned at Not on file Legal Sex Female 2:00 PM CDT Gender Identity Not on file Sexual Orientation Not on file Last Filed Vital Signs Vital Sign Reading Time Taken Comments Blood Pressure - - Pulse - - Temperature 36.9 C (98.5 F) 10/03/2023 10:44 AM DATABASE SOFTWARE TECHNICIAN Respiratory Rate - - Oxygen Saturation - - Inhaled Oxygen Concentration - - Weight 59.9 kg (132 lb) 10/03/2023 10:44 AM DATABASE SOFTWARE TECHNICIAN Height 175.3 cm (5' 9) 10/03/2023 10:44 AM DATABASE SOFTWARE TECHNICIAN Body Mass Index 19.49 10/03/2023 10:44 AM DATABASE SOFTWARE TECHNICIAN Plan of Treatment Health Maintenance Due Date Last Done Comments Cervical Cancer Screening Due 1960 Colon Cancer Screening Plan Due 1960 Hep C Screening (Preventive Services) 1960 Mammogram 1960 HIV Screening (Preventive Services) 1976 Adult Preventive Visit 1978 DTaP/Tdap/Td Vaccine (1 - Tdap) 1979 Cholesterol 2005 Pneumococcal Vaccine 50+ Yrs (1 of 1 - PCV) 2010 Zoster/Shingles Vaccine (1 of 2) 2010 COVID-19 Vaccine ( - 2024-2 6 season) 2025 Influenza Vaccine (#1) 2025 RSV Vaccine (1 - 1-dose 75+ series) 2035 HepA Vaccine Aged Out No longer eligi ble based on patient's age to complete this topic HepB Vaccine Aged Out No longer eligi ble based on patient's age to complete this topic Hib Vaccine Aged Out No longer eligi ble based on patient's age to complete this topic IPV (Polio) Vaccine Aged Out No longe r eligible based on patient's age to complete this topic MCV4 Vaccine Aged Out No longer eligi ble based on patient's age to complete this topic Meningococcal B Vaccine Aged Out No l onger eligible based on patient's age to complete this topic Insurance [employer] Care Teams Psychiatric Nursing Aide Relationship Specialty Start Date End Date Needs Pcp, [place] [address] PCP - General 10/15/23
--- OUTSIDE RECORDS SUMMARY | 2025-09-22 19:02 | XMS_ITS | Encounter Summary ---
Author Organization [facility] Address [address] [place] [address] Care Team Providers Care Oven Unloader Name Role Phone Elsewhere, Pcp Primary Care Provider Unavailabl e Encounter Details Date Type Department Care Team (Late st Contact Info) Description 09/06/2025 Results Follow-Up Division of Hepatobiliary and Pancreas Surgery in [place], [place] [address] [place] [phone] Stephon Galindo D.O., M.B.A. [address] [place] [phone] Surgical Pathology, Frozen Lab Social History Tobacco Use Types Packs/Day Years [...] things needed for daily living? No 09/04/2025 [facility] Utilities Answer Date Recorded In the past 12 months has [employer] electric, gas, oil, or water company threatened to shut off services in your home? No 09/04/2025 Housing Stability Answer Date Recorded What is your living situation today? I have a [facility] place to live 09/04/2025 Comments No Sex and Gender Information Value Date Recorded Sex Assigned at Female 03/21/2025 4:39 PM CDT Legal Sex Female 10:00 PM CREDIT ASSESSMENT ANALYST Gender Identity Female 03/21/2025 4:39 PM CDT Sexual Orientation Straight 03/21/2025 4: 39 PM CDT documented as of this encounter Plan of Treatment Upcoming Encounters Date Type Department Care Team (Latest Contact Info) Description 10/05/2025 3:45 PM CREDIT ASSESSMENT ANALYST Clinical Communication Virtual Review in [place], [place] [address] [place] [phone] 10/11/2025 1:40 PM CREDIT ASSESSMENT ANALYST Nurse Only Section of Infectious Diseases in [place], [place] [address] [place] [phone] Kaleigh Xiong APRN, C.N.P., M.S.N. [address] [place] [phone] 10/11/2025 3:00 PM CREDIT ASSESSMENT ANALYST Lab Department of Infusion Therapy in [place], [place] [address] [place] [phone] Kaleigh Xiong APRN, C.N.P., M.S.N. [address] [place] [phone] 10/11/2025 4:00 PM CREDIT ASSESSMENT ANALYST Appointment Department of Radiology, [facility], in [place], [place] [address] [place] [phone] Kaleigh Xiong APRN, C.N.P., M.S.N. [address] [place] [phone] 10/12/2025 10:30 AM CREDIT ASSESSMENT ANALYST Office Visit Division of Hepatobiliary and Pancreas Surgery in [place], [place] [address] [place] [phone] Sammie Gebrer APRN, Nayla.N.P., M.S.N. [address] [place] [phone] 10/12/2025 3:00 PM CREDIT ASSESSMENT ANALYST Comprehensive Visit Department of Oncology in [place], [place] [address] [place] [phone] Jeffy James M.D. [address] [place] [phone] documented as of this encounter Visit Diagnoses Not on filedocumented in this encounter Care Teams Oven Unloader Relationship Specialty Start Date End Date Elsewhere, Pcp PCP - General Internal Medicine 04/12/25 documented as of this encounter
--- OUTSIDE RECORDS SUMMARY | 2025-09-22 19:02 | XMS_ITS | Clinical Summary ---
Author Organization [facility] Address [address] [place] [address] Care Team Providers Care Stunner Animal Name Role Phone China Boykin DO Primary Care Provider [phone] Allergies Active Allergy Reactions Criticality Noted Date Comments Sulfa (Sulfonamide Antibiotics) Rash 02/02 Medications lactobac cmb #[id number] ne (PROBIOTIC & ACIDOPHILUS) 300-250 million cell-mg cap Take by mouth. 0 5 Active medication order composer DHEA 5 mg 0 6 Active Magnesium Oxide 500 mg cap Take 1,000 mg by mouth. 0 6 Active medication order composer 4% progesterone 0 6 Active medication order composer biest 8:2 versa 4 mg, cream 0 6 Active medication order composer Testosterone 0.5% cream 0 6 Active metroNIDAZOLE (METROGEL) 0.75 % gel 0 Active doxycycline monohydrate (MONODOX) 100 mg capsule TK 1 C PO BID FOR 2 WEEK INTERVALS FOR ROSEACEA FLARES 0 Active medication order composer 6000 iu vitamin d3 and vitamin K-unsure of dose 0 0 Active medication order composer bioidentical T4/T3 0 Active valACYclovir (VALTREX) 1 gram tabletIndicatio ns:History of cold sores TAKE 2 TABLETS BY MOUTH TWICE DAILY FOR 1 DAY 8 Tablet 1 Active LORazepam 0.5 mg tabIndications: Claustrophobia Take 1/2- 1 tablet 30min prior to MRI. 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 bulges 09/29/2013 Screen for colon cancer 01/14/2011 Overview (10/20/2017): Colonoscopy 01/2011 normal repeat in 10 years Colonoscopy 10/2017 internal hemorrhoids repeat in 10 years Unspecified sinusitis (chronic) 06/25/2010 Allergic rhinitis, cause unspecified 02/25/2007 Insomnia, unspecified 02/25/2007 Encounters Date Type Department Care Team Description 08/25/2025 Travel 08/21/2025 Travel from Last 3 Months Immunizations Immunization Administration Dates Next Due AMB Influenza, IIV3 (Age >=3 years)(Flu Clinic Only) 08/24/2008 Influenza, IIV3 (Age >=3 years) 08/20/2011,09/03,08/20/2002 Td (Age >=7 Years) 12/15/1997 Tdap 08/20/2011 Family History Medical History Relation Name Comments Hyperlipidemia Maternal Grandmother Hyperlipidemia Mother Coronary artery disease Paternal Grandfather 60's Diabetes Paternal Grandmother Relation Name Status Comments Brother 1 Alive Brother 2 Alive Father Alive Maternal Grandmother Mother Alive Paternal Grandfather Paternal Grandmother Social History Tobacco Use Types Packs/Day Years Used Date Smoking Tobacco: Never Smokeless Tobacco: Never Tobacco Cessation:Counseling Given: Yes Comments:never Alcohol Use Standard Drinks/Week Comments Yes 0 (1 standard drink = 0.6 oz pure alcohol) weekends, 1-2 drinks at a sitting PHQ-2 Answer Date Recorded PHQ-2 TOTAL SCORE 0 05/10/2024 Social Connections Answer Date Recorded Do you often feel lonely or isolated from those around you? 0 05/10/2024 Financial Resource Strain Answer Date R ecorded Difficulty of Paying Living Expenses 3 05/10/2024 Difficulty of Paying Living Expenses Not on file 05/10/2024 Food Insecurity Answer Date Recorded Do you worry your food will run out before you are able to buy more? 1 05/10/2024 Transportation Needs Answer Date Record ed Does lack of transportation keep you from medica l appointments? 1 05/10/2024 Does lack of transportation keep you from work, meetings or getting things that you need? 1 05/10/2024 Housing Stability Answer Date Recorded What is your housing situation today? 1 05/10/2024 Utilities Answer Date Recorded Do you have trouble paying f or utilities (for example, heat, electricity, water, phone)? 1 05/10/2024 Comments No Sex and Gender Information Value Date Recorded Sex Assigned at Not on file Legal Sex Female 6:06 AM MICROBIOLOGY LAB ANALYST Gender Identity Not on file Sexual Orientation Not on file Obstetrics History Para Term AB IAB SAB Ectopic Multiple Livin g Live Births 3 3 3 Date Outcome GA Total Labor Labor/2nd/3rd Weight Sex Type Anes PTL Myrna A1 A5 Name Clin Living Living Living Last Filed Vital Signs Vital Sign Reading Time Taken Comments Blood Pressure 113/74 03/14/2025 1:29 PM CDT Pulse 72 03/14/2025 1:29 PM CDT Temperature 36.6 C (97.8 F) 10/16/2020 8:04 AM MICROBIOLOGY LAB ANALYST Respiratory Rate 20 04/30/2007 8:40 AM CDT Oxygen Saturation 98% 03/14/2025 1:2 9 PM CDT Inhaled Oxygen Concentration - - Weight 60.2 kg (132 lb 11.2 oz) 025 1:29 PM CDT with shoes Height 174 cm (5' 8.5) 05/10/2024 10:3 5 AM CDT Body Mass Index 19.88 05/10/2024 10:35 AM CDT Plan of Treatment Health Maintenance Due Date Last Done Comments HIV for age 15-65 1975 Hepatitis C screening for age 18-79 1978 Pneumococcal series for age 50+ (1 of 1 - PCV) 2010 Zoster (shingles) series for age 50+ (1 of 2) 2010 Lipids for age 45-75 11/02/2020 11/02/2015, 10/13/20 12 Tetanus booster 08/20/2021 08/20/2011, 08/03, 12/15/1997 BMI (ht and wt on same day) for age 18+ 05/10/2025 05/10/2024, 03/20/2021, 03/13/2020, Additional history exists Depression screening for age 12+ 05/10/2025 05/10/2024, 03/20/2021, 10/02/2020, Additional history exists Influenza Vaccine (#1) 2025 1, 09/03/2010, 08/24/2008, Additional history exists Mammogram for age 45-75 07/19/2025 07/19/20 24, 04/09/2022, 03/12/2021, Additional history exists Pap test for age 21-65 03/20/2026 , 03/20/2021, 08/12/2016, Additional history exists Colonoscopy through age 75 10/20/202710/20, 10/20/2017, 10/20/2017 (Completed outside of [facility]), Additional history exists RSV vaccine for adults or (1 - 1-dose 75+ series) 2035 Hepatitis B series for 19+ Aged Out N o longer eligible based on patient's age to complete this topic Procedures Procedure Name Priority Date/Time Associated Diagnosis Comments SCAN-MAMMOGRAPHY REPORT 07/19/2024 12:00 AM CDT AUTOMAT CAR ATTENDANT THIN PREP PAP SCREEN IMAGED Routine 03/20/2021 9:00 AM CDT Cervical cancer screening SCAN-COLONOSCOPY 10/20/2017 12:0 0 AM MICROBIOLOGY LAB ANALYST LIPID PANEL Routine 11/02/2015 8:58 AM MICROBIOLOGY LAB ANALYST Elevated LDL cholesterol level from Last 3 Months or Most Recently Relevant to Health Maintenance Results * SCAN-MAMMOGRAPHY REPORT (07/19/2024 12:00 AM CDT) Anatomical Region Laterality Modality Other us Scanner OTHER Final Result * AUTOMAT CAR ATTENDANT THIN PREP PAP SCREEN IMAGED (03/20/2021 9:00 AM CDT) Case Report Gynecologic Cytology Report Case: [id number] Authorizing Provider: China Boykin DO Collected: 03/20/2021 0900 Ordering Location: [facility] Received: 03/20/2021 1245 Clinic First Screen: Kumar Sims Specimen: AUTOMAT CAR ATTENDANT ThinPrep Vial Screening, Cervical 03/28/2021 12:51 PM CDT [facility] INTERPRETATION/ RESULT NEGATIVE FOR INTRAEPITHELIAL LESION OR MALIGNANCY (NIL) (none) 03/28/2021 12:51 PM CDT [facility] at 1251 CDT SPECIMEN ADEQUACY Satisfactory for evaluation Endocervical component present 03/28/2021 12:51 PM CDT [facility] HPV REQUEST HPV and PAP 03/28/2021 12:51 PM CDT [facility] Date of LMP ablation/postmeno pausal 03/28/2021 12:51 PM CDT [facility] Last Pap Date 08/12/16 03/28/2021 12:51 PM CDT [facility] Last Pap Result NIL 12:51 PM CDT [facility] Abnormal Pap or [place] Bx in last 5 years No 03/28/2021 12:51 PM CDT [facility] Menstrual Status Postmenopausal 03/28/2021 12:51 PM CDT [facility] [place] Bx Done Today No 03/28/2021 12:51 PM CDT [facility] Additional Information None given 03/28/2021 12:51 PM CDT [facility] Comment: [email or web address], Central Laboratory - [address], [place] [address] and [facility] - [address], [place] [address] and [facility] - [address] [place] [address] Interpreted at [facility] Central Laboratory - [address], [place] [address] Automated Review Successful 03/28/2021 12:51 PM CDT [facility] Comment:Specimen processed s uccessfully by automated power tool repairer device, ThinPrep Imaging System, [employer] ANCILLARY TESTING AUTOMAT CAR ATTENDANT HPV Ordered, Please see separate report 03/28/2021 12:[address] [facility] Note The pap test is a screening technique, not a diagnostic procedure. It is used primarily to screen for squamous cancers and precursor lesions. Published studies have shown that it is subject to both false negative and false positive results. The pap test should not be used as the sole means to diagnose or exclude pre-malignant and malignant lesions. 03/28/2021 12:[address] [facility] Other (Cervical) Non-Blood / Unknown 03/20/2021 9:00 AM CDT 03/20/2021 12:45 PM CDT us China Boykin DO PATHOLOGY/CYTOLOGY Final R esult [facility] [address] [place] [address], [place] * SCAN-COLONOSCOPY (10/20/2017 12:00 AM MICROBIOLOGY LAB ANALYST) us Scanner OTHER Final Result * (ABNORMAL) LIPID PANEL (11/02/2015 8:58 AM MICROBIOLOGY LAB ANALYST) CHOLESTEROL,TOTAL 260(H) 100 - 199 mg/dL 11/02/2015 9:56 AM MICROBIOLOGY LAB ANALYST [facility] TRIGLYCERIDES 70 <150 mg/dL 11/02/2015 9:56 AM MICROBIOLOGY LAB ANALYST [facility] HDL CHOLESTEROL 78 >40 mg/dL 11/02/2015 9:56 AM MICROBIOLOGY LAB ANALYST [facility] NON-HDL CHOLESTEROL 182(H) <145 mg/dl 11/02/2015 9:56 AM MICROBIOLOGY LAB ANALYST [facility] CHOL/HDL RATIO 3.33 <4.50 11/02/2015 9:56 AM MICROBIOLOGY LAB ANALYST [facility] LDL CHOLESTEROL 168(H) <=130 mg/dL 11/02/2015 9:56 AM MICROBIOLOGY LAB ANALYST [facility] PATIENT STATUS FASTING 11/02/2015 9:56 AM MICROBIOLOGY LAB ANALYST [facility] Blood specimen (specimen) BLOOD SPECIMEN / Unknown Butterfly / Unknown 11/02/2015 8:58 AM MICROBIOLOGY LAB ANALYST 11/02/2015 8:58 AM MICROBIOLOGY LAB ANALYST China Boykin DO CHEMISTRY Final Resu lt [facility] [address] [place] [address], from Last 3 Months or Most Recently Relevant to Health Maintenance Insurance Care Teams Stunner Animal Relationship Specialty Start Date End Date China Boykin DO [address] [place] [address] PCP - General Family Practice 02/15/15
--- OUTSIDE RECORDS SUMMARY | 2025-09-22 19:02 | XMS_ITS | Encounter Summary ---
Author Organization [facility] Address [address] [place] [address] Care Team Providers Care Rails Developer Name Role Phone Elsewhere, Pcp Primary Care Provider Unavailabl e Reason for Visit * Reason Onset Date Comments Hepatobiliary 09/07/2025 Follow-up 09/07/2025 Day 2 Encounter Details Date Type Department Care Team (Latest Contact Info) Description 09/07/2025 Remote Monitoring Remote Patient Monitoring [address] [place] [address] Fabiola Oviedo, R.N. [address] [place] [phone] Hepatobiliary; Follow-up (Day 2) Social History Tobacco Use Types Packs/Day Years [...] things needed for daily living? No 09/04/2025 [facility] Utilities Answer Date Recorded In the past 12 months has [employer] electric, gas, oil, or water company threatened to shut off services in your home? No 09/04/2025 Housing Stability Answer Date Recorded What is your living situation today? [facility] place to live 09/04/2025 Comments No Sex and Gender Information Value Date Recorded Sex Assigned at Female 03/21/2025 4:39 PM CDT Legal Sex Female 10:00 PM NEWSPAPER DELIVERY DRIVER Gender Identity Female 03/21/2025 4:39 PM CDT Sexual Orientation Straight 03/21/2025 4: 39 PM CDT documented as of this encounter Progress Notes * Fabiola Oviedo, R.N. - 09/07/2025 1:24 PM CST Reason for Call Hepatobiliary and Follow-up (Day 2) RPM Program Patient Enrolled in: Hepatobiliary Vitals Remote Patient Monitoring vitals for last 7 days Remote Monitoring- Vitals Last 7 days Weight (kg) Temperature (F) SPO2 Systolic (Home) Diastolic (Home) Pulse (Home) 09/07/2025 10:21 AM 51.71 kg 09/07/2025 10:19 AM 97 % Oxygen 09/07/2025 10:16 AM 97.8 Fahrenheit 09/07/2025 10:14 AM 101 69 89 BPM Virtual Assessment Pain Pain Score: 1 Pain Type: Surgical pain Pain Location: Abdomen, Back, Other (Comment) Pain Location Comment: lower back Intervention Response: Significant pain improvement General General Symptoms Denied: Chills, Fever, Night sweats General Symptoms: Fatigue Fatigue symptoms: Improving Activity: Patient is active independently at home with ADLS, gets assistance with lifting Psychosocial Mood/Behavior: Calm, Cooperative Cardiac Cardiac Symptoms Denied: Palpitations, Lightheaded, Angina, Edema Respiratory Respiratory Symptoms Denied: Labored, Chest Tightness, Wheezing Cough Present: Yes Cough Present Status: Improving (tickle in throat after d/c from hospital) Cough: Dry Shortness of Breath: No Incentive Spirometry In Use: Yes Incentive Spirometry Volume: (encouraged coughing deep breathing exercises) Gastrointestinal GI Symptoms Denied: Bloating, Cramping, Distention, Nausea, Vomiting GI Symptoms: Loss of appetite Diet: Regular diet, Other (Comment) Diet Comment: low carb, small frequent meals Diet Tolerance: Well tolerated Passing Flatus: Yes Last BM Date: 09/06/25 Stool Frequency: 1 Time per Day Beaver Stool Chart: Type 6: Fluffy pieces with ragged edges, a mushy stool Stool Appearance: Oily (discussed symptoms and need for creon with patient. she will continue to monitor) Stool Color: Brown Genitourinary Genitourinary Symptoms: Other (Comment) Other Symptoms: Patient denies any urinary issues at this time. Integumentary Skin Color Denied: Jaundice (skin, eyes, mucus membrane) Plan Patient will: Continue vital sign and symptom monitoring, Call the remote monitoring RN with questions or concerns Next Follow Up Appointments: 10/12 PAPER DELIVERY DRIVER * Diane Sue M.SKori, R.N. - 09/07/2025 1:24 PM CST Remote Patient Monitoring - RN Follow-up Call Primary reason for today's contact: Provider Recommendation Discussion Summary: Yara Lazo was called today to discuss provider recommendations to take over the counter cough suppressant and we also discussed trying Tessalon Perles. She is interested in Tessalon Perles. Provider was updated with preferred pharmacy. Encouraged to stay hydrated, okay to use honey as well. Next Steps: Follow up again next week. Patient agrees to continue daily vital sign monitoring and follow up call scheduled. Patient agreed to call Remote Patient Monitoring nurse with any questions or concerns in the interim. PAPER DELIVERY DRIVER documented in this encounter Plan of Treatment Upcoming Encounters Date Type Department Care Team (Latest Contact Info) Description 10/05/2025 3:45 PM NEWSPAPER DELIVERY DRIVER Clinical Communication Virtual Review in [place], [place] [address] [place] [phone] 10/11/2025 1:40 PM NEWSPAPER DELIVERY DRIVER Nurse Only Section of Infectious Diseases in [place], [place] [address] [place] [phone] Kaleigh Xiong APRN, C.NEstelleP., M.S.N. [address] [place] [phone] 10/11/2025 3:00 PM NEWSPAPER DELIVERY DRIVER Lab Department of Infusion Therapy in [address] [phone] Kaleigh Xiong APRN, C.N.Efrain., M.S.N. [address] [place] [phone] 10/11/2025 4:00 PM NEWSPAPER DELIVERY DRIVER Appointment Department of Radiology, [facility], in [address] [phone] Kaleigh Xiong APRN, C.N.P., M.S.N. [address] [place] [phone] 10/12/2025 10:30 AM NEWSPAPER DELIVERY DRIVER Office Visit Division of Hepatobiliary and Pancreas Surgery in [address] [phone] Sammie Gerber APRN, C.N.P., M.S.N. [address] [place] [phone] 10/12/2025 3:00 PM NEWSPAPER DELIVERY DRIVER Comprehensive Visit Department of Oncology in [address] [phone] Jeffy James M.D. [address] [place] [phone] documented as of this encounter Visit Diagnoses Not on filedocumented in this encounter Care Teams Rails Developer Relationship Specialty Start Date End Date Elsewhere, Pcp PCP - General Internal Medicine 04/12/25 documented as of this encounter
--- OUTSIDE RECORDS SUMMARY | 2025-09-22 19:02 | XMS_ITS | Encounter Summary ---
Author Organization [facility] Address [address] [place] [address] Care Team Providers Care Assembler Watch Train Name Role Phone Elsewhere, Pcp Primary Care Provider Unavailabl e Encounter Details Date Type Department Care Team (Late st Contact Info) Description 09/08/2025 Orders Only Division of Hepatobiliary and Pancreas Surgery in [place], [place] [address] [place] [phone] Kaleigh Xiong APRN, C.N.P., M.S.N. [address] [place] [phone] Social History Tobacco Use Types Packs/Day Years [...] needed for daily living? No 09/04/[address] [facility] Utilities Answer Date Recorded In the past 12 months has th [employer] electric, gas, oil, or water company threatened to shut off services in your home? No 09/04/2025 Housing Stability Answer Date Recorded What is your living situation today? I have a [facility] place to live 09/04/2025 Comments No Sex and Gender Information Value Date Recorded Sex Assigned at Female 03/21/2025 4:39 PM CDT Legal Sex Female 10:00 PM LETTER SORTING MACHINE OPERATOR Gender Identity Female 03/21/2025 4:39 PM CDT Sexual Orientation Straight 03/21/2025 4: 39 PM CDT documented as of this encounter Plan of Treatment Upcoming Encounters Date Type Department Care Team (Latest Contact Info) Description 10/05/2025 3:45 PM LETTER SORTING MACHINE OPERATOR Clinical Communication Virtual Review in [place], [place] 200 [place] [address] 10/11/2025 1:40 PM LETTER SORTING MACHINE OPERATOR Nurse Only Section of Infectious Diseases in [address] [phone] Kaleigh Xiong APRN, C.N.P., M.S.N. [address] [place] [phone] 10/11/2025 3:00 PM LETTER SORTING MACHINE OPERATOR Lab Department of Infusion Therapy in [place], [place] [address] [place] [phone] Kaleigh Xiong APRN, C.N.P., M.S.N. [address] [place] [phone] 10/11/2025 4:00 PM LETTER SORTING MACHINE OPERATOR Appointment Department of Radiology, [facility], in [place], [place] [address] [place] [address] Kaleigh Xiong APRN, C.N.P., M.S.N. [address] [place] [phone] 10/12/2025 10:30 AM LETTER SORTING MACHINE OPERATOR Office Visit Division of Hepatobiliary and Pancreas Surgery in [place], [place] [address] [place] [address] Sammie Gerber APRN, C.N.P., M.S.N. [address] [place] [phone] 10/12/2025 3:00 PM LETTER SORTING MACHINE OPERATOR Comprehensive Visit Department of Oncology in [place], [place] [address] [place] [phone] Jeffy James M.D. [address] [place] [phone] documented as of this encounter Visit Diagnoses Not on filedocumented in this encounter Care Teams Assembler Watch Train Relationship Specialty Start Date End Date Elsewhere, Pcp PCP - General Internal Medicine 04/12/25 documented as of this encounter
--- OUTSIDE RECORDS SUMMARY | 2025-09-22 19:02 | XMS_ITS | Clinical Summary ---
Author Organization [facility] Address [address] [place] [address] Care Team Providers Care Safety Officer Name Role Phone No Ref-Primary, Physician Primary Care Provider Social History Tobacco Use Types Packs/Day Years Used Date Smoking Tobacco: Never Assessed Adolescent Education Answer Date Record ed Getting School Help Needed Not on file 08/09 Comments Unknown Sex and Gender Information Value Date Recorded Sex Assigned at Not on file Legal Sex Female 3:42 AM WRAPPER OPENER Gender Identity Not on file Sexual Orientation Not on file Plan of Treatment Health Maintenance Due Date Last Done Comments ADVANCE CARE PLANNING 1960 ANNUAL REVIEW OF HM ORDERS 1960 CT COLONOGRAPHY 1960 DIABETES SCREENING 1960 FIT 1960 FLEX SIG 1960 sDNA (Cologuard) 1960 HIV SCREENING 1975 HEPATITIS C SCREENING 1978 LIPID 2000 PNEUMOCOCCAL VACCINE 50+ YEARS (1 of 1 - PCV) 2010 ZOSTER VACCINE (1 of 2) 2010 DTAP/TDAP/TD VACCINE (2 - Td or Tdap) 08/20/2021 08/20/2011, 12/15/1997 PAP 03/20/2024 03/20/2021, 03/20/2021 PHQ-2 (once per calendar year) 2024 YEARLY PREVENTIVE VISIT 05/10/2025 05/10/2024, 03/20 COVID-19 VACCINE ( season) 2025 INFLUENZA VACCINE (#1) 2025 1, 09/03/2010, 08/24/2008, Additional history exists MAMMO SCREENING 07/19/2026 07/19/2024, 04/05, 04/09/2022, Additional history exists COLONOSCOPY 10/20/2027 10/20/2017 COLORECTAL CANCER SCREENING 10/20/2027 RSV VACCINE (1 - 1-dose 75+ series) 2035 HPV VACCINE (No Doses Required) Completed MENINGITIS VACCINE Aged Out No longer eligible based on patient's age to complete this topic Procedures Procedure Name Priority Date/Time Associated Diagnosis Comments MA SCREENING WITH IMPLANTS BILATERAL W/ TREY Routine 07/19/2024 2:01 PM CDT Visit for screening mammogram from Last 3 Months or Most Recently Relevant to Health Maintenance Results * MA Screening with Implants Bilateral w/ Trey (07/19/2024 2:01 PM CDT) Anatomical Region Laterality Modality Breast Bilateral Mammography Impressions 07/20/2024 8:38 AM CDT IMPRESSION: ACR BI-RADS Category 2: Benign BREAST CANCER SCREENING RECOMMENDATION: Routine yearly mammography beginning at age 40 or as discussed with your provider. The results and recommendations of this examination will be communicated to the patient. Alo Waller MD Narrative 07/20/2024 8:38 AM CDT BILATERAL FULL FIELD DIGITAL SCREENING MAMMOGRAM WITH TOMOSYNTHESIS Performed on: 07/19/24 Compared to: 05/02/2023 and 11/11/2019 Technique: This study was evaluated with the assistance of Computer-Aided Detection. Breast Tomosynthesis was used in interpretation. Findings: The breasts are heterogeneously dense, which may obscure small masses. There are breast augmentation changes in both breasts. There is no radiographic evidence of malignancy. China Boykin [facility] ORDERABLES Final Result from Last 3 Months or Most Recently Relevant to Health Maintenance Insurance [employer] Care Teams Safety Officer Relationship Specialty Start Date End Date No Ref-Primary, Physician PCP - General 08/18/17
--- OUTSIDE RECORDS SUMMARY | 2025-09-22 19:02 | XMS_ITS | Encounter Summary ---
Author Organization [facility] Address [address] [place] [address] Care Team Providers Care Mail Carrier Technician Name Role Phone Elsewhere, Pcp Primary Care Provider Unavailabl e Reason for Visit * Reason Onset Date Comments Remote Patient Monitoring 09/05/2025 Patient Education 09/05/2025 Hep No BG Welc ome Letter/Terms of Service sent 09/05 Encounter Details Date Type Department Care Team (Latest Contact Info) Description 09/05/2025 Remote Monitoring Remote Patient Monitoring [address] [place] [address] Karen Hastings Remote Patient Monitoring; Patient Education (Hep No BG Welcome Letter/Terms of Service sent 09/05) Social History Tobacco Use Types Packs/Day Years [...] needed for daily living? No 09/04/2025 [facility] Utilities Answer Date Recorded In the past 12 months has [employer] electric, gas, oil, or water company threatened to shut off services in your home? No 09/04/2025 Housing Stability Answer Date Recorded What is your living situation today? I have a [facility] place to live 09/04/2025 Comments No Sex and Gender Information Value Date Recorded Sex Assigned at Female 03/21/2025 4:39 PM CDT Legal Sex Female 10:00 PM PROJECT LANDSCAPE ARCHITECT Gender Identity Female 03/21/2025 4:39 PM CDT Sexual Orientation Straight 03/21/2025 4: 39 PM CDT documented as of this encounter Plan of Treatment Upcoming Encounters Date Type Department Care Team (Latest Contact Info) Description 10/05/2025 3:45 PM PROJECT LANDSCAPE ARCHITECT Clinical Communication Virtual Review in [place], [place] 200 [place] [phone] 10/11/2025 1:40 PM PROJECT LANDSCAPE ARCHITECT Nurse Only Section of Infectious Diseases in [place], [place] [address] [place] [phone] Kaleigh Xiong APRN, C.N.P., M.S.N. [address] [place] [phone] 10/11/2025 3:00 PM PROJECT LANDSCAPE ARCHITECT Lab Department of Infusion Therapy in [place], [place] [address] [place] [phone] Kaleigh Xiong APRN, C.N.P., M.S.N. [address] [place] [phone] 10/11/2025 4:00 PM PROJECT LANDSCAPE ARCHITECT Appointment Department of Radiology, [facility], in [place], [place] [address] [place] [address] Kaleigh Xiong APRN, C.N.P., M.S.N. [address] [place] [phone] 10/12/2025 10:30 AM PROJECT LANDSCAPE ARCHITECT Office Visit Division of Hepatobiliary and Pancreas Surgery in [place], [place] [address] [place] [phone] Sammie Gerber APRN, C.N.P., M.S.N. [address] [place] [phone] 10/12/2025 3:00 PM PROJECT LANDSCAPE ARCHITECT Comprehensive Visit Department of Oncology in [place], [place] [address] [place] [phone] Jeffy James M.D. [address] [place] [phone] documented as of this encounter Visit Diagnoses Not on filedocumented in this encounter Care Teams Mail Carrier Technician Relationship Specialty Start Date End Date Elsewhere, Pcp PCP - General Internal Medicine 04/12/25 documented as of this encounter
--- OUTSIDE RECORDS SUMMARY | 2025-09-22 19:02 | XMS_ITS | Encounter Summary ---
Author Organization [facility] Address [address] [place] [phone] Care Team Providers Care Job Compositor Name Role Phone Elsewhere, Pcp Primary Care Provider Unavailabl e Reason for Referral * MRI/CAT/PET Scan (Routine) - Pending Review Specialty Diagnoses / Procedures Referred By Contac t Referred To Contact Radiology Diagnoses Malignant Neoplasm Of Pancreas Tail (HCC) Procedures CT Abdomen Pelvis without and with IV Contrast Kaleigh Xiong APRN C.N.P., M.S.N. [address] [place] [phone] Phone: tel: fax: [facility] Referral ID Status Reason Start Date Expiration Date V isits Requested Visits Authorized [id number] Pending Review 09/06/2025 12/07/2026 1 1 DESK ENGINEER Encounter Details Date Type Department Care Team (Late st Contact Info) Description 09/06/2025 Clinical Communication Division of Hepatobiliary and Pancreas Surgery in [place], [place] [address] [place] [phone] Stephon Galindo D.O., M.B.A. [address] [place] [phone] Social History Tobacco Use Types Packs/Day Years [...] things needed for daily living? No 09/04/2025 [facility] Utilities Answer Date Recorded In the past 12 months has e electric, gas, oil, or water company threatened to shut off services in your home? No 09/04/2025 Housing Stability Answer Date Recorded What is your living situation today? I have a [facility] place to live 09/04/2025 Comments No Sex and Gender Information Value Date Recorded Sex Assigned at Female 03/21/2025 4:39 PM CDT Legal Sex Female 10:00 PM HELP DESK ENGINEER Gender Identity Female 03/21/2025 4:39 PM CDT Sexual Orientation Straight 03/21/2025 4: 39 PM CDT documented as of this encounter Plan of Treatment Upcoming Encounters Date Type Department Care Team (Latest Contact Info) Description 10/05/2025 3:45 PM HELP DESK ENGINEER Clinical Communication Virtual Review in [address] [phone] 10/11/2025 1:40 PM HELP DESK ENGINEER Nurse Only Section of Infectious Diseases in [place], [place] [address] [place] [phone] Kaleigh Xiong APRN, C.N.P., M.S.N. [address] [place] [phone] 10/11/2025 3:00 PM HELP DESK ENGINEER Lab Department of Infusion Therapy in [place], [place] [address] [place] [phone] Kaleigh Xiong APRN, C.N.Efrain., M.S.N. [address] [place] [phone] 10/11/2025 4:00 PM HELP DESK ENGINEER Appointment Department of Radiology, [facility], in [place], [place] [address] [place] [phone] Kaleigh Xiong APRN, C.N.P., M.S.N. [address] [place] [phone] 10/12/2025 10:30 AM HELP DESK ENGINEER Office Visit Division of Hepatobiliary and Pancreas Surgery in [address] [phone] Sammie Gerber APRN, C.N.P., M.S.N. [address] [place] [phone] 10/12/2025 3:00 PM HELP DESK ENGINEER Comprehensive Visit Department of Oncology in [address] [phone] Jeffy James M.D. [address] [place] [phone] Scheduled Orders Name Type Priority Associated Diagnoses Orde r Schedule CT Abdomen Pelvis without and with IV Contrast Imaging RAD - Routine (most inpatients and all outpatients) Malignant Neoplasm Of Pancreas Tail (HCC) Expected: 10/12/2025, Expires: 12/07/2026 documented as of this encounter Visit Diagnoses Diagnosis Malignant Neoplasm Of Pancreas Tail (HCC)- Primary documented in this encounter Care Teams Job Compositor Relationship Specialty Start Date End Date Elsewhere, Pcp PCP - General Internal Medicine 04/12/25 documented as of this encounter
--- OUTSIDE RECORDS SUMMARY | 2025-09-22 19:02 | XMS_ITS | Encounter Summary ---
Author Organization [facility] Address [address] [place] [address] Care Team Providers Care Home Restoration Service Supervisor Name Role Phone Elsewhere, Pcp Primary Care Provider Unavailabl e Encounter Details Date Type Department Care Team (Late st Contact Info) Description 09/08/2025 Orders Only Division of Hepatobiliary and Pancreas Surgery in [place], [place] [address] [place] [phone] Taryn Goel, AYESHA, C.N.P., D.N.P. [address] [place] [address] Social History Tobacco Use Types Packs/Day Years [...] things needed for daily living? No 09/04/2025 [facility] Utilities Answer Date Recorded In the past 12 months has [employer] electric, gas, oil, or water company threatened to shut off services in your home? No 09/04/2025 Housing Stability Answer Date Recorded What is your living situation today? I have a [facility] place to live 09/04/2025 Comments No Sex and Gender Information Value Date Recorded Sex Assigned at Female 03/21/2025 4:39 PM CDT Legal Sex Female 10:00 PM COIN MACHINE COLLECTOR SUPERVISOR Gender Identity Female 03/21/2025 4:39 PM CDT Sexual Orientation Straight 03/21/2025 4: 39 PM CDT documented as of this encounter Plan of Treatment Upcoming Encounters Date Type Department Care Team (Latest Contact Info) Description 10/05/2025 3:45 PM COIN MACHINE COLLECTOR SUPERVISOR Clinical Communication Virtual Review in [place], [place] 200 [place] [address] 10/11/2025 1:40 PM COIN MACHINE COLLECTOR SUPERVISOR Nurse Only Section of Infectious Diseases in [address] [phone] Kaleigh Xiong APRN, C.N.P., M.S.N. [address] [place] [phone] 10/11/2025 3:00 PM COIN MACHINE COLLECTOR SUPERVISOR Lab Department of Infusion Therapy in [place], [place] [address] [place] [phone] Kaleigh Xiong APRN, C.N.P., M.S.N. [address] [place] [phone] 10/11/2025 4:00 PM COIN MACHINE COLLECTOR SUPERVISOR Appointment Department of Radiology, [facility], in [place], [place] [address] [place] [phone] Kaleigh Xiong APRN, C.N.P., M.S.N. [address] [place] [phone] 10/12/2025 10:30 AM COIN MACHINE COLLECTOR SUPERVISOR Office Visit Division of Hepatobiliary and Pancreas Surgery in [place], [place] [address] [place] [phone] Sammie Gerber APRN, C.N.P., M.S.N. [address] [place] [phone] 10/12/2025 3:00 PM COIN MACHINE COLLECTOR SUPERVISOR Comprehensive Visit Department of Oncology in [place], [place] [address] [place] [phone] Jeffy James M.D. [address] [place] [phone] documented as of this encounter Visit Diagnoses Not on filedocumented in this encounter Care Teams Home Restoration Service Supervisor Relationship Specialty Start Date End Date Elsewhere, Pcp PCP - General Internal Medicine 04/12/25 documented as of this encounter
--- OUTSIDE RECORDS SUMMARY | 2025-09-22 19:03 | XMS_ITS | Encounter Summary ---
Author Organization [facility] Address [address] [place] [address] Care Team Providers Care Logger All Round Name Role Phone Elsewhere, Pcp Primary Care Provider Unavailabl e Encounter Details Date Type Department Care Team (Late st Contact Info) Description 08/22/2025 Orders Only Patient Blood Management in [place], [place] [address] [place] [address] Gurwinder Gomes, M.S.N., R.N. [address] [place] [address] Social History Tobacco Use Types Packs/Day Years [...] things needed for daily living? No 09/04/2025 [facility] Utilities Answer Date Recorded In the past 12 months has e [employer], gas, oil, or water [employer] threatened to shut off services in your home? No 09/04/2025 Housing Stability Answer Date Recorded What is your living situation today? I have a [facility] place to live 09/04/2025 Comments No Sex and Gender Information Value Date Recorded Sex Assigned at Female 03/21/2025 4:39 PM CDT Legal Sex Female 10:00 PM LAST MODEL MAKER Gender Identity Female 03/21/2025 4:39 PM CDT Sexual Orientation Straight 03/21/2025 4: 39 PM CDT documented as of this encounter Plan of Treatment Upcoming Encounters Date Type Department Care Team (Latest Contact Info) Description 10/05/2025 3:45 PM LAST MODEL MAKER Clinical Communication Virtual Review in [place], [place] 200 [place] [phone] 10/11/2025 1:40 PM LAST MODEL MAKER Nurse Only Section of Infectious Diseases in [place], [place] [address] [place] [phone] Kaleigh Xiong APRN, C.N.P., M.S.N. [address] [place] [phone] 10/11/2025 3:00 PM LAST MODEL MAKER Lab Department of Infusion Therapy in [place], [place] [address] [place] [phone] Kaleigh Xiong APRN, C.N.P., M.S.N. [address] [place] [phone] 10/11/2025 4:00 PM LAST MODEL MAKER Appointment Department of Radiology, [facility], in [place], [place] [address] [place] [address] Kaleigh Xiong APRN, C.NDre., M.S.N. [address] [place] [phone] 10/12/2025 10:30 AM LAST MODEL MAKER Office Visit Division of Hepatobiliary and Pancreas Surgery in [place], [place] [address] [place] [phone] Sammie Gerber APRN, C.N.P., M.S.N. [address] [place] [phone] 10/12/2025 3:00 PM LAST MODEL MAKER Comprehensive Visit Department of Oncology in [place], [place] [address] [place] [phone] Jeffy James M.D. [address] [place] [phone] documented as of this encounter Visit Diagnoses Not on filedocumented in this encounter Care Teams Logger All Round Relationship Specialty Start Date End Date Elsewhere, Pcp PCP - General Internal Medicine 04/12/25 documented as of this encounter
--- OUTSIDE RECORDS SUMMARY | 2025-09-22 19:03 | XMS_ITS | Encounter Summary ---
Author Organization [facility] Address [address] [place] [address] Care Team Providers Care Recoating Machine Operator Name Role Phone Elsewhere, Pcp Primary Care Provider Unavailabl e Encounter Details Date Type Department Care Team (Late st Contact Info) Description 07/13/2025 Results Follow-Up Department of Medical Genetics in [place], [place] [address] [place] [address] Delmy Hernandez M.S., [facility] [address] [place] [address] [facility]. Sent Out Lab Social History Tobacco Use Types Packs/Day Years Used Date Smoking Tobacco: Never Smokeless Tobacco: Never Alcohol Use Standard Drinks/Week Comments Not Currently 2 (1 standard drink = 0.6 oz pur e alcohol) [facility] Utilities Answer Date Recorded In the past 12 months has [facility] [employer], gas, oil, or water [employer] threatened to shut off services in your [...] your living situation today? I have a [facility] place to live 03/21/2025 Comments No Sex and Gender Information Value Date Recorded Sex Assigned at Female 03/21/2025 4:39 PM CDT Legal Sex Female 10:00 PM HEALTHCARE SOCIAL WORKER Gender Identity Female 03/21/2025 4:39 PM CDT Sexual Orientation Straight 03/21/2025 4: 39 PM CDT documented as of this encounter Plan of Treatment Upcoming Encounters Date Type Department Care Team (Latest Contact Info) Description 10/05/2025 3:45 PM HEALTHCARE SOCIAL WORKER Clinical Communication Virtual Review in [address] [phone] 10/11/2025 1:40 PM HEALTHCARE SOCIAL WORKER Nurse Only Section of Infectious Diseases in [address] [phone] Kaleigh Xiong APRN, C.N.P., M.S.N. [address] [place] [phone] 10/11/2025 3:00 PM HEALTHCARE SOCIAL WORKER Lab Department of Infusion Therapy in [address] [phone] Kaleigh Xiong APRN, C.N.P., M.S.N. [address] [place] [phone] 10/11/2025 4:00 PM HEALTHCARE SOCIAL WORKER Appointment Department of Radiology, [facility], in [address] [phone] Kaleigh Xiong APRN, C.N.P., M.S.N. [address] [place] [phone] 10/12/2025 10:30 AM HEALTHCARE SOCIAL WORKER Office Visit Division of Hepatobiliary and Pancreas Surgery in [address] [phone] Sammie Gerber APRN, CEstelleNEstelleP., M.S.N. [address] [place] [phone] 10/12/2025 3:00 PM HEALTHCARE SOCIAL WORKER Comprehensive Visit Department of Oncology in [place], [place] [address] [place] [phone] Jeffy James M.D. [address] [place] [phone] documented as of this encounter Visit Diagnoses Not on filedocumented in this encounter Care Teams Recoating Machine Operator Relationship Specialty Start Date End Date Elsewhere, Pcp PCP - General Internal Medicine 04/12/25 documented as of this encounter
--- OUTSIDE RECORDS SUMMARY | 2025-09-22 19:03 | XMS_ITS | Encounter Summary ---
Author Organization [facility] Address [address] [place] [address] Care Team Providers Care Museum Curator Name Role Phone Elsewhere, Pcp Primary Care Provider Unavailabl e Encounter Details Date Type Department Care Team (Late st Contact Info) Description 08/08/2025 Orders Only Patient Blood Management in [place], [place] [address] [place] [address] Gurwinder Gomes, M.S.N., R.N. [address] [place] [address] Anemia Iron Deficiency (Primary Dx) Social History Tobacco Use Types Packs/Day Years Used Date Smoking Tobacco: Never Smokeless Tobacco: Never Alcohol Use Standard Drinks/Week Comments Not Currently 2 (1 standard drink = 0.6 oz pur e alcohol) [facility] Utilities Answer Date Recorded In the past 12 months has e electric, gas, oil, or water [employer] threatened to shut off services in your [...] [facility] live 03/21/2025 Comments No Sex and Gender Information Value Date Recorded Sex Assigned at Female 03/21/2025 4:39 PM CDT Legal Sex Female 10:00 PM RAD TECHNOLOGIST Gender Identity Female 03/21/2025 4:39 PM CDT Sexual Orientation Straight 03/21/2025 4: 39 PM CDT documented as of this encounter Plan of Treatment Upcoming Encounters Date Type Department Care Team (Latest Contact Info) Description 10/05/2025 3:45 PM RAD TECHNOLOGIST Clinical Communication Virtual Review in [place], [place] 200 [place] [address] 10/11/2025 1:40 PM RAD TECHNOLOGIST Nurse Only Section of Infectious Diseases in [address] [phone] Kaleigh Xiong APRN C.N.P., M.S.N. [address] [place] [phone] 10/11/2025 3:00 PM RAD TECHNOLOGIST Lab Department of Infusion Therapy in [place], [place] [address] [place] [phone] Kaleigh Xiong APRN, C.N.P., M.S.N. [address] [place] [phone] 10/11/2025 4:00 PM RAD TECHNOLOGIST Appointment Department of Radiology, [facility], in [place], [place] [address] [place] [phone] Kaleigh Xiong APRN C.N.P., M.S.N. [address] [place] [phone] 10/12/2025 10:30 AM RAD TECHNOLOGIST Office Visit Division of Hepatobiliary and Pancreas Surgery in [address] [phone] Sammie Gerbre APRN, C.N.P., M.S.N. [address] [place] [phone] 10/12/2025 3:00 PM RAD TECHNOLOGIST Comprehensive Visit Department of Oncology in [place], [place] [address] [place] [address] Jeffy James M.D. [address] [place] [phone] documented as of this encounter Visit Diagnoses Diagnosis Anemia Iron Deficiency- Primary documented in this encounter Care Teams Museum Curator Relationship Specialty Start Date End Date Elsewhere, Pcp PCP - General Internal Medicine 04/12/25 documented as of this encounter
--- OUTSIDE RECORDS SUMMARY | 2025-09-22 19:03 | XMS_ITS | Encounter Summary ---
Author Organization [facility] Address [address] [place] [address] Care Team Providers Care Traveling Accountant Name Role Phone Elsewhere, Pcp Primary Care Provider Unavailabl e Encounter Details Date Type Department Care Team (Late st Contact Info) Description 08/04/2025 Clinical Communication Patient Blood Management in [place], [place] [address] [place] [address] Alma Rosa Johnson P.ABrandin. [address] [place] [address] Social History Tobacco Use Types Packs/Day Years [...] needed for daily living? No 09/04/2025 [facility] Utilities Answer Date Recorded In the past 12 months has e electric, gas, oil, or water [employer] threatened to shut off services in your home? No 09/04/2025 Housing Stability Answer Date Recorded What is your living situation today? I have a [facility] place to live 09/04/2025 Comments No Sex and Gender Information Value Date Recorded Sex Assigned at Female 03/21/2025 4:39 PM CDT Legal Sex Female 10:00 PM CORPORATE STATISTICAL FINANCIAL ANALYST Gender Identity Female 03/21/2025 4:39 PM CDT Sexual Orientation Straight 03/21/2025 4: 39 PM CDT documented as of this encounter Plan of Treatment Upcoming Encounters Date Type Department Care Team (Latest Contact Info) Description 10/05/2025 3:45 PM CORPORATE STATISTICAL FINANCIAL ANALYST Clinical Communication Virtual Review in [place], [place] 200 [place] [phone] 10/11/2025 1:40 PM CORPORATE STATISTICAL FINANCIAL ANALYST Nurse Only Section of Infectious Diseases in [place], [place] [address] [place] [phone] Kaleigh Xiong APRN, C.N.P., M.S.N. [address] [place] [phone] 10/11/2025 3:00 PM CORPORATE STATISTICAL FINANCIAL ANALYST Lab Department of Infusion Therapy in [address] [phone] Kaleigh Xiong APRN, C.N.P., M.S.N. [address] [place] [phone] 10/11/2025 4:00 PM CORPORATE STATISTICAL FINANCIAL ANALYST Appointment Department of Radiology, [facility], in [place], [place] [address] [place] [phone] Kaleigh Xiong APRN, C.NDre., M.S.N. [address] [place] [phone] 10/12/2025 10:30 AM CORPORATE STATISTICAL FINANCIAL ANALYST Office Visit Division of Hepatobiliary and Pancreas Surgery in [place], [place] [address] [place] [phone] Sammie Gerber APRN, C.N.P., M.S.N. [address] [place] [phone] 10/12/2025 3:00 PM CORPORATE STATISTICAL FINANCIAL ANALYST Comprehensive Visit Department of Oncology in [address] [phone] Jeffy James M.D. [address] [place] [phone] documented as of this encounter Visit Diagnoses Not on filedocumented in this encounter Care Teams Traveling Accountant Relationship Specialty Start Date End Date Elsewhere, Pcp PCP - General Internal Medicine 04/12/25 documented as of this encounter
--- OUTSIDE RECORDS SUMMARY | 2025-09-22 19:03 | XMS_ITS | Encounter Summary ---
Author Organization [facility] Address [address] [place] [address] Care Team Providers Care Machine Captain Name Role Phone Elsewhere, Pcp Primary Care Provider Unavailabl e Encounter Details Date Type Department Care Team (Late st Contact Info) Description 08/04/2025 Clinical Communication Patient Blood Management in [place], [place] [address] [place] [phone] Alma Rosa Johnson P.ABrandin. [address] [place] [phone] Social History Tobacco Use Types Packs/Day Years [...] has e electric, gas, oil, or water [employer] threatened to shut off services in your home? No 09/04/2025 Housing Stability Answer Date Recorded What is your living situation today? I have a [facility] place to live 09/04/2025 Comments No Sex and Gender Information Value Date Recorded Sex Assigned at Female 03/21/2025 4:39 PM CDT Legal Sex Female 10:00 PM MEDICAL CARE MANAGER Gender Identity Female 03/21/2025 4:39 PM CDT Sexual Orientation Straight 03/21/2025 4: 39 PM CDT documented as of this encounter Plan of Treatment Upcoming Encounters Date Type Department Care Team (Latest Contact Info) Description 10/05/2025 3:45 PM MEDICAL CARE MANAGER Clinical Communication Virtual Review in [place], [place] [address] [place] [phone] 10/11/2025 1:40 PM MEDICAL CARE MANAGER Nurse Only Section of Infectious Diseases in [place], [place] [address] [place] [phone] Kaleigh Xiong APRN, C.N.P., M.S.N. [address] [place] [phone] 10/11/2025 3:00 PM MEDICAL CARE MANAGER Lab Department of Infusion Therapy in [address] [phone] Kaleigh Xiong APRN, C.N.P., M.S.N. [address] [place] [phone] 10/11/2025 4:00 PM MEDICAL CARE MANAGER Appointment Department of Radiology, [facility], in [place], [place] [address] [place] [phone] Kaleigh Xiong APRN, C.NDre., M.S.N. [address] [place] [phone] 10/12/2025 10:30 AM MEDICAL CARE MANAGER Office Visit Division of Hepatobiliary and Pancreas Surgery in [place], [place] [address] [place] [phone] Sammie Gerber APRN, C.N.P., M.S.N. [address] [place] [phone] 10/12/2025 3:00 PM MEDICAL CARE MANAGER Comprehensive Visit Department of Oncology in [address] [phone] Jeffy James M.D. [address] [place] [phone] documented as of this encounter Visit Diagnoses Not on filedocumented in this encounter Care Teams Machine Captain Relationship Specialty Start Date End Date Elsewhere, Pcp PCP - General Internal Medicine 04/12/25 documented as of this encounter
--- OUTSIDE RECORDS SUMMARY | 2025-09-22 19:03 | XMS_ITS | Encounter Summary ---
Author Organization [facility] Address [address] [place] [address] Care Team Providers Care Delivery Representative Name Role Phone Elsewhere, Pcp Primary Care Provider Unavailabl e Encounter Details Date Type Department Care Team (Late st Contact Info) Description 08/12/2025 Orders Only Patient Blood Management in [place], [place] [address] [place] [phone] Gurwinder Gomes, M.S.N., R.N. [address] [place] [address] Anemia Iron Deficiency (Primary Dx) Social History Tobacco Use Types Packs/Day Years Used Date Smoking Tobacco: Never Smokeless Tobacco: Never Alcohol Use Standard Drinks/Week Comments Not Currently 2 (1 standard drink = 0.6 oz pur e alcohol) [facility] Utilities Answer Date Recorded In the past 12 months has e electric, gas, oil, or water [employer] threatened to shut off services in your [...] your living situation today? I have a [facility] place to live 03/21/2025 Comments No Sex and Gender Information Value Date Recorded Sex Assigned at Female 03/21/2025 4:39 PM CDT Legal Sex Female 10:00 PM TECHNOLOGY DIRECTOR Gender Identity Female 03/21/2025 4:39 PM CDT Sexual Orientation Straight 03/21/2025 4: 39 PM CDT documented as of this encounter Plan of Treatment Upcoming Encounters Date Type Department Care Team (Latest Contact Info) Description 10/05/2025 3:45 PM TECHNOLOGY DIRECTOR Clinical Communication Virtual Review in [place], [place] 200 [place] [address] 10/11/2025 1:40 PM TECHNOLOGY DIRECTOR Nurse Only Section of Infectious Diseases in [address] [phone] Kaleigh Xiong APRN C.N.P., M.S.N. [address] [place] [phone] 10/11/2025 3:00 PM TECHNOLOGY DIRECTOR Lab Department of Infusion Therapy in [place], [place] [address] [place] [phone] Kaleigh Xiong APRN, C.N.P., M.S.N. [address] [place] [phone] 10/11/2025 4:00 PM TECHNOLOGY DIRECTOR Appointment Department of Radiology, [facility], in [place], [place] [address] [place] [phone] Kaleigh Xiong APRN C.N.P., M.S.N. [address] [place] [phone] 10/12/2025 10:30 AM TECHNOLOGY DIRECTOR Office Visit Division of Hepatobiliary and Pancreas Surgery in [address] [phone] Sammie Gerber APRN, C.N.P., M.S.N. [address] [place] [address] 10/12/2025 3:00 PM TECHNOLOGY DIRECTOR Comprehensive Visit Department of Oncology in [place], [place] [address] [place] [phone] Jeffy James M.D. [address] [place] [phone] documented as of this encounter Visit Diagnoses Diagnosis Anemia Iron Deficiency- Primary documented in this encounter Care Teams Delivery Representative Relationship Specialty Start Date End Date Elsewhere, Pcp PCP - General Internal Medicine 04/12/25 documented as of this encounter
[2025-09-22 19:12] VITALS: BP 117/78; PULSE 66; RESP 16; TEMP 37; O2SAT 99; BMI 16.7
[2025-09-22 19:24] LABS: Appearance Urine Clear (Clear)
--- NOTE | 2025-09-22 20:46 | CT_ITS ---
Patient: PRAMOD LINDA Facility:?[facility] RIS Patient ID:?[id number] Site Patient ID:?[id number]. Site :?[id number] Study:?CT-Abdomen/Pelvis W/ 55CC ISOVUE 370-09/22/2025 9:48:05 PM Ordering Physician:Willam Bolanos Final Report: INDICATION: Abdominal pain. History of pancreatic cancer status post surgery 3 weeks prior. TECHNIQUE: CT abdomen and pelvis acquired with Isovue 370, 55 mL IV contrast. COMPARISON: 01/09/2020 FINDINGS: Lower chest: Unremarkable. Liver: Unremarkable. Normal in size and attenuation. No suspicious masses. Gallbladder and bile ducts: Not visualized. The common bile duct is not well visualized, question surgical change. Pancreas: Recent resection. Spleen: Unremarkable. Normal in size. No masses. Adrenal glands: Unremarkable. No nodules. Kidneys: Unremarkable. No suspicious masses, stones, or hydronephrosis. GI tract: The appendix is mildly thickened measuring up to 8.0 cm and demonstrates periappendiceal inflammatory change. Findings may reflect acute appendicitis. Diffuse colonic stool burden. Vasculature: Abdominal aorta is normal in caliber. Mesenteric arteries are patent. Lymph nodes: No lymphadenopathy. Peritoneum/Abdominal Wall: Unremarkable. No sign of mass or infiltration. No free air or significant free fluid. Pelvis: Unremarkable. Bones: Unremarkable for age. IMPRESSION: Findings suggestive of acute uncomplicated appendicitis. Further treatment as clinically indicated. Please note that all CT scans at this facility use dose modulation, iterative reconstruction, and/or weight-based dosing when appropriate to reduce radiation dose to as low as reasonably achievable. Dictated by Antonio Gibson MD @ 09/22/2025 10:04:32 PM Signed by:?Antonio Gibson MD @09/22/2025 10:04:32 PM (Electronic Signature)
--- NOTE | 2025-09-22 20:48 | ED.GENADULT ---
HPI - General Adult General Chief complaint: Back Injury/Pain Stated complaint: back pain Time Seen by Provider: 09/22/25 20:28 Source: patient Mode of arrival: ambulatory Limitations: no limitations History of Present Illness HPI narrative: 64-year-old female with a notable history of pancreatic cancer who is 3 weeks status post partial pancreatectomy presents to the emergency department for evaluation of right flank pain that radiates into the right inguinal region. No trauma or injury since surgery. Pain has been present for about a week, not really worsening but becoming more constant. She describes it is dull, aching and constant. Not worse with movement. Bowels are moving well. She did take 1 oxycodone postoperatively but has not used anything else since she got home besides occasional Tylenol. She is eating and drinking normally. Voiding normally. There is no dysuria, no hematuria. She is not running any fevers. She reports that she did have a hematoma postoperatively but it has been healing. That has not been documented through our health system, I do not really know the status of that. She reports that she checks in daily with her team at [facility] but does not have a postop appointment in person unless there complications for another 3 weeks. No gynecological changes, no unusual vaginal discharge. She has not had any other abdominal surgeries per her report. Still has her gallbladder, appendix, uterus and ovaries. She is no longer on chemotherapy but did have chemotherapy prior to surgery. Does have a port for vascular access. No weakness or other signs of systemic illness. She is exercising and trying to become more active, feeling otherwise well besides the abdominal symptoms. No prior history of kidney stones. Past medical history notable for the pancreatic cancer but no other long-term health problems. No long-term medications. sulfa allergy noted. ROS is notable for the abdominal/ flank symptoms as above, otherwise denies times 12 systems. Related Data Home Medications ?Medication ?Instructions ?Recorded ?Confirmed Berberine 500 mg PO DAILY 04/20/25 09/22/25 T3/T4 PO DAILY 04/20/25 09/22/25 ascorbic acid (vitamin C) 1,000 mg 1,000 mg PO QDAY 04/20/25 09/22/25 capsule biest 8:2 versa 4mg 1 applic topical 6XW 04/20/25 09/22/25 fluticasone propionate 50 1 spray intranasal QDAY PRN 04/20/25 09/22/25 mcg/actuation nasal spray,suspension magnesium oxide 1,000 mg PO QHS 04/20/25 09/22/25 prasterone (DHEA) 10 mg tablet 10 mg PO QDAY 04/20/25 09/22/25 progesterone 50 mg PO DAILY 04/20/25 09/22/25 tumeric 600 mg PO DAILY 04/20/25 09/22/25 vitamin D3 and vitamin K2 PO 04/20/25 09/22/25 Previous Rx's ?Medication ?Instructions ?Recorded triamcinolone acetonide 0.025 % 1 applic topical BID #15 grams 06/06/25 topical cream doxycycline monohydrate 100 mg 100 mg PO QDAY skin rash #30 caps 07/11/25 capsule Allergies Allergy/AdvReac Type Severity Reaction Status Date / Time Sulfa (Sulfonamide Allergy Severe Hives Verified 09/22/25 21:40 Antibiotics) [facility] Medical History UTI (urinary tract infection) ?N39.0 - Urinary tract infection, site not specified (ICD-10) 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: Vital Signs, click to edit/add: Vital Signs - 24 hr 09/22/25 19:12 09/22/25 22:26 Temperature 98.6 F Pulse Rate 64 Pulse Rate [Pulse Oximeter] 66 Respiratory Rate 16 14 Blood Pressure 110/73 Blood Pressure [Ri ght Upper Arm] 117/78 Pulse Oximetry 99 96 Oxygen Delivery Me thod Room Air Room Air Documenting provider has reviewed patient's vital signs: yes Common normals: no apparent distress and alert General appearance: cooperative and well kempt HENMT: Common normals: normocephalic, moist oral mucous membranes and oropharynx normal Head and scalp: normocephalic Eye: Common normals: conjunctivae normal General eye: normal appearance of both eyes Conjunctiva: conjunctiva(e) normal Neck & C-Spine: General: normal visual inspection Resp: Common normals: normal respiratory effort, no use of accessory muscles and clear to auscultation bilaterally Effort & inspection: able to speak in complete sentences Auscultation: clear to auscultation bilaterally Cardio: Common normals: regular rate, regular rhythm, S1 normal heart sound, S2 normal heart sound and no murmurs Rate: regular rate Rhythm: regular rhythm Heart sounds: S1 normal and S2 normal GI: Other: Vertical abdominal incision healing very well. Expected amount of bruising but really not much swelling. Bowel sounds are normoactive throughout. There are no hernias. She has some tenderness in the right lower quadrant but no rebound tenderness or guarding. There is some CVA tenderness at the right lower CVA area, upper is normal, left side is normal. No obvious mass. Back & Pelvis: Common normals: thoracic and lumbar spine normal to inspection Extremity: Common normals: normal to inspection, normal capillary refill and no pedal edema Neuro: Common normals: moves all extremities Sensorium/orientation: alert Psych: Common normals: speech normal Appearance: well kempt Attitude: engaged Activity/motor behavior: appropriate eye contact Speech: normal speech Insight: insight good Judgement: judgment good Skin: Common normals: no rashes or lesions noted General skin exam: no rashes or lesions noted Course Course ED Course: 64-year-old female with history of pancreatic cancer and recent partial pancreatectomy presenting with right-sided abdominal pain. Differential diagnosis including pyelonephritis, appendicitis, ureterolithiasis, nephrolithiasis, constipation, bowel obstruction, hematoma from surgery, referred pain, Gynecological concerns,internal hernia, surgical complication, colitis, amongst many others. urinalysis does not show any signs of geo infection or blood, recommend CT of the abdomen and pelvis with contrast. Typical intra-abdominal labs. No initial treatments recommended. Will await findings. Reevaluation(s) Reevaluation #1: Update: Counseled patient on CT findings of appendicitis. I did speak with our surgeon and she is recommending transfer back to [facility] due to patient recent laparotomy. May was paged and we are awaiting their call back. Remainder of labs are actually quite reassuring. Update: Has spoken with the hepatobiliary surgery team, Dr. Ma. He is recommending ED evaluation from the acute care surgical team. Patient certainly does have some constipation as well which I do think may be impairing her ability to tell the etiology of her symptoms. She does still have tenderness in that right lower quadrant which is certainly worrisome especially with the CT findings. Patient was offered ambulance transfer, Jaylene go by private car, driven by has been. This is certainly reasonable. Counseled to remain NPO on travel. Will transfer via private car to [facility] ED for further treatment of acute appendicitis. Vital Signs Vital signs: Initial Vital Signs Temperature 98.6 F 09/22/25 19:12 Temperature Source Temporal Artery Scan 09/22/25 19:12 Pulse Rate 66 09/22/25 19:12 Respiratory Rate 16 09/22/25 19:12 Blood Pressure 117/78 09/22/25 19:12 Blood Pressure Mean 91 09/22/25 19:12 Blood Pressure Position Sitting 09/22/25 19:12 Pulse Oximetry 99 09/22/25 19:12 Oxygen Delivery Method Room Air 09/22/25 19:12 Vital Signs Temperature 98.6 F 09/22/25 19:12 Pulse Rate 66 09/22/25 19:12 Respiratory Rate 16 09/22/25 19:12 Blood Pressure 117/78 09/22/25 19:12 Pulse Oximetry 99 09/22/25 19:12 Oxygen Delivery Method Room Air 09/22/25 19:12 Temperature 98.6 F 09/22/25 19:12 Pulse Rate 64 09/22/25 22:26 Respiratory Rate 14 09/22/25 22:26 Blood Pressure 110/73 09/22/25 22:26 Pulse Oximetry 96 09/22/25 22:26 Oxygen Delivery Method Room Air 09/22/25 22:26 Medical Decision Making Lab Data Lab results reviewed: Yes I reviewed the patient's lab results Lab results narrative: Labs are pretty reassuring. There is no significant leukocytosis, no elevation of inflammatory markers. Her liver enzymes are slightly elevated but that is really consistent with her previous values in the setting of her cancer treatment. Urinalysis is not suspicious for infection or blood. Labs: Lab Results 09/22/25 09/22/25 09/22/25 Range/Units 19:21 20:43 21:17 WBC 4.68 (4.50-11.00) K/uL RBC 3.56 L (4.00-5.20) m/uL Hgb 12.1 (12.0-16.0) gm/dL Hct 37.6 (33.0-51.0) % MCV 106 H (80-100) fL MCH 34 (26-34) pg MCHC 32 (32-36) gm/dL RDW Coeff of Jorge 12.3 (11.5-15.5) % Plt Count 453 H (140-440) K/uL Neut % (Auto) 37.6 L (42.0-72.0) % Lymph % (Auto) 45.7 H (20-44) % [place] % (Auto) 13.0 H (0.0-11.0) % Eos % (Auto) 2.6 (0.0-7.0) % Baso % (Auto) 0.9 (0.0-3.0) % Neut # (Auto) 1.80 (1.7-7.0) K/uL Lymph # (Auto) 2.10 (0.90-2.90) K/uL [place] # (Auto) 0.60 (0.00-0.90) K/UL Eos # (Auto) 0.12 (0.00-0.50) K/uL Baso # (Auto) 0.04 (0.00-0.30) K/uL Abs Immat Gran (auto) 0.01 (0.00-0.30) K/uL Imm/Tot Granulo (auto) 0.2 % Sodium 137 (135-149) mmol/L Potassium 4.1 (3.6-5.1) mmol/L Chloride 94 L (96-114) mmol/L Carbon Dioxide 32 (20-32) mmol/L Anion Gap 11 (7-15) mEq/L BUN 19 (7-30) mg/dL Creatinine 0.6 (0.5-1.5) mg/dL Estimated Creat Clear 45.99 Estimated GFR 100 ml/min Glucose 146 H (60-115) mg/dL Calcium 9.7 (8.4-10.6) mg/dL Total Bilirubin 0.3 (0.1-1.5) mg/dL AST 54 H (12-35) U/L ALT 61 H (4-35) U/L Alkaline Phosphatase 240 H (40-150) U/L C-Reactive Protein < 0.5 L (0.5-1.0) mg/dL Total Protein 7.8 (6.0-8.3) g/dL Albumin 4.6 (3.3-5.0) g/dL Lipase 77 (23-300) U/L Procalcitonin < 0.03 L (<0.50) ng/mL Urine Color Yellow (Yellow) Urine Appearance Clear (Clear) Urine pH 7.0 (5.0-8.5) Ur Specific Dyke 1.015 (1.000-1.030) Urine Protein Negative (Negative) Urine Glucose (UA) Negative (Negative) Urine Ketones Negative (Negative) Urine Blood Negative (Negative) Urine Nitrite Negative (Negative) Urine Bilirubin Negative (Negative) Urine Urobilinogen 0.2 (0.2-1.0) Ur Leukocyte Esterase Negative (Negative) Urine RBC 0-2 (0-2) Urine WBC 0-2 (0-5) Ur Squamous Epith Cells Few (None-Few) Calcium Oxalate Crystal Moderate A (None) Urine Bacteria Few A (None) POC Creatinine 0.8 (0.6-1.3) mg/dl Imaging Data CT scan - abdomen: Attestation: I have reviewed the pertinent imaging results. My impression: Looks like a mild appendicitis but also some moderate constipation. Postsurgical area appears relatively uncomplicated. Radiologist's impression: IMPRESSION: Findings suggestive of acute uncomplicated appendicitis. Further treatment as clinically indicated. Please note that all CT scans at this facility use dose modulation, iterative reconstruction, and/or weight-based dosing when appropriate to reduce radiation dose to as low as reasonably achievable. Dictated by Antonio Gibson MD @ 09/22/2025 10:04:32 PM Discharge Plan Discharge Clinical Impression: Acute appendicitis Patient Disposition: [facility] Condition: Stable Additional Instructions: As we discussed, your CT does show some early inflammation of the appendix. Your hepatobiliary Surgical team has evaluated your scans and would like for you to come down to [facility] ED for further evaluation from there acute Care Surgical team. Sometimes to avoid surgery, we do treat this with antibiotics instead of surgery. The success rate can very with that but is a good option for you at this time. Ultimately, the surgical team will decide what is best for you. Please go directly to the emergency department at [facility]. Do not eat or drink anything along the way in case they do elect to go to surgery. If you have any sudden medical emergent symptoms on the way, please have your set key driver call 911. Activity Level: Activity as Tolerated Prescriptions: No Action magnesium oxide 500 mg magnesium tablet 1,000 mg PO QHS fluticasone propionate 50 mcg/actuation spray,suspension 1 spray intranasal QDAY PRN Rx Instructions: administer into each nostril ascorbic acid (vitamin C) 1,000 mg capsule 1,000 mg PO QDAY prasterone (DHEA) 10 mg tablet 10 mg PO QDAY Berberine 500 mg PO DAILY T3/T4 PO DAILY biest 8:2 versa 4mg 1 applic topical 6XW Patient Comments: cream progesterone 50 mg PO DAILY tumeric 600 mg PO DAILY vitamin D3 and vitamin K2 PO Patient Comments: 6000 units IU Vitamin K2 100mcg triamcinolone acetonide 0.025 % cream 1 applic topical BID Qty: 15 0RF Rx Instructions: apply to affected skin in very thin layer twice daily for 7 days on, 7 days off as needed for rash doxycycline monohydrate 100 mg capsule 100 mg PO QDAY Qty: 30 0RF Rx Instructions: Take with 8 oz of water. Stand Alone Forms: [employer] Info Instructions
[2025-09-22 21:26] LABS: Creatinine, Point-of-Care* 0.8 mg/dl (0.6-1.3)
[2025-09-22 21:28] LABS: Hematocrit* 37.6 % (33.0-51.0); Hemoglobin* 12.1 gm/dL (12.0-16.0); Immature Granulocytes Abs Auto 0.01 K/uL (0.00-0.30); Immature Granulocytes Pct Auto 0.2 %; Mean Corpuscular HGB Conc 32 gm/dL (32-36); Mean Corpuscular Hemoglobin 34 pg (26-34); Mean Corpuscular Volume 106 fL (80-100); RDW Coefficient of Variation % 12.3 % (11.5-15.5); Red Blood Count* 3.56 m/uL (4.00-5.20); White Blood Count* 4.68 K/uL (4.50-11.00)
[2025-09-22 21:30] LABS: Lymphocytes Absolute Auto 2.10 K/uL (0.90-2.90); Slide Review Reflex No
[2025-09-22 21:41] LABS: Albumin* 4.6 g/dL (3.3-5.0); Chloride* 94 mmol/L (96-114); Potassium* 4.1 mmol/L (3.6-5.1); Sodium* 137 mmol/L (135-149)
[2025-09-22 21:43] LABS: Blood Urea Nitrogen* 19 mg/dL (7-30); Creatinine* 0.6 mg/dL (0.5-1.5); Est. Creatinine Clearance* 45.99; Estimated Glomerular Filt Rate 100 ml/min
[2025-09-22 21:44] LABS: Alanine Aminotransferase* 61 U/L (4-35); Alkaline Phosphatase* 240 U/L (40-150); Anion Gap 11 mEq/L (7-15); Aspartate Amino Transferase* 54 U/L (12-35); Bilirubin Total* 0.3 mg/dL (0.1-1.5); Carbon Dioxide* 32 mmol/L (20-32); Total Protein* 7.8 g/dL (6.0-8.3)
[2025-09-22 21:45] LABS: Calcium* 9.7 mg/dL (8.4-10.6); Glucose* 146 mg/dL (60-115)
[2025-09-22 22:01] LABS: Procalcitonin* < 0.03 ng/mL (<0.50)
[2025-09-22 22:26] VITALS: BP 110/73; PULSE 64; RESP 14; O2SAT 96
[2025-09-22 23:56] VITALS: BP 127/77; PULSE 62; RESP 16; O2SAT 98
== END 2025-09-23 00:08 | disposition short-term general hospital (02) ==
PROVIDERS: Emergency Provider Family Medicine; PCP Family Medicine
DX: K35.80 Unspecified acute appendicitis (principal); K59.00 Constipation, unspecified; Z90.411 Acquired partial absence of pancreas; Z85.07 Personal history of malignant neoplasm of pancreas
CPT/HCPCS: 36415; 74177; 80048; 80053; 81001; 81003; 81015; 82565; 83690; 84145; 85025; 86140; 87086; 99284; 99285; Q9967

== ENCOUNTER 2025-10-17 10:30 | Outpatient (RCR) | payer OTHER, SELFPAY ==
[2025-04-20 12:46] LABS: Hematocrit* 40.7 % (33.0-51.0); Hemoglobin* 13.4 gm/dL (12.0-16.0); Immature Granulocytes Abs Auto 0.02 K/uL (0.00-0.30); Immature Granulocytes Pct Auto 0.3 %; Mean Corpuscular HGB Conc 33 gm/dL (32-36); Mean Corpuscular Hemoglobin 32 pg (26-34); Mean Corpuscular Volume 96 fL (80-100); RDW Coefficient of Variation % 12.3 % (11.5-15.5); Red Blood Count* 4.25 m/uL (4.00-5.20); White Blood Count* 5.91 K/uL (4.50-11.00)
[2025-04-20 12:55] LABS: Lymphocytes Absolute Auto 1.20 K/uL (0.90-2.90); Slide Review Reflex No
[2025-04-20 13:06] LABS: Chloride* 102 mmol/L (96-114)
[2025-04-20 13:07] LABS: Albumin* 4.5 g/dL (3.3-5.0); Potassium* 4.2 mmol/L (3.6-5.1); Sodium* 136 mmol/L (135-149)
[2025-04-20 13:09] LABS: Alanine Aminotransferase* 23 U/L (4-35); Anion Gap 7 mEq/L (7-15); Aspartate Amino Transferase* 24 U/L (12-35); Blood Urea Nitrogen* 19 mg/dL (7-30); Carbon Dioxide* 27 mmol/L (20-32); Creatinine* 0.7 mg/dL (0.5-1.5); Est. Creatinine Clearance* 49.80; Estimated Glomerular Filt Rate 97 ml/min
[2025-04-20 13:10] LABS: Alkaline Phosphatase* 85 U/L (40-150); Bilirubin Total* 0.5 mg/dL (0.1-1.5); Calcium* 9.8 mg/dL (8.4-10.6); Glucose* 147 mg/dL (60-115); Total Protein* 7.7 g/dL (6.0-8.3)
--- NOTE | 2025-04-20 13:47 | ONC.NURNOTE ---
new start chemotherapy planned for Friday teaching today after provider visit per Ho request Yara has had teaching with [facility] nurse reviewed new chemo binder- calling with side effects and going to ER if fever over 100.5 reviewed self care, after hours management, managing nausea, managing fatigue reviewed chemotherapy schedule recommended that Yara hold her supplements during the chemotherapy briefly reviewed side effects of CIPN, cold sensitivity, irinotecan assoc diarrhea, fatigue, hair loss, N/V questions addressed CARSON and treatment consents signed labs done today request for RX for wig was signed by Dr Anderson- for Yara to grain picker on Friday
[2025-04-25 08:35] VITALS: BP 117/70; PULSE 72; RESP 16; TEMP 36.7; O2SAT 98
[2025-04-25 09:09] LABS: Appearance Urine Slightly Cloudy (Clear)
[2025-04-25] MEDS: 5 % DEXTROSE 250 ML IV (09:55)
[2025-04-25] MEDS: dexAMETHasone 20 MG in 0.9 % SODIUM CHLORIDE 100 ml 100 ML 408 MG IVPB (09:59)
[2025-04-25] MEDS: OXALIPLATIN 5 MG/ML INJ 140 MG, TUBING PRIMARY 1 EACH in 5 % DEXTROSE 250 ML 250 ML 139 MG IV (10:24)
[2025-04-25] MEDS: ATROPINE 0.4 mg/ml IV (12:39)
[2025-04-25] MEDS: LEUCOVORIN CALCIUM 100 MG, TUBING SECONDARY 1 EACH in 5 % DEXTROSE 250 ML 250 ML 170 MG IV (12:39)
--- NOTE | 2025-04-25 15:59 | ONC.NURNOTE ---
Pt present at [facility] for her first cycle of FOLFIRINOX. With about 5 minutes remaining of her Irinotecan pt c/o tongue thickness/heaviness. This is likely a side effect of the Irinotecan. RN had patient stay for about 20 minutes after infusion completed to be monitored. At the time of d/c pt states that the symptom seemed to be improving slightly. Will contact pt tomorrow to check in and pt will be at [facility] for pump off on Friday. RN also reviewed home antiemetic recommendations. See calendar for details.
--- NOTE | 2025-04-26 11:02 | ONC.NURNOTE ---
Called pt today after her first chemo yesterday. Yara states that she is feeling well. She has had no nausea. She did not sleep very well last night but feels it was likely due to frequent urination. Pt updated on her positive UC and that sensitivities are pending. Pt states that she experienced some burning at the port site overnight but it has since resolved. She notes no redness or swelling. Pt was just out for a walk and is generally feeling well. Yara was updated about her [employer] approval. She will get the [employer] tomorrow at pump off. RN reassured her that we will also assess her port tomorrow as well. Support offered. Answered questions.
[2025-04-27 12:00] VITALS: BP 112/70; PULSE 58; RESP 17; TEMP 36.7; O2SAT 95
[2025-04-27] MEDS: HEPARIN 500 UNIT/5 ML SYRINGE IVF (12:15)
[2025-04-27] MEDS: PEGFILGRASTIM-CBQV (ONBODY) 6 MG/0.6 ML SUBCUT (12:16)
[2025-04-27] MEDS: SODIUM CHLORIDE 0.9 % (FLUSH) 10 ML SYRINGE IVF (12:16)
--- NOTE | 2025-04-27 14:25 | PC.SOCIAL ---
environmental field services technician consult: SW went to meet with patient on 04/25, however, patient had a room full of family so SW did not meet with her at this time. SW spoke with nursing about meeting with patient on 04/27. Nurse states that once they are done with their portion they will call SW at ext [phone]. SW did not receive a call so went to check if patient had come and was informed she had already left. SW to attempt to meet with patient at her next appt on 05/09.
--- NOTE | 2025-05-03 11:49 | ONC.NURNOTE ---
Pt called with concerns of not being able to take her Nitrofurantoin for a UTI due to nausea. Pt does not have any symptoms of a UTI. Pt has not been taking any antiemetics since Friday. Discussed with Dayna Sandy APRN and pt instructed to stop taking the antibiotic since she no longer has symptoms. Pt still had 6 remaining pills left of the Nitrofurantoin. Pt also instructed to take the prochlorperazine and zofran as needed. Pt verbalized understanding of plan of care. Pt instructed to call [facility] with any questions or concerns.
[2025-05-09 07:59] LABS: Hematocrit* 37.6 % (33.0-51.0); Hemoglobin* 12.4 gm/dL (12.0-16.0); Immature Granulocytes Abs Auto 0.34 K/uL (0.00-0.30); Immature Granulocytes Pct Auto 5.2 %; Lymphocytes Absolute Auto 1.76 K/uL (0.90-2.90); Mean Corpuscular HGB Conc 33 gm/dL (32-36); Mean Corpuscular Hemoglobin 32 pg (26-34); Mean Corpuscular Volume 97 fL (80-100); RDW Coefficient of Variation % 12.9 % (11.5-15.5); Red Blood Count* 3.89 m/uL (4.00-5.20); White Blood Count* 6.49 K/uL (4.50-11.00)
[2025-05-09 08:02] LABS: Slide Review Reflex Yes
[2025-05-09 08:10] LABS: Albumin* 3.9 g/dL (3.3-5.0); Chloride* 103 mmol/L (96-114)
[2025-05-09 08:11] LABS: Potassium* 4.0 mmol/L (3.6-5.1); Sodium* 137 mmol/L (135-149)
[2025-05-09 08:13] LABS: Alanine Aminotransferase* 60 U/L (4-35); Anion Gap 5 mEq/L (7-15); Aspartate Amino Transferase* 59 U/L (12-35); Bilirubin Total* 0.3 mg/dL (0.1-1.5); Blood Urea Nitrogen* 16 mg/dL (7-30); Carbon Dioxide* 29 mmol/L (20-32); Creatinine* 0.7 mg/dL (0.5-1.5); Est. Creatinine Clearance* 50.67; Estimated Glomerular Filt Rate 97 ml/min
[2025-05-09 08:14] LABS: Alkaline Phosphatase* 113 U/L (40-150); Calcium* 9.2 mg/dL (8.4-10.6); Glucose* 125 mg/dL (60-115); Total Protein* 6.7 g/dL (6.0-8.3)
[2025-05-09 08:31] LABS: Slide Review Acceptable Review (Acceptable)
[2025-05-09] MEDS: dexAMETHasone 20 MG in 0.9 % SODIUM CHLORIDE 100 ml 100 ML 408 MG IVPB (09:48)
[2025-05-09] MEDS: ATROPINE 0.4 mg/ml IV (10:29)
[2025-05-09] MEDS: LEUCOVORIN CALCIUM 100 MG, TUBING SECONDARY 1 EACH in 5 % DEXTROSE 250 ML 250 ML 170 MG IV (10:35)
[2025-05-09] MEDS: OXALIPLATIN 5 MG/ML INJ 140 MG, TUBING PRIMARY 1 EACH in 5 % DEXTROSE 250 ML 250 ML 139 MG IV (12:17)
--- NOTE | 2025-05-09 14:53 | PC.SOCIAL ---
building services technician consult: SW informed patient's RN that she would like to meet with patient today per screening protocol. RN states that around 1100 would be a good time. SW received call from RN stating that she let patient know that SW would be stopping by and patient declined. SW to close consult.
[2025-05-11] MEDS: HEPARIN 500 UNIT/5 ML SYRINGE IVF (13:46)
[2025-05-11] MEDS: SODIUM CHLORIDE 0.9 % (FLUSH) 10 ML SYRINGE IVF (13:46)
[2025-05-11 13:54] VITALS: BP 122/76; PULSE 61; RESP 16; TEMP 36.6; O2SAT 97
[2025-05-11] MEDS: PEGFILGRASTIM-CBQV (ONBODY) 6 MG/0.6 ML SUBCUT (14:10)
--- NOTE | 2025-05-11 14:22 | ONC.NURNOTE ---
Patient came in to have 5FU pump removed and stated she had a little episode at 1740 that lasted about a half hour. She describes it as starting out with some eye twitching and at that time her throat felt like it was closing but then says not really but felt tight with some mouth tingling,difficulty getting her words out (I had to concentrate carefully to get them out) and her jaw hurt to eat She stated she would have called but office was closed and was going to go to ED but it subsided and never came back. Asked if she tried any Benadryl but she said no she didn't have any. Let her know this will be discussed with provider so that a plan can be in place for next time.
[2025-05-23 08:38] LABS: Hematocrit* 34.1 % (33.0-51.0); Hemoglobin* 11.4 gm/dL (12.0-16.0); Immature Granulocytes Abs Auto 0.60 K/uL (0.00-0.30); Immature Granulocytes Pct Auto 4.8 %; Lymphocytes Absolute Auto 1.60 K/uL (0.90-2.90); Mean Corpuscular HGB Conc 33 gm/dL (32-36); Mean Corpuscular Hemoglobin 33 pg (26-34); Mean Corpuscular Volume 97 fL (80-100); RDW Coefficient of Variation % 13.8 % (11.5-15.5); Red Blood Count* 3.50 m/uL (4.00-5.20); White Blood Count* 12.58 K/uL (4.50-11.00)
[2025-05-23 08:40] LABS: Slide Review Reflex No
[2025-05-23 08:53] LABS: Albumin* 3.6 g/dL (3.3-5.0); Chloride* 106 mmol/L (96-114); Potassium* 3.9 mmol/L (3.6-5.1); Sodium* 138 mmol/L (135-149)
[2025-05-23 08:56] LABS: Alanine Aminotransferase* 88 U/L (4-35); Alkaline Phosphatase* 116 U/L (40-150); Anion Gap 2 mEq/L (7-15); Aspartate Amino Transferase* 61 U/L (12-35); Bilirubin Total* 0.2 mg/dL (0.1-1.5); Blood Urea Nitrogen* 14 mg/dL (7-30); Carbon Dioxide* 30 mmol/L (20-32); Creatinine* 0.6 mg/dL (0.5-1.5); Est. Creatinine Clearance* 50.42; Estimated Glomerular Filt Rate 100 ml/min; Total Protein* 6.0 g/dL (6.0-8.3)
[2025-05-23 08:57] LABS: Calcium* 8.9 mg/dL (8.4-10.6); Glucose* 147 mg/dL (60-115)
[2025-05-23] MEDS: 5 % DEXTROSE 250 ML IV (09:57)
[2025-05-23] MEDS: SODIUM CHLORIDE 0.9 % (FLUSH) 10 ML SYRINGE IVF ×2 (09:57→15:21)
[2025-05-23] MEDS: dexAMETHasone 20 MG in 0.9 % SODIUM CHLORIDE 100 ml 100 ML 408 MG IVPB (10:08)
[2025-05-23] MEDS: OXALIPLATIN 5 MG/ML INJ 140 MG, TUBING PRIMARY 1 EACH in 5 % DEXTROSE 250 ML 250 ML 93 MG IV (10:30)
[2025-05-23] MEDS: ATROPINE 0.4 mg/ml IV (13:35)
[2025-05-23] MEDS: LEUCOVORIN CALCIUM 100 MG, TUBING SECONDARY 1 EACH in 5 % DEXTROSE 250 ML 250 ML 170 MG IV (13:35)
--- NOTE | 2025-05-23 15:22 | ONC.NURNOTE ---
Addendum entered by Keiry Lema RN 05/24/25 16:04: Dr. Anderson reviewed and will talk with patient next visit Original Note: Pt present at [facility] for cycle 3 of FOLFIRINOX. Oxaliplatin given first (over 3 hours), Irinotecan and Leucovorin second. Pt noted tongue thickness/heaviness with ~30 minutes left of her Irinotecan. Almost exactly like the reaction with the first cycle. Will discuss with Dr. Anderson.
[2025-05-25] MEDS: SODIUM CHLORIDE 0.9 % (FLUSH) 10 ML SYRINGE IVF (12:45)
[2025-05-25] MEDS: HEPARIN 500 UNIT/5 ML SYRINGE IVF (12:45)
[2025-05-25] MEDS: PEGFILGRASTIM-CBQV (ONBODY) 6 MG/0.6 ML SUBCUT (12:59)
[2025-05-25 14:04] VITALS: BP 123/73; PULSE 68; RESP 16; TEMP 36.3; O2SAT 97
[2025-06-06 08:18] LABS: Hematocrit* 33.7 % (33.0-51.0); Hemoglobin* 11.1 gm/dL (12.0-16.0); Immature Granulocytes Abs Auto 0.32 K/uL (0.00-0.30); Immature Granulocytes Pct Auto 5.1 %; Lymphocytes Absolute Auto 1.43 K/uL (0.90-2.90); Mean Corpuscular HGB Conc 33 gm/dL (32-36); Mean Corpuscular Hemoglobin 33 pg (26-34); Mean Corpuscular Volume 99 fL (80-100); RDW Coefficient of Variation % 15.1 % (11.5-15.5); Red Blood Count* 3.39 m/uL (4.00-5.20); White Blood Count* 6.27 K/uL (4.50-11.00)
[2025-06-06 08:19] LABS: Slide Review Reflex No
[2025-06-06 08:30] LABS: Chloride* 105 mmol/L (96-114)
[2025-06-06 08:31] LABS: Albumin* 3.6 g/dL (3.3-5.0); Potassium* 3.8 mmol/L (3.6-5.1); Sodium* 138 mmol/L (135-149)
[2025-06-06 08:33] LABS: Blood Urea Nitrogen* 12 mg/dL (7-30); Creatinine* 0.6 mg/dL (0.5-1.5); Est. Creatinine Clearance* 50.42; Estimated Glomerular Filt Rate 100 ml/min
[2025-06-06 08:34] LABS: Alanine Aminotransferase* 120 U/L (4-35); Alkaline Phosphatase* 119 U/L (40-150); Anion Gap 3 mEq/L (7-15); Aspartate Amino Transferase* 72 U/L (12-35); Bilirubin Total* 0.3 mg/dL (0.1-1.5); Calcium* 9.1 mg/dL (8.4-10.6); Carbon Dioxide* 30 mmol/L (20-32); Glucose* 107 mg/dL (60-115); Total Protein* 6.1 g/dL (6.0-8.3)
[2025-06-06] MEDS: 5 % DEXTROSE 250 ML IV (09:49)
[2025-06-06] MEDS: SODIUM CHLORIDE 0.9 % (FLUSH) 10 ML SYRINGE IVF ×2 (09:49→14:15)
[2025-06-06] MEDS: dexAMETHasone 20 MG in 0.9 % SODIUM CHLORIDE 100 ml 100 ML 408 MG IVPB (10:13)
[2025-06-06] MEDS: OXALIPLATIN 5 MG/ML INJ 140 MG, TUBING PRIMARY 1 EACH in 5 % DEXTROSE 250 ML 250 ML 93 MG IV (10:58)
[2025-06-06] MEDS: ATROPINE 0.4 mg/ml IV (14:09)
[2025-06-06] MEDS: LEUCOVORIN CALCIUM 100 MG, TUBING SECONDARY 1 EACH in 5 % DEXTROSE 250 ML 250 ML 170 MG IV (14:10)
[2025-06-08 13:31] VITALS: BP 114/74; PULSE 62; RESP 16; TEMP 36.9; O2SAT 97
[2025-06-08] MEDS: HEPARIN 500 UNIT/5 ML SYRINGE IVF (13:52)
[2025-06-08] MEDS: SODIUM CHLORIDE 0.9 % (FLUSH) 10 ML SYRINGE IVF (13:52)
[2025-06-08] MEDS: PEGFILGRASTIM-CBQV (ONBODY) 6 MG/0.6 ML SUBCUT (14:19)
[2025-06-13] MEDS: HEPARIN 500 UNIT/5 ML SYRINGE IVF (08:45)
[2025-06-13] MEDS: SODIUM CHLORIDE 0.9 % (FLUSH) 10 ML SYRINGE IVF (08:45)
[2025-06-13 09:04] LABS: Albumin* 3.8 g/dL (3.3-5.0)
[2025-06-13 09:07] LABS: Alanine Aminotransferase* 95 U/L (4-35); Alkaline Phosphatase* 153 U/L (40-150); Aspartate Amino Transferase* 38 U/L (12-35); Bilirubin Direct* 0.0 mg/dL (0.0-0.5); Bilirubin Total* 0.4 mg/dL (0.1-1.5); Total Protein* 6.4 g/dL (6.0-8.3)
[2025-06-20 08:18] LABS: Hematocrit* 32.9 % (33.0-51.0); Hemoglobin* 10.8 gm/dL (12.0-16.0); Immature Granulocytes Abs Auto 0.72 K/uL (0.00-0.30); Immature Granulocytes Pct Auto 6.8 %; Mean Corpuscular HGB Conc 33 gm/dL (32-36); Mean Corpuscular Hemoglobin 33 pg (26-34); Mean Corpuscular Volume 101 fL (80-100); RDW Coefficient of Variation % 16.0 % (11.5-15.5); Red Blood Count* 3.26 m/uL (4.00-5.20); White Blood Count* 10.56 K/uL (4.50-11.00)
[2025-06-20 08:21] LABS: Lymphocytes Absolute Auto 1.50 K/uL (0.90-2.90); Slide Review Reflex No
[2025-06-20 08:31] LABS: Albumin* 3.6 g/dL (3.3-5.0); Chloride* 105 mmol/L (96-114); Sodium* 138 mmol/L (135-149)
[2025-06-20 08:32] LABS: Potassium* 4.0 mmol/L (3.6-5.1)
[2025-06-20 08:34] LABS: Alanine Aminotransferase* 164 U/L (4-35); Alkaline Phosphatase* 171 U/L (40-150); Anion Gap 4 mEq/L (7-15); Aspartate Amino Transferase* 116 U/L (12-35); Bilirubin Total* 0.2 mg/dL (0.1-1.5); Blood Urea Nitrogen* 13 mg/dL (7-30); Carbon Dioxide* 29 mmol/L (20-32); Creatinine* 0.6 mg/dL (0.5-1.5); Est. Creatinine Clearance* 49.89; Estimated Glomerular Filt Rate 100 ml/min; Total Protein* 6.1 g/dL (6.0-8.3)
[2025-06-20 08:35] LABS: Calcium* 8.9 mg/dL (8.4-10.6); Glucose* 122 mg/dL (60-115)
[2025-06-20] MEDS: SODIUM CHLORIDE 0.9 % (FLUSH) 10 ML SYRINGE IVF ×3 (09:19→14:30)
[2025-06-20] MEDS: 5 % DEXTROSE 250 ML IV (09:19)
[2025-06-20] MEDS: dexAMETHasone 20 MG in 0.9 % SODIUM CHLORIDE 100 ml 100 ML 408 MG IVPB (09:26)
[2025-06-20] MEDS: ATROPINE 0.4 mg/ml IV (12:58)
[2025-06-20] MEDS: LEUCOVORIN CALCIUM 100 MG, TUBING SECONDARY 1 EACH in 5 % DEXTROSE 250 ML 250 ML 170 MG IV (12:58)
[2025-06-22 11:56] VITALS: BP 100/62; PULSE 60; TEMP 37.1; O2SAT 97
[2025-06-22] MEDS: HEPARIN 500 UNIT/5 ML SYRINGE IVF (12:21)
[2025-06-22] MEDS: SODIUM CHLORIDE 0.9 % (FLUSH) 10 ML SYRINGE IVF (12:21)
[2025-06-22] MEDS: PEGFILGRASTIM-CBQV (ONBODY) 6 MG/0.6 ML SUBCUT (12:25)
--- NOTE | 2025-07-05 11:13 | ONC.NURNOTE ---
Addendum entered by Stacia Grajeda RN 07/05/25 12:36: Patient called and states that she has not yet tried anything, as her current lotions seem to make it worse. Request was made to have patient send a picture of her rash so that it could be looked at since patient is unavailable to come into office. She states that she has make-up on currently and we would not be able to see the rash, asking that medication for chemo rash be sent. Notified the patient that we need to see the rash prior to prescribing something. She will take a picture and send after 3:30, service writer advisor will be out office by then. Will attempt to send to [facility]PERATOR or show MD in the AM to determine best possible treatment. Original Note: Patient called office to state that she was seen my [place] and they are recommending 3 more cycles of chemotherapy. She is already on the schedule for next week, more orders will be placed at that time. She also notes that she has had a rash for awhile. She was prescribed triamcinolone cream, and this did help her back but noted over the weekend that it moved from one check on her face to generalized area. She has a wedding this weekend and is anxious about getting this cleared up by then. Nursing to discuss with provider to determine if there is something that can be tried.
[2025-07-11 08:59] LABS: Hematocrit* 32.8 % (33.0-51.0); Hemoglobin* 10.7 gm/dL (12.0-16.0); Immature Granulocytes Abs Auto 0.08 K/uL (0.00-0.30); Immature Granulocytes Pct Auto 1.7 %; Lymphocytes Absolute Auto 1.15 K/uL (0.90-2.90); Mean Corpuscular HGB Conc 33 gm/dL (32-36); Mean Corpuscular Hemoglobin 34 pg (26-34); Mean Corpuscular Volume 103 fL (80-100); RDW Coefficient of Variation % 16.4 % (11.5-15.5); Red Blood Count* 3.18 m/uL (4.00-5.20); White Blood Count* 4.80 K/uL (4.50-11.00)
[2025-07-11 09:02] LABS: Slide Review Reflex No
[2025-07-11 09:11] LABS: Albumin* 3.6 g/dL (3.3-5.0); Chloride* 103 mmol/L (96-114); Potassium* 4.1 mmol/L (3.6-5.1); Sodium* 135 mmol/L (135-149)
[2025-07-11 09:14] LABS: Alanine Aminotransferase* 135 U/L (4-35); Alkaline Phosphatase* 191 U/L (40-150); Anion Gap 2 mEq/L (7-15); Aspartate Amino Transferase* 91 U/L (12-35); Bilirubin Total* 0.3 mg/dL (0.1-1.5); Blood Urea Nitrogen* 15 mg/dL (7-30); Carbon Dioxide* 30 mmol/L (20-32); Creatinine* 0.6 mg/dL (0.5-1.5); Est. Creatinine Clearance* 51.14; Estimated Glomerular Filt Rate 100 ml/min; Total Protein* 6.2 g/dL (6.0-8.3)
[2025-07-11 09:15] LABS: Calcium* 9.0 mg/dL (8.4-10.6); Glucose* 135 mg/dL (60-115)
[2025-07-11] MEDS: 5 % DEXTROSE 250 ML IV (10:18)
[2025-07-11] MEDS: SODIUM CHLORIDE 0.9 % (FLUSH) 10 ML SYRINGE IVF ×2 (10:18→16:22)
[2025-07-11] MEDS: dexAMETHasone 20 MG in 0.9 % SODIUM CHLORIDE 100 ml 100 ML 408 MG IVPB (10:33)
[2025-07-11] MEDS: ATROPINE 0.4 mg/ml IV (14:26)
[2025-07-11] MEDS: LEUCOVORIN CALCIUM 100 MG, TUBING SECONDARY 1 EACH in 5 % DEXTROSE 250 ML 250 ML 170 MG IV (14:30)
[2025-07-13 14:54] VITALS: BP 101/64; PULSE 59; RESP 16; TEMP 36.6; O2SAT 98
[2025-07-13] MEDS: PEGFILGRASTIM-CBQV (ONBODY) 6 MG/0.6 ML SUBCUT (15:22)
[2025-07-13] MEDS: SODIUM CHLORIDE 0.9 % (FLUSH) 10 ML SYRINGE IVF (15:33)
[2025-07-13] MEDS: HEPARIN 500 UNIT/5 ML SYRINGE IVF (15:33)
[2025-07-25 08:20] VITALS: BP 92/60; PULSE 64; RESP 15; TEMP 37.1; O2SAT 97
[2025-07-25] MEDS: HEPARIN 500 UNIT/5 ML SYRINGE IVF (08:30)
[2025-07-25] MEDS: SODIUM CHLORIDE 0.9 % (FLUSH) 10 ML SYRINGE IVF (08:30)
[2025-07-25 08:54] LABS: Hematocrit* 34.0 % (33.0-51.0); Hemoglobin* 11.1 gm/dL (12.0-16.0); Immature Granulocytes Abs Auto 0.52 K/uL (0.00-0.30); Immature Granulocytes Pct Auto 5.9 %; Mean Corpuscular HGB Conc 33 gm/dL (32-36); Mean Corpuscular Hemoglobin 34 pg (26-34); Mean Corpuscular Volume 103 fL (80-100); RDW Coefficient of Variation % 15.3 % (11.5-15.5); Red Blood Count* 3.29 m/uL (4.00-5.20); White Blood Count* 8.85 K/uL (4.50-11.00)
[2025-07-25 08:58] LABS: Lymphocytes Absolute Auto 1.50 K/uL (0.90-2.90); Slide Review Reflex No
[2025-07-25 09:04] LABS: Albumin* 3.8 g/dL (3.3-5.0); Chloride* 102 mmol/L (96-114); Potassium* 4.3 mmol/L (3.6-5.1); Sodium* 137 mmol/L (135-149)
[2025-07-25 09:06] LABS: Alanine Aminotransferase* 111 U/L (4-35); Aspartate Amino Transferase* 91 U/L (12-35); Blood Urea Nitrogen* 15 mg/dL (7-30); Carbon Dioxide* 29 mmol/L (20-32); Creatinine* 0.6 mg/dL (0.5-1.5); Est. Creatinine Clearance* 47.62; Estimated Glomerular Filt Rate 100 ml/min
[2025-07-25 09:07] LABS: Alkaline Phosphatase* 222 U/L (40-150); Anion Gap 6 mEq/L (7-15); Bilirubin Total* 0.3 mg/dL (0.1-1.5); Calcium* 8.9 mg/dL (8.4-10.6); Glucose* 122 mg/dL (60-115); Total Protein* 6.5 g/dL (6.0-8.3)
[2025-07-26 08:06] VITALS: BP 105/70; PULSE 65; RESP 16; TEMP 36.4; O2SAT 98
[2025-07-26] MEDS: SODIUM CHLORIDE 0.9 % (FLUSH) 10 ML SYRINGE IVF ×2 (09:05→14:32)
[2025-07-26] MEDS: 5 % DEXTROSE 250 ML IV (09:05)
[2025-07-26] MEDS: dexAMETHasone 20 MG in 0.9 % SODIUM CHLORIDE 100 ml 100 ML 402 MG IVPB (09:10)
[2025-07-26] MEDS: ATROPINE 0.4 mg/ml IV (12:46)
[2025-07-26] MEDS: LEUCOVORIN CALCIUM 100 MG, TUBING SECONDARY 1 EACH in 5 % DEXTROSE 250 ML 250 ML 170 MG IV (12:49)
[2025-07-28 14:24] VITALS: BP 113/0; PULSE 62; RESP 15; TEMP 36.9; O2SAT 98
[2025-07-28] MEDS: HEPARIN 500 UNIT/5 ML SYRINGE IVF (14:45)
[2025-07-28] MEDS: SODIUM CHLORIDE 0.9 % (FLUSH) 10 ML SYRINGE IVF (14:45)
[2025-07-28] MEDS: PEGFILGRASTIM-CBQV (ONBODY) 6 MG/0.6 ML SUBCUT (14:45)
[2025-08-11 08:32] VITALS: BP 108/68; PULSE 61; RESP 16; TEMP 36.6; O2SAT 99
[2025-08-11] MEDS: IRON DEXTRAN COMPLEX 25 MG in 0.9 % SODIUM CHLORIDE 100 ml 100 ML 402 MG IVPB (08:58)
[2025-08-11] MEDS: SODIUM CHLORIDE 0.9 % (FLUSH) 10 ML SYRINGE IVF ×2 (08:59→12:00)
[2025-08-11 09:20] VITALS: BP 98/63; PULSE 64; RESP 16; O2SAT 98
[2025-08-11] MEDS: IRON DEXTRAN COMPLEX 975 MG in 0.9 % SODIUM CHLORIDE 250 ml 250 ML 270 MG IVPB (10:16)
[2025-08-11 11:23] VITALS: BP 99/64; PULSE 61; RESP 16; O2SAT 96
[2025-08-11] MEDS: HEPARIN 500 UNIT/5 ML SYRINGE IVF (12:00)
--- NOTE | 2025-10-13 09:33 | ONC.NURNOTE ---
Received a call from patient stating she had her surgery in August and met with her oncology team in [place] and they would like her to restart 2 of the 3 medications/chemo she was on after . She would like to start October 31 if that works. Will look at scheduling and get plan locally started here.
== END 2025-10-17 23:59 | disposition home or self-care (01) ==
LOC: CCIC 10:30
PROVIDERS: Clinical Nurse Specialist; Physician Assistant; PCP Family Medicine; Referring Provider Family Medicine; Visit Provider Internal Medicine Hematology & Oncology
DX: C25.1 Malignant neoplasm of body of pancreas (principal)
CPT/HCPCS: 36415; 36591; 80053; 80076; 81001; 81003; 85025; 87086; 96365; 96367; 96368; 96375; 96377; 96413; 96415; 96416; 96417; 99202; 99205; 99214; 99215; G0463; J0461; J0640; J1100; J1642; J1750; J2469; J7030; J7050; J9190; J9206; J9263; Q5111